=== PATIENT | female | born 1955 | race Caucasian/White ===

== ENCOUNTER 2016-08-14 09:38 | Inpatient (IN) | payer BC, MEDICARE ==
[~2016-08-14] VITALS: Ht 172.7 cm; Wt 70.8 kg
[~2016-08-14 09:38] MED LIST: ACET325T21 PO; ADAL40PE SQ; ASPI81TA50 PO; ATEN50TA PO; ATOR40TA59 PO; BENZ1LOZ48 MM; CALC500T50 PO; DICY10CA53 PO; DIGO250T PO; DILT240C2 PO; DILT300C23 PO; DILT30TA26 PO; DILT360C2 PO; DIPH25CA58 PO; DOCU-27 PO; Erythromycin Base PO; FLUO20TA11 PEG; Fluoxetine Hcl PEG; HYOS0.125 PO; INSU100I13 SQ; INSU100I17 SQ; INSU100V13 SQ; INSU100V31 SQ; INSU100V8 SQ; INSU100V9 SQ; LANS30CA PO; LISI-338 PO; LORA0.5T96 PO; NAPR500T3 PO; ONDA4TAB10 PO; ONDA8TAB15 PO; PANC1CAP PO; PANT40TA3 PO; PROM25AM6 IJ; SOTA160T PO; SOTA80TA48 PO; SUCR1TAB29 PO; TRAM-29 PO; VITMAIN D; ZOLP10TA PO; ZOLP5TAB PO; [UNRECOGNIZED DRUG - CODE] IV; [UNRECOGNIZED DRUG - OTHER]
[2016-08-14] MEDS ORDERED: IV NORMAL SALINE 1000ML BAG 1,000 ML IV SCH (09:44)
[2016-08-14] MEDS ORDERED: 0.9 % SOD CHL for STERILE FIELD 10 ML DISP.SYRIN. ONE (10:01)
[2016-08-14 10:55] LABS: CALCIUM 9.3 mg/dL (8.5-10.1); CREATININE 2.5 mg/dL (0.6-1.0); GFR 19.5; POTASSIUM 4.4 mmol/L (3.5-5.1)
--- NOTE | 2016-08-14 11:01 | RAD ---
Indication nausea and vomiting. Duration of symptoms one week. A single view of the chest was obtained and is compared to a study 08/17/2015. The heart, pulmonary vessels and mediastinum appear unremarkable. There is no focal infiltrate. There has not been a significant change. A left Port-A-Cath and a bipolar cardiac pacing device is noted. IMPRESSION: No acute or focal process. No significant change
[2016-08-14 11:02] LABS: ALBUMIN 3.2 g/dL (3.4-5.0); DIRECT BILIRUBIN 0.2 mg/dL (0.0-0.2); MAGNESIUM 2.3 mg/dL (1.8-2.4); TOTAL BILIRUBIN 0.4 mg/dL (0.2-1.0); TOTAL PROTEIN 6.6 g/dL (6.4-8.2)
[2016-08-14 11:05] LABS: BASO # 0.1 x10^3/uL (0.0-0.2); BASO % 1 % (0-3); EOS % 0 % (0-3); HEMOGLOBIN 10.8 g/dL (12.0-15.5); LYMPH # 1.2 x10^3/uL (1.0-4.8); LYMPH % 9 % (24-48); MEAN CORPUSCULAR HEMOGLOBIN 29 pg (25-35); MEAN CORPUSCULAR HGB CONC 34 g/dL (31-37); MEAN CORPUSCULAR VOLUME 85 fL (79-100); MONO % 8 % (0-9); NEUT % 83 % (31-73); PLATELET COUNT 248 x10^3/uL (140-400); RED BLOOD COUNT 3.75 x10^6/uL (3.50-5.40); WHITE BLOOD COUNT 12.8 x10^3/uL (4.0-11.0)
[2016-08-14 11:11] LABS: CKMB MASS 1.5 ng/mL (0.0-3.6)
[2016-08-14 11:16] LABS: PROTHROMBIN TIME PATIENT 12.4 SEC (11.7-14.0)
[2016-08-14] MEDS ORDERED: HYDROmorphone 2 MG/ML VIAL IV ONE ×2 (11:30→13:45)
[2016-08-14] MEDS ORDERED: FAMOTIDINE 20 MG/2 ML VIAL IVP ONE (11:30)
[2016-08-14] MEDS ORDERED: ONDANSETRON PF 4 MG/2 ML VIAL. IV ONE (11:30)
--- NOTE | 2016-08-14 11:31 | EKG ---
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
[2016-08-14 13:38] LABS: BILIRUBIN,URINE NEGATIVE (NEG); GLUCOSE,URINE 100 mg/dL (NEG); NITRITE,URINE NEGATIVE (NEG); PROTEIN,URINE NEGATIVE (NEG-TRACE); UROBILINOGEN,URINE 0.2 mg/dL (0.2 mg/dL)
[2016-08-14 13:45] LABS: BARBITURATES NEG (NEG); BENZODIAZEPINES NEG (NEG); CANNABINOIDS POS (NEG); COCAINE NEG (NEG); METHADONE NEG (NEG); OPIATES POS (NEG); PHENCYCLIDINE NEG (NEG)
[2016-08-14 13:49] LABS: RBC,URINE OCC /HPF (0-2)
[2016-08-14 13:50] LABS: BACTERIA,URINE FEW /HPF (0-FEW); SQUAMOUS EPITHELIAL CELL,UR MOD /LPF
[2016-08-14] MEDS: ONDANSETRON PF 4 MG/2 ML VIAL. IV PRN ×2 (15:51→23:42)
--- NOTE | 2016-08-14 15:52 | PHYS DOC ---
Past Medical History Past Medical History: A-Fib, Anemia, Arrhythmia, Diabetes-Type I, Heart Disease , Hypertension, MRSA, Pancreatitis Additional Past Medical Histor: Tachy-Jamir Syndrome, Gastroparesis, DDD, Neuropathy, Tremors, Kidney dz Past Surgical History: Cholecystectomy, Hysterectomy, Pacemaker Additional Past Surgical Histo: Thyroidectomy; Peripheral neuropathy Alcohol Use: None Drug Use: None Adult General Chief Complaint Chief Complaint: NAUSEA/VOMITING/DIARRHA HPI HPI Patient is a 61 year old female with a history of A. fib, hypertension, fragile diabetes type 1, gastroparesis, G-tube, pancreatitis, heart disease, who presents today with moderate generalized abdominal pain and nausea vomiting and slight diarrhea that began one week ago. Patient denies any hematemesis or melena. Review of Systems Review of Systems Constitutional: Denies fever or chills [] Eyes: Denies change in visual acuity, redness, or eye pain [] HENT: Denies nasal congestion or sore throat [] Respiratory: Denies cough or shortness of breath [] Cardiovascular: No additional information not addressed in HPI [] GI: Denies abdominal pain, nausea, vomiting, bloody stools or diarrhea [] : Denies dysuria or hematuria [] Musculoskeletal: Denies back pain or joint pain [] Integument: Denies rash or skin lesions [] Neurologic: Denies headache, focal weakness or sensory changes [] Endocrine: Denies polyuria or polydipsia [] Current Medications Current Medications Current Medications Medications (Trade) Dose Ordered Sig/Ramone Start Time Stop Time Status Last Admin Dose Admin Famotidine (Pepcid) 20 mg 1X ONCE 08/14/16 11:30 08/14/16 11:31 DC 08/14/16 11:38 20 MG Hydromorphone HCl (Dilaudid) 2 mg 1X ONCE 08/14/16 13:45 08/14/16 13:46 DC 08/14/16 13:52 2 MG Ondansetron HCl (Zofran) 8 mg 1X ONCE 08/14/16 11:30 08/14/16 11:31 DC 08/14/16 11:36 8 MG Sodium Chloride (NORMAL SALINE FLUSH for STERILE FIELD) 10 ml STK-MED ONCE 08/14/16 10:01 08/14/16 10:02 DC Allergies Allergies Allergies Coded Allergies Type Severity Reaction Last Updated Verified Sulfa (Sulfonamide Antibiotics) Allergy Intermediate Itching 10/29/13 Yes bacitracin Allergy Intermediate Hives 08/31/15 Yes codeine Allergy Intermediate Itching 10/29/13 Yes hydrocodone bitartrate Allergy Intermediate Itching 10/29/13 Yes morphine Allergy Intermediate Itching 10/29/13 Yes neomycin Allergy Intermediate Hives 08/31/15 Yes polymyxin B Allergy Intermediate Hives 08/31/15 Yes phenylephrine Adverse Reaction Intermediate NEOSYNEPHRINE 09/16/15 Yes phenytoin sodium Adverse Reaction Intermediate TREMORS 09/16/15 Yes phenytoin sodium extended Adverse Reaction Intermediate TREMORS 09/16/15 Yes Physical Exam Physical Exam Constitutional: Well developed, well nourished, no acute distress, non-toxic appearance. [] HENT: Normocephalic, atraumatic, bilateral external ears normal, oropharynx moist, no oral exudates, nose normal. [] Eyes: PERRLA, EOMI, conjunctiva normal, no discharge. [] Neck: Normal range of motion, no tenderness, supple, no stridor. [] Cardiovascular:Heart rate regular rhythm, no murmur [] Lungs & Thorax: Bilateral breath sounds clear to auscultation [] Abdomen: Abdomen with the G-tube at school. Bowel sounds normal, soft, diffuse tenderness throughout the abdomen, no masses, no pulsatile masses. [] Skin: Warm, dry, no erythema, no rash. [] Back: No tenderness, no CVA tenderness. [] Extremities: No tenderness, no cyanosis, no clubbing, ROM intact, no edema. [] Neurologic: Alert and oriented X 3, normal motor function, normal sensory function, no focal deficits noted. [] Psychologic: Affect normal, judgement normal, mood normal. [] Current Patient Data Vital Signs Vital Signs Date Time Temp Pulse Resp B/P (MAP) Pulse Ox O2 Delivery O2 Flow Rate FiO2 08/14/16 13:49 81 18 117/81 (93) 99 Room Air 08/14/16 09:51 97.9 97.9 Lab Values Laboratory Tests Test 08/14/16 10:25 08/14/16 13:20 White Blood Count 12.8 x10^3/uL (4.0-11.0) H Red Blood Count 3.75 x10^6/uL (3.50-5.40) Hemoglobin 10.8 g/dL (12.0-15.5) L Hematocrit 32.0 % (36.0-47.0) L Mean Corpuscular Volume 85 fL (79-100) Mean Corpuscular Hemoglobin 29 pg (25-35) Mean Corpuscular Hemoglobin Concent 34 g/dL (31-37) Red Cell Distribution Width 14.0 % (11.5-14.5) Platelet Count 248 x10^3/uL (140-400) Neutrophils (%) (Auto) 83 % (31-73) H Lymphocytes (%) (Auto) 9 % (24-48) L Monocytes (%) (Auto) 8 % (0-9) Eosinophils (%) (Auto) 0 % (0-3) Basophils (%) (Auto) 1 % (0-3) Neutrophils # (Auto) 10.6 x10^3uL (1.8-7.7) H Lymphocytes # (Auto) 1.2 x10^3/uL (1.0-4.8) Monocytes # (Auto) 1.0 x10^3/uL (0.0-1.1) Eosinophils # (Auto) 0.0 x10^3/uL (0.0-0.7) Basophils # (Auto) 0.1 x10^3/uL (0.0-0.2) Prothrombin Time 12.4 SEC (11.7-14.0) Prothrombin Time INR 1.0 (0.8-1.1) Sodium Level 134 mmol/L (136-145) L Potassium Level 4.4 mmol/L (3.5-5.1) Chloride Level 93 mmol/L (98-107) L Carbon Dioxide Level 33 mmol/L (21-32) H Anion Gap 8 (6-14) Blood Urea Nitrogen 59 mg/dL (7-20) H Creatinine 2.5 mg/dL (0.6-1.0) H Estimated GFR (Cockcroft-Gault) 19.5 Glucose Level 274 mg/dL (70-99) H Calcium Level 9.3 mg/dL (8.5-10.1) Magnesium Level 2.3 mg/dL (1.8-2.4) Total Bilirubin 0.4 mg/dL (0.2-1.0) Direct Bilirubin 0.2 mg/dL (0.0-0.2) Aspartate Amino Transferase (AST) 19 U/L (15-37) Alanine Aminotransferase (ALT) 19 U/L (14-59) Alkaline Phosphatase 115 U/L (46-116) Creatine Kinase 109 U/L (26-192) Creatine Kinase MB (Mass) 1.5 ng/mL (0.0-3.6) Creatine Kinase MB Relative Index 1.4 % (0-4) Troponin I Quantitative < 0.017 ng/mL (0.000-0.055) WM-Eon-H-Type Natriuretic Peptide 486 pg/mL (0-124) H Total Protein 6.6 g/dL (6.4-8.2) Albumin 3.2 g/dL (3.4-5.0) L Lipase 62 U/L (73-393) L Urine Collection Type Unknown Urine Color Yellow Urine Clarity Clear Urine pH 5.0 Urine Specific Alpha 1.015 Urine Protein Negative mg/dL (NEG-TRACE) Urine Glucose (UA) 100 mg/dL (NEG) Urine Ketones (Stick) Trace mg/dL (NEG) Urine Blood Negative (NEG) Urine Nitrite Negative (NEG) Urine Bilirubin Negative (NEG) Urine Urobilinogen Dipstick 0.2 mg/dL (0.2 mg/dL) Urine Leukocyte Esterase Moderate (NEG) Urine RBC Occ /HPF (0-2) Urine WBC 5-10 /HPF (0-4) Urine Squamous Epithelial Cells Mod /LPF Urine Bacteria Few /HPF (0-FEW) Urine Hyaline Casts Few /HPF Urine Mucus Slight /LPF Urine Opiates Screen Pos (NEG) Urine Methadone Screen Neg (NEG) Urine Barbiturates Neg (NEG) Urine Phencyclidine Screen Neg (NEG) Urine Amphetamine/Methamphetamine Neg (NEG) Urine Benzodiazepines Screen Neg (NEG) Urine Cocaine Screen Neg (NEG) Urine Cannabinoids Screen Pos (NEG) Urine Ethyl Alcohol Neg (NEG) Laboratory Tests 08/14/16 10:25 Laboratory Tests 08/14/16 10:25 EKG EKG [] Radiology/Procedures Radiology/Procedures [] Course & Med Decision Making Course & Med Decision Making Pertinent Labs and Imaging studies reviewed. (See chart for details) This is a 61 year old female patient with complaints of nausea vomiting and diarrhea for 7 days. Patient has a G-tube. CBC with a WBC of 12.8, CMP with creatinine of 2.5, BUN of 59. Patient was started on IV fluids. She was given nausea medicine as well as pain medicine in the ED. She has continued to complain of abdominal pain as well as intermittent nausea. I spoke with Dr. Jacob who accepted patient for admission. He requested lactic acid which was ordered. Patient was admitted in stable condition. Dragon Disclaimer Dragon Disclaimer This electronic medical record was generated, in whole or in part, using a voice recognition dictation system. Departure Departure Impression: Primary Impression: Nausea and vomiting Disposition: ADMITTED INPATIENT Admitting Physician: Goldie Jacob Condition: STABLE Referrals: BERNARDO JACOB MD (PCP) CRISTINA BARKELY COMPUTER INFORMATION SCIENCE PROFESSOR August 14, 2016 15:51
[2016-08-14] MEDS ORDERED: INSU100I27 SQ ×2 (17:12)
[2016-08-14] MEDS ORDERED: HYDR2TAB13 PO (17:12)
[2016-08-14 17:41] VITALS: BP 117/64
[2016-08-14] MEDS ORDERED: diphenhydrAMINE HCL 25 MG CAPSULE PO PRN (18:45)
[2016-08-14 19:40] VITALS: BP 112/59
[2016-08-14] MEDS: HYDROmorphone 2 MG/ML VIAL IV PRN ×2 (19:44→23:42)
[2016-08-14] MEDS: INSULIN DETEMIR 300 UNITS/3 ML INSULN.PEN. SQ SCH (20:58)
[2016-08-14] MEDS: ZOLPIDEM 5 MG TABLET. PO PRN (21:01)
[2016-08-14] MEDS: LORazepam 0.5 MG TABLET PO PRN (21:01)
[2016-08-14] MEDS: traMADol 50 MG TABLET PO PRN (21:01)
[2016-08-14] MEDS: IV NORMAL SALINE 1000ML BAG 1,000 ML IV SCH (21:02)
[2016-08-14] MEDS: dilTIAZem HCL 30 MG TABLET PO SCH (21:02)
[2016-08-14 23:00] VITALS: BP 87/56
[2016-08-15] VITALS (7 sets, daily range): BP systolic 87–128; BP diastolic 44–56
[2016-08-15] MEDS: LORazepam 0.5 MG TABLET PO PRN ×3 (06:02→19:41)
[2016-08-15 07:03] LABS: BASO # 0.1 x10^3/uL (0.0-0.2); BASO % 1 % (0-3); EOS % 0 % (0-3); HEMATOCRIT 29.8 % (36.0-47.0); HEMOGLOBIN 9.7 g/dL (12.0-15.5); LYMPH % 24 % (24-48); MEAN CORPUSCULAR HEMOGLOBIN 29 pg (25-35); MEAN CORPUSCULAR HGB CONC 33 g/dL (31-37); MEAN CORPUSCULAR VOLUME 88 fL (79-100); MONO % 8 % (0-9); NEUT % 67 % (31-73); PLATELET COUNT 200 x10^3/uL (140-400); RED BLOOD COUNT 3.38 x10^6/uL (3.50-5.40); RED CELL DISTRIBUTION WIDTH 14.8 % (11.5-14.5); WHITE BLOOD COUNT 8.2 x10^3/uL (4.0-11.0)
[2016-08-15 07:39] LABS: ALBUMIN 2.8 g/dL (3.4-5.0); ALBUMIN/GLOBULIN RATIO 0.8 (1.0-1.7); CALCIUM 8.5 mg/dL (8.5-10.1); CREATININE 1.9 mg/dL (0.6-1.0); GFR 26.8; POTASSIUM 3.9 mmol/L (3.5-5.1); TOTAL BILIRUBIN 0.2 mg/dL (0.2-1.0); TOTAL PROTEIN 6.5 g/dL (6.4-8.2)
[2016-08-15] MEDS: IV NORMAL SALINE 1000ML BAG 1,000 ML IV SCH ×2 (08:39→21:40)
[2016-08-15] MEDS: SOTALOL 80 MG TABLET. PO SCH (08:39)
[2016-08-15] MEDS: FLUoxetine HCL 20 MG CAPSULE PO SCH (08:39)
[2016-08-15] MEDS: dilTIAZem HCL 30 MG TABLET PO SCH ×3 (08:39→21:04)
[2016-08-15] MEDS: LANSOPRAZOLE 30 MG TAB.RAP.DR FT SCH (08:39)
[2016-08-15] MEDS: ONDANSETRON PF 4 MG/2 ML VIAL. IV PRN ×2 (08:40→21:13)
[2016-08-15] MEDS: INSULIN DETEMIR 300 UNITS/3 ML INSULN.PEN. SQ SCH ×2 (08:40→21:12)
[2016-08-15] MEDS: HYDROmorphone 2 MG/ML VIAL IV PRN ×3 (08:40→19:41)
[2016-08-15] MEDS ORDERED: PROMETHAZINE IM 25 MG/ML VIAL IM PRN (08:45)
[2016-08-15] MEDS ORDERED: ONDANSETRON ODT 4 MG TAB.RAPDIS. PO PRN (08:45)
--- NOTE | 2016-08-15 08:54 | PDOC ---
Provider Note Provider Note H&P dictated # [id number] BERNARDO JACOB MD Aug 15, 2016 08:54
--- NOTE | 2016-08-15 09:56 | HP ---
ADMIT DATE: 08/14/2016 ADMISSION DIAGNOSES: 1. Cyclical vomiting syndrome with intractable nausea and vomiting. 2. Acute kidney injury. 3. Type 1 diabetes without diabetic ketoacidosis. HISTORY OF PRESENT ILLNESS: This is a 61-year-old white female with severe diabetic gastroparesis who now has a J-tube and relies on tube feedings. She has developed nausea with vomiting over the last several days. She had diarrhea for 3 days also. Her had a gastrointestinal illness a couple of weeks ago and recovered. She also had a similar illness and seemed to have recovered. She had not had any fever or chills. She has not had any other signs of significant infection. She has been gradually getting weaker over the last several days and presented to the Emergency Room yesterday morning. Over a period of 4-6 hours, they tried to hydrate her and get her back to feeling well enough to be released home. We could not manage that and she was admitted overnight for ongoing IV fluids, control of nausea and vomiting and evaluation of her diarrhea, but her diarrhea has now stopped. She has not had any fever overnight. She was hypotensive overnight and responded to fluid bolus. Blood sugars have been controlled. Her creatinine is dropped, but still has her hemoglobin with hydration. PAST MEDICAL HISTORY: Significant for initially type 2 diabetes that is now totally insulin dependent mimics type 1. She has essential tremor. She has a history of a TIA and past seizures. She has peripheral neuropathy related to her diabetes. She has a cardiac pacemaker related to sick sinus syndrome. She has hypertension, GERD, past urinary tract infections, osteoarthritis with degenerative disk disease, scoliosis, carpal tunnel, hypothyroidism, history of MRSA. PAST SURGICAL HISTORY: Include J-tube placement, cholecystectomy, hysterectomy and thyroidectomy. FAMILY HISTORY: Suicide, obesity, diabetes, depression, heart disease. SOCIAL HISTORY: She is , lives with her . She states she had not smoked any marijuana in the last week or so, but it was present on her drug screen. She does not drink. She is not able to work. ALLERGIES: SHE HAS ALLERGIES TO SULFA, BACITRACIN, CODEINE, HYDROCODONE, MORPHINE, NEOMYCIN, PHENYLEPHRINE AND PHENYTOIN. HOME MEDICATIONS: Include digoxin 250 mcg daily, diltiazem 60 mg t.i.d., Benadryl 25 mg q. 6 hours p.r.n., fluoxetine 20 mg daily, hydromorphone 2 mg p.o. q. 4 hours p.r.n. pain, hyoscyamine 0.125 mg 6 times a day, NovoLog 8 units t.i.d. with meals, Levemir 38 units with breakfast, 25 units at bedtime; lansoprazole 30 mg daily, lisinopril 5 mg daily, lorazepam 0.5 mg q. 6 hours p.r.n., Zofran ODT 4 mg one or two q. 6 hours, Phenergan 25 mg IJ p.r.n. q. 6 hours, sotalol 80 mg daily, tramadol 50 mg q. 6 hours p.r.n., Ambien 5 mg at bedtime. REVIEW OF SYSTEMS: CONSTITUTIONAL: No fever or chills. HEENT: No change in vision or hearing. No sinus congestion. No allergic symptoms. Mouth is dry. GASTROINTESTINAL: Positive for nausea, vomiting and now dry heaves. She has had 3 days of diarrhea that seems to have now stopped. No blood or mucus was noted with the diarrhea. GENITOURINARY: No dysuria. MUSCULOSKELETAL: Generalized weakness, but no acute joint pains. NEUROLOGIC: No recent seizures. She has an essential tremor that is prominent. SKIN: No lesions, bleeding or bruising. NUTRITION: She is on tube feeding. She uses a pump at home. PHYSICAL EXAMINATION: VITAL SIGNS: She was hypotensive overnight, normotensive now, afebrile. GENERAL: She currently has dry heaves with an emesis basin in front of her. Mouth is dry. HEART: Regular rate and rhythm. LUNGS: Clear. ABDOMEN: Thin, soft, generalized tenderness, now seems to be muscular. No clubbing, cyanosis or significant edema. SKIN: Turgor is normal. NEUROLOGICAL: She is intact. She is alert and oriented. LABORATORY DATA: Show white count has dropped from 12.8 to 8.2, hemoglobin has dropped from 10.8 to 9.7. Differential is unremarkable. Coags are unremarkable. Chemistries show her creatinine has dropped from 2.5 to 1.9. Her BUN has dropped from 59 to 44. Electrolytes are normal. Blood sugars range from 89 to 180. Lactic acid was 1.1. Liver enzymes are normal. Albumin is low at 2.8 with a normal total protein. Urinalysis is not a clean catch too many squamous epithelial cells to think that she has a UTI. Her tox screen is positive for opiates and cannabinoids. IMAGING STUDIES: Chest x-ray; no acute process. ASSESSMENT: 1. Intractable nausea and vomiting. This may represent cyclical vomiting syndrome related to marijuana use. 2. Type 2, now type 1 diabetes with gastroparesis, requiring J-tube and tube feedings. 3. Acute kidney injury with bump in her creatinine from nausea, vomiting and dehydration. It is improved with hydration. 4. Anemia of chronic disease. 5. Type 1 diabetes with peripheral neuropathy. 6. Chronic moderate protein malnutrition. PLAN: She is admitted. She is being hydrated, nausea attempting to be controlled, but not successful yet. We will try to resume her home meds and tube feedings. W Bettina JACOB MD DR: BRENNAN/coretta JOB#: [id number] / [id number]
[2016-08-15] MEDS: DIGOXIN 250 MCG TABLET. PO SCH (10:11)
[2016-08-15] MEDS: HYOSCYAMINE 0.125 MG TAB.RAPDIS PO SCH ×5 (10:12→22:00)
[2016-08-15] MEDS: HYDROmorphone 2 MG TABLET PO PRN (12:26)
[2016-08-15] MEDS: ONDANSETRON ODT 4 MG TAB.RAPDIS. PO PRN (17:08)
--- NOTE | 2016-08-15 17:08 | RAD ---
Acute abdomen series History: Nausea, vomiting, dizziness. Comparison: 08/17/2015. Findings: Frontal view of the chest. Cardiac silhouette appears within normal limits for size. No pneumoperitoneum or pneumothorax is identified. No acute infiltrate is seen. Left chest port and catheter are unchanged. A dual-lead pacemaker by rest a plate and approach is again seen. Supine and upright views of the abdomen. No dilated loops of bowel are seen. Jejunostomy tube is seen involving left aspect of the abdomen. Cholecystectomy clips are present. Multiple calcifications are seen in the pelvis. Impression: No acute abnormality identified in the chest or abdomen.
[2016-08-15] MEDS ORDERED: INSULIN ASPART 300 UNITS/3 ML INSULN.PEN SQ ONE (18:00)
[2016-08-15] MEDS: ZOLPIDEM 5 MG TABLET. PO PRN (21:04)
[2016-08-15] MEDS: traMADol 50 MG TABLET PO PRN (21:04)
[2016-08-16] MEDS: HYDROmorphone 2 MG/ML VIAL IV PRN ×4 (00:27→23:35)
[2016-08-16] MEDS: LORazepam 0.5 MG TABLET PO PRN (06:01)
[2016-08-16] MEDS: HYOSCYAMINE 0.125 MG TAB.RAPDIS PO SCH ×6 (06:01→21:06)
[2016-08-16] MEDS: HYDROmorphone 2 MG TABLET PO PRN (06:01)
[2016-08-16] MEDS: ONDANSETRON PF 4 MG/2 ML VIAL. IV PRN ×3 (06:01→21:06)
[2016-08-16 06:42] LABS: BASO % 1 % (0-3); EOS % 0 % (0-3); HEMOGLOBIN 9.9 g/dL (12.0-15.5); LYMPH # 1.7 x10^3/uL (1.0-4.8); LYMPH % 18 % (24-48); MEAN CORPUSCULAR HEMOGLOBIN 29 pg (25-35); MEAN CORPUSCULAR HGB CONC 33 g/dL (31-37); MEAN CORPUSCULAR VOLUME 88 fL (79-100); MONO % 8 % (0-9); NEUT % 74 % (31-73); PLATELET COUNT 218 x10^3/uL (140-400); RED BLOOD COUNT 3.41 x10^6/uL (3.50-5.40); RED CELL DISTRIBUTION WIDTH 14.4 % (11.5-14.5); WHITE BLOOD COUNT 9.1 x10^3/uL (4.0-11.0)
[2016-08-16 07:35] VITALS: BP 107/49
[2016-08-16] MEDS: LANSOPRAZOLE 30 MG TAB.RAP.DR FT SCH (08:47)
[2016-08-16] MEDS: DIGOXIN 250 MCG TABLET. PO SCH (08:50)
[2016-08-16] MEDS: dilTIAZem HCL 30 MG TABLET PO SCH ×3 (08:51→19:41)
[2016-08-16] MEDS: FLUoxetine HCL 20 MG CAPSULE PO SCH (08:51)
[2016-08-16] MEDS: SOTALOL 80 MG TABLET. PO SCH (08:52)
[2016-08-16] MEDS: INSULIN DETEMIR 300 UNITS/3 ML INSULN.PEN. SQ SCH ×2 (09:15→21:13)
[2016-08-16 10:59] VITALS: BP 128/58
--- NOTE | 2016-08-16 12:40 | PDOC ---
PROGRESS NOTES Subjective Subjective Her nausea persists and not yet eating but her vomiting has stopped. She requests changes in her pain and anxiety meds to better reflect what she does at home. Tolerating tube feeds. Sugar elevated this am Objective Objective Vital Signs Date Time Temp Pulse Resp B/P (MAP) Pulse Ox O2 Delivery O2 Flow Rate FiO2 08/16/16 10:59 98.4 70 18 128/58 (81) 97 Room Air 98.4 Intake and Output 08/16/16 07:00 Intake Total 790 ml Output Total 600 ml Balance 190 ml Intake Oral 100 ml Tube Feeding 690 ml Output Urine Total 600 ml Gastric Drainage Total 0 ml # Voids 7 Physical Exam Abdomen: Soft Heart: Regular rate Extremities: No clubbing, No cyanosis, No edema General: Alert, Oriented X3, Cooperative HEENT: Atraumatic Lungs: Clear to auscultation MUSCULOSKELETAL: No joint tenderness Neck: Supple Neuro: Normal speech Psych/Mental Status: Mental status NL Skin: No breakdown Assessment Assessment Assessment (1) Intractable Nausea and vomiting - improved (2) chronic gastroparesis for diabetes - on tube feeds (3) 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 Labs Laboratory Tests Test 08/14/16 13:20 08/14/16 17:13 08/14/16 19:45 08/14/16 20:54 Urine Collection Type Unknown Urine Color Yellow Urine Clarity Clear Urine pH 5.0 Urine Specific Longs 1.015 Urine Protein Negative mg/dL (NEG-TRACE) Urine Glucose (UA) 100 mg/dL (NEG) Urine Ketones (Stick) Trace mg/dL (NEG) Urine Blood Negative (NEG) Urine Nitrite Negative (NEG) Urine Bilirubin Negative (NEG) Urine Urobilinogen Dipstick 0.2 mg/dL (0.2 mg/dL) Urine Leukocyte Esterase Moderate (NEG) Urine RBC Occ /HPF (0-2) Urine WBC 5-10 /HPF (0-4) Urine Squamous Epithelial Cells Mod /LPF Urine Bacteria Few /HPF (0-FEW) Urine Hyaline Casts Few /HPF Urine Mucus Slight /LPF Urine Opiates Screen Pos (NEG) Urine Methadone Screen Neg (NEG) Urine Barbiturates Neg (NEG) Urine Phencyclidine Screen Neg (NEG) Urine Amphetamine/Methamphetamine Neg (NEG) Urine Benzodiazepines Screen Neg (NEG) Urine Cocaine Screen Neg (NEG) Urine Cannabinoids Screen Pos (NEG) Urine Ethyl Alcohol Neg (NEG) Glucose (Fingerstick) 211 mg/dL (70-99) 180 mg/dL (70-99) Lactic Acid Level 1.1 mmol/L (0.4-2.0) Test 08/15/16 05:35 08/15/16 06:50 08/15/16 08:04 08/15/16 11:58 Glucose (Fingerstick) 89 mg/dL (70-99) 116 mg/dL (70-99) 198 mg/dL (70-99) White Blood Count 8.2 x10^3/uL (4.0-11.0) Red Blood Count 3.38 x10^6/uL (3.50-5.40) Hemoglobin 9.7 g/dL (12.0-15.5) Hematocrit 29.8 % (36.0-47.0) Mean Corpuscular Volume 88 fL (79-100) Mean Corpuscular Hemoglobin 29 pg (25-35) Mean Corpuscular Hemoglobin Concent 33 g/dL (31-37) Red Cell Distribution Width 14.8 % (11.5-14.5) Platelet Count 200 x10^3/uL (140-400) Neutrophils (%) (Auto) 67 % (31-73) Lymphocytes (%) (Auto) 24 % (24-48) Monocytes (%) (Auto) 8 % (0-9) Eosinophils (%) (Auto) 0 % (0-3) Basophils (%) (Auto) 1 % (0-3) Neutrophils # (Auto) 5.5 x10^3uL (1.8-7.7) Lymphocytes # (Auto) 2.0 x10^3/uL (1.0-4.8) Monocytes # (Auto) 0.7 x10^3/uL (0.0-1.1) Eosinophils # (Auto) 0.0 x10^3/uL (0.0-0.7) Basophils # (Auto) 0.1 x10^3/uL (0.0-0.2) Sodium Level 141 mmol/L (136-145) Potassium Level 3.9 mmol/L (3.5-5.1) Chloride Level 101 mmol/L (98-107) Carbon Dioxide Level 34 mmol/L (21-32) Anion Gap 6 (6-14) Blood Urea Nitrogen 44 mg/dL (7-20) Creatinine 1.9 mg/dL (0.6-1.0) Estimated GFR (Cockcroft-Gault) 26.8 BUN/Creatinine Ratio 23 (6-20) Glucose Level 95 mg/dL (70-99) Calcium Level 8.5 mg/dL (8.5-10.1) Total Bilirubin 0.2 mg/dL (0.2-1.0) Aspartate Amino Transf (AST/SGOT) 19 U/L (15-37) Alanine Aminotransferase (ALT/SGPT) 19 U/L (14-59) Alkaline Phosphatase 105 U/L (46-116) Total Protein 6.5 g/dL (6.4-8.2) Albumin 2.8 g/dL (3.4-5.0) Albumin/Globulin Ratio 0.8 (1.0-1.7) Test 08/15/16 17:18 08/15/16 20:32 08/16/16 06:30 08/16/16 07:37 Glucose (Fingerstick) 322 mg/dL (70-99) 304 mg/dL (70-99) 253 mg/dL (70-99) White Blood Count 9.1 x10^3/uL (4.0-11.0) Red Blood Count 3.41 x10^6/uL (3.50-5.40) Hemoglobin 9.9 g/dL (12.0-15.5) Hematocrit 30.0 % (36.0-47.0) Mean Corpuscular Volume 88 fL (79-100) Mean Corpuscular Hemoglobin 29 pg (25-35) Mean Corpuscular Hemoglobin Concent 33 g/dL (31-37) Red Cell Distribution Width 14.4 % (11.5-14.5) Platelet Count 218 x10^3/uL (140-400) Neutrophils (%) (Auto) 74 % (31-73) Lymphocytes (%) (Auto) 18 % (24-48) Monocytes (%) (Auto) 8 % (0-9) Eosinophils (%) (Auto) 0 % (0-3) Basophils (%) (Auto) 1 % (0-3) Neutrophils # (Auto) 6.7 x10^3uL (1.8-7.7) Lymphocytes # (Auto) 1.7 x10^3/uL (1.0-4.8) Monocytes # (Auto) 0.7 x10^3/uL (0.0-1.1) Eosinophils # (Auto) 0.0 x10^3/uL (0.0-0.7) Basophils # (Auto) 0.0 x10^3/uL (0.0-0.2) Test 08/16/16 11:47 Glucose (Fingerstick) 250 mg/dL (70-99) Laboratory Tests Test 08/15/16 17:18 08/15/16 20:32 08/16/16 06:30 08/16/16 07:37 Glucose (Fingerstick) 322 mg/dL (70-99) 304 mg/dL (70-99) 253 mg/dL (70-99) White Blood Count 9.1 x10^3/uL (4.0-11.0) Red Blood Count 3.41 x10^6/uL (3.50-5.40) Hemoglobin 9.9 g/dL (12.0-15.5) Hematocrit 30.0 % (36.0-47.0) Mean Corpuscular Volume 88 fL (79-100) Mean Corpuscular Hemoglobin 29 pg (25-35) Mean Corpuscular Hemoglobin Concent 33 g/dL (31-37) Red Cell Distribution Width 14.4 % (11.5-14.5) Platelet Count 218 x10^3/uL (140-400) Neutrophils (%) (Auto) 74 % (31-73) Lymphocytes (%) (Auto) 18 % (24-48) Monocytes (%) (Auto) 8 % (0-9) Eosinophils (%) (Auto) 0 % (0-3) Basophils (%) (Auto) 1 % (0-3) Neutrophils # (Auto) 6.7 x10^3uL (1.8-7.7) Lymphocytes # (Auto) 1.7 x10^3/uL (1.0-4.8) Monocytes # (Auto) 0.7 x10^3/uL (0.0-1.1) Eosinophils # (Auto) 0.0 x10^3/uL (0.0-0.7) Basophils # (Auto) 0.0 x10^3/uL (0.0-0.2) Test 08/16/16 11:47 Glucose (Fingerstick) 250 mg/dL (70-99) Medications Current Medications Sodium Chloride 1,000 ml @ 1,000 mls/hr Q1H IV Last administered on 08/14/16 10:49; Start 08/14/16 at 09:44; Stop 08/14/16 at 10:43; Status DC Sodium Chloride (NORMAL SALINE FLUSH for STERILE FIELD) 10 ml STK-MED ONCE .ROUTE ; Start 08/14/16 at 10:01; Stop 08/14/16 at 10:02; Status DC Ondansetron HCl (Zofran) 8 mg 1X ONCE IV Last administered on 08/14/16 11:36 ; Start 08/14/16 at 11:30; Stop 08/14/16 at 11:31; Status DC Famotidine (Pepcid) 20 mg 1X ONCE IVP Last administered on 08/14/16 11:38; Start 08/14/16 at 11:30; Stop 08/14/16 at 11:31; Status DC Hydromorphone HCl (Dilaudid) 1 mg 1X ONCE IV Last administered on 08/14/16 11 :40; Start 08/14/16 at 11:30; Stop 08/14/16 at 11:31; Status DC Hydromorphone HCl (Dilaudid) 2 mg 1X ONCE IV Last administered on 08/14/16 13 :52; Start 08/14/16 at 13:45; Stop 08/14/16 at 13:46; Status DC Ondansetron HCl (Zofran) 4 mg PRN Q8HRS PRN IV NAUSEA/VOMITING Last administered on 08/15/16 08:40; Start 08/14/16 at 15:15; Stop 08/15/16 at 15:14; Status DC Hydromorphone HCl (Dilaudid) 1 mg PRN Q3HRS PRN IV pain Last administered on 10:41; Start 08/14/16 at 15:15 Diltiazem HCl (Cardizem) 60 mg TID PO Last administered on 08/16/16 08:51; Start 08/14/16 at 21:00 Diphenhydramine HCl (Benadryl) 25 mg PRN Q6HRS PRN PO ITCHING; Start 08/14/16 at 18:45 Lorazepam (Ativan) 0.5 mg PRN Q6HRS PRN PO ANXIETY / AGITATION Last administered on 08/16/16 06:01; Start 08/14/16 at 18:45 Sotalol HCl (Betapace) 80 mg DAILY PO Last administered on 08/16/16 08:52; Start 08/15/16 at 09:00 Tramadol HCl (Ultram) 50 mg PRN Q6HRS PRN PO PAIN Last administered on 21:04; Start 08/14/16 at 18:45 Zolpidem Tartrate (Ambien) 5 mg PRN QHS PRN PO INSOMNIA Last administered on 21:04; Start 08/14/16 at 18:45 Fluoxetine HCl (PROzac) 20 mg DAILY PO Last administered on 08/16/16 08:51; Start 08/15/16 at 09:00 Lansoprazole (Prevacid) 30 mg DAILY FT Last administered on 08/16/16 08:47; Start 08/15/16 at 09:00 Ondansetron HCl (Zofran Odt) 8 mg PRN Q6HRS PRN PO NAUSEA/VOMITING Last administered on 08/15/16 17:08; Start 08/14/16 at 19:00 Sodium Chloride 1,000 ml @ 75 mls/hr [id number] IV Last administered on 08/15/16 08:39; Start 08/14/16 at 19:00 Insulin Detemir (Levemir) 15 units BID SQ Last administered on 08/16/16 09:15; Start 08/14/16 at 21:00 Digoxin (Lanoxin) 250 mcg DAILY PO Last administered on 08/16/16 08:50; Start 08/15/16 at 09:00 Hydromorphone HCl (Dilaudid) 2 mg PRN Q4HRS PRN PO SEVERE PAIN Last administered on 08/16/16 06:01; Start 08/15/16 at 08:45 Hyoscyamine (Anaspaz) 0.125 mg 6XDAY PO Last administered on 08/16/16 08:49; Start 08/15/16 at 10:00 Ondansetron HCl (Zofran Odt) 4 mg PRN Q6HRS PRN PO NAUSEA/VOMITING; Start at 08:45 Promethazine HCl (Phenergan Im) 25 mg PRN Q6HRS PRN IM NAUSEA; Start 08/15/16 at 08:45 Ondansetron HCl (Zofran) 4 mg PRN Q6HRS PRN IV NAUSEA/VOMITING Last administered on 08/16/16 06:01; Start 08/15/16 at 08:45 Insulin Aspart (NovoLOG) 5 units 1X ONCE SQ Last administered on 08/15/16 18: 50; Start 08/15/16 at 18:00; Stop 08/15/16 at 18:01; Status DC Active Scripts Active Cardizem Tablet (Diltiazem Hcl) 30 Mg Tablet 60 Mg PO TID Benadryl (Diphenhydramine Hcl) 25 Mg Capsule 25 Mg PO PRN Q6HRS PRN Sotalol (Sotalol Hcl) 80 Mg Tablet 80 Mg PO DAILY Digoxin 250 Mcg Tablet 250 Mcg PO DAILY Ambien (Zolpidem Tartrate) 5 Mg Tablet 5 Mg PO PRN QHS PRN Ultram (Tramadol Hcl) 50 Mg Tablet 50 Mg PO PRN Q6HRS PRN Ativan (Lorazepam) 0.5 Mg Tablet 0.5 Mg PO PRN Q6HRS PRN Zofran Odt (Ondansetron) 4 Mg Tab.rapdis 4 Mg PO PRN Q6HRS PRN Reported Dilaudid (Hydromorphone Hcl) 2 Mg Tablet 2 Mg PO PRN Q4HRS PRN Levemir Flextouch (Insulin Detemir) 100 Unit/1 Ml Insuln.pen 25 Unit SQ QHS Levemir Flextouch (Insulin Detemir) 100 Unit/1 Ml Insuln.pen 38 Unit SQ DAILYWBKFT Phenergan (Promethazine Hcl) 25 Mg/1 Ml Ampul 25 Mg IJ PRN Q6HRS PRN Ondansetron Odt (Ondansetron) 8 Mg Tab.rapdis 8 Mg PO PRN Q6HRS PRN Lansoprazole 30 Mg Capsule.dr 1 Cap PO DAILY Novolog (Insulin Aspart) 100 Unit/1 Ml Vial 8 Unit SQ TIDAC Heparin 500 Unit/5 Ml (100/Ml) (Heparin Sodium,Porcine/Pf) 100 Unit/1 Ml Disp.syrin 500 Unit IV 1X Fluoxetine Hcl 20 Mg Tablet 20 Mg PEG DAILY Hyoscyamine Sulfate 0.125 Mg Tab.rapdis 0.125 Mg PO 6XDAY Lisinopril 5 Mg Tablet 5 Mg PO DAILY Vitals/I & O Vital Sign - Last 24 Hours 08/15/16 08/15/16 08/15/16 08/15/16 14:45 15:41 15:44 19:05 Temp 98.6 98.9 98.6 98.9 Pulse 65 65 66 Resp 16 18 B/P (MAP) 114/51 (72) 114/51 122/52 (75) Pulse Ox 98 98 O2 Delivery Room Air Room Air Room Air 08/15/16 08/15/16 08/15/16 08/15/16 19:41 20:00 20:11 21:04 Pulse 66 B/P (MAP) 122/52 Pulse Ox 98 O2 Delivery Room Air Room Air Room Air 08/15/16 08/15/16 08/15/16 08/16/16 21:04 22:04 23:05 00:27 Temp 98.7 98.7 Pulse 62 Resp 18 B/P (MAP) 128/44 (72) Pulse Ox 98 98 98 98 O2 Delivery Room Air Room Air Room Air Room Air 08/16/16 08/16/16 08/16/16 08/16/16 06:01 07:35 08:00 08:50 Temp 98.3 98.3 Pulse 67 67 Resp 18 B/P (MAP) 107/49 (68) 107/49 Pulse Ox 98 98 O2 Delivery Room Air Room Air Room Air 08/16/16 08/16/16 08/16/16 08/16/16 08:51 08:52 09:30 10:41 Pulse 67 67 B/P (MAP) 107/49 107/49 Pulse Ox 98 98 O2 Delivery Room Air Room Air 08/16/16 10:59 Temp 98.4 98.4 Pulse 70 Resp 18 B/P (MAP) 128/58 (81) Pulse Ox 97 O2 Delivery Room Air Intake and Output 08/15/16 08/15/16 08/16/16 15:00 23:00 07:00 Intake Total 130 ml 200 ml 460 ml Output Total 600 ml 0 ml Balance -470 ml 200 ml 460 ml BERNARDO JACOB MD Aug 16, 2016 12:40
[2016-08-16] MEDS: LORazepam 1 MG TABLET PO SCH ×2 (13:12→19:42)
[2016-08-16] MEDS: fentaNYL PF VIAL 100 MCG/2 ML VIAL IV PRN ×2 (13:27→21:06)
[2016-08-16] MEDS: IV NORMAL SALINE 1000ML BAG 1,000 ML IV SCH ×2 (13:31→23:37)
[2016-08-16] MEDS ORDERED: LORazepam 1 MG TABLET PO PRN (14:00)
[2016-08-16 14:35] VITALS: BP 115/55
[2016-08-16] MEDS: ZOLPIDEM 5 MG TABLET. PO PRN (19:41)
[2016-08-16 19:51] VITALS: BP 125/60
[2016-08-16 23:14] VITALS: BP 128/60
[2016-08-17] MEDS: HYDROmorphone 2 MG/ML VIAL IV PRN ×3 (03:09→16:30)
[2016-08-17] MEDS: ONDANSETRON PF 4 MG/2 ML VIAL. IV PRN ×3 (03:09→16:30)
[2016-08-17 03:19] VITALS: BP 123/58
[2016-08-17 05:41] LABS: CALCIUM 8.1 mg/dL (8.5-10.1); CREATININE 1.2 mg/dL (0.6-1.0); GFR 45.5; POTASSIUM 4.5 mmol/L (3.5-5.1)
[2016-08-17 07:19] VITALS: BP 125/76
[2016-08-17] MEDS: INSULIN DETEMIR 300 UNITS/3 ML INSULN.PEN. SQ SCH (08:16)
[2016-08-17] MEDS: DIGOXIN 250 MCG TABLET. PO SCH (08:17)
[2016-08-17] MEDS: FLUoxetine HCL 20 MG CAPSULE PO SCH (08:17)
[2016-08-17] MEDS: LORazepam 1 MG TABLET PO SCH ×2 (08:18→13:29)
[2016-08-17] MEDS: dilTIAZem HCL 30 MG TABLET PO SCH ×2 (08:18→13:29)
[2016-08-17] MEDS: LANSOPRAZOLE 30 MG TAB.RAP.DR FT SCH (08:18)
[2016-08-17] MEDS: SOTALOL 80 MG TABLET. PO SCH (08:18)
[2016-08-17] MEDS: HYOSCYAMINE 0.125 MG TAB.RAPDIS PO SCH ×5 (08:18→20:07)
[2016-08-17 11:07] VITALS: BP 116/55
[2016-08-17] MEDS: ONDANSETRON ODT 4 MG TAB.RAPDIS. PO PRN (11:10)
[2016-08-17] MEDS: fentaNYL PF VIAL 100 MCG/2 ML VIAL IV PRN (11:10)
--- NOTE | 2016-08-17 11:40 | DISCH ---
DISCHARGE INSTRUCTIONS Condition on Discharge Condition on Discharge: Stable Activity After Discharge Activity Instructions for Disc: Activity as tolerated Diet after Discharge Diet after Discharge: GI Soft Checks after Discharge Checks after discharge: Check blood sugar, ac/hs Contacting the DRVinnie after DC Call your doctor for: If your condition worsens Follow-Up Follow up with: Dr. Jacob within 2 weeks Treatment/Equipment after DC Comment: continue tube feedings at 40 cc/hr BERNARDO JACOB MD Aug 17, 2016 11:40
--- NOTE | 2016-08-17 11:45 | PDOC3 ---
Discharge Summary Visit Information Date of Admission: August 14, 2016 Date of Discharge: Aug 17, 2016 Final Diagnosis (1) Intractable cyclic Nausea and vomiting with Acute Kidney injury Status: Acute Brief Hospital Course Allergies Allergies Coded Allergies Type Severity Reaction Last Updated Verified Sulfa (Sulfonamide Antibiotics) Allergy Intermediate Itching 10/29/13 Yes bacitracin Allergy Intermediate Hives 08/31/15 Yes codeine Allergy Intermediate Itching 10/29/13 Yes hydrocodone bitartrate Allergy Intermediate Itching 10/29/13 Yes morphine Allergy Intermediate Itching 10/29/13 Yes neomycin Allergy Intermediate Hives 08/31/15 Yes polymyxin B Allergy Intermediate Hives 08/31/15 Yes phenylephrine Adverse Reaction Intermediate NEOSYNEPHRINE 09/16/15 Yes phenytoin sodium Adverse Reaction Intermediate TREMORS 09/16/15 Yes phenytoin sodium extended Adverse Reaction Intermediate TREMORS 09/16/15 Yes Vital Signs Vital Signs Date Time Temp Pulse Resp B/P (MAP) Pulse Ox O2 Delivery O2 Flow Rate FiO2 08/17/16 11:07 98.2 66 16 116/55 (75) 96 Room Air 98.2 Lab Results Laboratory Tests Test 08/15/16 11:58 08/15/16 17:18 08/15/16 20:32 08/16/16 06:30 Glucose (Fingerstick) 198 mg/dL (70-99) 322 mg/dL (70-99) 304 mg/dL (70-99) White Blood Count 9.1 x10^3/uL (4.0-11.0) Red Blood Count 3.41 x10^6/uL (3.50-5.40) Hemoglobin 9.9 g/dL (12.0-15.5) Hematocrit 30.0 % (36.0-47.0) Mean Corpuscular Volume 88 fL (79-100) Mean Corpuscular Hemoglobin 29 pg (25-35) Mean Corpuscular Hemoglobin Concent 33 g/dL (31-37) Red Cell Distribution Width 14.4 % (11.5-14.5) Platelet Count 218 x10^3/uL (140-400) Neutrophils (%) (Auto) 74 % (31-73) Lymphocytes (%) (Auto) 18 % (24-48) Monocytes (%) (Auto) 8 % (0-9) Eosinophils (%) (Auto) 0 % (0-3) Basophils (%) (Auto) 1 % (0-3) Neutrophils # (Auto) 6.7 x10^3uL (1.8-7.7) Lymphocytes # (Auto) 1.7 x10^3/uL (1.0-4.8) Monocytes # (Auto) 0.7 x10^3/uL (0.0-1.1) Eosinophils # (Auto) 0.0 x10^3/uL (0.0-0.7) Basophils # (Auto) 0.0 x10^3/uL (0.0-0.2) Test 08/16/16 07:37 08/16/16 11:47 08/16/16 17:08 08/16/16 20:39 Glucose (Fingerstick) 253 mg/dL (70-99) 250 mg/dL (70-99) 185 mg/dL (70-99) 166 mg/dL (70-99) Test 08/17/16 04:45 08/17/16 07:23 08/17/16 11:34 Sodium Level 142 mmol/L (136-145) Potassium Level 4.5 mmol/L (3.5-5.1) Chloride Level 107 mmol/L (98-107) Carbon Dioxide Level 33 mmol/L (21-32) Anion Gap 2 (6-14) Blood Urea Nitrogen 19 mg/dL (7-20) Creatinine 1.2 mg/dL (0.6-1.0) Estimated GFR (Cockcroft-Gault) 45.5 Glucose Level 88 mg/dL (70-99) Calcium Level 8.1 mg/dL (8.5-10.1) Glucose (Fingerstick) 90 mg/dL (70-99) 137 mg/dL (70-99) Laboratory Tests Test 08/16/16 11:47 08/16/16 17:08 08/16/16 20:39 08/17/16 04:45 Glucose (Fingerstick) 250 mg/dL (70-99) 185 mg/dL (70-99) 166 mg/dL (70-99) Sodium Level 142 mmol/L (136-145) Potassium Level 4.5 mmol/L (3.5-5.1) Chloride Level 107 mmol/L (98-107) Carbon Dioxide Level 33 mmol/L (21-32) Anion Gap 2 (6-14) Blood Urea Nitrogen 19 mg/dL (7-20) Creatinine 1.2 mg/dL (0.6-1.0) Estimated GFR (Cockcroft-Gault) 45.5 Glucose Level 88 mg/dL (70-99) Calcium Level 8.1 mg/dL (8.5-10.1) Test 08/17/16 07:23 08/17/16 11:34 Glucose (Fingerstick) 90 mg/dL (70-99) 137 mg/dL (70-99) Brief Hospital Course Ms. Ontiveros is a 61 old who presented with FRIDA from intractable cyclic nausea and vomiting and admitted for nausea and vomiting control and IV hydration and now her renal function is back to baseline and she is tolerating her tube feedings and feeling like she can eat again. Blood sugar is well controlled, no other medical complications Discharge Information Condition at Discharge: Improved, Stable Follow Up: Weeks (within 2 weeks) Disposition/Orders: D/C to Home Scheduled Digoxin (Digoxin), 250 MCG PO DAILY Diltiazem Hcl (Cardizem Tablet), 60 MG PO TID Fluoxetine Hcl (Fluoxetine Hcl), 20 MG PEG DAILY, (Reported) Heparin Sodium,Porcine/Pf (Heparin 500 Unit/5 Ml (100/Ml)), 500 UNIT IV 1X, ( Reported) Hyoscyamine Sulfate (Hyoscyamine Sulfate), 0.125 MG PO 6XDAY, (Reported) Insulin Aspart (Novolog), 8 UNIT SQ TIDAC, (Reported) Insulin Detemir (Levemir Flextouch), 38 UNIT SQ DAILYWBKFT, (Reported) Insulin Detemir (Levemir Flextouch), 25 UNIT SQ QHS, (Reported) Lansoprazole (Lansoprazole), 1 CAP PO DAILY, (Reported) Lisinopril (Lisinopril), 5 MG PO DAILY, (Reported) Sotalol Hcl (Sotalol), 80 MG PO DAILY Scheduled PRN Diphenhydramine Hcl (Benadryl), 25 MG PO PRN Q6HRS PRN for ITCHING Hydromorphone Hcl (Dilaudid), 2 MG PO PRN Q4HRS PRN for SEVERE PAIN, (Reported) Lorazepam (Ativan), 0.5 MG PO PRN Q6HRS PRN for ANXIETY / AGITATION Ondansetron (Zofran Odt), 4 MG PO PRN Q6HRS PRN for NAUSEA/VOMITING Ondansetron (Ondansetron Odt), 8 MG PO PRN Q6HRS PRN for NAUSEA/VOMITING, ( Reported) Promethazine Hcl (Phenergan), 25 MG IJ PRN Q6HRS PRN for NAUSEA, (Reported) Tramadol Hcl (Ultram), 50 MG PO PRN Q6HRS PRN for PAIN Zolpidem Tartrate (Ambien), 5 MG PO PRN QHS PRN for INSOMNIA BERNARDO JACOB MD Aug 17, 2016 11:45
[2016-08-17] MEDS: IV NORMAL SALINE 1000ML BAG 1,000 ML IV SCH (13:30)
[2016-08-17 15:25] VITALS: BP 122/54
[2016-08-17] MEDS ORDERED: HEPARIN PF 500 UNIT/5 ML DISP.SYRIN. IV ONE (16:30)
[2016-08-17] MEDS ORDERED: INSULIN ASPART 300 UNITS/3 ML INSULN.PEN SQ ONE (17:30)
== END 2016-08-17 19:30 | disposition home or self-care (01) | DRG 683 ==
LOC: ER 09:38 → 6 SOUTH 13:50
PROVIDERS: ADMIT Family Medicine; ATTEND Family Medicine
DX: N17.9 Acute kidney failure, unspecified (principal); E44.0 Moderate protein-calorie malnutrition; G43.A0 Cyclical vomiting, in migraine, not intractable; E10.43 Type 1 diabetes mellitus with diabetic autonomic (poly)neuropathy; I10 Essential (primary) hypertension; I48.91 Unspecified atrial fibrillation; D63.8 Anemia in other chronic diseases classified elsewhere; E03.9 Hypothyroidism, unspecified; E86.0 Dehydration; M19.90 Unspecified osteoarthritis, unspecified site; F41.9 Anxiety disorder, unspecified; K31.84 Gastroparesis; K21.9 Gastro-esophageal reflux disease without esophagitis; G47.00 Insomnia, unspecified; M41.9 Scoliosis, unspecified; Z81.8 Family history of other mental and behavioral disorders; K31.89 Other diseases of stomach and duodenum; R11.2 Nausea with vomiting, unspecified; Z83.3 Family history of diabetes mellitus; Z86.14 Personal history of Methicillin resistant Staphylococcus aureus infection; Z86.73 Personal history of transient ischemic attack (TIA), and cerebral infarction without residual deficits; Z87.440 Personal history of urinary (tract) infections; Z90.710 Acquired absence of both cervix and uterus; Z90.49 Acquired absence of other specified parts of digestive tract; Z90.89 Acquired absence of other organs; Z95.0 Presence of cardiac pacemaker; Z88.6 Allergy status to analgesic agent; Z88.1 Allergy status to other antibiotic agents; Z88.5 Allergy status to narcotic agent; Z88.2 Allergy status to sulfonamides; Z88.8 Allergy status to other drugs, medicaments and biological substances; Z82.49 Family history of ischemic heart disease and other diseases of the circulatory system; Z68.23 Body mass index [BMI] 23.0-23.9, adult
CPT/HCPCS: 36415; 71010; 74022; 80048; 80053; 80076; 81001; 82553; 82962; 83605; 83690; 83735; 83880; 84484; 85027; 85610; 87086; 93005; 96361; 96374; 96375; 96376; G0481; J1170; J1815; J2405; J2550; J3010; J7030; Q0162; S0028; 99285-25

== ENCOUNTER 2016-12-21 15:36 | Inpatient (IN) | payer BC, MEDICARE ==
[~2016-12-21] VITALS: Ht 172.7 cm; Wt 71.7 kg
[~2016-12-21 15:36] MED LIST changes: -CALC500T50 PO; +CALC500T54 PO; +DOCU-109 PO; -DOCU-27 PO; +HYDR2TAB31 PO; +HYOS0.1222 PO; -HYOS0.125 PO; +INSU100I27 SQ; -NAPR500T3 PO; +NAPR500T4 PO; -SUCR1TAB29 PO; +SUCR1TAB35 PO; -TRAM-29 PO; +TRAM-48 PO
[2016-12-21] MEDS ORDERED: HYDROmorphone 2 MG/ML VIAL IM ONE (16:30)
--- NOTE | 2016-12-21 16:31 | PHYS DOC ---
Past Medical History Past Medical History: A-Fib, Anemia, Arrhythmia, Diabetes-Type I, Heart Disease , Hypertension, MRSA, Pancreatitis Additional Past Medical Histor: Tachy-Jamir Syndrome, Gastroparesis, DDD, Neuropathy, Tremors, Kidney dz Past Surgical History: Cholecystectomy, Hysterectomy, Pacemaker Additional Past Surgical Histo: Thyroidectomy; Peripheral neuropathy Alcohol Use: None Drug Use: None Adult General Chief Complaint Chief Complaint: GTUBE REPLACEMENT/MALFUNCTION HPI HPI Patient is a 61 year old female who presents with a tube being blocked. She states it happened last night. She has severe gastroparesis and has had the tube for year. She saw her surgeon last week,and he wants to exchange the tube for a new on next week at [facility]. She states she had a placed here though. She states she hasn't had any for meds since last night. She complains of abdominal pain from her gastroparesis. She states she takes 1 mg of Dilaudid every few hours orally. She is unable to take this at this point. She denies any other acute issues. He states they've tried carbonated beverages and that's not helping. Review of Systems Review of Systems Constitutional: Denies fever or chills [] Eyes: Denies change in visual acuity, redness, or eye pain [] HENT: Denies nasal congestion or sore throat [] Respiratory: Denies cough or shortness of breath [] Cardiovascular: No additional information not addressed in HPI [] GI: Denies abdominal pain, nausea, vomiting, bloody stools or diarrhea [] : Denies dysuria or hematuria [] Musculoskeletal: Denies back pain or joint pain [] Integument: Denies rash or skin lesions [] Neurologic: Denies headache, focal weakness or sensory changes [] Endocrine: Denies polyuria or polydipsia [] Current Medications Current Medications Current Medications Medications (Trade) Dose Ordered Sig/Ramone Start Time Stop Time Status Last Admin Dose Admin Hydromorphone HCl (Dilaudid) 1 mg 1X ONCE 12/21/16 16:30 12/21/16 16:34 DC 12/21/16 16:38 1 MG Sodium Chloride 1,000 ml @ 1,000 mls/hr 1X ONCE 12/21/16 18:15 12/21/16 19:14 Allergies Allergies Allergies Coded Allergies Type Severity Reaction Last Updated Verified Sulfa (Sulfonamide Antibiotics) Allergy Intermediate Itching 10/29/13 Yes bacitracin Allergy Intermediate Hives 08/31/15 Yes codeine Allergy Intermediate Itching 10/29/13 Yes hydrocodone bitartrate Allergy Intermediate Itching 10/29/13 Yes morphine Allergy Intermediate Itching 10/29/13 Yes neomycin Allergy Intermediate Hives 08/31/15 Yes polymyxin B Allergy Intermediate Hives 08/31/15 Yes phenylephrine Adverse Reaction Intermediate NEOSYNEPHRINE 09/16/15 Yes phenytoin sodium Adverse Reaction Intermediate TREMORS 09/16/15 Yes phenytoin sodium extended Adverse Reaction Intermediate TREMORS 09/16/15 Yes Physical Exam Physical Exam Constitutional: Well developed, well nourished, no acute distress, non-toxic appearance. [] HENT: Normocephalic, atraumatic, bilateral external ears normal, oropharynx moist, no oral exudates, nose normal. [] Eyes: PERRLA, EOMI, conjunctiva normal, no discharge. [] Neck: Normal range of motion, no tenderness, supple, no stridor. [] Cardiovascular:Heart rate regular rhythm, no murmur [] Lungs & Thorax: Bilateral breath sounds clear to auscultation [] Abdomen: Bowel sounds normal, soft, no tenderness, no masses, no pulsatile masses. J-tube and left upper quadrant, no erythema or tenderness. Skin: Warm, dry, no erythema, no rash. [] Back: No tenderness, no CVA tenderness. [] Extremities: No tenderness, no cyanosis, no clubbing, ROM intact, no edema. [] Neurologic: Alert and oriented X 3, normal motor function, normal sensory function, no focal deficits noted. [] Psychologic: Affect normal, judgement normal, mood normal. [] Current Patient Data Vital Signs Vital Signs Date Time Temp Pulse Resp B/P (MAP) Pulse Ox O2 Delivery O2 Flow Rate FiO2 12/21/16 16:38 21 12/21/16 16:00 98.9 88 97 Room Air 98.9 Lab Values Laboratory Tests Test 12/21/16 19:01 Glucose (Fingerstick) 248 mg/dL (70-99) H EKG EKG [] Radiology/Procedures Radiology/Procedures [] Impressions: J-tube malfunction Course & Med Decision Making Course & Med Decision Making Pertinent Labs and Imaging studies reviewed. (See chart for details) Patient presented with clogged of her J-tube. We attempted to unclog it but we' ve been unsuccessful. Spoke with Dr. Robledo who recommends IR to be consult would and the patient be admitted to have this replaced. Patient's agreeable plan I spoke with Dr. Skelton who will admit the patient for Dr. Blanca. The patient is in stable condition and interim orders have been written, I will place a consult of Dr. Foster with IR. Elizabeth Disclaimer Dragmichael Disclaimer This electronic medical record was generated, in whole or in part, using a voice recognition dictation system. Departure Departure Impression: Primary Impression: Malfunctioning jejunostomy tube Disposition: ADMITTED INPATIENT Admitting Physician: Goldie Blanca Condition: STABLE Referrals: Joan BLANCA MD (PCP) BALJIT JEFFREY MD Dec 21, 2016 16:31
[2016-12-21] MEDS ORDERED: IV NORMAL SALINE 1000ML BAG 1,000 ML IV ONE (18:15)
[2016-12-21 19:30] VITALS: BP 134/79
[2016-12-21] MEDS ORDERED: ONDANSETRON PF 4 MG/2 ML VIAL. IV PRN (19:30)
[2016-12-21] MEDS ORDERED: HYDROmorphone 2 MG/ML VIAL IV ONE (19:30)
[2016-12-21 19:36] LABS: BASO # 0.1 x10^3/uL (0.0-0.2); BASO % 1 % (0-3); EOS % 0 % (0-3); HEMATOCRIT 30.9 % (36.0-47.0); HEMOGLOBIN 10.2 g/dL (12.0-15.5); LYMPH # 1.5 x10^3/uL (1.0-4.8); LYMPH % 16 % (24-48); MEAN CORPUSCULAR HEMOGLOBIN 29 pg (25-35); MEAN CORPUSCULAR HGB CONC 33 g/dL (31-37); MEAN CORPUSCULAR VOLUME 86 fL (79-100); MONO % 6 % (0-9); NEUT % 78 % (31-73); PLATELET COUNT 232 x10^3/uL (140-400); RED BLOOD COUNT 3.57 x10^6/uL (3.50-5.40); RED CELL DISTRIBUTION WIDTH 14.1 % (11.5-14.5); WHITE BLOOD COUNT 9.4 x10^3/uL (4.0-11.0)
[2016-12-21 19:49] LABS: CALCIUM 8.7 mg/dL (8.5-10.1); CREATININE 1.2 mg/dL (0.6-1.0); GFR 45.5; POTASSIUM 4.6 mmol/L (3.5-5.1)
[2016-12-21 19:55] LABS: ALBUMIN 2.8 g/dL (3.4-5.0); ALBUMIN/GLOBULIN RATIO 0.7 (1.0-1.7); TOTAL BILIRUBIN 0.4 mg/dL (0.2-1.0); TOTAL PROTEIN 6.6 g/dL (6.4-8.2)
[2016-12-21] MEDS: HYDROmorphone 2 MG/ML VIAL IV PRN (21:39)
[2016-12-21 22:28] VITALS: BP 116/62
[2016-12-22] MEDS ORDERED: ATOR40TA59 PO (00:06)
[2016-12-22] MEDS ORDERED: LIPA1CAP4 PO (00:06)
[2016-12-22] MEDS ORDERED: PANT40TA5 PO (00:06)
[2016-12-22] MEDS ORDERED: dilaudid PEG (00:06)
[2016-12-22] MEDS: HYDROmorphone 2 MG/ML VIAL IV PRN ×5 (01:52→21:26)
[2016-12-22 02:59] VITALS: BP 129/56
[2016-12-22 05:43] LABS: BASO # 0.1 x10^3/uL (0.0-0.2); BASO % 1 % (0-3); EOS % 0 % (0-3); HEMATOCRIT 27.6 % (36.0-47.0); HEMOGLOBIN 9.2 g/dL (12.0-15.5); LYMPH # 2.1 x10^3/uL (1.0-4.8); LYMPH % 27 % (24-48); MEAN CORPUSCULAR HEMOGLOBIN 29 pg (25-35); MEAN CORPUSCULAR HGB CONC 33 g/dL (31-37); MEAN CORPUSCULAR VOLUME 88 fL (79-100); MONO % 8 % (0-9); NEUT % 65 % (31-73); PLATELET COUNT 199 x10^3/uL (140-400); RED BLOOD COUNT 3.14 x10^6/uL (3.50-5.40); RED CELL DISTRIBUTION WIDTH 14.2 % (11.5-14.5); WHITE BLOOD COUNT 7.9 x10^3/uL (4.0-11.0)
[2016-12-22 06:22] LABS: CALCIUM 8.4 mg/dL (8.5-10.1); CREATININE 1.1 mg/dL (0.6-1.0); GFR 50.3; POTASSIUM 4.8 mmol/L (3.5-5.1)
[2016-12-22 07:00] VITALS: BP 138/68
[2016-12-22] MEDS: ONDANSETRON PF 4 MG/2 ML VIAL. IV PRN ×2 (08:39→16:40)
[2016-12-22] MEDS: AMINO AC 3%/ELECTROLYTE/GLYCER 1,000 ML IV SCH ×2 (10:37→23:33)
[2016-12-22] MEDS ORDERED: INSULIN DETEMIR 300 UNITS/3 ML INSULN.PEN. SQ ONE (10:45)
[2016-12-22] MEDS: ENOXAPARIN 40 MG/0.4 ML SYRINGE. SQ SCH (10:48)
[2016-12-22 11:00] VITALS: BP 139/66
--- NOTE | 2016-12-22 11:02 | HP ---
ADMIT DATE: 12/21/2016 CHIEF COMPLAINT: Abdominal pain. HISTORY OF PRESENT ILLNESS AND HOSPITAL COURSE: This patient is a 61-year-old female with chronic J-tube in place due to significant diabetic gastroparesis and aspiration syndrome. She began having difficulty approximately 2-3 days ago when her J-tube was malfunctioning. She began having increasing abdominal pain. She is n.p.o. and has minimal p.o. intake other than ice chips. J-tube completely malfunctioned and was unable to pass any medication or liquids. Due to severity of symptoms she came to the Emergency Room for evaluation. She was found to have ongoing abdominal discomfort along with J-tube malfunction. She was hyperglycemic and creatinine was slightly elevated, consistent with early prerenal azotemia and possible acute tubular necrosis. She had evidence of ongoing moderate protein malnutrition. Due to severity of symptoms, she was admitted for further evaluation and replacement of J-tube per Interventional Radiology when able. PAST MEDICAL HISTORY: Significant for: 1. Type 2 diabetes, on insulin. 2. Essential tremor. 3. History of transient ischemic attacks and seizures. 4. Peripheral neuropathy. 5. Pacemaker due to sick sinus syndrome. 6. Hypertension. 7. Reflux disease. 8. Recurrent urinary tract infections. 9. Osteoarthritis with degenerative disk disease. 10. Scoliosis. 11. Carpal tunnel syndrome. 12. Hypothyroidism. 13. History of methicillin-resistant Staphylococcus aureus infection. PAST SURGICAL HISTORY: Includes: 1. Surgical J-tube placement. 2. Cholecystectomy. 3. Hysterectomy. 4. Thyroidectomy. FAMILY HISTORY: Significant for suicide, obesity, diabetes, depression and heart disease. SOCIAL HISTORY: The patient is and lives with her . She does not smoke cigarettes, but has smoked marijuana in the past, has not used marijuana for some time. She does not drink. She is on disability. ALLERGIES: SHE EXHIBITS ALLERGIES TO SULFA, BACTRIM, CODEINE, HYDROCODONE, MORPHINE, NEOMYCIN, PHENYLEPHRINE, AND PHENYTOIN. MEDICATIONS: The patient's medications are listed on MAR. REVIEW OF SYSTEMS: As per HPI. She denies any fever, chills, nausea, vomiting, diarrhea. She does have ongoing dry mouth and abdominal discomfort with J-tube malfunction. She has no chest pain, cough, or congestion. PHYSICAL EXAMINATION: GENERAL: This is a thin female who is slightly pale. HEENT: Benign. NECK: Supple. CARDIAC: Regular rate and rhythm. LUNGS: Clear. ABDOMEN: Diffusely tender with positive bowel sounds and no rebound. EXTREMITIES: Showed 2+ pulses without significant edema. NEUROLOGIC: Showed no unilateral findings. ASSESSMENT: 1. Diabetic gastroparesis. 2. Abdominal pain. 3. J-tube malfunction. 4. Acute prerenal azotemia with renal failure due possibly to acute tubular necrosis. 5. Moderate protein malnutrition. 6. Type 2 diabetes. PLAN: To proceed with IV hydration and calorie supplementation with ProcalAmine. Have Interventional Radiology change J-tube and reinstitute home medications when able and discharge to home when stable. MANUEL VÁZQUEZ MD DR: MARCIAL/coretta JOB#: [id number] / [id number]
[2016-12-22] MEDS: INSULIN ASPART 300 UNITS/3 ML INSULN.PEN SQ SCH ×5 (12:17→20:13)
[2016-12-22 15:09] VITALS: BP 128/55
[2016-12-22] MEDS: DEXTROSE 50% 25 GM / 50ML DISP.SYRIN. IV PRN ×5 (17:05→23:37)
[2016-12-22 19:00] VITALS: BP 104/53
[2016-12-22] MEDS ORDERED: INSULIN DETEMIR 300 UNITS/3 ML INSULN.PEN. SQ SCH (21:00)
[2016-12-22] MEDS: ZOLPIDEM 5 MG TABLET. PO PRN (21:26)
[2016-12-22 23:41] VITALS: BP 143/72
[2016-12-23] MEDS: ONDANSETRON PF 4 MG/2 ML VIAL. IV PRN ×4 (00:58→20:07)
[2016-12-23 03:00] VITALS: BP 140/75
[2016-12-23] MEDS: DEXTROSE 50% 25 GM / 50ML DISP.SYRIN. IV PRN (03:03)
[2016-12-23 04:45] LABS: BASO % 1 % (0-3); EOS % 0 % (0-3); HEMATOCRIT 29.6 % (36.0-47.0); HEMOGLOBIN 9.7 g/dL (12.0-15.5); LYMPH # 1.7 x10^3/uL (1.0-4.8); LYMPH % 21 % (24-48); MEAN CORPUSCULAR HEMOGLOBIN 29 pg (25-35); MEAN CORPUSCULAR HGB CONC 33 g/dL (31-37); MEAN CORPUSCULAR VOLUME 88 fL (79-100); MONO % 8 % (0-9); NEUT % 71 % (31-73); PLATELET COUNT 217 x10^3/uL (140-400); RED BLOOD COUNT 3.36 x10^6/uL (3.50-5.40); RED CELL DISTRIBUTION WIDTH 14.2 % (11.5-14.5); WHITE BLOOD COUNT 8.1 x10^3/uL (4.0-11.0)
[2016-12-23] MEDS: HYDROmorphone 2 MG/ML VIAL IV PRN ×4 (05:07→20:08)
[2016-12-23 05:21] LABS: ALBUMIN 2.4 g/dL (3.4-5.0); ALBUMIN/GLOBULIN RATIO 0.7 (1.0-1.7); CALCIUM 8.7 mg/dL (8.5-10.1); GFR 56.2; POTASSIUM 4.5 mmol/L (3.5-5.1); TOTAL BILIRUBIN 0.2 mg/dL (0.2-1.0); TOTAL PROTEIN 5.9 g/dL (6.4-8.2)
[2016-12-23 07:00] VITALS: BP 150/68
[2016-12-23] MEDS ORDERED: INSULIN DETEMIR 300 UNITS/3 ML INSULN.PEN. SQ SCH ×2 (08:00→21:00)
--- NOTE | 2016-12-23 09:07 | PDOC ---
PROGRESS NOTES Subjective Patient feels shaky after being hypoglycemic last evening. Glucose now well controlled. Unable to eat or take PO meds due to gastroparesis and clogged J tube. Refuses NG tube. Scheduled with IR today to have J tube replaced. Tremor more prominent. No chest pains, SOB, bowel or bladder complaints. Objective Afebrile BP: 150/68 General: A&Ox3 Heart: RRR Lungs: Clear BL Abd: soft non tender, J tube site clean and dry Ext: tremor in R hand WBC: 8.1 Hgb: 9.7 K+: 4.5 Creat: 1.0 Vital Signs Vital Signs Date Time Temp Pulse Resp B/P (MAP) Pulse Ox O2 Delivery O2 Flow Rate FiO2 12/23/16 07:53 Room Air 12/23/16 07:00 98.3 65 16 150/68 (95) 99 98.3 12/23/16 05:37 2.0 Assessment and Plan ASSESSMENT: 1. Diabetic gastroparesis with inability to take PO intake. 2. Abdominal pain. 3. J-tube malfunction. 4. Acute prerenal azotemia with renal failure due possibly to acute tubular necrosis. Resolved with IV hydration. 5. Moderate protein malnutrition. 6. Type 1 diabetes. With hypo and hyper glycemia. Start D5 1/2NS. 7. HTN start IV diltiazem until GI access obtained. 8. Essential tremor continue Ativan PRN. PLAN: To proceed with IV hydration and calorie supplementation with ProcalAmine. Have Interventional Radiology change J-tube and reinstitute home medications when able and discharge to home when stable. Problems: Joan JACOB MD Dec 23, 2016 09:07
[2016-12-23] MEDS: ENOXAPARIN 40 MG/0.4 ML SYRINGE. SQ SCH (09:27)
[2016-12-23] MEDS ORDERED: IV DEXTROSE 5 %-0.45 % NACL 1,000 ML IV SCH (09:30)
[2016-12-23] MEDS: dilTIAZem IV PUSH 25 MG/5 ML VIAL IV SCH ×2 (09:36→10:00)
[2016-12-23] MEDS: PANTOPRAZOLE IV PUSH 40 MG VIAL. IVP SCH (09:41)
[2016-12-23] MEDS: AMINO AC 3%/ELECTROLYTE/GLYCER 1,000 ML IV SCH (10:31)
[2016-12-23 10:46] VITALS: BP 125/51
[2016-12-23] MEDS: INSULIN ASPART 300 UNITS/3 ML INSULN.PEN SQ SCH ×2 (12:41→17:38)
[2016-12-23] MEDS ORDERED: DEXTROSE 50% 25 GM / 50ML DISP.SYRIN. IV PRN (12:45)
[2016-12-23] MEDS ORDERED: IOHEXOL 300 MG/ML 50 ML VIAL. ONE (13:21)
[2016-12-23] MEDS ORDERED: fentaNYL PF VIAL 100 MCG/2 ML VIAL ONE (13:31)
[2016-12-23] MEDS ORDERED: LIDOCAINE 1% / SOD BICARB 8.4% 20 ML VIAL. IJ ONE ×2 (14:04→14:15)
[2016-12-23] MEDS ORDERED: CONTRAST GIVEN MC PRN (14:15)
[2016-12-23] MEDS ORDERED: IOHEXOL 300 MG/ML 50 ML VIAL. IART ONE (14:15)
[2016-12-23] MEDS ORDERED: fentaNYL PF VIAL 100 MCG/2 ML VIAL IV ONE (14:15)
[2016-12-23 15:00] VITALS: BP 139/85
--- NOTE | 2016-12-23 15:41 | RAD ---
Fluoroscopically guided replacement of a percutaneous jejunostomy tube 12/23/2016 Indication: Obstructed catheter Discussion: The risks and benefits of the procedure were discussed patient. Informed consent was obtained. Timeout procedure was performed. The abdomen was prepped and draped using sterile barrier technique. Attempts to administer contrast through pre-existing left sided abdominal jejunostomy catheter were ultimately unsuccessful. Using a combination of catheters and wires the obstruction was cleared, a glide advantage wire advanced into the small bowel under fluoroscopic guidance. 1% lidocaine without epinephrine was administered for local anesthesia. The pre-existing catheter was removed over a wire. Over this wire, following balloon dilatation with a 7 mm balloon, an 18 Setswana jejunostomy catheter was advanced to the small bowel. Position was confirmed with administration of contrast. There is retention balloon was inflated. The catheter was flushed. A sterile dressing was applied. No immediate complications were identified. Fluoroscopy time:: 6.0 min Dose area product:: 5 Gycm2 Impression: Successful fluoroscopically guided exchange of a percutaneous jejunostomy tube
[2016-12-23] MEDS ORDERED: ONDANSETRON ODT 4 MG TAB.RAPDIS. PO PRN (17:15)
[2016-12-23] MEDS ORDERED: PROMETHAZINE IM 25 MG/ML VIAL IM PRN (17:15)
[2016-12-23] MEDS: HYOSCYAMINE 0.125 MG TAB.RAPDIS PO SCH ×2 (17:35→21:56)
[2016-12-23 19:20] VITALS: BP 138/55
[2016-12-23] MEDS: ZOLPIDEM 5 MG TABLET. PO PRN (20:06)
[2016-12-23] MEDS: ATORVASTATIN CALCIUM 40 MG TABLET. PO SCH (20:06)
[2016-12-23] MEDS: dilTIAZem HCL 30 MG TABLET PO SCH (20:06)
[2016-12-23 23:25] VITALS: BP 133/61
[2016-12-24] MEDS: HYDROmorphone 2 MG/ML VIAL IV PRN ×6 (00:16→23:25)
[2016-12-24] MEDS: ONDANSETRON PF 4 MG/2 ML VIAL. IV PRN ×3 (03:14→20:29)
[2016-12-24 03:30] VITALS: BP 132/60
[2016-12-24] MEDS: DEXTROSE 50% 25 GM / 50ML DISP.SYRIN. IV PRN ×2 (04:08→10:44)
[2016-12-24] MEDS: HYOSCYAMINE 0.125 MG TAB.RAPDIS PO SCH ×6 (06:57→20:43)
[2016-12-24 07:00] VITALS: BP 124/64
[2016-12-24] MEDS: INSULIN ASPART 300 UNITS/3 ML INSULN.PEN SQ SCH ×3 (07:18→15:44)
[2016-12-24] MEDS ORDERED: PANTOPRAZOLE 40 MG TABLET.DR. PO SCH (07:30)
[2016-12-24] MEDS: FLUoxetine HCL 20 MG CAPSULE PO SCH (08:22)
[2016-12-24] MEDS: DIGOXIN 250 MCG TABLET. PO SCH (08:23)
[2016-12-24] MEDS: LISINOPRIL 5 MG TABLET. PO SCH (08:24)
[2016-12-24] MEDS: SOTALOL 80 MG TABLET. PO SCH (08:24)
[2016-12-24] MEDS: dilTIAZem HCL 30 MG TABLET PO SCH ×3 (08:25→20:29)
[2016-12-24] MEDS: PANTOPRAZOLE IV PUSH 40 MG VIAL. IVP SCH (08:37)
[2016-12-24] MEDS: ENOXAPARIN 40 MG/0.4 ML SYRINGE. SQ SCH (08:38)
[2016-12-24 11:00] VITALS: BP 133/68
[2016-12-24 15:00] VITALS: BP 125/56
--- NOTE | 2016-12-24 17:51 | PDOC ---
PROGRESS NOTES Subjective Still having wild blood sugar swings, hypoglycemic overnight, having nausea but J-tube replaced yesterday without issues and working well Objective General: A&Ox3, she looks better oral: mouth moist Heart: RRR Lungs: Clear BL Abd: soft non tender, J tube site clean and dry Ext: tremor in R hand Skin: good tone and color Vital Signs Vital Signs Date Time Temp Pulse Resp B/P (MAP) Pulse Ox O2 Delivery O2 Flow Rate FiO2 12/24/16 15:00 98.4 59 16 125/56 (79) 95 Room Air 98.4 12/23/16 05:37 2.0 I & O Intake and Output 12/25/16 07:00 Intake Total 120 ml Balance 120 ml Tube Feeding 120 ml Assessment and Plan Problems Medical Problems: (1) Malfunctioning jejunostomy tube Status: Acute Assessment/plan 1. Diabetic gastroparesis with inability to take PO intake. 2. Abdominal pain, chronic and requiring narcotics IV to control. 3. J-tube malfunction, exchanged over wire 12/23. 4. Acute prerenal azotemia with renal failure due possibly to acute tubular necrosis. Resolved with IV hydration. 5. Moderate protein malnutrition. 6. Type 1 1/2 diabetes. With hypo and hyper glycemia. Levemir dose adjusted, goal rate of TF is 40 cc/hr. 7. HTN controlled with po meds 8. Essential tremor, chronic, stable, continue Ativan PRN. Problems: Joan JACOB MD Dec 24, 2016 17:51
[2016-12-24 19:10] VITALS: BP 133/61
[2016-12-24] MEDS: ATORVASTATIN CALCIUM 40 MG TABLET. PO SCH (20:29)
[2016-12-24] MEDS: ZOLPIDEM 5 MG TABLET. PO PRN (20:29)
[2016-12-24] MEDS: INSULIN DETEMIR 300 UNITS/3 ML INSULN.PEN. SQ SCH (20:43)
[2016-12-24 23:15] VITALS: BP 134/66
[2016-12-25 03:15] VITALS: BP 127/54
[2016-12-25] MEDS ORDERED: INSULIN ASPART 300 UNITS/3 ML INSULN.PEN SQ ONE ×2 (03:30→07:30)
[2016-12-25] MEDS: ONDANSETRON PF 4 MG/2 ML VIAL. IV PRN ×4 (03:33→20:23)
[2016-12-25] MEDS: HYDROmorphone 2 MG/ML VIAL IV PRN ×5 (03:34→22:15)
[2016-12-25] MEDS: HYOSCYAMINE 0.125 MG TAB.RAPDIS PO SCH ×7 (05:13→20:34)
[2016-12-25 07:02] VITALS: BP 117/54
[2016-12-25] MEDS: INSULIN ASPART 300 UNITS/3 ML INSULN.PEN SQ SCH ×3 (07:56→18:22)
[2016-12-25] MEDS: PANTOPRAZOLE IV PUSH 40 MG VIAL. IVP SCH (07:56)
[2016-12-25] MEDS: FLUoxetine HCL 20 MG CAPSULE PO SCH (07:58)
[2016-12-25] MEDS: LISINOPRIL 5 MG TABLET. PO SCH (07:58)
[2016-12-25] MEDS: DIGOXIN 250 MCG TABLET. PO SCH (07:59)
[2016-12-25] MEDS: SOTALOL 80 MG TABLET. PO SCH (08:00)
[2016-12-25] MEDS: dilTIAZem HCL 30 MG TABLET PO SCH ×3 (08:02→20:33)
[2016-12-25] MEDS: ENOXAPARIN 40 MG/0.4 ML SYRINGE. SQ SCH (10:56)
[2016-12-25 11:09] VITALS: BP 106/55
[2016-12-25 15:05] VITALS: BP 138/65
--- NOTE | 2016-12-25 17:06 | PDOC ---
PROGRESS NOTES Subjective She is at 50 cc/hr of TF but has been hyperglycemic and now is vomiting after being nauseated most of the afternoon, still needing IV pain meds but she does not associate the medication with nausea Objective Afebrile BP: noted General: vomiting Heart: RRR Lungs: CTAB Abd: soft but currently having active emesis Ext: no edema Vital Signs Vital Signs Date Time Temp Pulse Resp B/P (MAP) Pulse Ox O2 Delivery O2 Flow Rate FiO2 12/25/16 15:05 99.0 69 17 138/65 (89) 93 Room Air 99.0 12/25/16 14:46 2.0 I & O Intake and Output 12/26/16 07:00 Intake Total 120 ml Balance 120 ml Intake Oral 0 ml Tube Feeding 120 ml # Voids 3 Assessment and Plan Problems Medical Problems: (1) Malfunctioning jejunostomy tube Status: Acute Assessment/Plan: 1. Diabetic gastroparesis with emesis, intractable vomiting. 2. Abdominal pain. 3. J-tube malfunction, replaced and functioning well now. 4. Acute prerenal azotemia with renal failure due possibly to acute tubular necrosis. Resolved with IV hydration. 5. Moderate protein malnutrition. 6. Type 1 1/2 diabetes. With hypo and hyper glycemia. Stop D5 7. HTN start IV diltiazem until GI access obtained. 8. Essential tremor continue Ativan PRN. Problems: Joan JACOB MD Dec 25, 2016 17:06
[2016-12-25 19:48] VITALS: BP 137/67
[2016-12-25] MEDS: ATORVASTATIN CALCIUM 40 MG TABLET. PO SCH (20:33)
[2016-12-25] MEDS: ZOLPIDEM 5 MG TABLET. PO PRN (20:37)
[2016-12-25] MEDS: INSULIN DETEMIR 300 UNITS/3 ML INSULN.PEN. SQ SCH (20:42)
[2016-12-25 23:02] VITALS: BP 105/59
[2016-12-26] VITALS (12 sets, daily range): BP systolic 102–138; BP diastolic 41–68
[2016-12-26] MEDS: HYDROmorphone 2 MG/ML VIAL IV PRN ×6 (02:17→23:03)
[2016-12-26] MEDS: ONDANSETRON PF 4 MG/2 ML VIAL. IV PRN ×5 (02:19→23:03)
[2016-12-26 05:51] LABS: BASO % 0 % (0-3); EOS % 0 % (0-3); HEMATOCRIT 31.3 % (36.0-47.0); HEMOGLOBIN 10.1 g/dL (12.0-15.5); LYMPH % 7 % (24-48); MEAN CORPUSCULAR HEMOGLOBIN 29 pg (25-35); MEAN CORPUSCULAR HGB CONC 32 g/dL (31-37); MEAN CORPUSCULAR VOLUME 90 fL (79-100); MONO % 3 % (0-9); NEUT % 89 % (31-73); PLATELET COUNT 199 x10^3/uL (140-400); RED BLOOD COUNT 3.49 x10^6/uL (3.50-5.40); RED CELL DISTRIBUTION WIDTH 14.5 % (11.5-14.5); WHITE BLOOD COUNT 13.2 x10^3/uL (4.0-11.0)
[2016-12-26] MEDS ORDERED: INSULIN ASPART 300 UNITS/3 ML INSULN.PEN SQ STA (07:31)
[2016-12-26 07:39] LABS: PLT ESTIMATE ADEQUATE (ADEQUATE)
[2016-12-26 07:51] LABS: ALBUMIN 2.7 g/dL (3.4-5.0); ALBUMIN/GLOBULIN RATIO 0.7 (1.0-1.7); CALCIUM 8.9 mg/dL (8.5-10.1); CREATININE 1.8 mg/dL (0.6-1.0); GFR 28.5; POTASSIUM 5.3 mmol/L (3.5-5.1); TOTAL BILIRUBIN 0.6 mg/dL (0.2-1.0); TOTAL PROTEIN 6.6 g/dL (6.4-8.2)
[2016-12-26] MEDS: INSULIN ASPART 300 UNITS/3 ML INSULN.PEN SQ SCH ×3 (08:00→16:24)
[2016-12-26] MEDS: PANTOPRAZOLE IV PUSH 40 MG VIAL. IVP SCH (08:01)
[2016-12-26] MEDS: LISINOPRIL 5 MG TABLET. PO SCH (08:02)
[2016-12-26] MEDS: dilTIAZem HCL 30 MG TABLET PO SCH ×3 (08:03→20:37)
[2016-12-26] MEDS: SOTALOL 80 MG TABLET. PO SCH (08:03)
[2016-12-26] MEDS: DIGOXIN 250 MCG TABLET. PO SCH (08:03)
[2016-12-26] MEDS: FLUoxetine HCL 20 MG CAPSULE PO SCH (08:03)
[2016-12-26] MEDS ORDERED: INSULIN REGULAR VIAL 150 UNIT in 0.9 % SODIUM CHLORIDE 150ML 150 ML IV PRN ×2 (08:45→09:15)
[2016-12-26] MEDS ORDERED: INSULIN ASPART 300 UNITS/3 ML INSULN.PEN SQ ONE (09:00)
[2016-12-26] MEDS ORDERED: IV NORMAL SALINE 1000ML BAG 1,000 ML IV ONE ×2 (09:00)
[2016-12-26] MEDS ORDERED: SODIUM BICARBONATE VIAL 50 MEQ in IV 1/2 NORMAL SALINE 1,000 ML IV PRN (09:10)
[2016-12-26] MEDS ORDERED: IV NORMAL SALINE 1000ML BAG 1,000 ML IV SCH (09:10)
[2016-12-26] MEDS ORDERED: IV 1/2 NORMAL SALINE 1,000 ML IV SCH (09:11)
[2016-12-26] MEDS ORDERED: SODIUM PHOSPHATE 20 MMOL in IV DEXTROSE 5% 250 ML IV PRN (09:15)
[2016-12-26] MEDS ORDERED: POTASSIUM CHLORIDE 10MEQ 100 ML IV PRN ×3 (09:15)
[2016-12-26] MEDS ORDERED: SODIUM PHOSPHATE 10 MMOL in IV DEXTROSE 5% 250 ML IV PRN (09:15)
[2016-12-26] MEDS ORDERED: SODIUM PHOSPHATE 40 MMOL in IV NORMAL SALINE 500ML BAG 500 ML IV PRN (09:15)
--- NOTE | 2016-12-26 09:21 | PDOC ---
PROGRESS NOTES Subjective She refused her Levemir last chun and is in DKA this am and transferred to ICU for DKA protocol. She has been nauseated, her TF was at 25 cc/hr overnight though. She is confused now and forgetful about prior events. Discussed with nursing both floor and ICU. Her is now here. Objective Afebrile BP: 107/60 General: groggy Heart: RRR, sinus, rate 60 Lungs: CTA Abd: non distended Ext: clammy WBC: 13. Hgb: 10. K+: 5.3 Creat: 1.8 Vital Signs Vital Signs Date Time Temp Pulse Resp B/P (MAP) Pulse Ox O2 Delivery O2 Flow Rate FiO2 12/26/16 08:03 78 138/67 12/26/16 08:02 23 96 Room Air 2.0 12/26/16 07:18 97.9 97.9 Assessment and Plan Problems Medical Problems: (1) Malfunctioning jejunostomy tube Status: Acute Assessment/Plan: 1. DKA - pt refused her insulin last chun which seems to be the cause but she has a new leukocytosis so will also look for infection 2. Abdominal pain with nausea. 3. J-tube malfunction, replaced and functioning well now. 4. Acute prerenal azotemia with renal failure due possibly to acute tubular necrosis. Resolved with IV hydration but now recurred with DKA. 5. Moderate protein malnutrition. 6. Type 1 1/2 diabetes. With hypo and hyper glycemia. 7. HTN controlled with home meds. 8. Essential tremor continue Ativan PRN. Problems: Joan JACOB MD Dec 26, 2016 09:20
[2016-12-26 09:28] LABS: MAGNESIUM 1.9 mg/dL (1.8-2.4)
[2016-12-26] MEDS: HYOSCYAMINE 0.125 MG TAB.RAPDIS PO SCH ×5 (10:00→22:00)
[2016-12-26] MEDS ORDERED: MAGNESIUM SULFATE 4GM 100 ML IV PRN (10:00)
[2016-12-26 10:09] LABS: HCO3 ABG 15 mmol/L (21-28); PCO2 ABG 33 mmHg (35-46); PH ABG 7.29 (7.35-7.45); PO2 ABG 89 mmHg (65-108); SAT O2 ABG 96 % (92-99)
[2016-12-26 10:13] LABS: FIO2 ABG 21
[2016-12-26] MEDS: ENOXAPARIN 40 MG/0.4 ML SYRINGE. SQ SCH (11:18)
[2016-12-26 13:28] LABS: CALCIUM 8.1 mg/dL (8.5-10.1); CREATININE 1.9 mg/dL (0.6-1.0); GFR 26.8
[2016-12-26] MEDS: IV DEXTROSE 5% - 0.9 % NACL 1,000 ML IV SCH ×3 (14:45→22:45)
--- NOTE | 2016-12-26 15:22 | RAD ---
Indication leukocytosis. Assess for occult pneumonia. A single view of the chest was obtained. Comparison is made to an examination 08/15/2016. The heart size and pulmonary vessels are normal. The lungs are clear of acute infiltrates. Significant pleural fluid is not seen. There is no pneumothorax. There is bipolar cardiac pacing device and a left Port-A-Cath. There is no pleural fluid or pneumothorax. There has not been a significant change in the appearance of the chest compared to the previous exam. IMPRESSION: No acute or focal process. No significant change
[2016-12-26] MEDS: POTASSIUM CHLORIDE 10MEQ 100 ML IV SCH ×2 (15:45→16:43)
[2016-12-26] MEDS: ATORVASTATIN CALCIUM 40 MG TABLET. PO SCH (20:37)
[2016-12-26] MEDS: ZOLPIDEM 5 MG TABLET. PO PRN (20:40)
[2016-12-26] MEDS: INSULIN DETEMIR 300 UNITS/3 ML INSULN.PEN. SQ SCH (20:43)
[2016-12-27] VITALS (16 sets, daily range): BP systolic 111–150; BP diastolic 53–70
[2016-12-27] MEDS: ONDANSETRON PF 4 MG/2 ML VIAL. IV PRN ×4 (02:54→17:00)
[2016-12-27] MEDS: HYDROmorphone 2 MG/ML VIAL IV PRN ×4 (02:55→17:03)
[2016-12-27 06:08] LABS: BASO # 0.1 x10^3/uL (0.0-0.2); BASO % 1 % (0-3); EOS % 0 % (0-3); HEMATOCRIT 28.6 % (36.0-47.0); HEMOGLOBIN 9.5 g/dL (12.0-15.5); LYMPH # 1.8 x10^3/uL (1.0-4.8); LYMPH % 13 % (24-48); MEAN CORPUSCULAR HEMOGLOBIN 29 pg (25-35); MEAN CORPUSCULAR HGB CONC 33 g/dL (31-37); MEAN CORPUSCULAR VOLUME 87 fL (79-100); MONO % 6 % (0-9); NEUT % 81 % (31-73); PLATELET COUNT 201 x10^3/uL (140-400); RED CELL DISTRIBUTION WIDTH 14.6 % (11.5-14.5); WHITE BLOOD COUNT 13.6 x10^3/uL (4.0-11.0)
[2016-12-27 06:34] LABS: ALBUMIN 2.4 g/dL (3.4-5.0); ALBUMIN/GLOBULIN RATIO 0.7 (1.0-1.7); CALCIUM 8.5 mg/dL (8.5-10.1); CREATININE 1.5 mg/dL (0.6-1.0); GFR 35.2; POTASSIUM 4.1 mmol/L (3.5-5.1); TOTAL BILIRUBIN 0.2 mg/dL (0.2-1.0); TOTAL PROTEIN 5.9 g/dL (6.4-8.2)
[2016-12-27] MEDS: HYOSCYAMINE 0.125 MG TAB.RAPDIS PO SCH ×6 (06:41→22:00)
[2016-12-27] MEDS: INSULIN ASPART 300 UNITS/3 ML INSULN.PEN SQ SCH ×3 (07:59→17:33)
--- NOTE | 2016-12-27 09:00 | PDOC ---
ICU PROGRESS NOTES Subjective Vomiting this am with TF rate at 45cc/hr. Mouth feels dry. Abd pain persists, hyoscyamine not helping and refusing, needing IV pain meds but they may be contributing to nausea. No cough or aspiration symptoms, no dysuria, no diarrhea. Sugars now controlled. Objective Objective Sugar 121. Tmax 99.6. Not tolerating current TF rate of 45 despite order of 25 cc/hr Mouth dry, eyes sunken Heart RRR LCTAB ABD non distended, J-tube in place and functioning well without any drainage EXT without edema Skin intact Neuro: right hand tremor continues Vitals Vital Signs Date Time Temp Pulse Resp B/P (MAP) Pulse Ox O2 Delivery O2 Flow Rate FiO2 12/27/16 08:26 20 93 Room Air 12/27/16 06:00 60 127/64 (85) 12/27/16 04:00 99.6 99.6 12/26/16 16:15 2.0 Ventilator Settings O2 Flow Rate: 2.0 Oxygen Delivery Device: Room Air Temperature (97-99 F): Yes SpO2: 93 DVT Prophylaxis DVT Prophylaxis lovenox Stress Ulcer Prophylaxis Stress Ulcer Prophylaxis protonix Imaging Imaging ndication leukocytosis. Assess for occult pneumonia. A single view of the chest was obtained. Comparison is made to an examination 08/15/2016. The heart size and pulmonary vessels are normal. The lungs are clear of acute infiltrates. Significant pleural fluid is not seen. There is no pneumothorax. There is bipolar cardiac pacing device and a left Port-A-Cath. There is no pleural fluid or pneumothorax. There has not been a significant change in the appearance of the chest compared to the previous exam. IMPRESSION: No acute or focal process. No significant change Labs Labs Laboratory Tests Test 12/26/16 10:06 12/26/16 11:14 12/26/16 12:13 12/26/16 13:17 Glucose (Fingerstick) 509 mg/dL (70-99) 416 mg/dL (70-99) 371 mg/dL (70-99) 262 mg/dL (70-99) Test 12/26/16 14:14 12/26/16 15:53 12/26/16 18:30 12/26/16 20:41 Glucose (Fingerstick) 196 mg/dL (70-99) 207 mg/dL (70-99) 187 mg/dL (70-99) 289 mg/dL (70-99) Test 12/27/16 03:01 12/27/16 07:27 Glucose (Fingerstick) 152 mg/dL (70-99) 121 mg/dL (70-99) Medications Medications Current Medications Dextrose/Sodium Chloride 1,000 ml @ 250 mls/hr Q4H IV Last administered on 18:43; Start 12/26/16 at 14:45; Stop 12/26/16 at 23:37; Status DC Insulin Aspart (NovoLOG) 10 units 1X ONCE SQ Last administered on 12/26/16 09:00; Start 12/26/16 at 09:00; Stop 12/26/16 at 09:01; Status DC Insulin Human Regular 150 unit/ Sodium Chloride 151.5 ml @ 0 mls/hr CONT PRN PRN IV PER PROTOCOL; Start 12/26/16 at 09:15; Stop 12/26/16 at 09:23; Status DC Magnesium Sulfate/ Dextrose 100 ml @ 25 mls/hr PRN DAILY PRN IV For Mg level of <1.8; Start 12/26/16 at 10:00 Potassium Chloride 100 ml @ 100 mls/hr PRN Q1HR PRN IV If potassium is 4 to 5 mEq/L; Start 12/26/16 at 09:15; Stop 12/26/16 at 18:57; Status DC Potassium Chloride 100 ml @ 100 mls/hr PRN Q1HR PRN IV If potassium is less than 3 mE; Start 12/26/16 at 09:15; Stop 12/26/16 at 18:57; Status DC Potassium Chloride 100 ml @ 100 mls/hr PRN Q1HR PRN IV Potassium is 3 to 3.9 mEq/L; Start 12/26/16 at 09:15; Stop 12/26/16 at 18:57; Status DC Potassium Chloride 100 ml @ 100 mls/hr Q1HR IV Last administered on 16:43; Start 12/26/16 at 16:00; Stop 12/26/16 at 17:59; Status DC Sodium Bicarbonate 50 meq/Sodium Chloride 1,050 ml @ 500 mls/hr PRN Q2HRS PRN IV Infuse for pH < 6.95; Start 12/26/16 at 09:10; Stop 12/26/16 at 18:57; Status DC Sodium Chloride 1,000 ml @ 250 mls/hr 1X ONCE IV Last administered on 12:49; Start 12/26/16 at 09:00; Stop 12/26/16 at 12:59; Status DC Sodium Chloride 1,000 ml @ 500 mls/hr Q2H IV Last administered on 12/26/16 10:45; Start 12/26/16 at 09:11; Stop 12/26/16 at 11:10; Status DC Sodium Chloride 1,000 ml @ 1,000 mls/hr 1X ONCE IV Last administered on 12/26 09:00; Start 12/26/16 at 09:00; Stop 12/26/16 at 09:59; Status DC Sodium Chloride 1,000 ml @ 1,000 mls/hr Q1H IV Last administered on 09:20; Start 12/26/16 at 09:10; Stop 12/26/16 at 10:09; Status DC Sodium Phosphate 10 mmol/Dextrose 253.3333 ml @ 62.5 mls/hr 1X PRN PRN IV SEE COMMENTS; Start 12/26/16 at 09:15; Stop 12/26/16 at 18:57; Status DC Sodium Phosphate 20 mmol/Dextrose 256.6667 ml @ 62.5 mls/hr 1X PRN PRN IV PHOSPHATE 1 TO 2.7; Start 12/26/16 at 09:15; Stop 12/26/16 at 18:57; Status DC Sodium Phosphate 40 mmol/Sodium Chloride 513.3333 ml @ 83.3 mls/hr 1X PRN PRN IV FOR PO4 LESS THAN 1 MG/DL; Start 12/26/16 at 09:15; Stop 12/26/16 at 18:57 ; Status DC Physical Exam ROS: No Chest Pain, No Increase Cough General: Alert, Oriented X4, Moderate Distress Mental Status: Anxiety Lungs: Clear Abdomen: Soft Extremities: No Edema Skin: Warm, Dry, No Rashes Neuro Exam: Alert, Oriented Impression . 1. DKA - now resolved after transferring to ICU for insulin drip, pt refused her insulin 12/25 chun which seemed to be the cause, but she has leukocytosis but appears to be reactive as no evidence of infection 2. Abdominal pain with nausea, chronic and due to gastroparesis. 3. J-tube malfunction, replaced and functioning well now. 4. Acute prerenal azotemia with renal failure due possibly to acute tubular necrosis. Resolved with IV hydration but recurred with DKA and improving, continue IV fluids. 5. Moderate protein malnutrition - continue TF but not tolerating goal rate. 6. Type 1 1/2 diabetes. With hypo and hyper glycemia. 7. HTN controlled with home meds. 8. Essential tremor continue Ativan PRN. Plan . as above, should be able to transfer back to medical monitored bed Joan JACOB MD Dec 27, 2016 09:00
[2016-12-27] MEDS: PANTOPRAZOLE IV PUSH 40 MG VIAL. IVP SCH (09:36)
[2016-12-27] MEDS: IV DEXTROSE 5 %-0.45 % NACL 1,000 ML IV SCH ×2 (09:37→22:32)
[2016-12-27] MEDS: FLUoxetine HCL 20 MG CAPSULE PO SCH (13:22)
[2016-12-27] MEDS: SOTALOL 80 MG TABLET. PO SCH (13:22)
[2016-12-27] MEDS: LISINOPRIL 5 MG TABLET. PO SCH (13:22)
[2016-12-27] MEDS: DIGOXIN 250 MCG TABLET. PO SCH (13:23)
[2016-12-27] MEDS: dilTIAZem HCL 30 MG TABLET PO SCH ×3 (13:23→20:23)
[2016-12-27] MEDS: ENOXAPARIN 40 MG/0.4 ML SYRINGE. SQ SCH (13:35)
[2016-12-27] MEDS: ATORVASTATIN CALCIUM 40 MG TABLET. PO SCH (20:23)
[2016-12-27] MEDS: ZOLPIDEM 5 MG TABLET. PO PRN (20:23)
[2016-12-27] MEDS: INSULIN DETEMIR 300 UNITS/3 ML INSULN.PEN. SQ SCH (20:34)
[2016-12-28] MEDS: HYDROmorphone 2 MG/ML VIAL IV PRN (02:43)
[2016-12-28] MEDS: ONDANSETRON PF 4 MG/2 ML VIAL. IV PRN ×4 (02:43→17:48)
[2016-12-28 03:18] VITALS: BP 118/42
[2016-12-28 05:32] LABS: BASO # 0.1 x10^3/uL (0.0-0.2); BASO % 1 % (0-3); EOS % 0 % (0-3); HEMATOCRIT 27.7 % (36.0-47.0); HEMOGLOBIN 9.3 g/dL (12.0-15.5); LYMPH # 1.3 x10^3/uL (1.0-4.8); LYMPH % 16 % (24-48); MEAN CORPUSCULAR HEMOGLOBIN 29 pg (25-35); MEAN CORPUSCULAR HGB CONC 33 g/dL (31-37); MEAN CORPUSCULAR VOLUME 88 fL (79-100); MONO % 8 % (0-9); NEUT % 75 % (31-73); PLATELET COUNT 186 x10^3/uL (140-400); RED BLOOD COUNT 3.16 x10^6/uL (3.50-5.40); RED CELL DISTRIBUTION WIDTH 14.3 % (11.5-14.5); WHITE BLOOD COUNT 8.2 x10^3/uL (4.0-11.0)
[2016-12-28 05:52] LABS: CALCIUM 8.2 mg/dL (8.5-10.1); CREATININE 1.2 mg/dL (0.6-1.0); GFR 45.5; POTASSIUM 3.7 mmol/L (3.5-5.1)
[2016-12-28] MEDS: HYOSCYAMINE 0.125 MG TAB.RAPDIS PO SCH ×7 (07:00→21:17)
[2016-12-28 07:41] VITALS: BP 136/59
[2016-12-28] MEDS: INSULIN ASPART 300 UNITS/3 ML INSULN.PEN SQ SCH ×3 (08:00→17:41)
[2016-12-28] MEDS: PANTOPRAZOLE IV PUSH 40 MG VIAL. IVP SCH (08:29)
[2016-12-28] MEDS: LISINOPRIL 5 MG TABLET. PO SCH (08:30)
[2016-12-28] MEDS: DIGOXIN 250 MCG TABLET. PO SCH (08:31)
[2016-12-28] MEDS: SOTALOL 80 MG TABLET. PO SCH (08:31)
[2016-12-28] MEDS: dilTIAZem HCL 30 MG TABLET PO SCH ×3 (08:31→21:17)
[2016-12-28] MEDS: FLUoxetine HCL 20 MG CAPSULE PO SCH (08:32)
[2016-12-28 10:50] VITALS: BP 131/52
[2016-12-28] MEDS: ENOXAPARIN 40 MG/0.4 ML SYRINGE. SQ SCH (11:32)
[2016-12-28] MEDS: IV DEXTROSE 5 %-0.45 % NACL 1,000 ML IV SCH (12:22)
--- NOTE | 2016-12-28 12:30 | PDOC ---
PROGRESS NOTES Subjective Subjective Patient reports she feels a little lightheaded sometimes, otherwise doing OK. Objective Objective Vital Signs Date Time Temp Pulse Resp B/P (MAP) Pulse Ox O2 Delivery O2 Flow Rate FiO2 12/28/16 10:50 99.1 100 18 131/52 (78) 96 Room Air 99.1 12/27/16 17:58 2.0 Physical Exam Abdomen: Normal bowel sounds, Soft, No tenderness, Other (J tube site unremarkable) Heart: Regular rate Extremities: No edema General: Alert, Oriented X3, No acute distress Lungs: Clear to auscultation Assessment Assessment Problems Medical Problems: (1) Malfunctioning jejunostomy tube Status: Acute Plan Plan of Care 1. Gastroparesis - new J tube functioning well and patient tolerating present low rate of TF. Continue present rate, patient can resume her usual regimen of bolus feedings at home. Hope to discharge home soon when patient feels ready. 2. DM1 - much improved, continue present insulins. 3. prerenal azotemia - resolved on lab. Will continue present low rate of IVF as she is not getting any free water via J tube presently. 4. chronic anxiety - stable, advised to resume her usual po Ativan instead of taking IV. 5. HTN - controlled, continue present meds. Comment Review of Relevant I have reviewed the following items derrick (where applicable) has been applied. Labs Laboratory Tests Test 12/26/16 12:30 12/26/16 12:45 12/26/16 13:17 12/26/16 14:14 Sodium Level 139 mmol/L (136-145) Potassium Level 4.0 mmol/L (3.5-5.1) Chloride Level 102 mmol/L (98-107) Carbon Dioxide Level 26 mmol/L (21-32) Anion Gap 11 (6-14) Blood Urea Nitrogen 36 mg/dL (7-20) Creatinine 1.9 mg/dL (0.6-1.0) Estimated GFR (Cockcroft-Gault) 26.8 Glucose Level 309 mg/dL (70-99) Lactic Acid Level 1.8 mmol/L (0.4-2.0) Calcium Level 8.1 mg/dL (8.5-10.1) Magnesium Level 1.7 mg/dL (1.8-2.4) Nasal Screen MRSA (PCR) Negative (Negative) Glucose (Fingerstick) 262 mg/dL (70-99) 196 mg/dL (70-99) Test 12/26/16 15:53 12/26/16 18:30 12/26/16 20:41 12/27/16 03:01 Glucose (Fingerstick) 207 mg/dL (70-99) 187 mg/dL (70-99) 289 mg/dL (70-99) 152 mg/dL (70-99) Test 12/27/16 05:00 12/27/16 07:27 12/27/16 12:07 12/27/16 17:12 White Blood Count 13.6 x10^3/uL (4.0-11.0) Red Blood Count 3.30 x10^6/uL (3.50-5.40) Hemoglobin 9.5 g/dL (12.0-15.5) Hematocrit 28.6 % (36.0-47.0) Mean Corpuscular Volume 87 fL (79-100) Mean Corpuscular Hemoglobin 29 pg (25-35) Mean Corpuscular Hemoglobin Concent 33 g/dL (31-37) Red Cell Distribution Width 14.6 % (11.5-14.5) Platelet Count 201 x10^3/uL (140-400) Neutrophils (%) (Auto) 81 % (31-73) Lymphocytes (%) (Auto) 13 % (24-48) Monocytes (%) (Auto) 6 % (0-9) Eosinophils (%) (Auto) 0 % (0-3) Basophils (%) (Auto) 1 % (0-3) Neutrophils # (Auto) 11.0 x10^3uL (1.8-7.7) Lymphocytes # (Auto) 1.8 x10^3/uL (1.0-4.8) Monocytes # (Auto) 0.8 x10^3/uL (0.0-1.1) Eosinophils # (Auto) 0.0 x10^3/uL (0.0-0.7) Basophils # (Auto) 0.1 x10^3/uL (0.0-0.2) Sodium Level 141 mmol/L (136-145) Potassium Level 4.1 mmol/L (3.5-5.1) Chloride Level 106 mmol/L (98-107) Carbon Dioxide Level 29 mmol/L (21-32) Anion Gap 6 (6-14) Blood Urea Nitrogen 25 mg/dL (7-20) Creatinine 1.5 mg/dL (0.6-1.0) Estimated GFR (Cockcroft-Gault) 35.2 BUN/Creatinine Ratio 17 (6-20) Glucose Level 133 mg/dL (70-99) Calcium Level 8.5 mg/dL (8.5-10.1) Total Bilirubin 0.2 mg/dL (0.2-1.0) Aspartate Amino Transf (AST/SGOT) 14 U/L (15-37) Alanine Aminotransferase (ALT/SGPT) 15 U/L (14-59) Alkaline Phosphatase 101 U/L (46-116) Total Protein 5.9 g/dL (6.4-8.2) Albumin 2.4 g/dL (3.4-5.0) Albumin/Globulin Ratio 0.7 (1.0-1.7) Glucose (Fingerstick) 121 mg/dL (70-99) 189 mg/dL (70-99) 255 mg/dL (70-99) Test 12/27/16 19:47 12/27/16 23:50 12/28/16 02:29 12/28/16 05:20 Glucose (Fingerstick) 169 mg/dL (70-99) 287 mg/dL (70-99) 180 mg/dL (70-99) White Blood Count 8.2 x10^3/uL (4.0-11.0) Red Blood Count 3.16 x10^6/uL (3.50-5.40) Hemoglobin 9.3 g/dL (12.0-15.5) Hematocrit 27.7 % (36.0-47.0) Mean Corpuscular Volume 88 fL (79-100) Mean Corpuscular Hemoglobin 29 pg (25-35) Mean Corpuscular Hemoglobin Concent 33 g/dL (31-37) Red Cell Distribution Width 14.3 % (11.5-14.5) Platelet Count 186 x10^3/uL (140-400) Neutrophils (%) (Auto) 75 % (31-73) Lymphocytes (%) (Auto) 16 % (24-48) Monocytes (%) (Auto) 8 % (0-9) Eosinophils (%) (Auto) 0 % (0-3) Basophils (%) (Auto) 1 % (0-3) Neutrophils # (Auto) 6.2 x10^3uL (1.8-7.7) Lymphocytes # (Auto) 1.3 x10^3/uL (1.0-4.8) Monocytes # (Auto) 0.6 x10^3/uL (0.0-1.1) Eosinophils # (Auto) 0.0 x10^3/uL (0.0-0.7) Basophils # (Auto) 0.1 x10^3/uL (0.0-0.2) Sodium Level 141 mmol/L (136-145) Potassium Level 3.7 mmol/L (3.5-5.1) Chloride Level 107 mmol/L (98-107) Carbon Dioxide Level 28 mmol/L (21-32) Anion Gap 6 (6-14) Blood Urea Nitrogen 17 mg/dL (7-20) Creatinine 1.2 mg/dL (0.6-1.0) Estimated GFR (Cockcroft-Gault) 45.5 Glucose Level 118 mg/dL (70-99) Calcium Level 8.2 mg/dL (8.5-10.1) Test 12/28/16 07:02 12/28/16 08:45 12/28/16 10:12 12/28/16 11:43 Glucose (Fingerstick) 117 mg/dL (70-99) 111 mg/dL (70-99) 123 mg/dL (70-99) 140 mg/dL (70-99) Laboratory Tests Test 12/27/16 17:12 12/27/16 19:47 12/27/16 23:50 12/28/16 02:29 Glucose (Fingerstick) 255 mg/dL (70-99) 169 mg/dL (70-99) 287 mg/dL (70-99) 180 mg/dL (70-99) Test 12/28/16 05:20 12/28/16 07:02 12/28/16 08:45 12/28/16 10:12 White Blood Count 8.2 x10^3/uL (4.0-11.0) Red Blood Count 3.16 x10^6/uL (3.50-5.40) Hemoglobin 9.3 g/dL (12.0-15.5) Hematocrit 27.7 % (36.0-47.0) Mean Corpuscular Volume 88 fL (79-100) Mean Corpuscular Hemoglobin 29 pg (25-35) Mean Corpuscular Hemoglobin Concent 33 g/dL (31-37) Red Cell Distribution Width 14.3 % (11.5-14.5) Platelet Count 186 x10^3/uL (140-400) Neutrophils (%) (Auto) 75 % (31-73) Lymphocytes (%) (Auto) 16 % (24-48) Monocytes (%) (Auto) 8 % (0-9) Eosinophils (%) (Auto) 0 % (0-3) Basophils (%) (Auto) 1 % (0-3) Neutrophils # (Auto) 6.2 x10^3uL (1.8-7.7) Lymphocytes # (Auto) 1.3 x10^3/uL (1.0-4.8) Monocytes # (Auto) 0.6 x10^3/uL (0.0-1.1) Eosinophils # (Auto) 0.0 x10^3/uL (0.0-0.7) Basophils # (Auto) 0.1 x10^3/uL (0.0-0.2) Sodium Level 141 mmol/L (136-145) Potassium Level 3.7 mmol/L (3.5-5.1) Chloride Level 107 mmol/L (98-107) Carbon Dioxide Level 28 mmol/L (21-32) Anion Gap 6 (6-14) Blood Urea Nitrogen 17 mg/dL (7-20) Creatinine 1.2 mg/dL (0.6-1.0) Estimated GFR (Cockcroft-Gault) 45.5 Glucose Level 118 mg/dL (70-99) Calcium Level 8.2 mg/dL (8.5-10.1) Glucose (Fingerstick) 117 mg/dL (70-99) 111 mg/dL (70-99) 123 mg/dL (70-99) Test 12/28/16 11:43 Glucose (Fingerstick) 140 mg/dL (70-99) Medications Current Medications Hydromorphone HCl (Dilaudid) 1 mg 1X ONCE IM Last administered on 12/21/16t 16 :38; Start 12/21/16 at 16:30; Stop 12/21/16 at 16:34; Status DC Sodium Chloride 1,000 ml @ 1,000 mls/hr 1X ONCE IV Last administered on 19:28; Start 12/21/16 at 18:15; Stop 12/21/16 at 19:14; Status DC Ondansetron HCl (Zofran) 4 mg PRN Q8HRS PRN IV NAUSEA/VOMITING Last administered on 12/21/16 19:28; Start 12/21/16 at 19:30; Stop 12/21/16 at 20:36 ; Status DC Lorazepam (Ativan) 1 mg 1X ONCE IV Last administered on 12/21/16 19:27; Start 12/21/16 at 19:30; Stop 12/21/16 at 19:31; Status DC Hydromorphone HCl (Dilaudid) 1 mg 1X ONCE IV Last administered on 12/21/16 19 :27; Start 12/21/16 at 19:30; Stop 12/21/16 at 19:31; Status DC Lorazepam (Ativan) 0.5 mg PRN Q4HRS PRN IV ANXIETY / AGITATION Last administered on 12/28/16 08:45; Start 12/21/16 at 20:30 Hydromorphone HCl (Dilaudid) 2 mg PRN Q4HRS PRN IV PAIN Last administered on 05:07; Start 12/21/16 at 20:30; Stop 12/23/16 at 08:51; Status DC Ondansetron HCl (Zofran) 8 mg PRN Q8HRS PRN IV NAUSEA/VOMITING Last administered on 12/23/16 07:37; Start 12/21/16 at 20:30; Stop 12/23/16 at 08:51 ; Status DC Insulin Aspart (NovoLOG) 8 units TIDAC SQ Last administered on 12/22/16 12:22 ; Start 12/22/16 at 11:30; Stop 12/22/16 at 21:12; Status DC Insulin Detemir (Levemir) 25 units QHS SQ ; Start 12/22/16 at 21:00; Stop at 21:12; Status DC Insulin Detemir (Levemir) 38 units [id number] SQ ; Start 12/23/16 at 08:00; Stop 12/23/16 at 08:00; Status DC Enoxaparin Sodium (Lovenox 40mg Syringe) 40 mg Q24H SQ Last administered on 11:32; Start 12/22/16 at 11:00 Amino Acids/ Glycerin/ Electrolytes 1,000 ml @ 80 mls/hr [id number] IV Last administered on 12/23/16 10:31; Start 12/22/16 at 10:30; Stop 12/23/16 at 17:49 ; Status DC Insulin Aspart (NovoLOG) 0-12 UNITS QIDACHS SQ ; Start 12/22/16 at 11:30; Stop 12/22/16 at 21:12; Status DC Insulin Detemir (Levemir) 38 units 1X ONCE SQ Last administered on 12/22/16 10:51; Start 12/22/16 at 10:45; Stop 12/22/16 at 10:46; Status DC Dextrose (Dextrose 50%-Water Syringe) 25 gm PRN Q15MIN PRN IV LOW BLOOD SUGAR Last administered on 12/24/16 10:44; Start 12/22/16 at 17:00 Zolpidem Tartrate (Ambien) 5 mg PRN QHS PRN PO INSOMNIA Last administered on 20:23; Start 12/22/16 at 21:15 Hydromorphone HCl (Dilaudid) 4 mg PRN Q4HRS PRN IV PAIN Last administered on 02:43; Start 12/23/16 at 09:00 Ondansetron HCl (Zofran) 8 mg PRN Q6HRS PRN IV NAUSEA/VOMITING Last administered on 12/25/16 16:06; Start 12/23/16 at 09:00; Stop 12/25/16 at 16: 59; Status DC Dextrose/Sodium Chloride 1,000 ml @ 75 mls/hr [id number] IV Last administered on 12/23/16 09:53; Start 12/23/16 at 09:30; Stop 12/23/16 at 16:49; Status DC Pantoprazole Sodium (Protonix Vial) 40 mg DAILYAC IVP Last administered on 08:29; Start 12/23/16 at 09:30 Diltiazem HCl (Cardizem) 30 mg Q6HRS IV Last administered on 12/23/16 09:36; Start 12/23/16 at 09:30; Stop 12/23/16 at 17:18; Status DC Insulin Aspart (NovoLOG) 0-9 UNITS TIDWMEALS SQ Last administered on 17:33; Start 12/23/16 at 12:45 Dextrose (Dextrose 50%-Water Syringe) 12.5 gm PRN Q15MIN PRN IV SEE COMMENTS Last administered on 12/24/16 07:11; Start 12/23/16 at 12:45 Iohexol (Omnipaque 300 Mg/ml) 50 ml STK-MED ONCE .ROUTE ; Start 12/23/16 at 13: 21; Stop 12/23/16 at 13:22; Status DC Fentanyl Citrate (Fentanyl 2ml Vial) 100 mcg STK-MED ONCE .ROUTE ; Start at 13:31; Stop 12/23/16 at 13:32; Status DC Lidocaine/Sodium Bicarbonate (Buffered Lidocaine 1%) 20 ml STK-MED ONCE IJ ; Start 12/23/16 at 14:04; Stop 12/23/16 at 14:05; Status DC Heparin Sodium/ Sodium Chloride 1,000 unit 1X ONCE IART ; Start 12/23/16 at 14: 15; Stop 12/23/16 at 14:36; Status DC Lidocaine/Sodium Bicarbonate (Buffered Lidocaine 1%) 20 ml 1X ONCE IJ Last administered on 12/23/16 14:34; Start 12/23/16 at 14:15; Stop 12/23/16 at 14:16 ; Status DC Fentanyl Citrate (Fentanyl 2ml Vial) 100 mcg 1X ONCE IV Last administered on 12/23/16 14:34; Start 12/23/16 at 14:15; Stop 12/23/16 at 14:16; Status DC Iohexol (Omnipaque 300 Mg/ml) 50 ml 1X ONCE IART Last administered on 14:33; Start 12/23/16 at 14:15; Stop 12/23/16 at 14:16; Status DC Info (Do NOT chart on this entry -- for MONITORING) 1 each PRN DAILY PRN MC SEE COMMENTS; Start 12/23/16 at 14:15; Stop 12/25/16 at 14:14; Status DC Atorvastatin Calcium (Lipitor) 40 mg QHS PO Last administered on 12/27/16 20: 23; Start 12/23/16 at 21:00 Digoxin (Lanoxin) 250 mcg DAILY PO Last administered on 12/28/16 08:31; Start 12/24/16 at 09:00 Diltiazem HCl (Cardizem) 60 mg TID PO Last administered on 12/28/16 08:31; Start 12/23/16 at 21:00 Diphenhydramine HCl (Benadryl) 25 mg PRN Q6HRS PRN PO ITCHING; Start 12/23/16 at 17:15 Hyoscyamine (Anaspaz) 0.125 mg 6XDAY PO Last administered on 12/26/16 12:49; Start 12/23/16 at 19:00 Lisinopril (Prinivil) 5 mg DAILY PO Last administered on 12/28/16 08:30; Start 12/24/16 at 09:00 Lorazepam (Ativan) 0.5 mg PRN Q6HRS PRN PO ANXIETY / AGITATION; Start 12/23/16 at 17:15 Ondansetron HCl (Zofran Odt) 4 mg PRN Q6HRS PRN PO NAUSEA/VOMITING; Start 12/23 at 17:15 Pantoprazole Sodium (Protonix) 40 mg DAILYAC PO ; Start 12/24/16 at 07:30; Status UNV Promethazine HCl (Phenergan Im) 25 mg PRN Q6HRS PRN IM NAUSEA; Start 12/23/16 at 17:15 Sotalol HCl (Betapace) 80 mg DAILY PO Last administered on 12/28/16 08:31; Start 12/24/16 at 09:00 Fluoxetine HCl (PROzac) 20 mg DAILY PO Last administered on 12/28/16 08:32; Start 12/24/16 at 09:00 Insulin Detemir (Levemir) 25 units QHS SQ Last administered on 12/23/16 20:15 ; Start 12/23/16 at 21:00; Stop 12/24/16 at 09:05; Status DC Insulin Detemir (Levemir) 15 units QHS SQ Last administered on 12/27/16 20:34 ; Start 12/24/16 at 21:00 Insulin Aspart (NovoLOG) 5 units 1X ONCE SQ Last administered on 12/25/16 03 :43; Start 12/25/16 at 03:30; Stop 12/25/16 at 03:59; Status DC Insulin Aspart (NovoLOG) 10 units 1X ONCE SQ Last administered on 12/25/16 08:08; Start 12/25/16 at 07:30; Stop 12/25/16 at 07:31; Status DC Ondansetron HCl (Zofran) 8 mg PRN Q4HRS PRN IV NAUSEA/VOMITING Last administered on 12/28/16 12:23; Start 12/25/16 at 17:00 Insulin Aspart (NovoLOG) 10 units 1X STAT SQ Last administered on 12/26/16 08:12; Start 12/26/16 at 07:31; Stop 12/26/16 at 07:32; Status DC Sodium Chloride 1,000 ml @ 1,000 mls/hr 1X ONCE IV Last administered on 12/26 09:00; Start 12/26/16 at 09:00; Stop 12/26/16 at 09:59; Status DC Sodium Chloride 1,000 ml @ 250 mls/hr 1X ONCE IV Last administered on 12:49; Start 12/26/16 at 09:00; Stop 12/26/16 at 12:59; Status DC Insulin Aspart (NovoLOG) 10 units 1X ONCE SQ Last administered on 12/26/16 09:00; Start 12/26/16 at 09:00; Stop 12/26/16 at 09:01; Status DC Insulin Human Regular 150 unit/ Sodium Chloride 151.5 ml @ 0 mls/hr CONT PRN IV SEE I/O RECORD Last administered on 12/26/16 09:33; Start 12/26/16 at 08: 45; Stop 12/26/16 at 18:57; Status DC Sodium Chloride 1,000 ml @ 1,000 mls/hr Q1H IV Last administered on 09:20; Start 12/26/16 at 09:10; Stop 12/26/16 at 10:09; Status DC Sodium Chloride 1,000 ml @ 500 mls/hr Q2H IV Last administered on 12/26/16t 10:45; Start 12/26/16 at 09:11; Stop 12/26/16 at 11:10; Status DC Insulin Human Regular 150 unit/ Sodium Chloride 151.5 ml @ 0 mls/hr CONT PRN PRN IV PER PROTOCOL; Start 12/26/16 at 09:15; Stop 12/26/16 at 09:23; Status DC Potassium Chloride 100 ml @ 100 mls/hr PRN Q1HR PRN IV If potassium is 4 to 5 mEq/L; Start 12/26/16 at 09:15; Stop 12/26/16 at 18:57; Status DC Potassium Chloride 100 ml @ 100 mls/hr PRN Q1HR PRN IV Potassium is 3 to 3.9 mEq/L; Start 12/26/16 at 09:15; Stop 12/26/16 at 18:57; Status DC Potassium Chloride 100 ml @ 100 mls/hr PRN Q1HR PRN IV If potassium is less than 3 mE; Start 12/26/16 at 09:15; Stop 12/26/16 at 18:57; Status DC Magnesium Sulfate/ Dextrose 100 ml @ 25 mls/hr PRN DAILY PRN IV For Mg level of <1.8; Start 12/26/16 at 10:00 Sodium Bicarbonate 50 meq/Sodium Chloride 1,050 ml @ 500 mls/hr PRN Q2HRS PRN IV Infuse for pH < 6.95; Start 12/26/16 at 09:10; Stop 12/26/16 at 18:57; Status DC Sodium Phosphate 40 mmol/Sodium Chloride 513.3333 ml @ 83.3 mls/hr 1X PRN PRN IV FOR PO4 LESS THAN 1 MG/DL; Start 12/26/16 at 09:15; Stop 12/26/16 at 18:57 ; Status DC Sodium Phosphate 20 mmol/Dextrose 256.6667 ml @ 62.5 mls/hr 1X PRN PRN IV PHOSPHATE 1 TO 2.7; Start 12/26/16 at 09:15; Stop 12/26/16 at 18:57; Status DC Sodium Phosphate 10 mmol/Dextrose 253.3333 ml @ 62.5 mls/hr 1X PRN PRN IV SEE COMMENTS; Start 12/26/16 at 09:15; Stop 12/26/16 at 18:57; Status DC Dextrose/Sodium Chloride 1,000 ml @ 250 mls/hr Q4H IV Last administered on 18:43; Start 12/26/16 at 14:45; Stop 12/26/16 at 23:37; Status DC Potassium Chloride 100 ml @ 100 mls/hr Q1HR IV Last administered on 16:43; Start 12/26/16 at 16:00; Stop 12/26/16 at 17:59; Status DC Dextrose/Sodium Chloride 1,000 ml @ 75 mls/hr [id number] IV Last administered on 12/28/16 12:22; Start 12/27/16 at 08:45 Active Scripts Active Cardizem Tablet (Diltiazem Hcl) 30 Mg Tablet 60 Mg PO TID Benadryl (Diphenhydramine Hcl) 25 Mg Capsule 25 Mg PO PRN Q6HRS PRN Sotalol (Sotalol Hcl) 80 Mg Tablet 80 Mg PO DAILY Digoxin 250 Mcg Tablet 250 Mcg PO DAILY Ambien (Zolpidem Tartrate) 5 Mg Tablet 5 Mg PO PRN QHS PRN Ultram (Tramadol Hcl) 50 Mg Tablet 50 Mg PO PRN Q6HRS PRN Ativan (Lorazepam) 0.5 Mg Tablet 0.5 Mg PO PRN Q6HRS PRN Zofran Odt (Ondansetron) 4 Mg Tab.rapdis 4 Mg PO PRN Q6HRS PRN Reported Atorvastatin Calcium 40 Mg Tablet 40 Mg PO DAILY Pantoprazole Sodium 40 Mg Tablet. 40 Mg PO DAILY Matilde Baron 12,000 Units Capsule (Lipase/Protease/Amylase) 1 Each Capsule.dr 1 Each PO TID [dilaudid] 1 Ml PEG PRN Q2HR PRN Levemir Flextouch (Insulin Detemir) 100 Unit/1 Ml Insuln.pen 25 Unit SQ QHS Levemir Flextouch (Insulin Detemir) 100 Unit/1 Ml Insuln.pen 38 Unit SQ [id number] Phenergan (Promethazine Hcl) 25 Mg/1 Ml Ampul 25 Mg IJ PRN Q6HRS PRN Ondansetron Odt (Ondansetron) 8 Mg Tab.rapdis 8 Mg PO PRN Q6HRS PRN Lansoprazole 30 Mg Capsule.dr 1 Cap PO DAILY Novolog (Insulin Aspart) 100 Unit/1 Ml Vial 8 Unit SQ TIDAC Heparin 500 Unit/5 Ml (100/Ml) (Heparin Sodium,Porcine/Pf) 100 Unit/1 Ml Disp.syrin 500 Unit IV 1X Fluoxetine Hcl 20 Mg Tablet 20 Mg PEG DAILY Hyoscyamine Sulfate 0.125 Mg Tab.rapdis 0.125 Mg PO 6XDAY Lisinopril 5 Mg Tablet 5 Mg PO DAILY Vitals/I & O Vital Sign - Last 24 Hours 12/27/16 12/27/16 12/27/16 12/27/16 13:00 13:06 13:22 13:22 Pulse 64 103 103 Resp 21 B/P (MAP) 141/67 (91) 148/70 148/70 Pulse Ox 98 93 O2 Delivery Room Air Room Air 12/27/16 12/27/16 12/27/16 12/27/16 13:23 13:23 13:40 14:00 Pulse 103 103 103 Resp 20 B/P (MAP) 148/70 148/70 148/70 12/27/16 12/27/16 12/27/16 12/27/16 15:00 17:03 17:58 19:36 Temp 99.0 99.0 Pulse 64 71 Resp 21 18 B/P (MAP) 141/67 (91) 130/57 (81) Pulse Ox 98 93 93 96 O2 Delivery Room Air Room Air Room Air Room Air O2 Flow Rate 2.0 2.0 12/27/16 12/27/16 12/27/16 12/28/16 19:41 20:23 23:55 03:18 Temp 98.6 98.8 98.6 98.8 Pulse 71 82 65 Resp 16 18 B/P (MAP) 130/57 128/57 (80) 118/42 (67) Pulse Ox 97 95 O2 Delivery Room Air Room Air Room Air 12/28/16 12/28/16 12/28/16 12/28/16 07:41 08:30 08:31 08:31 Temp 98.8 98.8 Pulse 102 102 102 102 Resp 18 B/P (MAP) 136/59 (84) 136/59 136/59 136/59 Pulse Ox 96 O2 Delivery Room Air 12/28/16 12/28/16 08:31 10:50 Temp 99.1 99.1 Pulse 102 100 Resp 18 B/P (MAP) 136/59 131/52 (78) Pulse Ox 96 O2 Delivery Room Air CHRISTINA BARRIGA MD Dec 28, 2016 12:30
[2016-12-28 15:01] VITALS: BP 126/56
[2016-12-28] MEDS: IV 1/2 NORMAL SALINE 1,000 ML IV SCH (17:37)
[2016-12-28] MEDS: LORazepam 0.5 MG TABLET PO PRN (17:48)
[2016-12-28] MEDS: diphenhydrAMINE HCL 25 MG CAPSULE PO PRN ×2 (19:31→21:32)
[2016-12-28 19:53] VITALS: BP 150/69
[2016-12-28] MEDS: ATORVASTATIN CALCIUM 40 MG TABLET. PO SCH (21:17)
[2016-12-28] MEDS: INSULIN DETEMIR 300 UNITS/3 ML INSULN.PEN. SQ SCH (21:29)
[2016-12-28 23:15] VITALS: BP 114/52
[2016-12-28] MEDS ORDERED: INSULIN ASPART 300 UNITS/3 ML INSULN.PEN SQ ONE (23:45)
[2016-12-29] MEDS: ONDANSETRON PF 4 MG/2 ML VIAL. IV PRN ×2 (02:36→09:38)
[2016-12-29] MEDS: LORazepam 0.5 MG TABLET PO PRN ×2 (02:40→09:38)
[2016-12-29] MEDS: HYOSCYAMINE 0.125 MG TAB.RAPDIS PO SCH ×3 (07:00→13:00)
[2016-12-29 07:14] VITALS: BP 134/73
[2016-12-29] MEDS: PANTOPRAZOLE IV PUSH 40 MG VIAL. IVP SCH (07:39)
[2016-12-29] MEDS: IV 1/2 NORMAL SALINE 1,000 ML IV SCH (07:40)
[2016-12-29] MEDS: INSULIN ASPART 300 UNITS/3 ML INSULN.PEN SQ SCH ×2 (07:41→11:42)
[2016-12-29] MEDS: LISINOPRIL 5 MG TABLET. PO SCH (09:30)
[2016-12-29] MEDS: FLUoxetine HCL 20 MG CAPSULE PO SCH (09:30)
[2016-12-29] MEDS: DIGOXIN 250 MCG TABLET. PO SCH (09:31)
[2016-12-29] MEDS: dilTIAZem HCL 30 MG TABLET PO SCH ×2 (09:31→13:37)
[2016-12-29] MEDS: SOTALOL 80 MG TABLET. PO SCH (09:32)
[2016-12-29] MEDS: ENOXAPARIN 40 MG/0.4 ML SYRINGE. SQ SCH (10:51)
[2016-12-29 11:31] VITALS: BP 125/57
--- NOTE | 2016-12-29 12:33 | PDOC ---
PROGRESS NOTES Subjective Subjective Patient state she feels ready to go home today, denies pain or other concerns. Objective Objective Vital Signs Date Time Temp Pulse Resp B/P (MAP) Pulse Ox O2 Delivery O2 Flow Rate FiO2 12/29/16 11:31 98.6 70 16 125/57 (79) 98 Room Air 98.6 12/27/16 17:58 2.0 Intake and Output 12/30/16 07:00 Intake Total 0 ml Output Total 0 ml Balance 0 ml Tube Feeding 0 ml Gastric Drainage Total 0 ml Physical Exam Abdomen: Normal bowel sounds, Soft, No tenderness Heart: Regular rate Extremities: No edema General: Alert, Oriented X3, No acute distress Lungs: Clear to auscultation Assessment Assessment Problems Medical Problems: (1) Malfunctioning jejunostomy tube Status: Acute Plan Plan of Care 1. Gastroparesis - new J-tube functioning well, home today, continue tube feedings as tolerated. 2. DM1 - labile but fairly well controlled overall, home on her usual insulins. 3. HTN - controlled, continue home meds. 4. chronic anxiety - stable, continue home meds. Comment Review of Relevant I have reviewed the following items derrick (where applicable) has been applied. Labs Laboratory Tests Test 12/27/16 17:12 12/27/16 19:47 12/27/16 23:50 12/28/16 02:29 Glucose (Fingerstick) 255 mg/dL (70-99) 169 mg/dL (70-99) 287 mg/dL (70-99) 180 mg/dL (70-99) Test 12/28/16 05:20 12/28/16 07:02 12/28/16 08:45 12/28/16 10:12 White Blood Count 8.2 x10^3/uL (4.0-11.0) Red Blood Count 3.16 x10^6/uL (3.50-5.40) Hemoglobin 9.3 g/dL (12.0-15.5) Hematocrit 27.7 % (36.0-47.0) Mean Corpuscular Volume 88 fL (79-100) Mean Corpuscular Hemoglobin 29 pg (25-35) Mean Corpuscular Hemoglobin Concent 33 g/dL (31-37) Red Cell Distribution Width 14.3 % (11.5-14.5) Platelet Count 186 x10^3/uL (140-400) Neutrophils (%) (Auto) 75 % (31-73) Lymphocytes (%) (Auto) 16 % (24-48) Monocytes (%) (Auto) 8 % (0-9) Eosinophils (%) (Auto) 0 % (0-3) Basophils (%) (Auto) 1 % (0-3) Neutrophils # (Auto) 6.2 x10^3uL (1.8-7.7) Lymphocytes # (Auto) 1.3 x10^3/uL (1.0-4.8) Monocytes # (Auto) 0.6 x10^3/uL (0.0-1.1) Eosinophils # (Auto) 0.0 x10^3/uL (0.0-0.7) Basophils # (Auto) 0.1 x10^3/uL (0.0-0.2) Sodium Level 141 mmol/L (136-145) Potassium Level 3.7 mmol/L (3.5-5.1) Chloride Level 107 mmol/L (98-107) Carbon Dioxide Level 28 mmol/L (21-32) Anion Gap 6 (6-14) Blood Urea Nitrogen 17 mg/dL (7-20) Creatinine 1.2 mg/dL (0.6-1.0) Estimated GFR (Cockcroft-Gault) 45.5 Glucose Level 118 mg/dL (70-99) Calcium Level 8.2 mg/dL (8.5-10.1) Glucose (Fingerstick) 117 mg/dL (70-99) 111 mg/dL (70-99) 123 mg/dL (70-99) Test 12/28/16 11:43 12/28/16 16:44 12/28/16 20:37 12/28/16 23:02 Glucose (Fingerstick) 140 mg/dL (70-99) 306 mg/dL (70-99) 323 mg/dL (70-99) 430 mg/dL (70-99) Test 12/29/16 02:25 12/29/16 05:00 12/29/16 05:47 12/29/16 07:41 Glucose (Fingerstick) 166 mg/dL (70-99) 100 mg/dL (70-99) 109 mg/dL (70-99) 73 mg/dL (70-99) Test 12/29/16 09:05 12/29/16 11:42 Glucose (Fingerstick) 70 mg/dL (70-99) 101 mg/dL (70-99) Laboratory Tests Test 12/28/16 16:44 12/28/16 20:37 12/28/16 23:02 12/29/16 02:25 Glucose (Fingerstick) 306 mg/dL (70-99) 323 mg/dL (70-99) 430 mg/dL (70-99) 166 mg/dL (70-99) Test 12/29/16 05:00 12/29/16 05:47 12/29/16 07:41 12/29/16 09:05 Glucose (Fingerstick) 100 mg/dL (70-99) 109 mg/dL (70-99) 73 mg/dL (70-99) 70 mg/dL (70-99) Test 12/29/16 11:42 Glucose (Fingerstick) 101 mg/dL (70-99) Medications Current Medications Hydromorphone HCl (Dilaudid) 1 mg 1X ONCE IM Last administered on 12/21/16 16 :38; Start 12/21/16 at 16:30; Stop 12/21/16 at 16:34; Status DC Sodium Chloride 1,000 ml @ 1,000 mls/hr 1X ONCE IV Last administered on 19:28; Start 12/21/16 at 18:15; Stop 12/21/16 at 19:14; Status DC Ondansetron HCl (Zofran) 4 mg PRN Q8HRS PRN IV NAUSEA/VOMITING Last administered on 12/21/16 19:28; Start 12/21/16 at 19:30; Stop 12/21/16 at 20:36 ; Status DC Lorazepam (Ativan) 1 mg 1X ONCE IV Last administered on 12/21/16 19:27; Start 12/21/16 at 19:30; Stop 12/21/16 at 19:31; Status DC Hydromorphone HCl (Dilaudid) 1 mg 1X ONCE IV Last administered on 12/21/16 19 :27; Start 12/21/16 at 19:30; Stop 12/21/16 at 19:31; Status DC Lorazepam (Ativan) 0.5 mg PRN Q4HRS PRN IV ANXIETY / AGITATION Last administered on 12/28/16 08:45; Start 12/21/16 at 20:30; Stop 12/28/16 at 12: 26; Status DC Hydromorphone HCl (Dilaudid) 2 mg PRN Q4HRS PRN IV PAIN Last administered on 05:07; Start 12/21/16 at 20:30; Stop 12/23/16 at 08:51; Status DC Ondansetron HCl (Zofran) 8 mg PRN Q8HRS PRN IV NAUSEA/VOMITING Last administered on 12/23/16 07:37; Start 12/21/16 at 20:30; Stop 12/23/16 at 08:51 ; Status DC Insulin Aspart (NovoLOG) 8 units TIDAC SQ Last administered on 12/22/16 12:22 ; Start 12/22/16 at 11:30; Stop 12/22/16 at 21:12; Status DC Insulin Detemir (Levemir) 25 units QHS SQ ; Start 12/22/16 at 21:00; Stop at 21:12; Status DC Insulin Detemir (Levemir) 38 units [id number] SQ ; Start 12/23/16 at 08:00; Stop 12/23/16 at 08:00; Status DC Enoxaparin Sodium (Lovenox 40mg Syringe) 40 mg Q24H SQ Last administered on 10:51; Start 12/22/16 at 11:00 Amino Acids/ Glycerin/ Electrolytes 1,000 ml @ 80 mls/hr [id number] IV Last administered on 12/23/16 10:31; Start 12/22/16 at 10:30; Stop 12/23/16 at 17:49 ; Status DC Insulin Aspart (NovoLOG) 0-12 UNITS QIDACHS SQ ; Start 12/22/16 at 11:30; Stop 12/22/16 at 21:12; Status DC Insulin Detemir (Levemir) 38 units 1X ONCE SQ Last administered on 12/22/16 10:51; Start 12/22/16 at 10:45; Stop 12/22/16 at 10:46; Status DC Dextrose (Dextrose 50%-Water Syringe) 25 gm PRN Q15MIN PRN IV LOW BLOOD SUGAR Last administered on 12/24/16 10:44; Start 12/22/16 at 17:00 Zolpidem Tartrate (Ambien) 5 mg PRN QHS PRN PO INSOMNIA Last administered on 20:23; Start 12/22/16 at 21:15 Hydromorphone HCl (Dilaudid) 4 mg PRN Q4HRS PRN IV PAIN Last administered on 02:43; Start 12/23/16 at 09:00 Ondansetron HCl (Zofran) 8 mg PRN Q6HRS PRN IV NAUSEA/VOMITING Last administered on 12/25/16 16:06; Start 12/23/16 at 09:00; Stop 12/25/16 at 16: 59; Status DC Dextrose/Sodium Chloride 1,000 ml @ 75 mls/hr [id number] IV Last administered on 12/23/16 09:53; Start 12/23/16 at 09:30; Stop 12/23/16 at 16:49; Status DC Pantoprazole Sodium (Protonix Vial) 40 mg DAILYAC IVP Last administered on 07:39; Start 12/23/16 at 09:30 Diltiazem HCl (Cardizem) 30 mg Q6HRS IV Last administered on 12/23/16 09:36; Start 12/23/16 at 09:30; Stop 12/23/16 at 17:18; Status DC Insulin Aspart (NovoLOG) 0-9 UNITS TIDWMEALS SQ Last administered on 17:41; Start 12/23/16 at 12:45 Dextrose (Dextrose 50%-Water Syringe) 12.5 gm PRN Q15MIN PRN IV SEE COMMENTS Last administered on 12/24/16 07:11; Start 12/23/16 at 12:45 Iohexol (Omnipaque 300 Mg/ml) 50 ml STK-MED ONCE .ROUTE ; Start 12/23/16 at 13: 21; Stop 12/23/16 at 13:22; Status DC Fentanyl Citrate (Fentanyl 2ml Vial) 100 mcg STK-MED ONCE .ROUTE ; Start at 13:31; Stop 12/23/16 at 13:32; Status DC Lidocaine/Sodium Bicarbonate (Buffered Lidocaine 1%) 20 ml STK-MED ONCE IJ ; Start 12/23/16 at 14:04; Stop 12/23/16 at 14:05; Status DC Heparin Sodium/ Sodium Chloride 1,000 unit 1X ONCE IART ; Start 12/23/16 at 14: 15; Stop 12/23/16 at 14:36; Status DC Lidocaine/Sodium Bicarbonate (Buffered Lidocaine 1%) 20 ml 1X ONCE IJ Last administered on 12/23/16 14:34; Start 12/23/16 at 14:15; Stop 12/23/16 at 14:16 ; Status DC Fentanyl Citrate (Fentanyl 2ml Vial) 100 mcg 1X ONCE IV Last administered on 12/23/16 14:34; Start 12/23/16 at 14:15; Stop 12/23/16 at 14:16; Status DC Iohexol (Omnipaque 300 Mg/ml) 50 ml 1X ONCE IART Last administered on 14:33; Start 12/23/16 at 14:15; Stop 12/23/16 at 14:16; Status DC Info (Do NOT chart on this entry -- for MONITORING) 1 each PRN DAILY PRN MC SEE COMMENTS; Start 12/23/16 at 14:15; Stop 12/25/16 at 14:14; Status DC Atorvastatin Calcium (Lipitor) 40 mg QHS PO Last administered on 12/28/16 21: 17; Start 12/23/16 at 21:00 Digoxin (Lanoxin) 250 mcg DAILY PO Last administered on 12/29/16 09:31; Start 12/24/16 at 09:00 Diltiazem HCl (Cardizem) 60 mg TID PO Last administered on 12/29/16 09:31; Start 12/23/16 at 21:00 Diphenhydramine HCl (Benadryl) 25 mg PRN Q6HRS PRN PO ITCHING Last administered on 12/28/16 21:32; Start 12/23/16 at 17:15 Hyoscyamine (Anaspaz) 0.125 mg 6XDAY PO Last administered on 12/28/16 21:17; Start 12/23/16 at 19:00 Lisinopril (Prinivil) 5 mg DAILY PO Last administered on 12/29/16 09:30; Start 12/24/16 at 09:00 Lorazepam (Ativan) 0.5 mg PRN Q6HRS PRN PO ANXIETY / AGITATION Last administered on 12/29/16 09:38; Start 12/23/16 at 17:15 Ondansetron HCl (Zofran Odt) 4 mg PRN Q6HRS PRN PO NAUSEA/VOMITING; Start 12/23 at 17:15 Pantoprazole Sodium (Protonix) 40 mg DAILYAC PO ; Start 12/24/16 at 07:30; Status UNV Promethazine HCl (Phenergan Im) 25 mg PRN Q6HRS PRN IM NAUSEA; Start 12/23/16 at 17:15 Sotalol HCl (Betapace) 80 mg DAILY PO Last administered on 12/29/16 09:32; Start 12/24/16 at 09:00 Fluoxetine HCl (PROzac) 20 mg DAILY PO Last administered on 12/29/16 09:30; Start 12/24/16 at 09:00 Insulin Detemir (Levemir) 25 units QHS SQ Last administered on 12/23/16 20:15 ; Start 12/23/16 at 21:00; Stop 12/24/16 at 09:05; Status DC Insulin Detemir (Levemir) 15 units QHS SQ Last administered on 12/28/16 21:29 ; Start 12/24/16 at 21:00 Insulin Aspart (NovoLOG) 5 units 1X ONCE SQ Last administered on 12/25/16 03 :43; Start 12/25/16 at 03:30; Stop 12/25/16 at 03:59; Status DC Insulin Aspart (NovoLOG) 10 units 1X ONCE SQ Last administered on 12/25/16 08:08; Start 12/25/16 at 07:30; Stop 12/25/16 at 07:31; Status DC Ondansetron HCl (Zofran) 8 mg PRN Q4HRS PRN IV NAUSEA/VOMITING Last administered on 12/29/16 09:38; Start 12/25/16 at 17:00 Insulin Aspart (NovoLOG) 10 units 1X STAT SQ Last administered on 12/26/16 08:12; Start 12/26/16 at 07:31; Stop 12/26/16 at 07:32; Status DC Sodium Chloride 1,000 ml @ 1,000 mls/hr 1X ONCE IV Last administered on 12/26 09:00; Start 12/26/16 at 09:00; Stop 12/26/16 at 09:59; Status DC Sodium Chloride 1,000 ml @ 250 mls/hr 1X ONCE IV Last administered on 12:49; Start 12/26/16 at 09:00; Stop 12/26/16 at 12:59; Status DC Insulin Aspart (NovoLOG) 10 units 1X ONCE SQ Last administered on 12/26/16 09:00; Start 12/26/16 at 09:00; Stop 12/26/16 at 09:01; Status DC Insulin Human Regular 150 unit/ Sodium Chloride 151.5 ml @ 0 mls/hr CONT PRN IV SEE I/O RECORD Last administered on 12/26/16 09:33; Start 12/26/16 at 08: 45; Stop 12/26/16 at 18:57; Status DC Sodium Chloride 1,000 ml @ 1,000 mls/hr Q1H IV Last administered on 09:20; Start 12/26/16 at 09:10; Stop 12/26/16 at 10:09; Status DC Sodium Chloride 1,000 ml @ 500 mls/hr Q2H IV Last administered on 12/26/16 10:45; Start 12/26/16 at 09:11; Stop 12/26/16 at 11:10; Status DC Insulin Human Regular 150 unit/ Sodium Chloride 151.5 ml @ 0 mls/hr CONT PRN PRN IV PER PROTOCOL; Start 12/26/16 at 09:15; Stop 12/26/16 at 09:23; Status DC Potassium Chloride 100 ml @ 100 mls/hr PRN Q1HR PRN IV If potassium is 4 to 5 mEq/L; Start 12/26/16 at 09:15; Stop 12/26/16 at 18:57; Status DC Potassium Chloride 100 ml @ 100 mls/hr PRN Q1HR PRN IV Potassium is 3 to 3.9 mEq/L; Start 12/26/16 at 09:15; Stop 12/26/16 at 18:57; Status DC Potassium Chloride 100 ml @ 100 mls/hr PRN Q1HR PRN IV If potassium is less than 3 mE; Start 12/26/16 at 09:15; Stop 12/26/16 at 18:57; Status DC Magnesium Sulfate/ Dextrose 100 ml @ 25 mls/hr PRN DAILY PRN IV For Mg level of <1.8; Start 12/26/16 at 10:00 Sodium Bicarbonate 50 meq/Sodium Chloride 1,050 ml @ 500 mls/hr PRN Q2HRS PRN IV Infuse for pH < 6.95; Start 12/26/16 at 09:10; Stop 12/26/16 at 18:57; Status DC Sodium Phosphate 40 mmol/Sodium Chloride 513.3333 ml @ 83.3 mls/hr 1X PRN PRN IV FOR PO4 LESS THAN 1 MG/DL; Start 12/26/16 at 09:15; Stop 12/26/16 at 18:57 ; Status DC Sodium Phosphate 20 mmol/Dextrose 256.6667 ml @ 62.5 mls/hr 1X PRN PRN IV PHOSPHATE 1 TO 2.7; Start 12/26/16 at 09:15; Stop 12/26/16 at 18:57; Status DC Sodium Phosphate 10 mmol/Dextrose 253.3333 ml @ 62.5 mls/hr 1X PRN PRN IV SEE COMMENTS; Start 12/26/16 at 09:15; Stop 12/26/16 at 18:57; Status DC Dextrose/Sodium Chloride 1,000 ml @ 250 mls/hr Q4H IV Last administered on 18:43; Start 12/26/16 at 14:45; Stop 12/26/16 at 23:37; Status DC Potassium Chloride 100 ml @ 100 mls/hr Q1HR IV Last administered on 16:43; Start 12/26/16 at 16:00; Stop 12/26/16 at 17:59; Status DC Dextrose/Sodium Chloride 1,000 ml @ 75 mls/hr [id number] IV Last administered on 12/28/16 12:22; Start 12/27/16 at 08:45; Stop 12/28/16 at 17:34; Status DC Sodium Chloride 1,000 ml @ 75 mls/hr [id number] IV Last administered on 07:40; Start 12/28/16 at 17:45 Insulin Aspart (NovoLOG) 10 units 1X ONCE SQ Last administered on 12/28/16 23:38; Start 12/28/16 at 23:45; Stop 12/28/16 at 23:46; Status DC Active Scripts Active Cardizem Tablet (Diltiazem Hcl) 30 Mg Tablet 60 Mg PO TID Benadryl (Diphenhydramine Hcl) 25 Mg Capsule 25 Mg PO PRN Q6HRS PRN Sotalol (Sotalol Hcl) 80 Mg Tablet 80 Mg PO DAILY Digoxin 250 Mcg Tablet 250 Mcg PO DAILY Ambien (Zolpidem Tartrate) 5 Mg Tablet 5 Mg PO PRN QHS PRN Ultram (Tramadol Hcl) 50 Mg Tablet 50 Mg PO PRN Q6HRS PRN Ativan (Lorazepam) 0.5 Mg Tablet 0.5 Mg PO PRN Q6HRS PRN Zofran Odt (Ondansetron) 4 Mg Tab.rapdis 4 Mg PO PRN Q6HRS PRN Reported Atorvastatin Calcium 40 Mg Tablet 40 Mg PO DAILY Pantoprazole Sodium 40 Mg Tablet.dr 40 Mg PO DAILY Creon 12,000 Units Capsule (Lipase/Protease/Amylase) 1 Each Capsule.dr 1 Each PO TID [dilaudid] 1 Ml PEG PRN Q2HR PRN Levemir Flextouch (Insulin Detemir) 100 Unit/1 Ml Insuln.pen 25 Unit SQ QHS Levemir Flextouch (Insulin Detemir) 100 Unit/1 Ml Insuln.pen 38 Unit SQ DAILYWBKFT Phenergan (Promethazine Hcl) 25 Mg/1 Ml Ampul 25 Mg IJ PRN Q6HRS PRN Ondansetron Odt (Ondansetron) 8 Mg Tab.rapdis 8 Mg PO PRN Q6HRS PRN Lansoprazole 30 Mg Capsule. 1 Cap PO DAILY Novolog (Insulin Aspart) 100 Unit/1 Ml Vial 8 Unit SQ TIDAC Heparin 500 Unit/5 Ml (100/Ml) (Heparin Sodium,Porcine/Pf) 100 Unit/1 Ml Disp.syrin 500 Unit IV 1X Fluoxetine Hcl 20 Mg Tablet 20 Mg PEG DAILY Hyoscyamine Sulfate 0.125 Mg Tab.rapdis 0.125 Mg PO 6XDAY Lisinopril 5 Mg Tablet 5 Mg PO DAILY Vitals/I & O Vital Sign - Last 24 Hours 12/28/16 12/28/16 12/28/16 12/28/16 14:04 15:01 19:53 20:00 Temp 99.5 99.3 99.5 99.3 Pulse 100 100 98 Resp 18 16 B/P (MAP) 131/52 126/56 (79) 150/69 (96) Pulse Ox 97 99 O2 Delivery Room Air Room Air Room Air 12/28/16 12/28/16 12/29/16 12/29/16 21:17 23:15 07:14 07:40 Temp 98.1 97.6 98.1 97.6 Pulse 98 73 78 Resp 16 16 B/P (MAP) 150/69 114/52 (72) 134/73 (93) Pulse Ox 98 98 O2 Delivery Room Air Room Air Room Air 12/29/16 12/29/16 12/29/16 12/29/16 09:30 09:31 09:31 09:32 Pulse 78 78 78 78 B/P (MAP) 134/73 134/73 134/73 134/73 12/29/16 11:31 Temp 98.6 98.6 Pulse 70 Resp 16 B/P (MAP) 125/57 (79) Pulse Ox 98 O2 Delivery Room Air Intake and Output 12/29/16 12/29/16 12/30/16 15:00 23:00 07:00 Intake Total 0 ml Output Total 0 ml Balance 0 ml CHRISTINA BARRIGA MD Dec 29, 2016 12:33
[2016-12-29] MEDS ORDERED: HEPARIN PF 500 UNIT/5 ML DISP.SYRIN. IV ONE (13:00)
--- NOTE | 2016-12-29 13:35 | DS ---
DATE OF DISCHARGE: 12/29/2016 CHIEF COMPLAINT: Abdominal pain. HISTORY OF PRESENT ILLNESS: The patient is a 61-year-old female with a chronic J-tube due to diabetic gastroparesis. She began having difficulty several days prior to this admission when her feeding tube began malfunctioning. She was having increasing pain and was unable to take her usual tube feedings or medications via her tube. She came to the Emergency Room and was admitted for J-tube replacement and treatment of hyperglycemia and prerenal azotemia. HOSPITAL COURSE: The patient had replacement of her jejunostomy tube by Interventional Radiology on 12/23/2016. The tube has continued to function well since then and the patient's abdominal pain has slowly improved. The patient is a very brittle diabetic and chronically has fluctuating blood sugars. After several days in the hospital, she had a significant elevation in her blood sugars and was felt to be having diabetic ketoacidosis. She was transferred to the ICU and was treated with an insulin drip and increased fluids. She improved promptly with this and her blood sugars are now fairly well controlled with her usual insulins. She is tolerating a low continuous rate of tube feedings. 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 Her prerenal azotemia resolved with fluid replacement. Her chronic medical problems including hypertension and anxiety were controlled with her usual medications. The patient states that she feels better now and is ready to return home today. FINAL DIAGNOSES: 1. Malfunctioning jejunostomy tube. 2. Gastroparesis due to diabetes mellitus type 1. 3. Hypertension. 4. Chronic anxiety. DISCHARGE MEDICATIONS: Atorvastatin 40 mg daily, digoxin 250 mcg daily, Cardizem CD 60 mg t.i.d., Benadryl p.r.n., fluoxetine 20 mg daily, hyoscyamine 0.125 mg as directed, NovoLog insulin 8 units t.i.d. a.c., Levemir insulin 36 units in the a.m. and 25 units at bedtime, lansoprazole 30 mg daily, Creon capsules as directed, lisinopril 5 mg daily, lorazepam 0.5 mg q. 6 hours p.r.n. anxiety, Zofran 4 and 8 mg tablets p.r.n., Phenergan p.r.n., sotalol 80 mg daily, tramadol 50 mg q. 6 hours p.r.n., Ambien 5 mg at bedtime. The patient also has Dilaudid suspension to be used via her tube feeding as needed for her chronic pain. FOLLOWUP: Followup is with Dr. Blanca as needed. The patient reports she has already had her flu shot this fall. CHRISTINA BARRIGA MD DR: DIO/coretta JOB#: [id number] / [id number] LUIS
[2016-12-29 13:37] VITALS: BP 125/57
== END 2016-12-29 13:45 | disposition home or self-care (01) | DRG 393 ==
LOC: ER 15:36 → 6 SOUTH 19:00 → OBSVTOIN 12-22 10:17 → 1 WEST ICU 12-26 09:28 → 6 SOUTH 12-27 15:22
PROVIDERS: ADMIT Family Medicine; ATTEND Family Medicine
PROC: 0D2DXUZ Change Feeding Device in Lower Intestinal Tract, External Approach (ICD-10-PCS; principal; 2016-12-23)
DX: K94.13 Enterostomy malfunction (principal); N17.0 Acute kidney failure with tubular necrosis; E10.10 Type 1 diabetes mellitus with ketoacidosis without coma; E44.0 Moderate protein-calorie malnutrition; K31.84 Gastroparesis; E10.43 Type 1 diabetes mellitus with diabetic autonomic (poly)neuropathy; M41.9 Scoliosis, unspecified; G56.00 Carpal tunnel syndrome, unspecified upper limb; M19.90 Unspecified osteoarthritis, unspecified site; D72.829 Elevated white blood cell count, unspecified; E03.9 Hypothyroidism, unspecified; F41.9 Anxiety disorder, unspecified; G25.0 Essential tremor; G89.29 Other chronic pain; I11.9 Hypertensive heart disease without heart failure; E10.65 Type 1 diabetes mellitus with hyperglycemia; K21.9 Gastro-esophageal reflux disease without esophagitis; Z68.24 Body mass index [BMI] 24.0-24.9, adult; Z86.14 Personal history of Methicillin resistant Staphylococcus aureus infection; Z86.73 Personal history of transient ischemic attack (TIA), and cerebral infarction without residual deficits; Z87.440 Personal history of urinary (tract) infections; Z83.3 Family history of diabetes mellitus; Z90.49 Acquired absence of other specified parts of digestive tract; Z90.710 Acquired absence of both cervix and uterus; Z88.1 Allergy status to other antibiotic agents; Z88.2 Allergy status to sulfonamides; Z88.8 Allergy status to other drugs, medicaments and biological substances; Z81.8 Family history of other mental and behavioral disorders
CPT/HCPCS: 36415; 36600; 49451; 71010; 80048; 80053; 82150; 82805; 82962; 83605; 83690; 83735; 84100; 84681; 85007; 85025; 87086; 87641; 96372; 96374; 96375; C1713; C1758; C1769; C9113; G0378; G0379; J1170; J1650; J1815; J2060; J2405; J3010; J3480; J3490; J7030; J7042; Q0162; Q0163; Q9967; 99285-25

== ENCOUNTER 2017-04-23 21:20 | Inpatient (IN) | payer BC, MEDICARE ==
[2017-04-23] MEDS ORDERED: 0.9 % SOD CHL for STERILE FIELD 10 ML DISP.SYRIN. (22:02)
[2017-04-23] MEDS ORDERED: fentaNYL PF VIAL 100 MCG/2 ML VIAL IV (23:00)
[2017-04-23] MEDS: PROMETHAZINE 12.5 MG in IV DEXTROSE 5% 50 ML IV (23:08)
[2017-04-23] MEDS: fentaNYL PF VIAL 100 MCG/2 ML VIAL IV ×2 (23:09→23:48)
[2017-04-23] MEDS: IV NORMAL SALINE 1000ML BAG 1,000 ML IV (23:09)
[2017-04-23 23:11] LABS: ADD MAN DIFF? NO
[2017-04-23 23:16] LABS: BASO % 0 % (0-3); EOS % 0 % (0-3); HEMATOCRIT 23.9 % (36.0-47.0); HEMOGLOBIN 7.8 g/dL (12.0-15.5); LYMPH # 1.3 x10^3/uL (1.0-4.8); LYMPH % 18 % (24-48); MEAN CORPUSCULAR HEMOGLOBIN 29 pg (25-35); MEAN CORPUSCULAR HGB CONC 33 g/dL (31-37); MEAN CORPUSCULAR VOLUME 89 fL (79-100); MONO # 0.6 x10^3/uL (0.0-1.1); MONO % 8 % (0-9); NEUT # 5.4 x10^3uL (1.8-7.7); NEUT % 74 % (31-73); PLATELET COUNT 107 x10^3/uL (140-400); RED BLOOD COUNT 2.67 x10^6/uL (3.50-5.40); RED CELL DISTRIBUTION WIDTH 13.9 % (11.5-14.5); WHITE BLOOD COUNT 7.4 x10^3/uL (4.0-11.0)
[2017-04-23 23:24] LABS: ANION GAP 15 (6-14); BLOOD UREA NITROGEN 39 mg/dL (7-20); BUN/CREATININE RATIO 21 (6-20); CALCIUM 9.8 mg/dL (8.5-10.1); CARBON DIOXIDE 28 mmol/L (21-32); CHLORIDE 92 mmol/L (98-107); CREATININE 1.9 mg/dL (0.6-1.0); GFR 26.7; GLUCOSE 205 mg/dL (70-99); SODIUM 135 mmol/L (136-145)
[2017-04-23 23:30] LABS: ALBUMIN 3.5 g/dL (3.4-5.0); ALBUMIN/GLOBULIN RATIO 0.9 (1.0-1.7); ALK PHOS 114 U/L (46-116); ALT (SGPT) 19 U/L (14-59); AST (SGOT) 15 U/L (15-37); LIPASE 36 U/L (73-393); TOTAL BILIRUBIN 0.4 mg/dL (0.2-1.0); TOTAL PROTEIN 7.4 g/dL (6.4-8.2)
[2017-04-24] MEDS ORDERED: fentaNYL PF VIAL 100 MCG/2 ML VIAL IV
[2017-04-24] MEDS: IV NORMAL SALINE 1000ML BAG 1,000 ML IV ×3 (01:01→22:21)
[2017-04-24] MEDS: PROMETHAZINE 12.5 MG in IV DEXTROSE 5% 50 ML IV (01:01)
[2017-04-24 01:35] LABS: POC GLUCOSE 432 mg/dL (70-99)
[2017-04-24 03:27] LABS: POC GLUCOSE 524 mg/dL (70-99)
[2017-04-24] MEDS: HYDROmorphone 2 MG/ML VIAL IV ×6 (04:04→23:59)
[2017-04-24] MEDS: LORazepam 0.5 MG TABLET PO ×3 (04:05→22:21)
[2017-04-24] MEDS: INSULIN DETEMIR 300 UNITS/3 ML INSULN.PEN. SQ ×5 (04:10→22:29)
[2017-04-24] MEDS: INSULIN ASPART 300 UNITS/3 ML INSULN.PEN SQ ×5 (04:10→16:30)
[2017-04-24] MEDS ORDERED: HYDROMORPHONE HCL IJ (06:00)
[2017-04-24 08:16] LABS: GLUCOSE 738 mg/dL (70-99)
[2017-04-24] MEDS: ONDANSETRON PF 4 MG/2 ML VIAL. IV ×3 (09:10→22:21)
[2017-04-24 10:45] LABS: POC GLUCOSE 563 mg/dL (70-99)
[2017-04-24 11:27] LABS: POC GLUCOSE 506 mg/dL (70-99)
[2017-04-24 11:31] LABS: GLUCOSE 576 mg/dL (70-99)
[2017-04-24] MEDS: LIPASE/PROTEAS/AMYLAS 10/34/55 CAPSULE.DR. PO ×2 (12:37→16:21)
[2017-04-24] MEDS: LISINOPRIL 5 MG TABLET. PO (12:39)
[2017-04-24] MEDS: dilTIAZem HCL 30 MG TABLET PO ×2 (12:44→22:22)
[2017-04-24] MEDS: PANTOPRAZOLE 40 MG TABLET.DR. PO (13:04)
[2017-04-24] MEDS: DIGOXIN 250 MCG TABLET. PO ×2 (13:04→22:22)
[2017-04-24] MEDS: traMADol 50 MG TABLET PO ×2 (13:05→20:49)
[2017-04-24 14:10] LABS: POC GLUCOSE 249 mg/dL (70-99)
[2017-04-24 16:14] LABS: POC GLUCOSE 144 mg/dL (70-99)
[2017-04-24] MEDS: PROMETHAZINE 12.5 MG in IV NORMAL SALINE 50ML 50 ML IV ×2 (17:36→23:46)
[2017-04-24] MEDS: ATORVASTATIN CALCIUM 40 MG TABLET. PO (20:48)
[2017-04-24] MEDS: ENOXAPARIN 40 MG/0.4 ML SYRINGE. SQ (20:49)
[2017-04-24] MEDS: DEXTROSE 50% 25 GM / 50ML DISP.SYRIN. IV (21:37)
[2017-04-24 21:56] LABS: POC GLUCOSE 32 mg/dL (70-99)
[2017-04-24 21:59] LABS: POC GLUCOSE 162 mg/dL (70-99)
[2017-04-25 00:46] LABS: POC GLUCOSE 31 mg/dL (70-99)
[2017-04-25] MEDS: DEXTROSE 50% 25 GM / 50ML DISP.SYRIN. IV ×3 (00:51→07:23)
[2017-04-25 01:18] LABS: POC GLUCOSE 127 mg/dL (70-99)
[2017-04-25 01:56] LABS: POC GLUCOSE 90 mg/dL (70-99)
[2017-04-25 02:26] LABS: POC GLUCOSE 71 mg/dL (70-99)
[2017-04-25 02:39] LABS: POC GLUCOSE 68 mg/dL (70-99)
[2017-04-25] MEDS: LORazepam 0.5 MG TABLET PO ×3 (05:19→17:34)
[2017-04-25] MEDS: ONDANSETRON PF 4 MG/2 ML VIAL. IV ×3 (05:20→19:43)
[2017-04-25] MEDS: dilTIAZem HCL 30 MG TABLET PO ×3 (05:20→21:28)
[2017-04-25] MEDS: HYDROmorphone 2 MG/ML VIAL IV ×4 (05:21→19:43)
[2017-04-25 06:05] LABS: POC GLUCOSE 93 mg/dL (70-99)
[2017-04-25 07:14] LABS: POC GLUCOSE 53 mg/dL (70-99)
[2017-04-25] MEDS: INSULIN ASPART 300 UNITS/3 ML INSULN.PEN SQ ×3 (07:30→17:45)
[2017-04-25 07:36] LABS: ADD MAN DIFF? NO
[2017-04-25] MEDS: INSULIN DETEMIR 300 UNITS/3 ML INSULN.PEN. SQ ×2 (08:00→21:40)
[2017-04-25 08:26] LABS: BASO % 1 % (0-3); EOS % 0 % (0-3); HEMATOCRIT 29.5 % (36.0-47.0); HEMOGLOBIN 9.8 g/dL (12.0-15.5); LYMPH # 2.2 x10^3/uL (1.0-4.8); LYMPH % 23 % (24-48); MEAN CORPUSCULAR HEMOGLOBIN 30 pg (25-35); MEAN CORPUSCULAR HGB CONC 33 g/dL (31-37); MEAN CORPUSCULAR VOLUME 88 fL (79-100); MONO # 0.7 x10^3/uL (0.0-1.1); MONO % 8 % (0-9); NEUT # 6.9 x10^3uL (1.8-7.7); NEUT % 69 % (31-73); PLATELET COUNT 148 x10^3/uL (140-400); RED BLOOD COUNT 3.34 x10^6/uL (3.50-5.40); RED CELL DISTRIBUTION WIDTH 13.8 % (11.5-14.5); WHITE BLOOD COUNT 9.9 x10^3/uL (4.0-11.0)
[2017-04-25] MEDS: DIGOXIN 250 MCG TABLET. PO ×2 (10:12→21:27)
[2017-04-25] MEDS: SOTALOL 80 MG TABLET. PO (10:13)
[2017-04-25] MEDS: PANTOPRAZOLE 40 MG TABLET.DR. PO (10:13)
[2017-04-25] MEDS: FLUoxetine HCL 20 MG CAPSULE PO (10:14)
[2017-04-25] MEDS: traMADol 50 MG TABLET PO ×3 (10:14→21:28)
[2017-04-25] MEDS: IV NORMAL SALINE 1000ML BAG 1,000 ML IV ×2 (10:15→18:00)
[2017-04-25] MEDS: LIPASE/PROTEAS/AMYLAS 10/34/55 CAPSULE.DR. PO ×3 (10:15→17:34)
[2017-04-25] MEDS: LISINOPRIL 5 MG TABLET. PO (10:15)
[2017-04-25 11:16] LABS: POC GLUCOSE 179 mg/dL (70-99)
[2017-04-25 13:32] LABS: ALBUMIN 2.5 g/dL (3.4-5.0); ALBUMIN/GLOBULIN RATIO 0.8 (1.0-1.7); ALK PHOS 84 U/L (46-116); ANION GAP 7 (6-14); AST (SGOT) 16 U/L (15-37); BLOOD UREA NITROGEN 34 mg/dL (7-20); BUN/CREATININE RATIO 20 (6-20); CARBON DIOXIDE 29 mmol/L (21-32); CHLORIDE 100 mmol/L (98-107); CREATININE 1.7 mg/dL (0.6-1.0); GFR 30.4; GLUCOSE 262 mg/dL (70-99); POTASSIUM 4.3 mmol/L (3.5-5.1); SODIUM 136 mmol/L (136-145); TOTAL BILIRUBIN 0.2 mg/dL (0.2-1.0); TOTAL PROTEIN 5.6 g/dL (6.4-8.2)
[2017-04-25 13:42] LABS: ALT (SGPT) 17 U/L (14-59)
[2017-04-25] MEDS: PROMETHAZINE IM 25 MG/ML VIAL IM (15:32)
[2017-04-25 15:50] LABS: POC GLUCOSE 136 mg/dL (70-99)
[2017-04-25 17:28] LABS: POC GLUCOSE 264 mg/dL (70-99)
[2017-04-25] MEDS: diphenhydrAMINE HCL 25 MG CAPSULE PO (17:34)
[2017-04-25 20:55] LABS: POC GLUCOSE 158 mg/dL (70-99)
[2017-04-25] MEDS: ATORVASTATIN CALCIUM 40 MG TABLET. PO (21:27)
[2017-04-25] MEDS: ENOXAPARIN 40 MG/0.4 ML SYRINGE. SQ (21:27)
[2017-04-25] MEDS: ZOLPIDEM 5 MG TABLET. PO (21:29)
[2017-04-25] MEDS: PROMETHAZINE 12.5 MG in IV NORMAL SALINE 50ML 50 ML IV (21:29)
[2017-04-25 22:26] LABS: POC GLUCOSE 298 mg/dL (70-99)
[2017-04-26] MEDS: HYDROmorphone 2 MG/ML VIAL IV ×7 (03:14→21:37)
[2017-04-26] MEDS: ONDANSETRON PF 4 MG/2 ML VIAL. IV ×3 (03:15→21:36)
[2017-04-26] MEDS: IV NORMAL SALINE 1000ML BAG 1,000 ML IV (03:15)
[2017-04-26 04:09] LABS: POC GLUCOSE 73 mg/dL (70-99)
[2017-04-26 05:43] LABS: POC GLUCOSE 32 mg/dL (70-99)
[2017-04-26] MEDS: DEXTROSE 50% 25 GM / 50ML DISP.SYRIN. IV ×4 (05:46→13:52)
[2017-04-26] MEDS: dilTIAZem HCL 30 MG TABLET PO ×3 (05:50→21:33)
[2017-04-26 06:04] LABS: ADD MAN DIFF? NO
[2017-04-26 06:07] LABS: POC GLUCOSE 167 mg/dL (70-99)
[2017-04-26 06:30] LABS: ANION GAP 6 (6-14); BASO # 0.1 x10^3/uL (0.0-0.2); BASO % 1 % (0-3); BLOOD UREA NITROGEN 26 mg/dL (7-20); CALCIUM 8.6 mg/dL (8.5-10.1); CARBON DIOXIDE 30 mmol/L (21-32); CHLORIDE 103 mmol/L (98-107); CREATININE 1.4 mg/dL (0.6-1.0); EOS % 0 % (0-3); GLUCOSE 59 mg/dL (70-99); HEMATOCRIT 29.2 % (36.0-47.0); LYMPH # 1.7 x10^3/uL (1.0-4.8); LYMPH % 23 % (24-48); MEAN CORPUSCULAR HEMOGLOBIN 30 pg (25-35); MEAN CORPUSCULAR HGB CONC 34 g/dL (31-37); MEAN CORPUSCULAR VOLUME 89 fL (79-100); MONO # 0.5 x10^3/uL (0.0-1.1); MONO % 7 % (0-9); NEUT % 69 % (31-73); PLATELET COUNT 201 x10^3/uL (140-400); POTASSIUM 3.9 mmol/L (3.5-5.1); RED BLOOD COUNT 3.28 x10^6/uL (3.50-5.40); RED CELL DISTRIBUTION WIDTH 14.3 % (11.5-14.5); SODIUM 139 mmol/L (136-145); WHITE BLOOD COUNT 7.2 x10^3/uL (4.0-11.0)
[2017-04-26] MEDS: INSULIN ASPART 300 UNITS/3 ML INSULN.PEN SQ ×3 (07:30→16:30)
[2017-04-26 07:46] LABS: POC GLUCOSE 72 mg/dL (70-99)
[2017-04-26] MEDS: INSULIN DETEMIR 300 UNITS/3 ML INSULN.PEN. SQ ×2 (08:00→22:03)
[2017-04-26 08:29] LABS: POC GLUCOSE 62 mg/dL (70-99)
[2017-04-26] MEDS: LIPASE/PROTEAS/AMYLAS 10/34/55 CAPSULE.DR. PO ×3 (08:37→17:28)
[2017-04-26] MEDS: FLUoxetine HCL 20 MG CAPSULE PO (08:37)
[2017-04-26] MEDS: LORazepam 0.5 MG TABLET PO ×2 (08:37→17:35)
[2017-04-26] MEDS: traMADol 50 MG TABLET PO ×3 (08:37→21:35)
[2017-04-26] MEDS: SOTALOL 80 MG TABLET. PO (08:38)
[2017-04-26] MEDS: LISINOPRIL 5 MG TABLET. PO (08:39)
[2017-04-26] MEDS: PANTOPRAZOLE 40 MG TABLET.DR. PO (08:40)
[2017-04-26] MEDS: DIGOXIN 250 MCG TABLET. PO ×2 (08:56→21:34)
[2017-04-26 09:04] LABS: POC GLUCOSE 105 mg/dL (70-99)
[2017-04-26 11:15] LABS: POC GLUCOSE 53 mg/dL (70-99)
[2017-04-26 11:26] LABS: POC GLUCOSE 105 mg/dL (70-99)
[2017-04-26 13:48] LABS: POC GLUCOSE 53 mg/dL (70-99)
[2017-04-26 14:27] LABS: POC GLUCOSE 105 mg/dL (70-99)
[2017-04-26] MEDS: IV DEXTROSE 5 %-0.45 % NACL 1,000 ML IV (16:05)
[2017-04-26] MEDS: PROMETHAZINE 12.5 MG in IV NORMAL SALINE 50ML 50 ML IV (16:05)
[2017-04-26 17:42] LABS: POC GLUCOSE 83 mg/dL (70-99)
[2017-04-26 17:42] LABS: POC GLUCOSE 90 mg/dL (70-99)
[2017-04-26 20:03] LABS: POC GLUCOSE 118 mg/dL (70-99)
[2017-04-26] MEDS: ZOLPIDEM 5 MG TABLET. PO (21:33)
[2017-04-26] MEDS: ATORVASTATIN CALCIUM 40 MG TABLET. PO (21:35)
[2017-04-26] MEDS: ENOXAPARIN 40 MG/0.4 ML SYRINGE. SQ (21:37)
[2017-04-27] MEDS: LORazepam 0.5 MG TABLET PO ×4 (02:40→21:19)
[2017-04-27] MEDS: HYDROmorphone 2 MG/ML VIAL IV ×6 (02:41→21:19)
[2017-04-27] MEDS: PROMETHAZINE 12.5 MG in IV NORMAL SALINE 50ML 50 ML IV (03:31)
[2017-04-27 05:31] LABS: POC GLUCOSE 194 mg/dL (70-99)
[2017-04-27] MEDS: dilTIAZem HCL 30 MG TABLET PO ×3 (05:32→21:08)
[2017-04-27] MEDS: ONDANSETRON PF 4 MG/2 ML VIAL. IV ×3 (05:46→21:18)
[2017-04-27] MEDS: PANTOPRAZOLE 40 MG TABLET.DR. PO (08:31)
[2017-04-27] MEDS: FLUoxetine HCL 20 MG CAPSULE PO (08:31)
[2017-04-27] MEDS: traMADol 50 MG TABLET PO ×3 (08:32→21:09)
[2017-04-27] MEDS: LIPASE/PROTEAS/AMYLAS 10/34/55 CAPSULE.DR. PO ×3 (08:33→17:00)
[2017-04-27] MEDS: LISINOPRIL 5 MG TABLET. PO (08:33)
[2017-04-27] MEDS: DIGOXIN 250 MCG TABLET. PO ×2 (08:34→21:08)
[2017-04-27] MEDS: SOTALOL 80 MG TABLET. PO (08:35)
[2017-04-27] MEDS: INSULIN DETEMIR 300 UNITS/3 ML INSULN.PEN. SQ ×2 (09:00→21:14)
[2017-04-27] MEDS: INSULIN ASPART 300 UNITS/3 ML INSULN.PEN SQ ×3 (09:01→16:30)
[2017-04-27 11:41] LABS: POC GLUCOSE 115 mg/dL (70-99)
[2017-04-27 11:45] LABS: POC GLUCOSE 194 mg/dL (70-99)
[2017-04-27] MEDS: IV DEXTROSE 5 %-0.45 % NACL 1,000 ML IV (11:55)
[2017-04-27 17:32] LABS: POC GLUCOSE 103 mg/dL (70-99)
[2017-04-27 21:03] LABS: POC GLUCOSE 210 mg/dL (70-99)
[2017-04-27] MEDS: ENOXAPARIN 40 MG/0.4 ML SYRINGE. SQ (21:07)
[2017-04-27] MEDS: ATORVASTATIN CALCIUM 40 MG TABLET. PO (21:07)
[2017-04-27] MEDS: ZOLPIDEM 5 MG TABLET. PO (21:19)
[2017-04-28] MEDS: HYDROmorphone 2 MG/ML VIAL IV ×7 (00:52→22:41)
[2017-04-28 01:07] LABS: POC GLUCOSE 123 mg/dL (70-99)
[2017-04-28] MEDS: ONDANSETRON PF 4 MG/2 ML VIAL. IV ×3 (03:30→16:04)
[2017-04-28] MEDS: LORazepam 0.5 MG TABLET PO ×3 (03:38→22:40)
[2017-04-28] MEDS: dilTIAZem HCL 30 MG TABLET PO ×3 (06:12→22:24)
[2017-04-28] MEDS: INSULIN ASPART 300 UNITS/3 ML INSULN.PEN SQ ×5 (07:30→17:47)
[2017-04-28] MEDS: INSULIN DETEMIR 300 UNITS/3 ML INSULN.PEN. SQ ×2 (08:00→21:06)
[2017-04-28] MEDS: LIPASE/PROTEAS/AMYLAS 10/34/55 CAPSULE.DR. PO ×3 (08:00→16:06)
[2017-04-28] MEDS: DEXTROSE 50% 25 GM / 50ML DISP.SYRIN. IV (08:18)
[2017-04-28] MEDS: PANTOPRAZOLE 40 MG TABLET.DR. PO (10:47)
[2017-04-28] MEDS: SOTALOL 80 MG TABLET. PO (10:47)
[2017-04-28] MEDS: LISINOPRIL 5 MG TABLET. PO (10:47)
[2017-04-28] MEDS: traMADol 50 MG TABLET PO ×3 (10:48→20:56)
[2017-04-28] MEDS: FLUoxetine HCL 20 MG CAPSULE PO (10:49)
[2017-04-28] MEDS: DIGOXIN 250 MCG TABLET. PO ×2 (10:49→20:57)
[2017-04-28 11:49] LABS: POC GLUCOSE 171 mg/dL (70-99)
[2017-04-28 11:49] LABS: POC GLUCOSE 111 mg/dL (70-99)
[2017-04-28 11:49] LABS: POC GLUCOSE 162 mg/dL (70-99)
[2017-04-28 11:49] LABS: POC GLUCOSE 57 mg/dL (70-99)
[2017-04-28 16:51] LABS: POC GLUCOSE 457 mg/dL (70-99)
[2017-04-28] MEDS ORDERED: DEXTROSE 50% 25 GM / 50ML DISP.SYRIN. IV (17:00)
[2017-04-28] MEDS: IV DEXTROSE 5 %-0.45 % NACL 1,000 ML IV (17:33)
[2017-04-28] MEDS: PROMETHAZINE 12.5 MG in IV NORMAL SALINE 50ML 50 ML IV (19:25)
[2017-04-28 20:45] LABS: POC GLUCOSE 461 mg/dL (70-99)
[2017-04-28] MEDS: ATORVASTATIN CALCIUM 40 MG TABLET. PO (20:56)
[2017-04-28] MEDS: ZOLPIDEM 5 MG TABLET. PO (20:56)
[2017-04-28] MEDS: ENOXAPARIN 40 MG/0.4 ML SYRINGE. SQ (21:00)
[2017-04-29] MEDS: ONDANSETRON PF 4 MG/2 ML VIAL. IV ×3 (01:01→14:22)
[2017-04-29] MEDS: HYDROmorphone 2 MG/ML VIAL IV ×8 (01:02→21:58)
[2017-04-29] MEDS: DEXTROSE 50% 25 GM / 50ML DISP.SYRIN. IV ×2 (05:15→08:11)
[2017-04-29 05:16] LABS: POC GLUCOSE 29 mg/dL (70-99)
[2017-04-29] MEDS: dilTIAZem HCL 30 MG TABLET PO ×3 (05:26→21:57)
[2017-04-29 05:39] LABS: POC GLUCOSE 129 mg/dL (70-99)
[2017-04-29] MEDS: PROMETHAZINE 12.5 MG in IV NORMAL SALINE 50ML 50 ML IV ×3 (05:41→18:56)
[2017-04-29 07:08] LABS: POC GLUCOSE 80 mg/dL (70-99)
[2017-04-29] MEDS: INSULIN ASPART 300 UNITS/3 ML INSULN.PEN SQ ×6 (07:30→17:30)
[2017-04-29 07:59] LABS: POC GLUCOSE 40 mg/dL (70-99)
[2017-04-29] MEDS: INSULIN DETEMIR 300 UNITS/3 ML INSULN.PEN. SQ ×2 (08:00→21:04)
[2017-04-29] MEDS: LISINOPRIL 5 MG TABLET. PO (08:19)
[2017-04-29] MEDS: FLUoxetine HCL 20 MG CAPSULE PO (08:19)
[2017-04-29] MEDS: PANTOPRAZOLE 40 MG TABLET.DR. PO (08:19)
[2017-04-29] MEDS: SOTALOL 80 MG TABLET. PO (08:19)
[2017-04-29] MEDS: LIPASE/PROTEAS/AMYLAS 10/34/55 CAPSULE.DR. PO ×3 (08:20→17:18)
[2017-04-29] MEDS: traMADol 50 MG TABLET PO ×3 (08:20→20:52)
[2017-04-29] MEDS: DIGOXIN 250 MCG TABLET. PO ×2 (08:20→20:52)
[2017-04-29 08:47] LABS: POC GLUCOSE 133 mg/dL (70-99)
[2017-04-29] MEDS: LORazepam 0.5 MG TABLET PO ×2 (10:19→17:18)
[2017-04-29] MEDS: IV DEXTROSE 5 %-0.45 % NACL 1,000 ML IV (10:19)
[2017-04-29 11:28] LABS: POC GLUCOSE 105 mg/dL (70-99)
[2017-04-29 16:37] LABS: POC GLUCOSE 273 mg/dL (70-99)
[2017-04-29] MEDS: ZOLPIDEM 5 MG TABLET. PO (20:52)
[2017-04-29] MEDS: ATORVASTATIN CALCIUM 40 MG TABLET. PO (20:52)
[2017-04-29] MEDS: ENOXAPARIN 40 MG/0.4 ML SYRINGE. SQ (20:53)
[2017-04-29 21:03] LABS: POC GLUCOSE 246 mg/dL (70-99)
[2017-04-30] MEDS: ONDANSETRON PF 4 MG/2 ML VIAL. IV ×4 (00:03→19:39)
[2017-04-30] MEDS: LORazepam 0.5 MG TABLET PO ×5 (00:04→23:29)
[2017-04-30] MEDS: HYDROmorphone 2 MG/ML VIAL IV ×11 (00:04→23:29)
[2017-04-30] MEDS: DEXTROSE 50% 25 GM / 50ML DISP.SYRIN. IV ×2 (05:18→08:53)
[2017-04-30 05:22] LABS: POC GLUCOSE 35 mg/dL (70-99)
[2017-04-30] MEDS: dilTIAZem HCL 30 MG TABLET PO ×3 (05:26→20:39)
[2017-04-30 05:46] LABS: POC GLUCOSE 120 mg/dL (70-99)
[2017-04-30 07:02] LABS: POC GLUCOSE 80 mg/dL (70-99)
[2017-04-30] MEDS: INSULIN ASPART 300 UNITS/3 ML INSULN.PEN SQ ×6 (07:30→23:30)
[2017-04-30] MEDS: INSULIN DETEMIR 300 UNITS/3 ML INSULN.PEN. SQ (08:00)
[2017-04-30] MEDS: LIPASE/PROTEAS/AMYLAS 10/34/55 CAPSULE.DR. PO ×3 (08:00→17:30)
[2017-04-30 08:45] LABS: POC GLUCOSE 50 mg/dL (70-99)
[2017-04-30] MEDS: PANTOPRAZOLE 40 MG TABLET.DR. PO (08:58)
[2017-04-30] MEDS: SOTALOL 80 MG TABLET. PO (08:59)
[2017-04-30] MEDS: DIGOXIN 250 MCG TABLET. PO ×2 (08:59→20:38)
[2017-04-30] MEDS: LISINOPRIL 5 MG TABLET. PO (08:59)
[2017-04-30] MEDS: traMADol 50 MG TABLET PO ×3 (09:00→20:38)
[2017-04-30] MEDS: FLUoxetine HCL 20 MG CAPSULE PO (09:04)
[2017-04-30 09:32] LABS: POC GLUCOSE 101 mg/dL (70-99)
[2017-04-30] MEDS: PROMETHAZINE 12.5 MG in IV NORMAL SALINE 50ML 50 ML IV ×2 (09:50→14:54)
[2017-04-30] MEDS: IV DEXTROSE 5 %-0.45 % NACL 1,000 ML IV ×2 (11:02→23:28)
[2017-04-30 11:24] LABS: POC GLUCOSE 87 mg/dL (70-99)
[2017-04-30 19:36] LABS: POC GLUCOSE 190 mg/dL (70-99)
[2017-04-30] MEDS: ZOLPIDEM 5 MG TABLET. PO (20:38)
[2017-04-30] MEDS: ATORVASTATIN CALCIUM 40 MG TABLET. PO (20:38)
[2017-04-30] MEDS: ENOXAPARIN 40 MG/0.4 ML SYRINGE. SQ (20:39)
[2017-04-30 21:55] LABS: BILIRUBIN,URINE NEGATIVE (NEG); CLARITY,URINE CLEAR; COLOR,URINE YELLOW; GLUCOSE,URINE 500 mg/dL (NEG); NITRITE,URINE NEGATIVE (NEG); PH,URINE 7.5; PROTEIN,URINE NEGATIVE (NEG-TRACE); UROBILINOGEN,URINE 0.2 mg/dL (0.2 mg/dL)
[2017-04-30 22:29] LABS: BACTERIA,URINE 0 /HPF (0-FEW); RBC,URINE 0 /HPF (0-2); SQUAMOUS EPITHELIAL CELL,UR MOD /LPF
[2017-04-30 23:09] LABS: POC GLUCOSE 388 mg/dL (70-99)
[2017-05-01] MEDS: ONDANSETRON PF 4 MG/2 ML VIAL. IV ×3 (03:07→17:21)
[2017-05-01] MEDS: HYDROmorphone 2 MG/ML VIAL IV ×8 (03:08→22:32)
[2017-05-01 06:01] LABS: ADD MAN DIFF? NO
[2017-05-01 06:06] LABS: BASO # 0.1 x10^3/uL (0.0-0.2); BASO % 1 % (0-3); EOS % 0 % (0-3); HEMATOCRIT 27.3 % (36.0-47.0); HEMOGLOBIN 9.3 g/dL (12.0-15.5); LYMPH # 1.3 x10^3/uL (1.0-4.8); LYMPH % 22 % (24-48); MEAN CORPUSCULAR HEMOGLOBIN 30 pg (25-35); MEAN CORPUSCULAR HGB CONC 34 g/dL (31-37); MEAN CORPUSCULAR VOLUME 89 fL (79-100); MONO # 0.6 x10^3/uL (0.0-1.1); MONO % 11 % (0-9); NEUT # 3.9 x10^3uL (1.8-7.7); NEUT % 67 % (31-73); PLATELET COUNT 142 x10^3/uL (140-400); RED BLOOD COUNT 3.07 x10^6/uL (3.50-5.40); RED CELL DISTRIBUTION WIDTH 14.3 % (11.5-14.5); WHITE BLOOD COUNT 5.9 x10^3/uL (4.0-11.0)
[2017-05-01] MEDS: dilTIAZem HCL 30 MG TABLET PO ×3 (06:26→22:03)
[2017-05-01 06:34] LABS: ANION GAP 2 (6-14); BLOOD UREA NITROGEN 19 mg/dL (7-20); CALCIUM 8.3 mg/dL (8.5-10.1); CARBON DIOXIDE 34 mmol/L (21-32); CHLORIDE 97 mmol/L (98-107); CREATININE 1.1 mg/dL (0.6-1.0); GFR 50.2; POTASSIUM 5.3 mmol/L (3.5-5.1); SODIUM 133 mmol/L (136-145)
[2017-05-01 06:39] LABS: GLUCOSE 530 mg/dL (70-99)
[2017-05-01 06:39] LABS: POC GLUCOSE 518 mg/dL (70-99)
[2017-05-01] MEDS: INSULIN ASPART 300 UNITS/3 ML INSULN.PEN SQ ×4 (06:57→17:00)
[2017-05-01] MEDS ORDERED: INSULIN ASPART 300 UNITS/3 ML INSULN.PEN SQ (06:57)
[2017-05-01] MEDS: INSULIN DETEMIR 300 UNITS/3 ML INSULN.PEN. SQ ×2 (07:04→08:41)
[2017-05-01 07:23] LABS: POC GLUCOSE 481 mg/dL (70-99)
[2017-05-01] MEDS: SOTALOL 80 MG TABLET. PO (08:32)
[2017-05-01] MEDS: traMADol 50 MG TABLET PO ×3 (08:32→20:26)
[2017-05-01] MEDS: PANTOPRAZOLE 40 MG TABLET.DR. PO (08:33)
[2017-05-01] MEDS: DIGOXIN 250 MCG TABLET. PO ×2 (08:35→20:27)
[2017-05-01] MEDS: LIPASE/PROTEAS/AMYLAS 10/34/55 CAPSULE.DR. PO ×3 (08:35→17:21)
[2017-05-01] MEDS: FLUoxetine HCL 20 MG CAPSULE PO (08:36)
[2017-05-01] MEDS: LISINOPRIL 5 MG TABLET. PO (08:36)
[2017-05-01] MEDS: LORazepam 0.5 MG TABLET PO ×3 (08:45→22:02)
[2017-05-01 08:55] LABS: POC GLUCOSE 306 mg/dL (70-99)
[2017-05-01 11:05] LABS: POC GLUCOSE 130 mg/dL (70-99)
[2017-05-01] MEDS: PROMETHAZINE 12.5 MG in IV NORMAL SALINE 50ML 50 ML IV ×3 (12:09→22:30)
[2017-05-01 12:15] LABS: POC GLUCOSE 113 mg/dL (70-99)
[2017-05-01 16:12] LABS: POC GLUCOSE 89 mg/dL (70-99)
[2017-05-01 17:39] LABS: POC GLUCOSE 77 mg/dL (70-99)
[2017-05-01 19:51] LABS: POC GLUCOSE 82 mg/dL (70-99)
[2017-05-01] MEDS: ZOLPIDEM 5 MG TABLET. PO (20:25)
[2017-05-01] MEDS: ATORVASTATIN CALCIUM 40 MG TABLET. PO (20:26)
[2017-05-01] MEDS: ENOXAPARIN 40 MG/0.4 ML SYRINGE. SQ (20:29)
[2017-05-01 22:20] LABS: POC GLUCOSE 129 mg/dL (70-99)
[2017-05-01] MEDS: IV DEXTROSE 5 %-0.45 % NACL 1,000 ML IV (22:30)
[2017-05-02] MEDS: HYDROmorphone 2 MG/ML VIAL IV ×10 (00:39→23:54)
[2017-05-02] MEDS: ONDANSETRON PF 4 MG/2 ML VIAL. IV ×3 (02:57→17:54)
[2017-05-02] MEDS: LORazepam 0.5 MG TABLET PO ×3 (06:14→20:40)
[2017-05-02] MEDS: dilTIAZem HCL 30 MG TABLET PO ×3 (06:15→21:46)
[2017-05-02] MEDS: traMADol 50 MG TABLET PO ×3 (08:08→20:39)
[2017-05-02] MEDS: FLUoxetine HCL 20 MG CAPSULE PO (08:08)
[2017-05-02] MEDS: PANTOPRAZOLE 40 MG TABLET.DR. PO (08:08)
[2017-05-02] MEDS: LIPASE/PROTEAS/AMYLAS 10/34/55 CAPSULE.DR. PO ×3 (08:08→17:08)
[2017-05-02] MEDS: DIGOXIN 250 MCG TABLET. PO ×2 (08:16→20:40)
[2017-05-02] MEDS: SOTALOL 80 MG TABLET. PO (08:17)
[2017-05-02] MEDS: LISINOPRIL 5 MG TABLET. PO (08:18)
[2017-05-02] MEDS: PROMETHAZINE 12.5 MG in IV NORMAL SALINE 50ML 50 ML IV ×3 (08:20→21:45)
[2017-05-02 08:22] LABS: POC GLUCOSE 539 mg/dL (70-99)
[2017-05-02] MEDS: INSULIN ASPART 300 UNITS/3 ML INSULN.PEN SQ ×3 (08:39→17:00)
[2017-05-02] MEDS: INSULIN DETEMIR 300 UNITS/3 ML INSULN.PEN. SQ ×2 (08:40→13:02)
[2017-05-02 11:42] LABS: POC GLUCOSE 401 mg/dL (70-99)
[2017-05-02 14:53] LABS: POC GLUCOSE 182 mg/dL (70-99)
[2017-05-02 16:44] LABS: POC GLUCOSE 138 mg/dL (70-99)
[2017-05-02] MEDS: IV DEXTROSE 5 %-0.45 % NACL 1,000 ML IV (17:54)
[2017-05-02 20:24] LABS: POC GLUCOSE 123 mg/dL (70-99)
[2017-05-02] MEDS: ZOLPIDEM 5 MG TABLET. PO (20:38)
[2017-05-02] MEDS: ENOXAPARIN 40 MG/0.4 ML SYRINGE. SQ (20:38)
[2017-05-02] MEDS: ATORVASTATIN CALCIUM 40 MG TABLET. PO (20:39)
[2017-05-03] MEDS: HYDROmorphone 2 MG/ML VIAL IV ×8 (03:01→23:01)
[2017-05-03] MEDS: LORazepam 0.5 MG TABLET PO ×4 (04:08→23:01)
[2017-05-03] MEDS: ONDANSETRON PF 4 MG/2 ML VIAL. IV ×3 (04:08→20:39)
[2017-05-03] MEDS: dilTIAZem HCL 30 MG TABLET PO ×3 (06:30→20:48)
[2017-05-03 07:42] LABS: POC GLUCOSE 299 mg/dL (70-99)
[2017-05-03] MEDS: LISINOPRIL 5 MG TABLET. PO (08:50)
[2017-05-03] MEDS: DIGOXIN 250 MCG TABLET. PO ×2 (08:51→20:45)
[2017-05-03] MEDS: FLUoxetine HCL 20 MG CAPSULE PO (08:51)
[2017-05-03] MEDS: LIPASE/PROTEAS/AMYLAS 10/34/55 CAPSULE.DR. PO ×3 (08:51→17:13)
[2017-05-03] MEDS: SOTALOL 80 MG TABLET. PO (08:51)
[2017-05-03] MEDS: traMADol 50 MG TABLET PO ×3 (08:55→20:46)
[2017-05-03] MEDS: PANTOPRAZOLE 40 MG TABLET.DR. PO (10:22)
[2017-05-03] MEDS: PROMETHAZINE 12.5 MG in IV NORMAL SALINE 50ML 50 ML IV ×3 (10:25→23:01)
[2017-05-03] MEDS: INSULIN ASPART 300 UNITS/3 ML INSULN.PEN SQ ×3 (10:37→17:42)
[2017-05-03] MEDS: INSULIN DETEMIR 300 UNITS/3 ML INSULN.PEN. SQ ×2 (10:38→20:51)
[2017-05-03 11:45] LABS: POC GLUCOSE 463 mg/dL (70-99)
[2017-05-03] MEDS: IV DEXTROSE 5 %-0.45 % NACL 1,000 ML IV (14:42)
[2017-05-03 14:55] LABS: POC GLUCOSE 201 mg/dL (70-99)
[2017-05-03 16:39] LABS: POC GLUCOSE 194 mg/dL (70-99)
[2017-05-03] MEDS: LANSOPRAZOLE 30 MG TAB.RAP.DR FT (17:13)
[2017-05-03 20:20] LABS: POC GLUCOSE 148 mg/dL (70-99)
[2017-05-03] MEDS: ATORVASTATIN CALCIUM 40 MG TABLET. PO (20:45)
[2017-05-03] MEDS: ZOLPIDEM 5 MG TABLET. PO (20:46)
[2017-05-03] MEDS: ENOXAPARIN 40 MG/0.4 ML SYRINGE. SQ (20:48)
[2017-05-04] MEDS: HYDROmorphone 2 MG/ML VIAL IV ×9 (01:44→23:14)
[2017-05-04] MEDS: LORazepam 0.5 MG TABLET PO ×4 (06:15→21:06)
[2017-05-04] MEDS: ONDANSETRON PF 4 MG/2 ML VIAL. IV ×3 (06:15→21:07)
[2017-05-04] MEDS: dilTIAZem HCL 30 MG TABLET PO ×3 (06:16→23:23)
[2017-05-04 08:08] LABS: POC GLUCOSE 111 mg/dL (70-99)
[2017-05-04] MEDS: LIPASE/PROTEAS/AMYLAS 10/34/55 CAPSULE.DR. PO ×3 (09:02→17:28)
[2017-05-04] MEDS: FLUoxetine HCL 20 MG CAPSULE PO (09:04)
[2017-05-04] MEDS: LISINOPRIL 5 MG TABLET. PO (09:04)
[2017-05-04] MEDS: traMADol 50 MG TABLET PO ×3 (09:04→21:07)
[2017-05-04] MEDS: SOTALOL 80 MG TABLET. PO (09:05)
[2017-05-04] MEDS: LANSOPRAZOLE 30 MG TAB.RAP.DR FT ×2 (09:05→17:28)
[2017-05-04] MEDS: DIGOXIN 250 MCG TABLET. PO ×2 (09:06→21:06)
[2017-05-04] MEDS: INSULIN ASPART 300 UNITS/3 ML INSULN.PEN SQ ×3 (09:20→17:00)
[2017-05-04] MEDS: INSULIN DETEMIR 300 UNITS/3 ML INSULN.PEN. SQ ×2 (09:27→23:23)
[2017-05-04] MEDS: PROMETHAZINE 12.5 MG in IV NORMAL SALINE 50ML 50 ML IV ×2 (10:15→17:27)
[2017-05-04 11:44] LABS: POC GLUCOSE 255 mg/dL (70-99)
[2017-05-04] MEDS: IV DEXTROSE 5 %-0.45 % NACL 1,000 ML IV (13:50)
[2017-05-04 15:27] LABS: POC GLUCOSE 91 mg/dL (70-99)
[2017-05-04 16:22] LABS: POC GLUCOSE 76 mg/dL (70-99)
[2017-05-04 16:47] LABS: POC GLUCOSE 72 mg/dL (70-99)
[2017-05-04 18:02] LABS: POC GLUCOSE 66 mg/dL (70-99)
[2017-05-04] MEDS: ATORVASTATIN CALCIUM 40 MG TABLET. PO (21:06)
[2017-05-04] MEDS: ENOXAPARIN 40 MG/0.4 ML SYRINGE. SQ (21:08)
[2017-05-04] MEDS: ZOLPIDEM 5 MG TABLET. PO (21:12)
[2017-05-04 21:27] LABS: POC GLUCOSE 72 mg/dL (70-99)
[2017-05-04 23:08] LABS: POC GLUCOSE 102 mg/dL (70-99)
[2017-05-05] MEDS: PROMETHAZINE 12.5 MG in IV NORMAL SALINE 50ML 50 ML IV ×3 (01:03→20:28)
[2017-05-05] MEDS: HYDROmorphone 2 MG/ML VIAL IV ×9 (01:03→22:23)
[2017-05-05 01:12] LABS: POC GLUCOSE 171 mg/dL (70-99)
[2017-05-05] MEDS: IV DEXTROSE 5 %-0.45 % NACL 1,000 ML IV ×2 (02:45→10:13)
[2017-05-05] MEDS: LORazepam 0.5 MG TABLET PO ×3 (03:06→20:28)
[2017-05-05] MEDS: ONDANSETRON PF 4 MG/2 ML VIAL. IV ×3 (04:13→17:09)
[2017-05-05 06:14] LABS: POC GLUCOSE 492 mg/dL (70-99)
[2017-05-05] MEDS: dilTIAZem HCL 30 MG TABLET PO ×3 (07:20→22:22)
[2017-05-05 07:21] LABS: POC GLUCOSE 529 mg/dL (70-99)
[2017-05-05] MEDS: FLUoxetine HCL 20 MG CAPSULE PO (08:15)
[2017-05-05] MEDS: traMADol 50 MG TABLET PO ×3 (08:15→20:18)
[2017-05-05] MEDS: LIPASE/PROTEAS/AMYLAS 10/34/55 CAPSULE.DR. PO ×3 (08:15→17:08)
[2017-05-05] MEDS: LANSOPRAZOLE 30 MG TAB.RAP.DR FT ×2 (08:15→17:08)
[2017-05-05] MEDS: SOTALOL 80 MG TABLET. PO (08:16)
[2017-05-05] MEDS: LISINOPRIL 5 MG TABLET. PO (08:16)
[2017-05-05] MEDS: DIGOXIN 250 MCG TABLET. PO ×2 (08:17→20:19)
[2017-05-05] MEDS: INSULIN DETEMIR 300 UNITS/3 ML INSULN.PEN. SQ ×2 (08:27→22:24)
[2017-05-05 12:05] LABS: POC GLUCOSE 480 mg/dL (70-99)
[2017-05-05] MEDS: INSULIN ASPART 300 UNITS/3 ML INSULN.PEN SQ (13:34)
[2017-05-05 16:21] LABS: POC GLUCOSE 250 mg/dL (70-99)
[2017-05-05] MEDS: ATORVASTATIN CALCIUM 40 MG TABLET. PO (20:18)
[2017-05-05] MEDS: ENOXAPARIN 40 MG/0.4 ML SYRINGE. SQ (20:20)
[2017-05-05] MEDS: ZOLPIDEM 5 MG TABLET. PO (20:38)
[2017-05-05 21:22] LABS: POC GLUCOSE 196 mg/dL (70-99)
[2017-05-06] MEDS: ONDANSETRON PF 4 MG/2 ML VIAL. IV ×3 (01:03→15:50)
[2017-05-06] MEDS: HYDROmorphone 2 MG/ML VIAL IV ×6 (01:03→15:51)
[2017-05-06] MEDS: LORazepam 0.5 MG TABLET PO ×3 (03:14→15:49)
[2017-05-06] MEDS: PROMETHAZINE 12.5 MG in IV NORMAL SALINE 50ML 50 ML IV ×2 (03:16→12:58)
[2017-05-06] MEDS: dilTIAZem HCL 30 MG TABLET PO ×2 (06:39→14:46)
[2017-05-06 09:24] LABS: POC GLUCOSE 226 mg/dL (70-99)
[2017-05-06] MEDS: SOTALOL 80 MG TABLET. PO (09:45)
[2017-05-06] MEDS: LANSOPRAZOLE 30 MG TAB.RAP.DR FT (09:45)
[2017-05-06] MEDS: traMADol 50 MG TABLET PO ×2 (09:45→14:45)
[2017-05-06] MEDS: LIPASE/PROTEAS/AMYLAS 10/34/55 CAPSULE.DR. PO ×2 (09:46→12:00)
[2017-05-06] MEDS: DIGOXIN 250 MCG TABLET. PO (09:46)
[2017-05-06] MEDS: FLUoxetine HCL 20 MG CAPSULE PO (09:46)
[2017-05-06] MEDS: LISINOPRIL 5 MG TABLET. PO (09:46)
[2017-05-06] MEDS: INSULIN DETEMIR 300 UNITS/3 ML INSULN.PEN. SQ (09:57)
[2017-05-06 11:25] LABS: POC GLUCOSE 335 mg/dL (70-99)
[2017-05-06 16:51] LABS: POC GLUCOSE 149 mg/dL (70-99)
[2017-05-06] MEDS: HEPARIN PF 500 UNIT/5 ML DISP.SYRIN. IV (17:37)
[2017-05-06] MEDS ORDERED: INSULIN DETEMIR 300 UNITS/3 ML INSULN.PEN. SQ (21:00)
== END 2017-05-06 19:37 | disposition home or self-care (01) | DRG 74 ==
LOC: 5 SOUTH 23:46 → ER 21:20
PROC: 0DHA7UZ Insertion of Feeding Device into Jejunum, Via Natural or Artificial Opening (ICD-10-PCS; principal; 2017-04-23)
PROC: 3E0H76Z Introduction of Nutritional Substance into Lower GI, Via Natural or Artificial Opening (ICD-10-PCS; 2017-04-23)
DX: E10.42 Type 1 diabetes mellitus with diabetic polyneuropathy (principal); N17.9 Acute kidney failure, unspecified; E10.649 Type 1 diabetes mellitus with hypoglycemia without coma; E10.22 Type 1 diabetes mellitus with diabetic chronic kidney disease; E10.65 Type 1 diabetes mellitus with hyperglycemia; I48.91 Unspecified atrial fibrillation; G25.0 Essential tremor; K31.84 Gastroparesis; M41.9 Scoliosis, unspecified; E10.43 Type 1 diabetes mellitus with diabetic autonomic (poly)neuropathy; D63.8 Anemia in other chronic diseases classified elsewhere; E03.9 Hypothyroidism, unspecified; G40.909 Epilepsy, unspecified, not intractable, without status epilepticus; G43.A1 Cyclical vomiting, in migraine, intractable; I12.9 Hypertensive chronic kidney disease with stage 1 through stage 4 chronic kidney disease, or unspecified chronic kidney disease; F12.90 Cannabis use, unspecified, uncomplicated; K21.9 Gastro-esophageal reflux disease without esophagitis; G56.00 Carpal tunnel syndrome, unspecified upper limb; N18.9 Chronic kidney disease, unspecified; Z79.4 Long term (current) use of insulin; Z81.8 Family history of other mental and behavioral disorders; Z82.0 Family history of epilepsy and other diseases of the nervous system; Z82.49 Family history of ischemic heart disease and other diseases of the circulatory system; Z82.5 Family history of asthma and other chronic lower respiratory diseases; Z83.3 Family history of diabetes mellitus; Z86.14 Personal history of Methicillin resistant Staphylococcus aureus infection; Z86.73 Personal history of transient ischemic attack (TIA), and cerebral infarction without residual deficits; Z87.440 Personal history of urinary (tract) infections; Z90.710 Acquired absence of both cervix and uterus; Z95.0 Presence of cardiac pacemaker; Z90.49 Acquired absence of other specified parts of digestive tract; Z88.6 Allergy status to analgesic agent; Z88.1 Allergy status to other antibiotic agents; Z88.2 Allergy status to sulfonamides; Z88.8 Allergy status to other drugs, medicaments and biological substances
CPT/HCPCS: 36415; 76770; 80048; 80053; 81001; 82947; 82962; 83690; 85025; 87086; 96365; 96375; 96376; 99285; 99285-25; J1170; J1650; J1815; J2405; J2550; J3010; J7030; J7042; Q0163

== ENCOUNTER 2017-09-04 13:51 | Emergency (ER) | payer BC, MEDICARE | END 2017-09-04 14:35 | disposition home or self-care (01) | LOC: ER 13:51 | DX: K94.13 Enterostomy malfunction (principal); I11.9 Hypertensive heart disease without heart failure; E10.9 Type 1 diabetes mellitus without complications; I48.91 Unspecified atrial fibrillation; Z90.49 Acquired absence of other specified parts of digestive tract; Z90.710 Acquired absence of both cervix and uterus; Z88.1 Allergy status to other antibiotic agents; Z88.2 Allergy status to sulfonamides; Z88.5 Allergy status to narcotic agent; Z88.8 Allergy status to other drugs, medicaments and biological substances | CPT/HCPCS: 49451; 99281; 99284 ==

== ENCOUNTER 2017-11-04 16:59 | Inpatient (IN) | payer BC, MEDICARE ==
[~2017-11-04] VITALS: Ht 172.7 cm; Wt 60.9 kg
[~2017-11-04 16:59] MED LIST changes: +DILT90TA PO; +HYDR1SYR3 IJ; +INSU100I30 SQ; +LIPA1CAP4 PO; +NAPR-514 PO; -NAPR500T4 PO; +PANT40TA5 PO; +TRAM50TA PO; +ZOLP10TA4 PO; +dilaudid PEG
--- NOTE | 2017-11-04 17:16 | PHYS DOC ---
Past Medical History Past Medical History: A-Fib, Anemia, Arrhythmia, Diabetes-Type I, Heart Disease , Hypertension, MRSA, Pancreatitis Additional Past Medical Histor: Tachy-Jamir Syndrome, Gastroparesis, DDD, Neuropathy, Tremors, Kidney dz Past Surgical History: Cholecystectomy, Hysterectomy, Pacemaker Additional Past Surgical Histo: Thyroidectomy; Peripheral neuropathy,J-TUBE PLACED Alcohol Use: None Drug Use: None Adult General Chief Complaint Chief Complaint: ABDOMINAL PAIN HPI HPI Patient is a 62 year old female with a history of gastroparesis with a J-tube, hypertension, diabetes, arrhythmias, pacemaker, who presents today complaining of nausea and vomiting since yesterday from her gastroparesis. She states she ran out of her promethazine. Patient is also complaining of moderate generalized abdominal pain. Denies any fever. Denies any hematemesis. Denies any melena. PCP Dr. Jacob Review of Systems Review of Systems Constitutional: Denies fever or chills [] Eyes: Denies change in visual acuity, redness, or eye pain [] HENT: Denies nasal congestion or sore throat [] Respiratory: Denies cough or shortness of breath [] Cardiovascular: No additional information not addressed in HPI [] GI: Reports generalized abdominal pain, nausea and vomiting, denies bloody stools or diarrhea [] : Denies dysuria or hematuria [] Musculoskeletal: Denies back pain or joint pain [] Integument: Denies rash or skin lesions [] Neurologic: Denies headache, focal weakness or sensory changes [] All other systems were reviewed and found to be within normal limits, except as documented in this note. Current Medications Current Medications Current Medications Medications (Trade) Dose Ordered Sig/Ramone Start Time Stop Time Status Last Admin Dose Admin Fentanyl Citrate (Fentanyl 2ml Vial) 50 mcg 1X ONCE 11/04/17 18:00 11/04/17 18:01 DC 11/04/17 17:58 50 MCG Lorazepam (Ativan) 1 mg 1X ONCE 11/04/17 17:45 11/04/17 17:46 DC 11/04/17 17:48 1 MG Multi-Ingredient Mouthwash/Gargle (Gi Cocktail) 20 ml 1X ONCE 11/04/17 17:45 11/04/17 17:46 DC 11/04/17 17:54 20 ML Ondansetron HCl (Zofran) 4 mg 1X ONCE 11/04/17 17:45 11/04/17 17:46 DC 11/04/17 17:47 4 MG Pantoprazole Sodium (PROTONIX VIAL for IV PUSH) 40 mg 1X ONCE 11/04/17 17:45 11/04/17 17:46 DC 11/04/17 17:49 40 MG Promethazine HCl (Phenergan Im) 25 mg 1X ONCE 11/04/17 17:45 11/04/17 17:46 DC 11/04/17 17:58 25 MG Allergies Allergies Allergies Coded Allergies Type Severity Reaction Last Updated Verified Sulfa (Sulfonamide Antibiotics) Allergy Intermediate Itching 10/29/13 Yes bacitracin Allergy Intermediate Hives 08/31/15 Yes codeine Allergy Intermediate Itching 10/29/13 Yes hydrocodone bitartrate Allergy Intermediate Itching 10/29/13 Yes morphine Allergy Intermediate Itching 10/29/13 Yes neomycin Allergy Intermediate Hives 08/31/15 Yes polymyxin B Allergy Intermediate Hives 08/31/15 Yes phenylephrine Adverse Reaction Intermediate NEOSYNEPHRINE 09/16/15 Yes phenytoin sodium Adverse Reaction Intermediate TREMORS 09/16/15 Yes phenytoin sodium extended Adverse Reaction Intermediate TREMORS 09/16/15 Yes Physical Exam Physical Exam Constitutional: Well developed, well nourished, no acute distress, non-toxic appearance. [] HENT: Normocephalic, atraumatic, bilateral external ears normal, oropharynx moist, no oral exudates, nose normal. [] Eyes: PERRLA, EOMI, conjunctiva normal, no discharge. [] Neck: Normal range of motion, no tenderness, supple, no stridor. [] Cardiovascular: Paced rhythm, right upper chest pacemaker Lungs & Thorax: Bilateral breath sounds clear to auscultation [] Abdomen: J-tube noted on the left abdomen. Bowel sounds normal, soft, diffuse tenderness throughout the abdomen, no masses, no pulsatile masses. Port Cath left upper chest Skin: Warm, dry, no erythema, no rash. [] Back: No tenderness, no CVA tenderness. [] Extremities: No tenderness, no cyanosis, no clubbing, ROM intact, no edema. [] Neurologic: Alert and oriented X 3, normal motor function, normal sensory function, no focal deficits noted. [] Psychologic: Appears restless. Current Patient Data Vital Signs Vital Signs Date Time Temp Pulse Resp B/P (MAP) Pulse Ox O2 Delivery O2 Flow Rate FiO2 11/04/17 17:09 98.4 87 22 120/73 (89) 99 Room Air 98.4 Lab Values Laboratory Tests Test 11/04/17 17:50 White Blood Count 12.7 x10^3/uL (4.0-11.0) H Red Blood Count 4.22 x10^6/uL (3.50-5.40) Hemoglobin 13.0 g/dL (12.0-15.5) Hematocrit 37.1 % (36.0-47.0) Mean Corpuscular Volume 88 fL (79-100) Mean Corpuscular Hemoglobin 31 pg (25-35) Mean Corpuscular Hemoglobin Concent 35 g/dL (31-37) Red Cell Distribution Width 13.5 % (11.5-14.5) Platelet Count 271 x10^3/uL (140-400) Neutrophils (%) (Auto) 87 % (31-73) H Lymphocytes (%) (Auto) 9 % (24-48) L Monocytes (%) (Auto) 4 % (0-9) Eosinophils (%) (Auto) 0 % (0-3) Basophils (%) (Auto) 0 % (0-3) Neutrophils # (Auto) 11.0 x10^3uL (1.8-7.7) H Lymphocytes # (Auto) 1.1 x10^3/uL (1.0-4.8) Monocytes # (Auto) 0.5 x10^3/uL (0.0-1.1) Eosinophils # (Auto) 0.0 x10^3/uL (0.0-0.7) Basophils # (Auto) 0.0 x10^3/uL (0.0-0.2) Platelet Estimate Pending Sodium Level 135 mmol/L (136-145) L Potassium Level 4.2 mmol/L (3.5-5.1) Chloride Level 95 mmol/L (98-107) L Carbon Dioxide Level 28 mmol/L (21-32) Anion Gap 12 (6-14) Blood Urea Nitrogen 21 mg/dL (7-20) H Creatinine 1.3 mg/dL (0.6-1.0) H Estimated GFR (Cockcroft-Gault) 41.4 BUN/Creatinine Ratio 16 (6-20) Glucose Level 282 mg/dL (70-99) H Calcium Level 10.7 mg/dL (8.5-10.1) H Total Bilirubin 0.8 mg/dL (0.2-1.0) Aspartate Amino Transferase (AST) 38 U/L (15-37) H Alanine Aminotransferase (ALT) 62 U/L (14-59) H Alkaline Phosphatase 135 U/L (46-116) H Total Protein 9.1 g/dL (6.4-8.2) H Albumin 4.4 g/dL (3.4-5.0) Albumin/Globulin Ratio 0.9 (1.0-1.7) L Lipase 61 U/L (73-393) L Ethyl Alcohol Level < 10 mg/dL (0-10) Laboratory Tests 11/04/17 17:50 Laboratory Tests 11/04/17 17:50 EKG EKG [] Radiology/Procedures Radiology/Procedures [] Course & Med Decision Making Course & Med Decision Making Pertinent Labs and Imaging studies reviewed. (See chart for details) This is a 62-year-old female patient with history of gastroparesis presenting today complaining of nausea and vomiting since yesterday as well as generalized abdominal pain. She also has a J-tube. She states she ran out of her promethazine. Labs are notable the ED CBC with a WBC of 12.7, CMP with creatinine of 1.3, BUN 21, glucose 282, anion gap 12, calcium 10.7 AST 38, ALT 62, ALK 135. Patient has been given nausea medicine and IV fluids. She states she is feeling slightly better but has no access to her nausea medicine at home hence would prefer to stay in the hospital because the delivery date is not any time soon. 19:[address] Jacob who accepted patient for admission. Dragon Disclaimer Dragon Disclaimer This electronic medical record was generated, in whole or in part, using a voice recognition dictation system. Departure Departure Impression: Primary Impression: Nausea and vomiting Additional Impressions: Gastroparesis Abdominal pain Disposition: ADMITTED INPATIENT Condition: STABLE Referrals: Joan JACOB MD (PCP) Problem Qualifiers Primary Impression: Nausea and vomiting Vomiting type: unspecified Vomiting Intractability: intractable Qualified Codes: R11.2 - Nausea with vomiting, unspecified Additional Impressions: Abdominal pain Abdominal location: unspecified location Qualified Codes: R10.9 - Unspecified abdominal pain CRISTINA BARKLEY APRN Nov 04, 2017 17:16
[2017-11-04] MEDS ORDERED: PANTOPRAZOLE IV PUSH 40 MG VIAL. IVP ONE (17:45)
[2017-11-04] MEDS ORDERED: PROMETHAZINE IM 25 MG/ML VIAL IM ONE (17:45)
[2017-11-04] MEDS ORDERED: ONDANSETRON PF 4 MG/2 ML VIAL. IV ONE (17:45)
[2017-11-04] MEDS ORDERED: LIDO:MAALOX 1:1 20 ML SINGLE DOSE. SWSW ONE (17:45)
[2017-11-04] MEDS ORDERED: fentaNYL PF VIAL 100 MCG/2 ML VIAL IV ONE (18:00)
[2017-11-04 18:14] LABS: BASO % 0 % (0-3); EOS % 0 % (0-3); HEMATOCRIT 37.1 % (36.0-47.0); LYMPH # 1.1 x10^3/uL (1.0-4.8); LYMPH % 9 % (24-48); MEAN CORPUSCULAR HEMOGLOBIN 31 pg (25-35); MEAN CORPUSCULAR HGB CONC 35 g/dL (31-37); MEAN CORPUSCULAR VOLUME 88 fL (79-100); MONO # 0.5 x10^3/uL (0.0-1.1); MONO % 4 % (0-9); NEUT % 87 % (31-73); PLATELET COUNT 271 x10^3/uL (140-400); RED BLOOD COUNT 4.22 x10^6/uL (3.50-5.40); RED CELL DISTRIBUTION WIDTH 13.5 % (11.5-14.5); WHITE BLOOD COUNT 12.7 x10^3/uL (4.0-11.0)
[2017-11-04 18:27] LABS: CALCIUM 10.7 mg/dL (8.5-10.1); CREATININE 1.3 mg/dL (0.6-1.0); GFR 41.4; POTASSIUM 4.2 mmol/L (3.5-5.1)
[2017-11-04 18:32] LABS: ALBUMIN 4.4 g/dL (3.4-5.0); ALBUMIN/GLOBULIN RATIO 0.9 (1.0-1.7); TOTAL BILIRUBIN 0.8 mg/dL (0.2-1.0); TOTAL PROTEIN 9.1 g/dL (6.4-8.2)
[2017-11-04] MEDS ORDERED: IV NORMAL SALINE 1000ML BAG 1,000 ML IV ONE (19:15)
[2017-11-04 19:51] LABS: % BANDS 1 % (0-9); % BASOS 1 % (0-3); % LYMPHS 12 % (24-48); % MONOS 4 % (0-10); % SEGS 82 % (35-66)
[2017-11-04 19:52] LABS: PLT ESTIMATE ADEQUATE (ADEQUATE); TOXIC GRANULATION SLIGHT
[2017-11-04 20:00] VITALS: BP 138/69
[2017-11-04] MEDS ORDERED: INSU100I13 SQ ×2 (20:38)
[2017-11-04] MEDS ORDERED: INSU100I17 SQ (20:38)
[2017-11-04] MEDS ORDERED: PROMETHAZINE IM 25 MG/ML VIAL IM PRN (21:45)
[2017-11-04] MEDS: ONDANSETRON PF 4 MG/2 ML VIAL. IV PRN (22:09)
[2017-11-04] MEDS: fentaNYL PF VIAL 100 MCG/2 ML VIAL IV PRN (22:09)
[2017-11-04] MEDS: dilTIAZem HCL 30 MG TABLET PO SCH (22:37)
[2017-11-04] MEDS: ATORVASTATIN CALCIUM 40 MG TABLET. PO SCH (22:37)
[2017-11-04] MEDS: ZOLPIDEM 5 MG TABLET. PO SCH (22:37)
[2017-11-04] MEDS: INSULIN GLARGINE 300 UNITS/3 ML INSULN.PEN. SQ SCH (22:57)
[2017-11-04 23:10] VITALS: BP 145/61
[2017-11-05] MEDS: fentaNYL PF VIAL 100 MCG/2 ML VIAL IV PRN ×7 (00:23→22:47)
[2017-11-05 03:10] VITALS: BP 145/61
[2017-11-05 03:22] LABS: BILIRUBIN,URINE SMALL (NEG); CLARITY,URINE CLEAR; COLOR,URINE YELLOW; NITRITE,URINE NEGATIVE (NEG); PH,URINE 5.5; PROTEIN,URINE 30 mg/dL (NEG-TRACE); UROBILINOGEN,URINE 0.2 mg/dL (0.2 mg/dL)
[2017-11-05 03:26] LABS: BACTERIA,URINE FEW /HPF (0-FEW); RBC,URINE OCC /HPF (0-2)
[2017-11-05 03:27] LABS: HYALINE CASTS, URINE MODERATE /HPF; SQUAMOUS EPITHELIAL CELL,UR MOD /LPF
[2017-11-05 03:30] LABS: BARBITURATES NEG (NEG); BENZODIAZEPINES NEG (NEG); CANNABINOIDS POS (NEG); COCAINE NEG (NEG); METHADONE NEG (NEG); OPIATES POS (NEG); PHENCYCLIDINE NEG (NEG)
[2017-11-05 03:31] LABS: AMPHETAMINE/METHAMPHETAMINE NEG (NEG)
[2017-11-05] MEDS: LORazepam 0.5 MG TABLET PO PRN ×4 (03:54→22:46)
[2017-11-05] MEDS: dilTIAZem HCL 30 MG TABLET PO SCH ×3 (06:22→21:19)
[2017-11-05] MEDS: PANTOPRAZOLE 40 MG TABLET.DR. PO SCH (07:30)
[2017-11-05 07:59] VITALS: BP 124/67
[2017-11-05] MEDS: INSULIN LISPRO 300 UNITS/3 ML INSULN.PEN. SQ SCH ×3 (08:00→17:00)
[2017-11-05] MEDS: LISINOPRIL 5 MG TABLET. PO SCH (08:19)
[2017-11-05] MEDS: SOTALOL 80 MG TABLET. PO SCH (08:20)
[2017-11-05] MEDS: DIGOXIN 125 MCG TABLET. PO SCH ×3 (08:21→21:19)
--- NOTE | 2017-11-05 09:06 | PDOC2 ---
GI CONSULT Reason For Consult: Gastroparesis HPI: HPI: 62 y/o female who we have seen in the past. Brittle diabetic w/ gastroparesis s /p G tube, J tube, and pyloroplasty in 2016. Has since had removal of G tube and J tube replacement (last in 09/2017). Intolerant to Reglan and erythromycin. Takes Phenergan QID, scheduled Dilaudid, and uses marijuana twice monthly to help nausea and abd pain. Cannot afford J tube feeds - says supposed to use 3-4 cans but only uses 1 each night. Takes some liquids by mouth. Has lost 50 pounds in the past few months. Flare began yesterday w/o precipitating events - abd pain and then vomiting followed. J tube functioning normally. She was out of promethazine so came to the ER and was admitted. Denies reflux, dysphagia, bleeding, and diarrhea. Puts water in J tube to help w/ constipation but typically passes "golf ball" type stools, last yesterday. S /p cholecystectomy. Blood sugars "all over the place." PMH: PMH: per HPI plu HTN, anxiety w/ tremor, chronic pain, CKD, cholecystectomy, DDD, neuropathy, hysterectomy, thyroidectomy, pacemaker FH: Family History: No pertinent hx Social History: Smoke: No ALCOHOL: none Drugs: Marijuana ROS: GEN: Denies fevers, chills, sweats HEENT: Denies blurred vision, sore throat CV: Denies chest pain RESP: Denies shortness of air, cough GI: Per HPI : Denies hematuria, dysuria ENDO: +weight loss NEURO: Denies confusion, dizziness MSK: Denies weakness, joint pain/swelling SKIN: Denies jaundice, pruritus Vitals: Vitals: Vital Signs Date Time Temp Pulse Resp B/P (MAP) Pulse Ox O2 Delivery O2 Flow Rate FiO2 11/05/17 08:21 83 124/67 11/05/17 08:19 18 Room Air 11/05/17 07:59 98.5 93 98.5 Labs: Labs: Laboratory Tests Test 11/04/17 17:50 11/04/17 20:38 11/04/17 22:39 11/05/17 02:00 White Blood Count 12.7 x10^3/uL (4.0-11.0) Red Blood Count 4.22 x10^6/uL (3.50-5.40) Hemoglobin 13.0 g/dL (12.0-15.5) Hematocrit 37.1 % (36.0-47.0) Mean Corpuscular Volume 88 fL (79-100) Mean Corpuscular Hemoglobin 31 pg (25-35) Mean Corpuscular Hemoglobin Concent 35 g/dL (31-37) Red Cell Distribution Width 13.5 % (11.5-14.5) Platelet Count 271 x10^3/uL (140-400) Neutrophils (%) (Auto) 87 % (31-73) Lymphocytes (%) (Auto) 9 % (24-48) Monocytes (%) (Auto) 4 % (0-9) Eosinophils (%) (Auto) 0 % (0-3) Basophils (%) (Auto) 0 % (0-3) Neutrophils # (Auto) 11.0 x10^3uL (1.8-7.7) Lymphocytes # (Auto) 1.1 x10^3/uL (1.0-4.8) Monocytes # (Auto) 0.5 x10^3/uL (0.0-1.1) Eosinophils # (Auto) 0.0 x10^3/uL (0.0-0.7) Basophils # (Auto) 0.0 x10^3/uL (0.0-0.2) Segmented Neutrophils % 82 % (35-66) Band Neutrophils % 1 % (0-9) Lymphocytes % 12 % (24-48) Monocytes % 4 % (0-10) Basophils % 1 % (0-3) Toxic Granulation Slight Platelet Estimate Adequate (ADEQUATE) Sodium Level 135 mmol/L (136-145) Potassium Level 4.2 mmol/L (3.5-5.1) Chloride Level 95 mmol/L (98-107) Carbon Dioxide Level 28 mmol/L (21-32) Anion Gap 12 (6-14) Blood Urea Nitrogen 21 mg/dL (7-20) Creatinine 1.3 mg/dL (0.6-1.0) Estimated GFR (Cockcroft-Gault) 41.4 BUN/Creatinine Ratio 16 (6-20) Glucose Level 282 mg/dL (70-99) Calcium Level 10.7 mg/dL (8.5-10.1) Total Bilirubin 0.8 mg/dL (0.2-1.0) Aspartate Amino Transf (AST/SGOT) 38 U/L (15-37) Alanine Aminotransferase (ALT/SGPT) 62 U/L (14-59) Alkaline Phosphatase 135 U/L (46-116) Total Protein 9.1 g/dL (6.4-8.2) Albumin 4.4 g/dL (3.4-5.0) Albumin/Globulin Ratio 0.9 (1.0-1.7) Lipase 61 U/L (73-393) Ethyl Alcohol Level < 10 mg/dL (0-10) Glucose (Fingerstick) 299 mg/dL (70-99) 320 mg/dL (70-99) Urine Collection Type Unknown Urine Color Yellow Urine Clarity Clear Urine pH 5.5 Urine Specific [place] 1.025 Urine Protein 30 mg/dL (NEG-TRACE) Urine Glucose (UA) >=1000 mg/dL (NEG) Urine Ketones (Stick) Trace mg/dL (NEG) Urine Blood Negative (NEG) Urine Nitrite Negative (NEG) Urine Bilirubin Small (NEG) Urine Urobilinogen Dipstick 0.2 mg/dL (0.2 mg/dL) Urine Leukocyte Esterase Trace (NEG) Urine RBC Occ /HPF (0-2) Urine WBC 1-4 /HPF (0-4) Urine Squamous Epithelial Cells Mod /LPF Urine Bacteria Few /HPF (0-FEW) Urine Hyaline Casts Moderate /HPF Urine Mucus Mod /LPF Urine Opiates Screen Pos (NEG) Urine Methadone Screen Neg (NEG) Urine Barbiturates Neg (NEG) Urine Phencyclidine Screen Neg (NEG) Urine Amphetamine/Methamphetamine Neg (NEG) Urine Benzodiazepines Screen Neg (NEG) Urine Cocaine Screen Neg (NEG) Urine Cannabinoids Screen Pos (NEG) Urine Ethyl Alcohol Neg (NEG) Test 11/05/17 07:42 Glucose (Fingerstick) 75 mg/dL (70-99) Allergies: Coded Allergies: Sulfa (Sulfonamide Antibiotics) (Verified Allergy, Intermediate, Itching, 10/29/13) bacitracin (Verified Allergy, Intermediate, Hives, 08/31/15) codeine (Verified Allergy, Intermediate, Itching, 10/29/13) hydrocodone bitartrate (Verified Allergy, Intermediate, Itching, 10/29/13) morphine (Verified Allergy, Intermediate, Itching, 10/29/13) neomycin (Verified Allergy, Intermediate, Hives, 08/31/15) polymyxin B (Verified Allergy, Intermediate, Hives, 08/31/15) phenylephrine (Verified Adverse Reaction, Intermediate, NEOSYNEPHRINE, 09/15) phenytoin sodium (Verified Adverse Reaction, Intermediate, TREMORS, 09/16/15 ) phenytoin sodium extended (Verified Adverse Reaction, Intermediate, TREMORS, 09/16/15) Medications: Current Medications Medications (Trade) Dose Ordered Sig/Ramone Route PRN Reason Start Time Stop Time Status Last Admin Dose Admin Promethazine HCl (Phenergan Im) 25 mg 1X ONCE IM 11/04/17 17:45 11/04/17 17:46 DC 11/04/17 17:58 Lorazepam (Ativan) 1 mg 1X ONCE IV 11/04/17 17:45 11/04/17 17:46 DC 11/04/17 17:48 Ondansetron HCl (Zofran) 4 mg 1X ONCE IV 11/04/17 17:45 11/04/17 17:46 DC 11/04/17 17:47 Pantoprazole Sodium (PROTONIX VIAL for IV PUSH) 40 mg 1X ONCE IVP 11/04/17 17:45 11/04/17 17:46 DC 11/04/17 17:49 Multi-Ingredient Mouthwash/Gargle (Gi Cocktail) 20 ml 1X ONCE SWSW 11/04/17 17:45 11/04/17 17:46 DC 11/04/17 17:54 Fentanyl Citrate (Fentanyl 2ml Vial) 50 mcg 1X ONCE IV 11/04/17 18:00 11/04/17 18:01 DC 11/04/17 17:58 Ondansetron HCl (Zofran) 4 mg PRN Q8HRS PRN IV NAUSEA/VOMITING 11/04/17 19:15 11/05/17 19:14 11/04/17 22:09 Fentanyl Citrate (Fentanyl 2ml Vial) 50 mcg PRN Q2HR PRN IV PAIN 11/04/17 19:15 11/05/17 19:14 11/05/17 08:19 Sodium Chloride 1,000 ml @ 125 mls/hr 1X ONCE IV 11/04/17 19:15 11/05/17 03:15 DC 11/04/17 22:08 Atorvastatin Calcium (Lipitor) 40 mg QHS PO 11/04/17 22:00 11/04/17 22:37 Digoxin (Lanoxin) 125 mcg BID PO 11/05/17 09:00 11/05/17 08:21 Insulin Glargine (Lantus) 10 units QHS SQ 11/04/17 22:00 11/04/17 22:57 Lorazepam (Ativan) 0.5 mg PRN Q6HRS PRN PO ANXIETY / AGITATION 11/04/17 21:30 11/05/17 03:54 Diltiazem HCl (Cardizem) 90 mg Q8HRS PO 11/04/17 22:00 11/05/17 06:22 Lisinopril (Prinivil) 5 mg DAILY PO 11/05/17 09:00 11/05/17 08:19 Sotalol HCl (Betapace) 80 mg DAILY PO 11/05/17 09:00 11/05/17 08:20 Zolpidem Tartrate (Ambien) 5 mg QHS PO 11/04/17 22:00 11/04/17 22:37 Imaging: Imaging: - PE: GEN: NAD HEENT: Atraumatic, PERRL LUNGS: CTAB HEART: RRR ABD: NABS, soft, J tube in place, tender mostly to left, also some muscular tenderness upper EXTREMITY: No edema SKIN: No rashes, no jaundice NEURO/PSYCH: A & O 3 A/P: A/P: Gastroparesis w/ J tube - n/v, abd pain, weight loss DM, chronic pain Constipation S/p cholecystectomy +marijuana -- Supportive care - J tube feeds, agree w/ PPI, PO as able. ?social work re: financial issues and J tube feeds When taking PO, add Miralax or similar for constipation, will also review colonoscopy status. No abd imaging this admission, consider KUB. ZAIRE MARTIN Nov 05, 2017 09:06
[2017-11-05] MEDS: ONDANSETRON PF 4 MG/2 ML VIAL. IV PRN ×2 (10:38→21:20)
[2017-11-05 11:46] VITALS: BP 126/65
[2017-11-05] MEDS: INSULIN GLARGINE 300 UNITS/3 ML INSULN.PEN. SQ SCH ×2 (12:38→21:36)
[2017-11-05] MEDS ORDERED: MAGNESIUM HYDROXIDE 2,400 MG/30 ML ORAL.SUSP. PO PRN (13:45)
--- NOTE | 2017-11-05 14:09 | PDOC1 ---
History and Physical Date of Admission Date of Admission 11/04/17 Identification/Chief Complaint Chief Complaint nausea, vomiting, abdominal pain Problems: (1) Nausea and vomiting (2) Abdominal pain (3) Diabetes mellitus type 2 with complications, uncontrolled (4) Diabetic gastroparesis Source Source: Chart review, Patient History of Present Illness History of Present Illness She ran out of Phenergan and lorazepam and apparently Dilaudid too and developed abdominal pain and vomiting and came to ER to be admitted and restarted on meds. She cannot give a clear explanation as to why she ran out but some of her meds come from mail order [facility] and some are quantity restricted which she likely exceeds. She also refuses to pay for her recommended amount of nutritional supplements and has been losing weight with limited calories. Her J-tube has been functioning well. She has daily stools of "golf ball" like firm stool but denies straining and denies any obstructive symptoms. She has insulin dependent diabetes and her sugars are labile but she does have her insulin. She sent messages via the web portal at 3:30 am to the office on the for a refill of Phenergan and Lorazepam and order was faxed to [facility] on the and [facility] states the order was sent this am but it will take 5-7 business days for her to receive it. Her last Dilaudid Rx was picked up from our office on 10/07/17 (30 day supply) so she should still have some if not exceeding prescribed dose and she had Tramadol printed for pick up attendant 10/31/17 but it is still at the frontend engineer of the office waiting to be picked up. Her Hansel called this am with a message about her Phenergan but he was not at the hospital this am when I rounded. She is currently NPO but has no obsturctive findings and her vomiting has stopped and her pain is now better so clear liquids will be started Past Medical History Cardiovascular: AFIB, CAD, Other Pulmonary: No pertinent hx CENTRAL NERVOUS SYSTEM: Carpal Tunnel Syndrome, Periperal neuropathy, TIA GI: Other Heme/Onc: Anemia NOS Hepatobiliary: Cholelithiasis Psych: No pertinent hx, Anxiety, Depression Rheumatologic: Other Infectious disease: No pertinent hx Renal/: No pertinent hx Endocrine: Diabetes Past Surgical History Past Surgical History: Pacemaker, Cholecystectomy, Other Family History Family History: Other Social History Smoke: No ALCOHOL: none Drugs: Marijuana Current Problem List Problem List Problems Medical Problems: (1) Abdominal pain Status: Acute (2) Gastroparesis Status: Acute (3) Nausea and vomiting Status: Acute Current Medications Current Medications Current Medications Medications (Trade) Dose Ordered Sig/Ramone Start Time Stop Time Status Last Admin Dose Admin Atorvastatin Calcium (Lipitor) 40 mg QHS 11/04/17 22:00 11/04/17 22:37 40 MG Dextrose (Dextrose 50%-Water Syringe) 12.5 gm PRN Q15MIN PRN 11/04/17 22:15 Digoxin (Lanoxin) 125 mcg BID 11/05/17 09:00 11/05/17 08:21 125 MCG Diltiazem HCl (Cardizem) 90 mg Q8HRS 11/04/17 22:00 11/05/17 06:22 90 MG Fentanyl Citrate (Fentanyl 2ml Vial) 50 mcg PRN Q2HR PRN 11/04/17 19:15 11/05/17 19:14 11/05/17 10:38 50 MCG Insulin Glargine (Lantus) 14 units [id number] 11/05/17 08:00 11/05/17 12:38 14 UNITS Insulin Human Lispro (HumaLOG) 0-5 UNITS TIDWMEALS 11/05/17 08:00 Lisinopril (Prinivil) 5 mg DAILY 11/05/17 09:00 11/05/17 08:19 5 MG Lorazepam (Ativan) 0.5 mg PRN Q6HRS PRN 11/04/17 21:30 11/05/17 10:38 0.5 MG Magnesium Hydroxide (Milk Of Magnesia) 2,400 mg PRN DAILY PRN 11/05/17 13:45 Multi-Ingredient Mouthwash/Gargle (Gi Cocktail) 20 ml 1X ONCE 11/04/17 17:45 11/04/17 17:46 DC 11/04/17 17:54 20 ML Ondansetron HCl (Zofran) 4 mg PRN Q8HRS PRN 11/04/17 19:15 11/05/17 19:14 11/05/17 10:38 4 MG Pantoprazole Sodium (PROTONIX VIAL for IV PUSH) 40 mg 1X ONCE 11/04/17 17:45 11/04/17 17:46 DC 11/04/17 17:49 40 MG Pantoprazole Sodium (Protonix) 40 mg DAILYAC 11/05/17 07:30 Promethazine HCl (Phenergan Im) 25 mg PRN Q6HRS PRN 11/04/17 21:45 Sodium Chloride 1,000 ml @ 125 mls/hr 1X ONCE 11/04/17 19:15 11/05/17 03:15 DC 11/04/17 22:08 125 MLS/HR Sotalol HCl (Betapace) 80 mg DAILY 11/05/17 09:00 11/05/17 08:20 80 MG Tramadol HCl (Ultram) 50 mg PRN Q3HRS PRN 11/04/17 21:30 Zolpidem Tartrate (Ambien) 5 mg QHS 11/04/17 22:00 11/04/17 22:37 5 MG Allergies Allergies Allergies Coded Allergies Type Severity Reaction Last Updated Verified Sulfa (Sulfonamide Antibiotics) Allergy Intermediate Itching 10/29/13 Yes bacitracin Allergy Intermediate Hives 08/31/15 Yes codeine Allergy Intermediate Itching 10/29/13 Yes hydrocodone bitartrate Allergy Intermediate Itching 10/29/13 Yes morphine Allergy Intermediate Itching 10/29/13 Yes neomycin Allergy Intermediate Hives 08/31/15 Yes polymyxin B Allergy Intermediate Hives 08/31/15 Yes phenylephrine Adverse Reaction Intermediate NEOSYNEPHRINE 09/16/15 Yes phenytoin sodium Adverse Reaction Intermediate TREMORS 09/16/15 Yes phenytoin sodium extended Adverse Reaction Intermediate TREMORS 09/16/15 Yes ROS Review of System CONSTITUTIONAL: No fever or chills EYES: No recent changes SKIN: No rash or itching CARDIOVASCULAR: No chest pain, syncope, palpitations, or edema RESPIRATORY: No SOB or cough GASTROINTESTINAL: see HPI NEUROLOGICAL: No headaches or weakness ENDOCRINE: + cold & heat intolerance GENITOURINARY: No urgency or frequency of urination MUSCULOSKELETAL: No back pain or joint pain LYMPHATICS: No enlarged lymph nodes PSYCHIATRIC: chronic anxiety/depression Physical Exam Physical Exam GEN.: No apparent distress. Alert and oriented. HEENT: Head is normocephalic, atraumatic NECK: Supple. LUNGS: Clear to auscultation. HEART: RRR, S1, S2 present. Peripheral pulses intact ABDOMEN: Soft, nontender. Positive bowel sounds. EXTREMITIES: Without any cyanosis. NEUROLOGIC: Normal speech, normal tone PSYCHIATRIC: Normal affect, normal mood. SKIN: No ulcerations Vitals Vitals Vital Signs Date Time Temp Pulse Resp B/P (MAP) Pulse Ox O2 Delivery O2 Flow Rate FiO2 11/05/17 12:20 16 Room Air 11/05/17 11:46 99.7 71 126/65 (85) 96 99.7 Labs Labs Laboratory Tests Test 11/04/17 17:50 11/04/17 20:38 11/04/17 22:39 11/05/17 02:00 White Blood Count 12.7 x10^3/uL (4.0-11.0) Red Blood Count 4.22 x10^6/uL (3.50-5.40) Hemoglobin 13.0 g/dL (12.0-15.5) Hematocrit 37.1 % (36.0-47.0) Mean Corpuscular Volume 88 fL (79-100) Mean Corpuscular Hemoglobin 31 pg (25-35) Mean Corpuscular Hemoglobin Concent 35 g/dL (31-37) Red Cell Distribution Width 13.5 % (11.5-14.5) Platelet Count 271 x10^3/uL (140-400) Neutrophils (%) (Auto) 87 % (31-73) Lymphocytes (%) (Auto) 9 % (24-48) Monocytes (%) (Auto) 4 % (0-9) Eosinophils (%) (Auto) 0 % (0-3) Basophils (%) (Auto) 0 % (0-3) Neutrophils # (Auto) 11.0 x10^3uL (1.8-7.7) Lymphocytes # (Auto) 1.1 x10^3/uL (1.0-4.8) Monocytes # (Auto) 0.5 x10^3/uL (0.0-1.1) Eosinophils # (Auto) 0.0 x10^3/uL (0.0-0.7) Basophils # (Auto) 0.0 x10^3/uL (0.0-0.2) Segmented Neutrophils % 82 % (35-66) Band Neutrophils % 1 % (0-9) Lymphocytes % 12 % (24-48) Monocytes % 4 % (0-10) Basophils % 1 % (0-3) Toxic Granulation Slight Platelet Estimate Adequate (ADEQUATE) Sodium Level 135 mmol/L (136-145) Potassium Level 4.2 mmol/L (3.5-5.1) Chloride Level 95 mmol/L (98-107) Carbon Dioxide Level 28 mmol/L (21-32) Anion Gap 12 (6-14) Blood Urea Nitrogen 21 mg/dL (7-20) Creatinine 1.3 mg/dL (0.6-1.0) Estimated GFR (Cockcroft-Gault) 41.4 BUN/Creatinine Ratio 16 (6-20) Glucose Level 282 mg/dL (70-99) Calcium Level 10.7 mg/dL (8.5-10.1) Total Bilirubin 0.8 mg/dL (0.2-1.0) Aspartate Amino Transf (AST/SGOT) 38 U/L (15-37) Alanine Aminotransferase (ALT/SGPT) 62 U/L (14-59) Alkaline Phosphatase 135 U/L (46-116) Total Protein 9.1 g/dL (6.4-8.2) Albumin 4.4 g/dL (3.4-5.0) Albumin/Globulin Ratio 0.9 (1.0-1.7) Lipase 61 U/L (73-393) Ethyl Alcohol Level < 10 mg/dL (0-10) Glucose (Fingerstick) 299 mg/dL (70-99) 320 mg/dL (70-99) Urine Collection Type Unknown Urine Color Yellow Urine Clarity Clear Urine pH 5.5 Urine Specific Hulbert 1.025 Urine Protein 30 mg/dL (NEG-TRACE) Urine Glucose (UA) >=1000 mg/dL (NEG) Urine Ketones (Stick) Trace mg/dL (NEG) Urine Blood Negative (NEG) Urine Nitrite Negative (NEG) Urine Bilirubin Small (NEG) Urine Urobilinogen Dipstick 0.2 mg/dL (0.2 mg/dL) Urine Leukocyte Esterase Trace (NEG) Urine RBC Occ /HPF (0-2) Urine WBC 1-4 /HPF (0-4) Urine Squamous Epithelial Cells Mod /LPF Urine Bacteria Few /HPF (0-FEW) Urine Hyaline Casts Moderate /HPF Urine Mucus Mod /LPF Urine Opiates Screen Pos (NEG) Urine Methadone Screen Neg (NEG) Urine Barbiturates Neg (NEG) Urine Phencyclidine Screen Neg (NEG) Urine Amphetamine/Methamphetamine Neg (NEG) Urine Benzodiazepines Screen Neg (NEG) Urine Cocaine Screen Neg (NEG) Urine Cannabinoids Screen Pos (NEG) Urine Ethyl Alcohol Neg (NEG) Test 11/05/17 07:42 11/05/17 11:22 Glucose (Fingerstick) 75 mg/dL (70-99) 101 mg/dL (70-99) Laboratory Tests Test 11/04/17 17:50 11/04/17 20:38 11/04/17 22:39 11/05/17 02:00 White Blood Count 12.7 x10^3/uL (4.0-11.0) Red Blood Count 4.22 x10^6/uL (3.50-5.40) Hemoglobin 13.0 g/dL (12.0-15.5) Hematocrit 37.1 % (36.0-47.0) Mean Corpuscular Volume 88 fL (79-100) Mean Corpuscular Hemoglobin 31 pg (25-35) Mean Corpuscular Hemoglobin Concent 35 g/dL (31-37) Red Cell Distribution Width 13.5 % (11.5-14.5) Platelet Count 271 x10^3/uL (140-400) Neutrophils (%) (Auto) 87 % (31-73) Lymphocytes (%) (Auto) 9 % (24-48) Monocytes (%) (Auto) 4 % (0-9) Eosinophils (%) (Auto) 0 % (0-3) Basophils (%) (Auto) 0 % (0-3) Neutrophils # (Auto) 11.0 x10^3uL (1.8-7.7) Lymphocytes # (Auto) 1.1 x10^3/uL (1.0-4.8) Monocytes # (Auto) 0.5 x10^3/uL (0.0-1.1) Eosinophils # (Auto) 0.0 x10^3/uL (0.0-0.7) Basophils # (Auto) 0.0 x10^3/uL (0.0-0.2) Segmented Neutrophils % 82 % (35-66) Band Neutrophils % 1 % (0-9) Lymphocytes % 12 % (24-48) Monocytes % 4 % (0-10) Basophils % 1 % (0-3) Toxic Granulation Slight Platelet Estimate Adequate (ADEQUATE) Sodium Level 135 mmol/L (136-145) Potassium Level 4.2 mmol/L (3.5-5.1) Chloride Level 95 mmol/L (98-107) Carbon Dioxide Level 28 mmol/L (21-32) Anion Gap 12 (6-14) Blood Urea Nitrogen 21 mg/dL (7-20) Creatinine 1.3 mg/dL (0.6-1.0) Estimated GFR (Cockcroft-Gault) 41.4 BUN/Creatinine Ratio 16 (6-20) Glucose Level 282 mg/dL (70-99) Calcium Level 10.7 mg/dL (8.5-10.1) Total Bilirubin 0.8 mg/dL (0.2-1.0) Aspartate Amino Transf (AST/SGOT) 38 U/L (15-37) Alanine Aminotransferase (ALT/SGPT) 62 U/L (14-59) Alkaline Phosphatase 135 U/L (46-116) Total Protein 9.1 g/dL (6.4-8.2) Albumin 4.4 g/dL (3.4-5.0) Albumin/Globulin Ratio 0.9 (1.0-1.7) Lipase 61 U/L (73-393) Ethyl Alcohol Level < 10 mg/dL (0-10) Glucose (Fingerstick) 299 mg/dL (70-99) 320 mg/dL (70-99) Urine Collection Type Unknown Urine Color Yellow Urine Clarity Clear Urine pH 5.5 Urine Specific Hulbert 1.025 Urine Protein 30 mg/dL (NEG-TRACE) Urine Glucose (UA) >=1000 mg/dL (NEG) Urine Ketones (Stick) Trace mg/dL (NEG) Urine Blood Negative (NEG) Urine Nitrite Negative (NEG) Urine Bilirubin Small (NEG) Urine Urobilinogen Dipstick 0.2 mg/dL (0.2 mg/dL) Urine Leukocyte Esterase Trace (NEG) Urine RBC Occ /HPF (0-2) Urine WBC 1-4 /HPF (0-4) Urine Squamous Epithelial Cells Mod /LPF Urine Bacteria Few /HPF (0-FEW) Urine Hyaline Casts Moderate /HPF Urine Mucus Mod /LPF Urine Opiates Screen Pos (NEG) Urine Methadone Screen Neg (NEG) Urine Barbiturates Neg (NEG) Urine Phencyclidine Screen Neg (NEG) Urine Amphetamine/Methamphetamine Neg (NEG) Urine Benzodiazepines Screen Neg (NEG) Urine Cocaine Screen Neg (NEG) Urine Cannabinoids Screen Pos (NEG) Urine Ethyl Alcohol Neg (NEG) Test 11/05/17 07:42 11/05/17 11:22 Glucose (Fingerstick) 75 mg/dL (70-99) 101 mg/dL (70-99) VTE Prophylaxis Ordered VTE Prophylaxis Devices: No VTE Pharmacological Prophylaxi: Yes Assessment/Plan Assessment/Plan Intractable nausea and vomiting from abdominal pain - better with meds, IV hydration, GI has seen in consult. Medication withdrawal likely contributory diabetic gastroparesis - better with meds chronic anxiety - resume meds insulin dependent diabetes with complications including gastroparesis and neuropathy - She decides her insulin doses stage 3 CKD - stable marijuana use - she claims its intermittent Problem Qualifiers (1) Nausea and vomiting: Vomiting type: cyclical vomiting Vomiting Intractability: intractable Qualified Codes: G43.A1 - Cyclical vomiting, intractable (2) Abdominal pain: Abdominal location: generalized Qualified Codes: R10.84 - Generalized abdominal pain Joan JACOB MD Nov 05, 2017 14:09
[2017-11-05 15:24] VITALS: BP 136/70
[2017-11-05] MEDS: ENOXAPARIN 40 MG/0.4 ML SYRINGE. SQ SCH (15:43)
--- NOTE | 2017-11-05 16:34 | RAD ---
EXAM: Abdomen sonogram. HISTORY: Elevated liver function laboratory values. TECHNIQUE: Sonographic imaging of the abdomen was performed. COMPARISON: None. FINDINGS: The liver is normal in size. No focal hepatic lesion is seen. The gallbladder is surgically absent. The common bile duct is normal in caliber. The kidneys are normal in size. There is no hydronephrosis. The left kidney is not well seen due to bowel gas and body habitus. The inferior vena cava is patent. The aorta is normal in caliber. The spleen is normal in size. The pancreas is partially obscured due to bowel gas. IMPRESSION: 1. Cholecystectomy. 2. Suboptimal evaluation of the pancreas and left kidney due to bowel gas and body habitus. 3. Surgically absent gallbladder. Electronically signed by: June Nelson MD (11/05/2017 4:31 PM) [facility]
[2017-11-05] MEDS: DEXTROSE 50% 25 GM / 50ML DISP.SYRIN. IV PRN (17:16)
[2017-11-05] MEDS: PROMETHAZINE 12.5 MG TABLET. JT PRN ×2 (17:21→22:46)
[2017-11-05] MEDS: traMADol 50 MG TABLET PO PRN (17:27)
[2017-11-05 19:51] VITALS: BP 130/66
[2017-11-05] MEDS: ZOLPIDEM 5 MG TABLET. PO SCH (21:17)
[2017-11-05] MEDS: ATORVASTATIN CALCIUM 40 MG TABLET. PO SCH (21:19)
[2017-11-05 23:17] VITALS: BP 116/64
[2017-11-06] MEDS: DEXTROSE 50% 25 GM / 50ML DISP.SYRIN. IV PRN ×2 (02:29→14:51)
[2017-11-06 03:15] VITALS: BP 119/64
[2017-11-06 04:29] LABS: BASO % 1 % (0-3); EOS % 0 % (0-3); HEMATOCRIT 32.4 % (36.0-47.0); HEMOGLOBIN 11.2 g/dL (12.0-15.5); LYMPH % 32 % (24-48); MEAN CORPUSCULAR HEMOGLOBIN 31 pg (25-35); MEAN CORPUSCULAR HGB CONC 35 g/dL (31-37); MEAN CORPUSCULAR VOLUME 89 fL (79-100); MONO # 0.6 x10^3/uL (0.0-1.1); MONO % 9 % (0-9); NEUT # 3.5 x10^3uL (1.8-7.7); NEUT % 58 % (31-73); PLATELET COUNT 196 x10^3/uL (140-400); RED BLOOD COUNT 3.65 x10^6/uL (3.50-5.40); RED CELL DISTRIBUTION WIDTH 13.5 % (11.5-14.5); WHITE BLOOD COUNT 6.1 x10^3/uL (4.0-11.0)
[2017-11-06 04:57] LABS: ALBUMIN/GLOBULIN RATIO 0.9 (1.0-1.7); CALCIUM 8.6 mg/dL (8.5-10.1); CREATININE 1.2 mg/dL (0.6-1.0); GFR 45.4; POTASSIUM 3.5 mmol/L (3.5-5.1); TOTAL BILIRUBIN 0.3 mg/dL (0.2-1.0); TOTAL PROTEIN 6.4 g/dL (6.4-8.2)
[2017-11-06] MEDS: fentaNYL PF VIAL 100 MCG/2 ML VIAL IV PRN ×6 (05:34→23:59)
[2017-11-06] MEDS: dilTIAZem HCL 30 MG TABLET PO SCH ×3 (05:35→20:56)
[2017-11-06] MEDS: PROMETHAZINE 12.5 MG TABLET. JT PRN ×2 (06:39→14:09)
[2017-11-06] MEDS: traMADol 50 MG TABLET PO PRN (06:40)
[2017-11-06] MEDS: PANTOPRAZOLE 40 MG TABLET.DR. PO SCH (07:30)
[2017-11-06 07:59] VITALS: BP 116/63
[2017-11-06] MEDS: LISINOPRIL 5 MG TABLET. PO SCH (08:36)
[2017-11-06] MEDS: DIGOXIN 125 MCG TABLET. PO SCH ×2 (08:36→20:43)
[2017-11-06] MEDS: LORazepam 0.5 MG TABLET PO PRN ×3 (08:36→20:45)
[2017-11-06] MEDS: SOTALOL 80 MG TABLET. PO SCH (08:36)
[2017-11-06] MEDS: ONDANSETRON PF 4 MG/2 ML VIAL. IV PRN ×2 (08:37→20:42)
[2017-11-06] MEDS: INSULIN LISPRO 300 UNITS/3 ML INSULN.PEN. SQ SCH ×3 (08:41→17:00)
[2017-11-06] MEDS: INSULIN GLARGINE 300 UNITS/3 ML INSULN.PEN. SQ SCH ×2 (08:43→20:44)
--- NOTE | 2017-11-06 09:28 | PDOC ---
Subjective: Subjective: Hypoglycemia overnight, "passed out," doesn't remember lab draw. Took clears yesterday, vomited this morning, abd pain ongoing. J tube functioning - doing bolus feeds but wants to hold for now. Objective: Objective: RN requests IV PPI. Vital Signs: Vital Signs Date Time Temp Pulse Resp B/P (MAP) Pulse Ox O2 Delivery O2 Flow Rate FiO2 11/06/17 08:37 16 Room Air 11/06/17 08:36 80 116/63 11/06/17 07:59 97.9 100 97.9 Labs: Laboratory Tests Test 11/05/17 11:22 11/05/17 17:11 11/05/17 17:32 11/05/17 20:52 Glucose (Fingerstick) 101 mg/dL (70-99) 59 mg/dL (70-99) 129 mg/dL (70-99) 180 mg/dL (70-99) Test 11/06/17 02:19 11/06/17 02:31 11/06/17 07:33 Glucose (Fingerstick) 37 mg/dL (70-99) 261 mg/dL (70-99) 255 mg/dL (70-99) Imaging: Abd US IMPRESSION: 1. Cholecystectomy. 2. Suboptimal evaluation of the pancreas and left kidney due to bowel gas and body habitus. 3. Surgically absent gallbladder. PE: GEN: NAD LUNGS: CTAB HEART: RRR ABD: quiet, tender (stable), J tube in place NEURO/PSYCH: A & O 3 A/P: Gastroparesis w/ J tube Chronic pain Elevated LFTs - resolved, normal liver on US, s/p asuncion Hypoglycemia, DM - per primary -- Pain, n/v continue - check KUB, consider SBS. ZAIRE MARTIN Nov 06, 2017 09:28
--- NOTE | 2017-11-06 09:52 | RAD ---
ESSENCE, 11/06/2017: HISTORY: Abdominal pain, vomiting, constipation A tube projected over the upper abdomen reportedly represents a jejunostomy tube. Its tip projected is projected over the left upper quadrant. Gas is present in large and small bowel in a nonspecific pattern. There is a moderate amount stool in the rectosigmoid and left colon. There is no evidence organomegaly. Surgical clips are present in the right upper quadrant. IMPRESSION: Increased stool in the rectosigmoid and left colon. Electronically signed by: Phil Partida MD (11/06/2017 9:49 AM) [facility]
[2017-11-06] MEDS ORDERED: BISACODYL 10 MG SUPP.RECT. PR ONE (11:00)
[2017-11-06 11:50] VITALS: BP 118/57
[2017-11-06] MEDS: PANTOPRAZOLE IV PUSH 40 MG VIAL. IVP SCH (14:07)
[2017-11-06] MEDS: ENOXAPARIN 40 MG/0.4 ML SYRINGE. SQ SCH (14:10)
[2017-11-06 15:16] VITALS: BP 131/67
[2017-11-06] MEDS ORDERED: POLYETHYLENE GLYCOL 3350 17 GM PACKET. PO PRN (15:30)
[2017-11-06] MEDS ORDERED: LIDO:MAALOX 1:1 20 ML SINGLE DOSE. PO PRN (18:30)
[2017-11-06] MEDS ORDERED: ALTEPLASE 2 MG VIAL INT CAT ONE (18:30)
--- NOTE | 2017-11-06 18:34 | PDOC ---
PROGRESS NOTES Subjective Hypoglycemic overnight, nausea continues, now on TF at 20 cc/hr but insulin on hold as has had additional episodes of hypoglycemia, she did not tolerate diet, she is constipated per imaging, liver enzymes have normalized, abd sono was normal. She is requesting Cathflo for port which is not currently accessible, she is requesting GI cocktail prn for nausea Objective Afebrile General: A&O Heart: RRR Lungs: CTA Abd: soft, thin, BS present Ext: no edema or cyanosis Vital Signs Vital Signs Date Time Temp Pulse Resp B/P (MAP) Pulse Ox O2 Delivery O2 Flow Rate FiO2 11/06/17 15:16 99.2 74 22 131/67 (88) 98 Room Air 99.2 I & O Intake and Output 11/06/17 07:00 Intake Total 690 ml Output Total 2000 ml Balance -1310 ml Intake Oral 690 ml Output Urine Total 2000 ml Assessment and Plan Problems Medical Problems: (1) Abdominal pain - continue pain meds, treat constipation Status: Acute (2) Gastroparesis - continue meds and TF per J-tube at 20 cc/hr with eventual goal of 40 cc/hr Status: Acute (3) Nausea and vomiting - continue meds, add prn GI cocktail (4) labile insulin dependent diabetes, hold lantus for now due to hypoglycemia, continue SSI Status: Acute Nutrition Consultation Dietary Evaluation: Recommendations by RD: Protein supplementation Comments: REC Glucerna 1.2@goal rate 40 ml/hr w/50 ml water flushes q4 hrs or flushes per MD Advance diet per pt tolerance/MD to goal diet gi soft/ADA Expected Outcomes/Goals: Combined PO intake and TF infusion to provide > 75% est needs Malnutrition Findings: Food and Nutrition Intake (Mod: <75% est energy req 7days Weight Status: Appropriate Joan JACOB MD Nov 06, 2017 18:34
[2017-11-06 19:30] VITALS: BP 132/70
[2017-11-06] MEDS: ATORVASTATIN CALCIUM 40 MG TABLET. PO SCH (20:43)
[2017-11-06] MEDS: ZOLPIDEM 5 MG TABLET. PO SCH (20:44)
[2017-11-06 23:24] VITALS: BP 116/64
[2017-11-07] MEDS: traMADol 50 MG TABLET PO PRN ×3 (00:09→22:50)
[2017-11-07 03:02] VITALS: BP 127/79
[2017-11-07] MEDS: fentaNYL PF VIAL 100 MCG/2 ML VIAL IV PRN ×7 (04:42→22:50)
[2017-11-07] MEDS: ONDANSETRON PF 4 MG/2 ML VIAL. IV PRN ×3 (04:42→22:50)
[2017-11-07] MEDS: LORazepam 0.5 MG TABLET PO PRN ×3 (05:20→17:56)
[2017-11-07] MEDS: dilTIAZem HCL 30 MG TABLET PO SCH ×3 (05:21→21:00)
[2017-11-07 07:43] VITALS: BP 124/67
[2017-11-07] MEDS: SOTALOL 80 MG TABLET. PO SCH (08:49)
[2017-11-07] MEDS: PROMETHAZINE 12.5 MG TABLET. JT PRN ×2 (08:49→17:11)
[2017-11-07] MEDS: LISINOPRIL 5 MG TABLET. PO SCH (08:49)
[2017-11-07] MEDS: DIGOXIN 125 MCG TABLET. PO SCH ×2 (08:50→20:41)
[2017-11-07] MEDS: PANTOPRAZOLE IV PUSH 40 MG VIAL. IVP SCH (08:50)
[2017-11-07] MEDS: INSULIN LISPRO 300 UNITS/3 ML INSULN.PEN. SQ SCH ×3 (09:16→16:56)
[2017-11-07] MEDS: INSULIN GLARGINE 300 UNITS/3 ML INSULN.PEN. SQ SCH ×2 (09:17→20:50)
[2017-11-07 11:43] VITALS: BP 129/67
--- NOTE | 2017-11-07 12:42 | PDOC ---
Subjective: Subjective: Passed some hard balls of stool. Doesn't want suppository but will take Miralax. Has had retching, not interested in clears currently. J tube functioning. Left eye painful and sensitive to light, wants eye drops. Objective: Objective: Reviewed SW notes re: financial assistance w/ feeds. Vital Signs: Vital Signs Date Time Temp Pulse Resp B/P (MAP) Pulse Ox O2 Delivery O2 Flow Rate FiO2 11/07/17 11:43 99.0 68 18 129/67 (87) 98 Room Air 99.0 Labs: Laboratory Tests Test 11/06/17 14:44 11/06/17 15:06 11/06/17 16:02 11/06/17 16:11 Glucose (Fingerstick) 45 mg/dL (70-99) 120 mg/dL (70-99) 60 mg/dL (70-99) 166 mg/dL (70-99) Test 11/06/17 16:57 11/06/17 20:30 11/07/17 07:22 11/07/17 11:24 Glucose (Fingerstick) 104 mg/dL (70-99) 124 mg/dL (70-99) 361 mg/dL (70-99) 373 mg/dL (70-99) PE: GEN: NAD - spilled ice water on bed, with wrapped in blanket awaiting nursing LUNGS: CTAB HEART: RRR NEURO/PSYCH: A & O 3 Dr. Blanca present. A/P: Gastroparesis w/ J tube Constipation DM, chronic pain Left eye pain -- Encouraged suppository, Miralax, etc. - may help with abd pain. Diet as able, continue J tube feeds. ZAIRE MARTIN Nov 07, 2017 12:42
[2017-11-07] MEDS ORDERED: BISACODYL 10 MG SUPP.RECT. PR ONE (12:45)
--- NOTE | 2017-11-07 13:14 | PDOC ---
PROGRESS NOTES Subjective Nausea better, now hyperglycemic and having pain and photophobia of left eye, TF up to 40 cc/hr but currently disconnected as she spilled a cup of ice water in her bed and she is waiting to get sheets and gown replaced. She did have 2 small BMs yesterday but had quite a bit of sigmoid stool on imaging but she declined suppository, she did take Miralax Objective Afebrile BP: [] General: left eye red Heart: RRR Lungs: CTA Abd: mild tenderness, J-tube site normal Ext: no edema Vital Signs Vital Signs Date Time Temp Pulse Resp B/P (MAP) Pulse Ox O2 Delivery O2 Flow Rate FiO2 11/07/17 11:43 99.0 68 18 129/67 (87) 98 Room Air 99.0 I & O Intake and Output 11/07/17 07:00 Intake Total 1180 ml Output Total 1902 ml Balance -722 ml Intake Oral 1080 ml Tube Feeding 100 ml Output Urine Total 1900 ml Stool Total 2 ml Gastric Drainage Total 0 ml # Voids 4 Assessment and Plan (1) Abdominal pain - continue pain meds, treat constipation Status: Acute (2) Gastroparesis - continue meds and TF per J-tube at 40 cc/hr Status: Acute (3) Nausea and vomiting - continue meds, add prn GI cocktail (4) labile insulin dependent diabetes - hyperglycemic today - resume insulin (5) iritis vs conjunctivitis - no antiviral eye drops on formulary per pharmacy , I have spoken with staff at Dr. Yuan office who say oral antivirals should be ok substitute Nutrition Consultation Dietary Evaluation: Recommendations by RD: Protein supplementation Comments: REC Glucerna 1.2@goal rate 40 ml/hr w/50 ml water flushes q4 hrs or flushes per MD Advance diet per pt tolerance/MD to goal diet gi soft/ADA Expected Outcomes/Goals: Combined PO intake and TF infusion to provide > 75% est needs Malnutrition Findings: Food and Nutrition Intake (Mod: <75% est energy req 7days Weight Status: Appropriate Jona JACOB MD Nov 07, 2017 13:14
[2017-11-07] MEDS: POLYETHYLENE GLYCOL 3350 17 GM PACKET. PO SCH ×2 (14:03→20:45)
[2017-11-07] MEDS: ENOXAPARIN 40 MG/0.4 ML SYRINGE. SQ SCH (14:04)
[2017-11-07] MEDS: valACYclovir 500 MG TABLET. PO SCH ×2 (14:05→20:40)
[2017-11-07 15:30] VITALS: BP 118/64
[2017-11-07 19:00] VITALS: BP 121/61
[2017-11-07] MEDS: ATORVASTATIN CALCIUM 40 MG TABLET. PO SCH (20:41)
[2017-11-07] MEDS: ZOLPIDEM 5 MG TABLET. PO SCH (20:41)
[2017-11-07 23:00] VITALS: BP 122/68
[2017-11-08] MEDS: fentaNYL PF VIAL 100 MCG/2 ML VIAL IV PRN ×2 (02:45→08:17)
[2017-11-08 03:03] VITALS: BP 133/67
[2017-11-08] MEDS: LORazepam 0.5 MG TABLET PO PRN (04:49)
[2017-11-08] MEDS: PROMETHAZINE 12.5 MG TABLET. JT PRN (04:49)
[2017-11-08] MEDS: traMADol 50 MG TABLET PO PRN (04:52)
[2017-11-08 05:11] LABS: BASO # 0.1 x10^3/uL (0.0-0.2); BASO % 1 % (0-3); EOS % 0 % (0-3); HEMATOCRIT 29.3 % (36.0-47.0); LYMPH % 34 % (24-48); MEAN CORPUSCULAR HEMOGLOBIN 30 pg (25-35); MEAN CORPUSCULAR HGB CONC 34 g/dL (31-37); MEAN CORPUSCULAR VOLUME 88 fL (79-100); MONO # 0.5 x10^3/uL (0.0-1.1); MONO % 8 % (0-9); NEUT # 3.3 x10^3uL (1.8-7.7); NEUT % 57 % (31-73); PLATELET COUNT 189 x10^3/uL (140-400); RED BLOOD COUNT 3.33 x10^6/uL (3.50-5.40); RED CELL DISTRIBUTION WIDTH 13.2 % (11.5-14.5); WHITE BLOOD COUNT 5.9 x10^3/uL (4.0-11.0)
[2017-11-08] MEDS: dilTIAZem HCL 30 MG TABLET PO SCH (05:13)
[2017-11-08 05:53] LABS: ALBUMIN 3.1 g/dL (3.4-5.0); ALBUMIN/GLOBULIN RATIO 0.9 (1.0-1.7); CALCIUM 8.7 mg/dL (8.5-10.1); CREATININE 1.3 mg/dL (0.6-1.0); GFR 41.4; TOTAL BILIRUBIN 0.2 mg/dL (0.2-1.0); TOTAL PROTEIN 6.4 g/dL (6.4-8.2)
[2017-11-08 07:00] VITALS: BP 110/59
[2017-11-08] MEDS: INSULIN LISPRO 300 UNITS/3 ML INSULN.PEN. SQ SCH (07:33)
[2017-11-08] MEDS: INSULIN GLARGINE 300 UNITS/3 ML INSULN.PEN. SQ SCH (08:00)
[2017-11-08] MEDS: valACYclovir 500 MG TABLET. PO SCH (08:13)
[2017-11-08] MEDS: POLYETHYLENE GLYCOL 3350 17 GM PACKET. PO SCH (08:13)
[2017-11-08] MEDS: LISINOPRIL 5 MG TABLET. PO SCH (08:13)
[2017-11-08 08:14] VITALS: BP 110/59
[2017-11-08] MEDS: ONDANSETRON PF 4 MG/2 ML VIAL. IV PRN (08:14)
[2017-11-08] MEDS: SOTALOL 80 MG TABLET. PO SCH (08:14)
[2017-11-08] MEDS: DIGOXIN 125 MCG TABLET. PO SCH (08:14)
[2017-11-08] MEDS: PANTOPRAZOLE IV PUSH 40 MG VIAL. IVP SCH (08:15)
[2017-11-08] MEDS ORDERED: HEPARIN PF 500 UNIT/5 ML DISP.SYRIN. IV ONE (09:30)
--- NOTE | 2017-11-08 12:50 | DS ---
DATE OF DISCHARGE: 11/08/2017 ADMITTING DIAGNOSIS: Gastroparesis. DISMISSAL DIAGNOSES: 1. Gastroparesis. 2. Abdominal pain. 3. Nausea and vomiting. HISTORY OF PRESENT ILLNESS AND HOSPITAL COURSE: This patient is a 62-year-old female who has multiple admissions for significant gastroparesis. She is tube fed. She came in with intractable nausea, vomiting, abdominal pain. She was treated with IV fluids and n.p.o. status and diabetes was managed. The patient also had some constipation. This was treated with cathartics. She improved. Throughout her hospital stay, she developed some inflammation in her eye, was considered possible viral in nature, was given valacyclovir. Symptoms did improve and the patient declined further treatment with valacyclovir at this time. The patient was tolerating diet and tube feed, refilled chronic pain medication and anxiety medication as medications were written by Dr. Blanca and the patient was discharged to home to continue her chronic plan of care. DISCHARGE DIAGNOSES: 1. Diabetic gastroparesis. 2. Intractable nausea and vomiting. 3. Abdominal pain. 4. Mild protein malnutrition. 5. Type 2 diabetes. 6. Chronic kidney disease stage 3, stable. 7. Coronary artery disease. 8. Atrial fibrillation. 9. Peripheral neuropathy. 10. Cholelithiasis. 11. Generalized anxiety disorder. 12. Anemia of chronic disease. 13. History of transient ischemic attacks. DISCHARGE INSTRUCTIONS: The patient will follow up with Dr. Blanca in 1 week for continued care. DISCHARGE MEDICATIONS: Discharged on the following medications: Atorvastatin 40 mg daily, Lanoxin 50 mcg b.i.d., diltiazem 90 mg t.i.d., Benadryl 25 mg q.6h. p.r.n., Prozac 20 mg p.o. q. day, Dilaudid 1 mg/mL 2 mg q.2h. p.r.n., insulin 1 unit t.i.d. with supplemental units per home sliding scale, Tresiba 10 units at bedtime and 12 units in a.m., Creon 1 capsule t.i.d., lisinopril 5 mg daily, lorazepam 0.5 q.6h. p.r.n., Protonix 40 mg daily, Phenergan 25 mg per mL 1 mL per J-tube q.6h. p.r.n., sotalol 80 mg daily, tramadol 50 mg p.o. q.3h., Ambien 10 mg at bedtime. MANUEL VÁZQUEZ MD DR: MARCIAL/coretta JOB#: [id number] / [id number]
== END 2017-11-08 10:10 | disposition home or self-care (01) | DRG 74 ==
LOC: ER 16:59 → 6 SOUTH 19:00 → ER 19:54
PROVIDERS: ADMIT Family Medicine; ATTEND Family Medicine
DX: E10.43 Type 1 diabetes mellitus with diabetic autonomic (poly)neuropathy (principal); E44.1 Mild protein-calorie malnutrition; I48.91 Unspecified atrial fibrillation; G43.A1 Cyclical vomiting, in migraine, intractable; N18.3 Chronic kidney disease, stage 3 (moderate); E10.649 Type 1 diabetes mellitus with hypoglycemia without coma; E10.22 Type 1 diabetes mellitus with diabetic chronic kidney disease; E10.65 Type 1 diabetes mellitus with hyperglycemia; D64.9 Anemia, unspecified; K31.84 Gastroparesis; E89.0 Postprocedural hypothyroidism; F12.90 Cannabis use, unspecified, uncomplicated; I12.9 Hypertensive chronic kidney disease with stage 1 through stage 4 chronic kidney disease, or unspecified chronic kidney disease; G56.00 Carpal tunnel syndrome, unspecified upper limb; H53.142 Visual discomfort, left eye; H57.12 Ocular pain, left eye; G89.29 Other chronic pain; G62.9 Polyneuropathy, unspecified; F41.1 Generalized anxiety disorder; R25.1 Tremor, unspecified; Z90.710 Acquired absence of both cervix and uterus; K59.00 Constipation, unspecified; I25.10 Atherosclerotic heart disease of native coronary artery without angina pectoris; K80.20 Calculus of gallbladder without cholecystitis without obstruction; D63.8 Anemia in other chronic diseases classified elsewhere; Z86.73 Personal history of transient ischemic attack (TIA), and cerebral infarction without residual deficits; Z79.4 Long term (current) use of insulin; Z90.49 Acquired absence of other specified parts of digestive tract; Z88.5 Allergy status to narcotic agent; Z88.6 Allergy status to analgesic agent; Z88.1 Allergy status to other antibiotic agents; Z88.2 Allergy status to sulfonamides; Z68.20 Body mass index [BMI] 20.0-20.9, adult
CPT/HCPCS: 36415; 74018; 76700; 80053; 80307; 81001; 82962; 83690; 85007; 85025; 87086; 96372; 96374; 96375; C9113; G0480; J1650; J1815; J2060; J2405; J2550; J2997; J3010; J7030; J7042; Q0169; 99285-25; G0479

== ENCOUNTER 2018-06-03 10:05 | Inpatient (IN) | payer BC, MEDICARE ==
[~2018-06-03] VITALS: Ht 172.7 cm; Wt 57.6 kg
[~2018-06-03 10:05] MED LIST changes: +DIGO125T PO; +LINZESS145 MCG PO; +LORA-434 PO
[2018-06-03] MEDS ORDERED: IV NORMAL SALINE 1000ML BAG 1,000 ML IV SCH (10:14)
[2018-06-03] MEDS ORDERED: INSULIN,REGULAR 150 UNIT DRIP 150 ML IV ONE (10:30)
[2018-06-03] MEDS ORDERED: ONDANSETRON PF 4 MG/2 ML VIAL. IV ONE (10:30)
[2018-06-03 10:46] LABS: BASO % 0 % (0-3); EOS % 0 % (0-3); HEMATOCRIT 30.1 % (36.0-47.0); HEMOGLOBIN 9.8 g/dL (12.0-15.5); LYMPH # 0.9 x10^3/uL (1.0-4.8); LYMPH % 7 % (24-48); MEAN CORPUSCULAR HEMOGLOBIN 29 pg (25-35); MEAN CORPUSCULAR HGB CONC 33 g/dL (31-37); MEAN CORPUSCULAR VOLUME 88 fL (79-100); MONO # 0.8 x10^3/uL (0.0-1.1); MONO % 7 % (0-9); NEUT # 10.5 x10^3uL (1.8-7.7); NEUT % 86 % (31-73); PLATELET COUNT 233 x10^3/uL (140-400); RED BLOOD COUNT 3.41 x10^6/uL (3.50-5.40); WHITE BLOOD COUNT 12.3 x10^3/uL (4.0-11.0)
[2018-06-03 10:50] LABS: BASE EXCESS ABG 0 mmol/L (-3-3); HCO3 ABG 25 mmol/L (21-28); PCO2 ABG 43 mmHg (35-46); PO2 ABG 82 mmHg (65-108); SAT O2 ABG 95 % (92-99)
[2018-06-03 10:53] LABS: FIO2 ABG 21
[2018-06-03 10:55] LABS: PROTHROMBIN TIME PATIENT 12.9 SEC (11.7-14.0)
[2018-06-03 11:10] LABS: ALBUMIN 3.2 g/dL (3.4-5.0); ALBUMIN/GLOBULIN RATIO 0.9 (1.0-1.7); CALCIUM 8.7 mg/dL (8.5-10.1); CREATININE 2.4 mg/dL (0.6-1.0); GFR 20.3; POTASSIUM 4.3 mmol/L (3.5-5.1); TOTAL BILIRUBIN 0.3 mg/dL (0.2-1.0); TOTAL PROTEIN 6.8 g/dL (6.4-8.2)
--- NOTE | 2018-06-03 11:13 | PHYS DOC ---
Past Medical History Past Medical History: A-Fib, Anemia, Arrhythmia, Diabetes-Type I, Heart Disease , Hypertension, MRSA, Pancreatitis Additional Past Medical Histor: Tachy-Jamir Syndrome, Gastroparesis, DDD, Neuropathy, Tremors, Kidney dz Past Surgical History: Cholecystectomy, Hysterectomy, Pacemaker Additional Past Surgical Histo: Thyroidectomy; Peripheral neuropathy,J-TUBE PLACED Alcohol Use: None Drug Use: None Adult General Chief Complaint Chief Complaint: BLOOD SUGAR PROBLEM HPI HPI Patient is a 63 year old female presented ER today for evaluation of nausea, vomiting, abdominal cramping since yesterday. Patient says she has history of insulin-dependent diabetic, she feels like her blood sugar really high. Patient denies any cough, no fever, no chest pain. Patient felt weak and dehydrated. Review of Systems Review of Systems Constitutional: Denies fever or chills. GENERALIZED WEAKNESS. Eyes: Denies change in visual acuity, redness, or eye pain [] HENT: Denies nasal congestion or sore throat [] Respiratory: Denies cough or shortness of breath [] Cardiovascular: No additional information not addressed in HPI [] GI: Positive for abdominal pain, nausea, vomiting, NO bloody stools or diarrhea [] : Denies dysuria or hematuria [] Musculoskeletal: Denies back pain or joint pain [] Integument: Denies rash or skin lesions [] Neurologic: Denies headache, focal weakness or sensory changes [] Endocrine: Denies polyuria or polydipsia [] All other systems were reviewed and found to be within normal limits, except as documented in this note. Current Medications Current Medications Current Medications Medications (Trade) Dose Ordered Sig/[facility] Start Time Stop Time Status Last Admin Dose Admin Insulin Human Regular 150 ml @ 0 mls/hr 1X ONCE 06/03/18 10:30 06/03/18 10:31 DC 06/03/18 11:05 10.5 MLS/HR Ondansetron HCl (Zofran) 4 mg 1X ONCE 06/03/18 10:30 06/03/18 10:31 DC 06/03/18 10:43 4 MG Sodium Chloride 1,000 ml @ 1,000 mls/hr 1X ONCE 06/03/18 12:15 06/03/18 13:14 DC 06/03/18 12:03 1,000 MLS/HR Allergies Allergies Allergies Coded Allergies Type Severity Reaction Last Updated Verified Sulfa (Sulfonamide Antibiotics) Allergy Intermediate Itching 10/29/13 Yes bacitracin Allergy Intermediate Hives 08/31/15 Yes codeine Allergy Intermediate Itching 10/29/13 Yes hydrocodone bitartrate Allergy Intermediate Itching 10/29/13 Yes morphine Allergy Intermediate Itching 10/29/13 Yes neomycin Allergy Intermediate Hives 08/31/15 Yes polymyxin B Allergy Intermediate Hives 08/31/15 Yes phenylephrine Adverse Reaction Intermediate NEOSYNEPHRINE 09/16/15 Yes phenytoin sodium Adverse Reaction Intermediate TREMORS 09/16/15 Yes phenytoin sodium extended Adverse Reaction Intermediate TREMORS 09/16/15 Yes Physical Exam Physical Exam Constitutional: Well developed, well nourished, MILD acute distress, non-toxic appearance. [] HENT: Normocephalic, atraumatic, bilateral external ears normal, oropharynx moist, no oral exudates, nose normal. [] Eyes: PERRLA, EOMI, conjunctiva normal, no discharge. [] Neck: Normal range of motion, no tenderness, supple, no stridor. [] Cardiovascular:Heart rate regular rhythm, no murmur [] Lungs & Thorax: Bilateral breath sounds clear to auscultation [] Abdomen: Bowel sounds normal, soft, no tenderness, no masses, no pulsatile masses. [] Skin: Warm, dry, no erythema, no rash. [] Back: No tenderness, no CVA tenderness. [] Extremities: No tenderness, no cyanosis, no clubbing, ROM intact, no edema. [] Neurologic: Alert and oriented X 3, normal motor function, normal sensory function, no focal deficits noted. [] Psychologic: Affect normal, judgement normal, mood normal. [] Current Patient Data Vital Signs Vital Signs Date Time Temp Pulse Resp B/P (MAP) Pulse Ox O2 Delivery O2 Flow Rate FiO2 06/03/18 12:43 67 20 111/53 (72) 98 Room Air 06/03/18 10:10 98.8 98.8 Lab Values Laboratory Tests Test 06/03/18 10:12 06/03/18 10:32 06/03/18 10:45 06/03/18 11:59 Glucose (Fingerstick) 587 mg/dL (70-99) *H 459 mg/dL (70-99) H White Blood Count 12.3 x10^3/uL (4.0-11.0) H Red Blood Count 3.41 x10^6/uL (3.50-5.40) L Hemoglobin 9.8 g/dL (12.0-15.5) L Hematocrit 30.1 % (36.0-47.0) L Mean Corpuscular Volume 88 fL (79-100) Mean Corpuscular Hemoglobin 29 pg (25-35) Mean Corpuscular Hemoglobin Concent 33 g/dL (31-37) Red Cell Distribution Width 14.0 % (11.5-14.5) Platelet Count 233 x10^3/uL (140-400) Neutrophils (%) (Auto) 86 % (31-73) H Lymphocytes (%) (Auto) 7 % (24-48) L Monocytes (%) (Auto) 7 % (0-9) Eosinophils (%) (Auto) 0 % (0-3) Basophils (%) (Auto) 0 % (0-3) Neutrophils # (Auto) 10.5 x10^3uL (1.8-7.7) H Lymphocytes # (Auto) 0.9 x10^3/uL (1.0-4.8) L Monocytes # (Auto) 0.8 x10^3/uL (0.0-1.1) Eosinophils # (Auto) 0.0 x10^3/uL (0.0-0.7) Basophils # (Auto) 0.0 x10^3/uL (0.0-0.2) Segmented Neutrophils % 87 % (35-66) H Lymphocytes % 7 % (24-48) L Monocytes % 6 % (0-10) Platelet Estimate Adequate (ADEQUATE) Platelet Clumps, EDTA Present Hypochromasia Slight Prothrombin Time 12.9 SEC (11.7-14.0) Prothrombin Time INR 1.0 (0.8-1.1) PTT 36 SEC (24-38) Sodium Level 130 mmol/L (136-145) L Potassium Level 4.3 mmol/L (3.5-5.1) Chloride Level 89 mmol/L (98-107) L Carbon Dioxide Level 28 mmol/L (21-32) Anion Gap 13 (6-14) Blood Urea Nitrogen 43 mg/dL (7-20) H Creatinine 2.4 mg/dL (0.6-1.0) H Estimated GFR (Cockcroft-Gault) 20.3 BUN/Creatinine Ratio 18 (6-20) Glucose Level 558 mg/dL (70-99) *H Calcium Level 8.7 mg/dL (8.5-10.1) Total Bilirubin 0.3 mg/dL (0.2-1.0) Aspartate Amino Transferase (AST) 15 U/L (15-37) Alanine Aminotransferase (ALT) 28 U/L (14-59) Alkaline Phosphatase 111 U/L (46-116) Total Protein 6.8 g/dL (6.4-8.2) Albumin 3.2 g/dL (3.4-5.0) L Albumin/Globulin Ratio 0.9 (1.0-1.7) L Lipase 43 U/L (73-393) L Acetone Level Neg (NEG) O2 Saturation 95 % (92-99) Arterial Blood pH 7.38 (7.35-7.45) Arterial Blood pCO2 at Patient Temp 43 mmHg (35-46) Arterial Blood pO2 at Patient Temp 82 mmHg (65-108) Arterial Blood HCO3 25 mmol/L (21-28) Arterial Blood Base Excess 0 mmol/L (-3-3) FiO2 21 Laboratory Tests 06/03/18 10:32 Laboratory Tests 06/03/18 10:32 EKG EKG [] Radiology/Procedures Radiology/Procedures [] Course & Med Decision Making Course & Med Decision Making Pertinent Labs and Imaging studies reviewed. (See chart for details) [] Dragon Disclaimer Dragon Disclaimer This electronic medical record was generated, in whole or in part, using a voice recognition dictation system. Departure Departure Impression: Primary Impression: Hyperglycemia Disposition: 09 ADMITTED INPATIENT Admitting Physician: Mana Jacob Condition: STABLE Referrals: Joan JACOB MD (PCP) ADIS FUENTES DO Jun 03, 2018 11:13
--- NOTE | 2018-06-03 11:58 | RAD ---
2 view abdominal series and portable AP upright chest x-ray Clinical indications: Elbow pain and vomiting and nausea. COMPARISON: Chest x-ray dated December 26, 2016. FINDINGS: There is large amount of fecal retention throughout the colon and rectosigmoid region. No obstructive bowel pattern is seen. No free air or air-fluid levels are seen. Cholecystectomy clips are apparent. Feeding tube is present in the left upper quadrant of the abdomen. Chest x-ray demonstrates no acute lung infiltrate or pleural effusion or pulmonary edema or pneumothorax. The heart size and pulmonary vasculature and mediastinum and both jamin are unremarkable. Left subclavian Port-A-Cath and bipolar atrioventricular pacemaker are again evident. IMPRESSION: There is a large amount of fecal retention throughout the colon and rectosigmoid region. Electronically signed by: Deshaun Srinivasan MD (06/03/2018 11:55 AM) [facility]
[2018-06-03 12:01] LABS: % LYMPHS 7 % (24-48); % MONOS 6 % (0-10); % SEGS 87 % (35-66); PLT ESTIMATE ADEQUATE (ADEQUATE)
[2018-06-03 12:02] LABS: HYPOCHROMIA SLIGHT; PLATELET CLUMP PRESENT
[2018-06-03] MEDS ORDERED: IV NORMAL SALINE 1000ML BAG 1,000 ML IV ONE (12:15)
[2018-06-03] MEDS ORDERED: IV DEXTROSE 5 %-0.45 % NACL 1,000 ML IV SCH (14:44)
[2018-06-03] MEDS ORDERED: 0.9 % SODIUM CHLORIDE 10 ML DISP.SYRIN. IV PRN (14:45)
--- NOTE | 2018-06-03 14:45 | NUR ---
Rec'd from ER per cart. Pt A&O. Ins gtt infusing at 5.5units/hr. dr tineo here. Iv patent. Pt staes some sl nausea but improved. Abd pain 07/24 and baseline 07/24. No family here. Pt ambulated to BR w/o diff. Will cont adm process. Bs reported at 244. insulibn gtt off. NS at 75/hr at present.
--- NOTE | 2018-06-03 14:50 | PDOC1 ---
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 She has severe gastroparesis and has a J-tube, her imaging studies show she is constipated. Blood sugar so far has dropped from 587 to 244. Past Medical History Cardiovascular: AFIB, CAD, Other Pulmonary: No pertinent hx CENTRAL NERVOUS SYSTEM: Carpal Tunnel Syndrome, Periperal neuropathy, TIA GI: Other Heme/Onc: Anemia NOS Hepatobiliary: Cholelithiasis Psych: No pertinent hx, Anxiety, Depression Rheumatologic: Other Infectious disease: No pertinent hx Renal/: No pertinent hx Endocrine: Diabetes Past Surgical History Past Surgical History: Pacemaker, Cholecystectomy, Other Family History Family History: Other Social History ALCOHOL: none Drugs: Marijuana Current Problem List Problem List Problems Medical Problems: (1) Hyperglycemia Status: Acute Current Medications Current Medications Current Medications Medications (Trade) Dose Ordered Sig/[facility] Start Time Stop Time Status Last Admin Dose Admin Insulin Human Regular 150 ml @ 0 mls/hr 1X ONCE 06/03/18 10:30 06/03/18 10:31 DC 06/03/18 11:05 10.5 MLS/HR Ondansetron HCl (Zofran) 4 mg PRN Q8HRS PRN 06/03/18 13:00 06/04/18 12:59 Sodium Chloride 1,000 ml @ 1,000 mls/hr 1X ONCE 06/03/18 12:15 06/03/18 13:14 DC 06/03/18 12:03 1,000 MLS/HR Allergies Allergies Allergies Coded Allergies Type Severity Reaction Last Updated Verified Sulfa (Sulfonamide Antibiotics) Allergy Intermediate Itching 10/29/13 Yes bacitracin Allergy Intermediate Hives 08/31/15 Yes codeine Allergy Intermediate Itching 10/29/13 Yes hydrocodone bitartrate Allergy Intermediate Itching 10/29/13 Yes morphine Allergy Intermediate Itching 10/29/13 Yes neomycin Allergy Intermediate Hives 08/31/15 Yes polymyxin B Allergy Intermediate Hives 08/31/15 Yes phenylephrine Adverse Reaction Intermediate NEOSYNEPHRINE 09/16/15 Yes phenytoin sodium Adverse Reaction Intermediate TREMORS 09/16/15 Yes phenytoin sodium extended Adverse Reaction Intermediate TREMORS 09/16/15 Yes ROS Review of System CONSTITUTIONAL: No fever or chills EYES: No recent changes SKIN: No rash or itching CARDIOVASCULAR: No chest pain, syncope, palpitations, or edema RESPIRATORY: No SOB or cough GASTROINTESTINAL: + nausea, vomiting, abdominal pain NEUROLOGICAL: No headaches or weakness ENDOCRINE: jacquelyn;e diabetes GENITOURINARY: No urgency or frequency of urination MUSCULOSKELETAL: No back pain or joint pain LYMPHATICS: No enlarged lymph nodes PSYCHIATRIC: chronic anxiety Physical Exam Physical Exam GEN.: uncomfortable, Alert and oriented. HEENT: Head is normocephalic, atraumatic NECK: Supple. LUNGS: Clear to auscultation. HEART: RRR, S1, S2 present. Peripheral pulses intact ABDOMEN: Soft, thin, tender. Positive bowel sounds. EXTREMITIES: Without any cyanosis. NEUROLOGIC: Normal speech, normal tone PSYCHIATRIC: flat affect, normal mood. SKIN: No ulcerations Vitals Vitals Vital Signs Date Time Temp Pulse Resp B/P (MAP) Pulse Ox O2 Delivery O2 Flow Rate FiO2 06/03/18 13:13 62 22 105/55 (72) 98 Room Air 06/03/18 10:10 98.8 98.8 Labs Labs Laboratory Tests Test 06/03/18 10:12 06/03/18 10:32 06/03/18 10:45 06/03/18 11:59 Glucose (Fingerstick) 587 mg/dL (70-99) 459 mg/dL (70-99) White Blood Count 12.3 x10^3/uL (4.0-11.0) Red Blood Count 3.41 x10^6/uL (3.50-5.40) Hemoglobin 9.8 g/dL (12.0-15.5) Hematocrit 30.1 % (36.0-47.0) Mean Corpuscular Volume 88 fL (79-100) Mean Corpuscular Hemoglobin 29 pg (25-35) Mean Corpuscular Hemoglobin Concent 33 g/dL (31-37) Red Cell Distribution Width 14.0 % (11.5-14.5) Platelet Count 233 x10^3/uL (140-400) Neutrophils (%) (Auto) 86 % (31-73) Lymphocytes (%) (Auto) 7 % (24-48) Monocytes (%) (Auto) 7 % (0-9) Eosinophils (%) (Auto) 0 % (0-3) Basophils (%) (Auto) 0 % (0-3) Neutrophils # (Auto) 10.5 x10^3uL (1.8-7.7) Lymphocytes # (Auto) 0.9 x10^3/uL (1.0-4.8) Monocytes # (Auto) 0.8 x10^3/uL (0.0-1.1) Eosinophils # (Auto) 0.0 x10^3/uL (0.0-0.7) Basophils # (Auto) 0.0 x10^3/uL (0.0-0.2) Segmented Neutrophils % 87 % (35-66) Lymphocytes % 7 % (24-48) Monocytes % 6 % (0-10) Platelet Estimate Adequate (ADEQUATE) Platelet Clumps, EDTA Present Hypochromasia Slight Prothrombin Time 12.9 SEC (11.7-14.0) Prothromb Time International Ratio 1.0 (0.8-1.1) Activated Partial Thromboplast Time 36 SEC (24-38) Sodium Level 130 mmol/L (136-145) Potassium Level 4.3 mmol/L (3.5-5.1) Chloride Level 89 mmol/L (98-107) Carbon Dioxide Level 28 mmol/L (21-32) Anion Gap 13 (6-14) Blood Urea Nitrogen 43 mg/dL (7-20) Creatinine 2.4 mg/dL (0.6-1.0) Estimated GFR (Cockcroft-Gault) 20.3 BUN/Creatinine Ratio 18 (6-20) Glucose Level 558 mg/dL (70-99) Calcium Level 8.7 mg/dL (8.5-10.1) Total Bilirubin 0.3 mg/dL (0.2-1.0) Aspartate Amino Transf (AST/SGOT) 15 U/L (15-37) Alanine Aminotransferase (ALT/SGPT) 28 U/L (14-59) Alkaline Phosphatase 111 U/L (46-116) Total Protein 6.8 g/dL (6.4-8.2) Albumin 3.2 g/dL (3.4-5.0) Albumin/Globulin Ratio 0.9 (1.0-1.7) Lipase 43 U/L (73-393) Acetone Level Neg (NEG) O2 Saturation 95 % (92-99) Arterial Blood pH 7.38 (7.35-7.45) Arterial Blood pCO2 at Patient Temp 43 mmHg (35-46) Arterial Blood pO2 at Patient Temp 82 mmHg (65-108) Arterial Blood HCO3 25 mmol/L (21-28) Arterial Blood Base Excess 0 mmol/L (-3-3) FiO2 21 Test 06/03/18 13:04 06/03/18 14:07 Glucose (Fingerstick) 302 mg/dL (70-99) 244 mg/dL (70-99) Laboratory Tests Test 06/03/18 10:12 06/03/18 10:32 06/03/18 10:45 06/03/18 11:59 Glucose (Fingerstick) 587 mg/dL (70-99) 459 mg/dL (70-99) White Blood Count 12.3 x10^3/uL (4.0-11.0) Red Blood Count 3.41 x10^6/uL (3.50-5.40) Hemoglobin 9.8 g/dL (12.0-15.5) Hematocrit 30.1 % (36.0-47.0) Mean Corpuscular Volume 88 fL (79-100) Mean Corpuscular Hemoglobin 29 pg (25-35) Mean Corpuscular Hemoglobin Concent 33 g/dL (31-37) Red Cell Distribution Width 14.0 % (11.5-14.5) Platelet Count 233 x10^3/uL (140-400) Neutrophils (%) (Auto) 86 % (31-73) Lymphocytes (%) (Auto) 7 % (24-48) Monocytes (%) (Auto) 7 % (0-9) Eosinophils (%) (Auto) 0 % (0-3) Basophils (%) (Auto) 0 % (0-3) Neutrophils # (Auto) 10.5 x10^3uL (1.8-7.7) Lymphocytes # (Auto) 0.9 x10^3/uL (1.0-4.8) Monocytes # (Auto) 0.8 x10^3/uL (0.0-1.1) Eosinophils # (Auto) 0.0 x10^3/uL (0.0-0.7) Basophils # (Auto) 0.0 x10^3/uL (0.0-0.2) Segmented Neutrophils % 87 % (35-66) Lymphocytes % 7 % (24-48) Monocytes % 6 % (0-10) Platelet Estimate Adequate (ADEQUATE) Platelet Clumps, EDTA Present Hypochromasia Slight Prothrombin Time 12.9 SEC (11.7-14.0) Prothromb Time International Ratio 1.0 (0.8-1.1) Activated Partial Thromboplast Time 36 SEC (24-38) Sodium Level 130 mmol/L (136-145) Potassium Level 4.3 mmol/L (3.5-5.1) Chloride Level 89 mmol/L (98-107) Carbon Dioxide Level 28 mmol/L (21-32) Anion Gap 13 (6-14) Blood Urea Nitrogen 43 mg/dL (7-20) Creatinine 2.4 mg/dL (0.6-1.0) Estimated GFR (Cockcroft-Gault) 20.3 BUN/Creatinine Ratio 18 (6-20) Glucose Level 558 mg/dL (70-99) Calcium Level 8.7 mg/dL (8.5-10.1) Total Bilirubin 0.3 mg/dL (0.2-1.0) Aspartate Amino Transf (AST/SGOT) 15 U/L (15-37) Alanine Aminotransferase (ALT/SGPT) 28 U/L (14-59) Alkaline Phosphatase 111 U/L (46-116) Total Protein 6.8 g/dL (6.4-8.2) Albumin 3.2 g/dL (3.4-5.0) Albumin/Globulin Ratio 0.9 (1.0-1.7) Lipase 43 U/L (73-393) Acetone Level Neg (NEG) O2 Saturation 95 % (92-99) Arterial Blood pH 7.38 (7.35-7.45) Arterial Blood pCO2 at Patient Temp 43 mmHg (35-46) Arterial Blood pO2 at Patient Temp 82 mmHg (65-108) Arterial Blood HCO3 25 mmol/L (21-28) Arterial Blood Base Excess 0 mmol/L (-3-3) FiO2 21 Test 06/03/18 13:04 06/03/18 14:07 Glucose (Fingerstick) 302 mg/dL (70-99) 244 mg/dL (70-99) VTE Prophylaxis Ordered VTE Prophylaxis Devices: No VTE Pharmacological Prophylaxi: Yes Assessment/Plan Assessment/Plan nauseavomiting type 1.5 diabetes with hyperglycemia, gastroparesis FRIDA, CKD constipation Joan JACOB MD Jun 03, 2018 14:50
[2018-06-03 15:00] VITALS: BP 112/51
[2018-06-03] MEDS ORDERED: diphenhydrAMINE HCL 25 MG CAPSULE PO PRN (15:00)
[2018-06-03] MEDS ORDERED: traMADol 50 MG TABLET PO PRN (15:00)
[2018-06-03] MEDS ORDERED: ZOLPIDEM 5 MG TABLET. PO PRN (15:15)
[2018-06-03] MEDS: dilTIAZem HCL 30 MG TABLET PO SCH ×2 (15:35→21:25)
[2018-06-03] MEDS: LORazepam 1 MG TABLET PO SCH ×2 (15:35→21:25)
[2018-06-03] MEDS: ONDANSETRON PF 4 MG/2 ML VIAL. IV PRN (15:38)
[2018-06-03] MEDS: LIPASE/PROTEAS/AMYLAS 10/32/42 CAPSULE.DR. PO SCH (15:54)
[2018-06-03 16:05] LABS: BILIRUBIN,URINE NEGATIVE (NEG); CLARITY,URINE CLEAR; COLOR,URINE YELLOW; NITRITE,URINE NEGATIVE (NEG); PROTEIN,URINE NEGATIVE (NEG-TRACE); UROBILINOGEN,URINE 0.2 mg/dL (0.2 mg/dL)
[2018-06-03 16:12] LABS: SQUAMOUS EPITHELIAL CELL,UR MANY /LPF
[2018-06-03 16:14] LABS: BACTERIA,URINE MANY /HPF (0-FEW); WBC,URINE >40 /HPF (0-4)
[2018-06-03] MEDS ORDERED: INSULIN LISPRO 300 UNITS/3 ML INSULN.PEN. SQ SCH (17:00)
[2018-06-03] MEDS: HYDROmorphone 2 MG TABLET PO PRN ×2 (18:18→20:13)
[2018-06-03 19:00] VITALS: BP 112/42
[2018-06-03] MEDS: ZOLPIDEM 5 MG TABLET. PO SCH (20:13)
[2018-06-03] MEDS: PROMETHAZINE 6.25 MG/5 ML SYRUP. PEG PRN (20:13)
[2018-06-03] MEDS: ATORVASTATIN CALCIUM 40 MG TABLET. PO SCH (20:13)
[2018-06-03] MEDS: DIGOXIN 125 MCG TABLET. PO SCH (20:14)
[2018-06-03] MEDS ORDERED: INSULIN GLARGINE 300 UNITS/3 ML INSULN.PEN. SQ SCH (21:00)
[2018-06-03] MEDS: fentaNYL PF VIAL 100 MCG/2 ML VIAL IV PRN (21:24)
[2018-06-03] MEDS: INSULIN LISPRO 300 UNITS/3 ML INSULN.PEN. SQ SCH (21:33)
[2018-06-03 23:00] VITALS: BP 100/44
[2018-06-04] VITALS (7 sets, daily range): BP systolic 102–131; BP diastolic 40–64
[2018-06-04] MEDS: ONDANSETRON PF 4 MG/2 ML VIAL. IV PRN ×3 (00:35→18:27)
[2018-06-04] MEDS: fentaNYL PF VIAL 100 MCG/2 ML VIAL IV PRN ×7 (00:35→23:28)
[2018-06-04] MEDS: dilTIAZem HCL 30 MG TABLET PO SCH ×3 (04:45→22:39)
[2018-06-04] MEDS: LORazepam 1 MG TABLET PO SCH ×3 (04:48→22:37)
[2018-06-04 05:40] LABS: BASO # 0.1 x10^3/uL (0.0-0.2); BASO % 1 % (0-3); EOS % 0 % (0-3); HEMATOCRIT 26.1 % (36.0-47.0); HEMOGLOBIN 8.7 g/dL (12.0-15.5); LYMPH # 1.6 x10^3/uL (1.0-4.8); LYMPH % 18 % (24-48); MEAN CORPUSCULAR HEMOGLOBIN 30 pg (25-35); MEAN CORPUSCULAR HGB CONC 33 g/dL (31-37); MEAN CORPUSCULAR VOLUME 89 fL (79-100); MONO # 1.1 x10^3/uL (0.0-1.1); MONO % 12 % (0-9); NEUT # 6.1 x10^3uL (1.8-7.7); NEUT % 70 % (31-73); PLATELET COUNT 187 x10^3/uL (140-400); RED BLOOD COUNT 2.94 x10^6/uL (3.50-5.40); RED CELL DISTRIBUTION WIDTH 14.1 % (11.5-14.5); WHITE BLOOD COUNT 8.8 x10^3/uL (4.0-11.0)
[2018-06-04 06:09] LABS: ALBUMIN 2.8 g/dL (3.4-5.0); ALBUMIN/GLOBULIN RATIO 0.9 (1.0-1.7); CALCIUM 8.3 mg/dL (8.5-10.1); CREATININE 1.7 mg/dL (0.6-1.0); GFR 30.3; POTASSIUM 4.8 mmol/L (3.5-5.1); TOTAL BILIRUBIN 0.2 mg/dL (0.2-1.0); TOTAL PROTEIN 5.9 g/dL (6.4-8.2)
[2018-06-04] MEDS ORDERED: NON FORMULARY ITEM (Linaclotide (Linzess) 145 MCG) PO SCH (07:00)
[2018-06-04] MEDS ORDERED: INSULIN LISPRO 300 UNITS/3 ML INSULN.PEN. SQ SCH (07:30)
[2018-06-04] MEDS: LIPASE/PROTEAS/AMYLAS 10/32/42 CAPSULE.DR. PO SCH ×3 (08:43→17:15)
[2018-06-04] MEDS: PANTOPRAZOLE 40 MG TABLET.DR. PO SCH (08:44)
[2018-06-04] MEDS: SOTALOL 80 MG TABLET. PO SCH (08:44)
[2018-06-04] MEDS: LISINOPRIL 5 MG TABLET. PO SCH (08:45)
[2018-06-04] MEDS: DIGOXIN 125 MCG TABLET. PO SCH ×2 (08:45→20:21)
[2018-06-04] MEDS: INSULIN LISPRO 300 UNITS/3 ML INSULN.PEN. SQ SCH ×4 (08:50→20:21)
[2018-06-04] MEDS: INSULIN GLARGINE 300 UNITS/3 ML INSULN.PEN. SQ SCH (08:51)
--- NOTE | 2018-06-04 13:46 | NUR ---
SW following for discharge planning. Chart reviewed. Pt is from home with . No SW needs noted at this time. Will continue to follow.
--- NOTE | 2018-06-04 18:17 | PDOC ---
PROGRESS NOTES Subjective Sugars have normalized but still having abd pain, cramps, Tube feeding at 40 cc/ hr Objective Afebrile General: A&O Heart: RRR Lungs: CTA Abd: soft, thin, tender, BS present Ext: no C/C/E Vital Signs Vital Signs Date Time Temp Pulse Resp B/P (MAP) Pulse Ox O2 Delivery O2 Flow Rate FiO2 06/04/18 17:15 98 Room Air 06/04/18 15:20 75 128/64 (85) 06/04/18 15:02 98.8 20 98.8 I & O Intake and Output 06/04/18 07:00 Intake Total 3184 ml Output Total 1650 ml Balance 1534 ml IV Total 3184 ml Output Urine Total 1650 ml # Voids 1 Assessment and Plan nausea/vomiting - vomiting resolvd, nausea better abdominal pain - not controlled - increase fentanyl type 1.5 diabetes with resolved hyperglycemia, gastroparesis - continue insulin , tube feeding FRIDA, CKD - improved with IV hydration constipation - linzess not effective, try relistor Nutrition Consultation Dietary Evaluation: Comments: Recommend continue current TF order Expected Outcomes/Goals: TF tolerance P.O. + TF intake to meet >75% estimated energy needs Interpretation of weight loss: >7.5% in 3 months Malnutrition Findings: Food and Nutrition Intake (Mod: <75% est energy req 7days Body Fat Depletion (Non Severe: Mild Depletion Weight Status: Appropriate Joan JACOB MD Jun 04, 2018 18:17
[2018-06-04] MEDS ORDERED: METHYLNALTREXONE 12 MG/0.6 ML VIAL. SQ ONE (18:30)
[2018-06-04] MEDS: ATORVASTATIN CALCIUM 40 MG TABLET. PO SCH (20:21)
[2018-06-04] MEDS: ZOLPIDEM 5 MG TABLET. PO SCH (20:21)
[2018-06-04] MEDS ORDERED: INSULIN GLARGINE 300 UNITS/3 ML INSULN.PEN. SQ SCH (21:00)
[2018-06-05 03:00] VITALS: BP 103/53
[2018-06-05] MEDS: ONDANSETRON PF 4 MG/2 ML VIAL. IV PRN (03:31)
[2018-06-05] MEDS: fentaNYL PF VIAL 100 MCG/2 ML VIAL IV PRN ×2 (03:32→08:46)
[2018-06-05 04:22] LABS: BASO % 1 % (0-3); EOS % 0 % (0-3); HEMATOCRIT 26.6 % (36.0-47.0); HEMOGLOBIN 8.8 g/dL (12.0-15.5); LYMPH # 2.1 x10^3/uL (1.0-4.8); LYMPH % 29 % (24-48); MEAN CORPUSCULAR HEMOGLOBIN 29 pg (25-35); MEAN CORPUSCULAR HGB CONC 33 g/dL (31-37); MEAN CORPUSCULAR VOLUME 88 fL (79-100); MONO # 0.9 x10^3/uL (0.0-1.1); MONO % 13 % (0-9); NEUT # 4.1 x10^3uL (1.8-7.7); NEUT % 58 % (31-73); PLATELET COUNT 177 x10^3/uL (140-400); RED BLOOD COUNT 3.02 x10^6/uL (3.50-5.40); WHITE BLOOD COUNT 7.2 x10^3/uL (4.0-11.0)
[2018-06-05 05:19] LABS: CALCIUM 8.2 mg/dL (8.5-10.1); CREATININE 1.1 mg/dL (0.6-1.0); POTASSIUM 4.4 mmol/L (3.5-5.1)
[2018-06-05] MEDS: dilTIAZem HCL 30 MG TABLET PO SCH ×2 (05:37→13:28)
[2018-06-05] MEDS: LORazepam 1 MG TABLET PO SCH ×2 (05:37→13:28)
[2018-06-05 07:10] VITALS: BP 113/57
[2018-06-05] MEDS: LIPASE/PROTEAS/AMYLAS 10/32/42 CAPSULE.DR. PO SCH ×3 (08:42→16:08)
[2018-06-05] MEDS: DIGOXIN 125 MCG TABLET. PO SCH (08:42)
[2018-06-05] MEDS: PANTOPRAZOLE 40 MG TABLET.DR. PO SCH (08:48)
[2018-06-05] MEDS: SOTALOL 80 MG TABLET. PO SCH (08:50)
[2018-06-05] MEDS: LISINOPRIL 5 MG TABLET. PO SCH (08:50)
[2018-06-05] MEDS: INSULIN LISPRO 300 UNITS/3 ML INSULN.PEN. SQ SCH ×2 (09:11→13:59)
[2018-06-05] MEDS: INSULIN GLARGINE 300 UNITS/3 ML INSULN.PEN. SQ SCH (09:11)
[2018-06-05 11:01] VITALS: BP 115/56
[2018-06-05] MEDS: HYDROmorphone 2 MG TABLET PO PRN ×2 (13:29→16:09)
[2018-06-05] MEDS ORDERED: LUBI24CA7 PO ×2 (14:58→17:03)
[2018-06-05 15:30] VITALS: BP 107/53
--- NOTE | 2018-06-05 16:17 | PDOC3 ---
Discharge Summary [facility] Date of Admission: Jun 03, 2018 Discharge Date: Jun 05, 2018 Admitting Diagnosis nausea, vomiting, abdominal pain, hyperglycemia Final Diagnosis Hyperglycemia, nausea, vomiting, abdominal pain CONSULTS none Procedures none Brief Hospital Course Ms. Ontiveros is a 63 old who presented with nausea, vomiting and hyperglycemia and causing abdominal pain. She was admitted and needed IV fluids, insulin drip and IV antiemetics and IV pain meds for symptom control but she was stabilized and is now feeling well enough to continue managing symptoms at home. Her pain is controlled as are her other symptoms Patient History: Cancer confirmed (situation) Family history: Allergy Family history: Angina (situation) Family history: Breast disease (situation) Family history: Cardiovascular disease (situation) Family history: Depression (situation) Family history: Diabetes mellitus (situation) Family history: Gallbladder disease (situation) Family history: Obesity (situation) Family history: Suicide (situation) Family history: neoplasm of skin (situation) No Family History of: Family history: Alzheimer's disease (situation) Family history: Asthma Family history: Autoimmune disease (situation) Family history: Blood disorder (situation) Family history: Cardiomyopathy (situation) Family history: Crohn's disease (situation) Family history: Epilepsy (situation) Family history: Gastrointestinal disease (situation) Family history: Hemophilia (situation) Family history: Hypertension (situation) Family history: Schizophrenia (situation) Family history: Sickle cell trait (situation) Family history: neoplasm - trachea/bronchus/lung (situation) Family history: neoplasm - urinary organ (situation) Malignant hyperthermia Sleep apnea Disposition home CONDITION AT DISCHARGE: Improved, Stable Scheduled Atorvastatin Calcium (Atorvastatin Calcium), 40 MG PO DAILY, (Reported) Digoxin (Digoxin), 125 MCG PO BID, (Reported) Diltiazem Hcl (Diltiazem Hcl Tablet), 90 MG PO TID, (Reported) Fluoxetine Hcl (Fluoxetine Hcl), 20 MG PEG DAILY, (Reported) Hydromorphone HCl/Pf (Dilaudid 1 mg/ml Syringe), 2 MG IJ Q2HR W/A, (Reported) Insulin Aspart (Novolog Flexpen), 1 UNIT SQ TIDAC Insulin Degludec (Tresiba Flextouch U-100), 8 UNITS SQ HS Insulin Degludec (Tresiba Flextouch U-100), 14 UNIT SQ DAILY Linaclotide (Linzess), 145 MCG PO DAILY07 Lipase/Protease/Amylase (Creon Dr 12,000 Units Capsule), 1 EACH PO TID, ( Reported) Lisinopril (Lisinopril), 5 MG PO DAILY, (Reported) Lorazepam (Ativan), 1 MG PO Q8HRS Pantoprazole Sodium (Pantoprazole Sodium), 40 MG PO DAILY, (Reported) Sotalol Hcl (Sotalol), 80 MG PO DAILY Zolpidem Tartrate (Zolpidem Tartrate), 1 TAB PO QHS, (Reported) Scheduled PRN Diphenhydramine Hcl (Benadryl), 25 MG PO PRN Q6HRS PRN for ITCHING Promethazine Hcl (Phenergan), 25 MG IJ PRN Q6HRS PRN for NAUSEA, (Reported) Tramadol Hcl (Tramadol Hcl), 50 MG PO PRN Q3HRS PRN for PAIN, (Reported) Patient Instructions linzess stopped, amitiza 24 mcg bid started Joan JACOB MD Jun 05, 2018 16:17
[2018-06-05] MEDS: PROMETHAZINE 6.25 MG/5 ML SYRUP. PEG PRN (16:25)
[2018-06-05] MEDS ORDERED: HEPARIN PF 500 UNIT/5 ML DISP.SYRIN. IV ONE (16:30)
[2018-06-05] MEDS ORDERED: LUBIPROSTONE 8 MCG CAPSULE PO SCH (18:00)
[2018-06-06] MEDS ORDERED: LANSOPRAZOLE 30 MG TAB.RAP.DR FT SCH (07:30)
== END 2018-06-05 17:22 | disposition home or self-care (01) | DRG 637 ==
LOC: ER 10:05 → 5 NORTH 12:57 → OBSVTOIN 22:10
PROVIDERS: ADMIT Family Medicine; ATTEND Family Medicine
DX: E11.00 Type 2 diabetes mellitus with hyperosmolarity without nonketotic hyperglycemic-hyperosmolar coma (NKHHC) (principal); N17.0 Acute kidney failure with tubular necrosis; E46 Unspecified protein-calorie malnutrition; Z68.1 Body mass index [BMI] 19.9 or less, adult; E11.43 Type 2 diabetes mellitus with diabetic autonomic (poly)neuropathy; K31.84 Gastroparesis; K59.00 Constipation, unspecified; E86.0 Dehydration; E89.0 Postprocedural hypothyroidism; N18.9 Chronic kidney disease, unspecified; I25.10 Atherosclerotic heart disease of native coronary artery without angina pectoris; I48.91 Unspecified atrial fibrillation; I12.9 Hypertensive chronic kidney disease with stage 1 through stage 4 chronic kidney disease, or unspecified chronic kidney disease; Z79.4 Long term (current) use of insulin; Z81.8 Family history of other mental and behavioral disorders; Z82.0 Family history of epilepsy and other diseases of the nervous system; Z82.49 Family history of ischemic heart disease and other diseases of the circulatory system; Z83.2 Family history of diseases of the blood and blood-forming organs and certain disorders involving the immune mechanism; Z86.73 Personal history of transient ischemic attack (TIA), and cerebral infarction without residual deficits; Z90.710 Acquired absence of both cervix and uterus; Z83.3 Family history of diabetes mellitus; Z82.5 Family history of asthma and other chronic lower respiratory diseases; Z88.6 Allergy status to analgesic agent; Z88.1 Allergy status to other antibiotic agents; Z88.2 Allergy status to sulfonamides; Z88.8 Allergy status to other drugs, medicaments and biological substances
CPT/HCPCS: 36415; 36600; 74022; 80048; 80053; 81001; 82010; 82805; 82962; 83690; 85007; 85025; 85610; 85730; 87086; 96361; 96365; 96366; 96375; G0378; G0379; J1815; J2212; J2405; J3010; J7030; 99285-25

== ENCOUNTER 2018-08-22 19:53 | Emergency (ER) | payer BC, MEDICARE ==
[~2018-08-22] VITALS: Ht 167.6 cm; Wt 56.8 kg
[~2018-08-22 19:53] MED LIST changes: +LUBI24CA7 PO
[2018-08-22] MEDS ORDERED: IV NORMAL SALINE 1000ML BAG 1,000 ML IV ONE (20:30)
[2018-08-22 20:38] LABS: BASO % 1 % (0-3); EOS % 0 % (0-3); HEMATOCRIT 29.6 % (36.0-47.0); HEMOGLOBIN 9.9 g/dL (12.0-15.5); LYMPH # 0.9 x10^3/uL (1.0-4.8); LYMPH % 22 % (24-48); MEAN CORPUSCULAR HEMOGLOBIN 30 pg (25-35); MEAN CORPUSCULAR HGB CONC 34 g/dL (31-37); MEAN CORPUSCULAR VOLUME 90 fL (79-100); MONO # 0.3 x10^3/uL (0.0-1.1); MONO % 8 % (0-9); NEUT # 2.7 x10^3uL (1.8-7.7); NEUT % 69 % (31-73); PLATELET COUNT 137 x10^3/uL (140-400); RED CELL DISTRIBUTION WIDTH 14.4 % (11.5-14.5); WHITE BLOOD COUNT 3.9 x10^3/uL (4.0-11.0)
[2018-08-22 20:47] LABS: CALCIUM 8.5 mg/dL (8.5-10.1); CREATININE 1.4 mg/dL (0.6-1.0); GFR 37.9; POTASSIUM 4.3 mmol/L (3.5-5.1)
[2018-08-22 20:53] LABS: ALBUMIN 2.7 g/dL (3.4-5.0); ALBUMIN/GLOBULIN RATIO 0.8 (1.0-1.7); TOTAL BILIRUBIN 0.3 mg/dL (0.2-1.0); TOTAL PROTEIN 5.9 g/dL (6.4-8.2)
[2018-08-22 21:27] LABS: BILIRUBIN,URINE NEGATIVE (NEG); CLARITY,URINE CLEAR; COLOR,URINE YELLOW; NITRITE,URINE NEGATIVE (NEG); PROTEIN,URINE NEGATIVE (NEG-TRACE); UROBILINOGEN,URINE 0.2 mg/dL (0.2 mg/dL)
[2018-08-22 21:32] LABS: BACTERIA,URINE 0 /HPF (0-FEW); RBC,URINE 0 /HPF (0-2); SQUAMOUS EPITHELIAL CELL,UR FEW /LPF
--- NOTE | 2018-08-22 22:24 | PHYS DOC ---
Past Medical History Past Medical History: A-Fib, Anemia, Arrhythmia, Diabetes-Type I, Heart Disease, Hypertension, MRSA, Pancreatitis Additional Past Medical Histor: Tachy-Jamir Syndrome, Gastroparesis, DDD, Neuropathy, Tremors, Kidney dz Past Surgical History: Cholecystectomy, Hysterectomy, Pacemaker Additional Past Surgical Histo: Thyroidectomy; Peripheral neuropathy,J-TUBE PLACED Alcohol Use: None Drug Use: None Adult General Chief Complaint Chief Complaint: NEURO SYMPTOMS/DEFICITS HPI HPI 63-year-old female with multiple medical problems well known to our department presents secondary to generalized weakness today. She states she felt like her blood sugar was going low. states that he gave her some apple juice and a glucose shot which did seem to help some. She denies any fever chills or sweats. She states she does have some abdominal discomfort secondary to her gastroparesis but this is chronic. She has not had any nausea or vomiting.[] Review of Systems Review of Systems Constitutional: Denies fever or chills, generalized weakness [] Eyes: Denies change in visual acuity, redness, or eye pain [] HENT: Denies nasal congestion or sore throat [] Respiratory: Denies cough or shortness of breath [] Cardiovascular: No additional information not addressed in HPI [] GI: Per history of present illness[] : Denies dysuria or hematuria [] Musculoskeletal: Denies back pain or joint pain [] Integument: Denies rash or skin lesions [] Neurologic: Denies headache, focal weakness or sensory changes [] Endocrine: Denies polyuria or polydipsia [] All other systems were reviewed and found to be within normal limits, except as documented in this note. Current Medications Current Medications Current Medications Medications (Trade) Dose Ordered Sig/Ramone Start Time Stop Time Status Last Admin Dose Admin Sodium Chloride 1,000 ml @ 1,000 mls/hr 1X ONCE 08/22/18 20:30 08/22/18 21:29 DC 08/22/18 21:03 1,000 MLS/HR Allergies Allergies Allergies Coded Allergies Type Severity Reaction Last Updated Verified Sulfa (Sulfonamide Antibiotics) Allergy Intermediate Itching 10/29/13 Yes bacitracin Allergy Intermediate Hives 08/31/15 Yes codeine Allergy Intermediate Itching 10/29/13 Yes hydrocodone bitartrate Allergy Intermediate Itching 10/29/13 Yes morphine Allergy Intermediate Itching 10/29/13 Yes neomycin Allergy Intermediate Hives 08/31/15 Yes polymyxin B Allergy Intermediate Hives 08/31/15 Yes phenylephrine Adverse Reaction Intermediate NEOSYNEPHRINE 09/16/15 Yes phenytoin sodium Adverse Reaction Intermediate TREMORS 09/16/15 Yes phenytoin sodium extended Adverse Reaction Intermediate TREMORS 09/16/15 Yes Physical Exam Physical Exam Constitutional: Frail, elderly female in no distress she does not appear toxic. [] HENT: Normocephalic, atraumatic, bilateral external ears normal, oropharynx moist, no oral exudates, nose normal. [] Eyes: PERRLA, EOMI, conjunctiva normal, no discharge. [] Neck: Normal range of motion, no tenderness, supple, no stridor. [] Cardiovascular:Heart rate regular rhythm, no murmur [] Lungs & Thorax: Bilateral breath sounds clear to auscultation [] Abdomen: Bowel sounds normal, soft, no tenderness, no masses, no pulsatile masses. [] Skin: Warm, dry, no erythema, no rash. [] Back: No tenderness, no CVA tenderness. [] Extremities: No tenderness, no cyanosis, no clubbing, ROM intact, no edema. [] Neurologic: Alert and oriented X 3, normal motor function, normal sensory function, no focal deficits noted. [] Psychologic: Depressed affect[] Current Patient Data Vital Signs Vital Signs Date Time Temp Pulse Resp B/P (MAP) Pulse Ox O2 Delivery O2 Flow Rate FiO2 08/22/18 21:47 60 12 99 08/22/18 19:58 98.0 102/57 (72) Room Air 98.0 Lab Values Laboratory Tests Test 08/22/18 20:00 08/22/18 20:20 08/22/18 21:18 Glucose (Fingerstick) 146 mg/dL (70-99) H White Blood Count 3.9 x10^3/uL (4.0-11.0) L Red Blood Count 3.30 x10^6/uL (3.50-5.40) L Hemoglobin 9.9 g/dL (12.0-15.5) L Hematocrit 29.6 % (36.0-47.0) L Mean Corpuscular Volume 90 fL (79-100) Mean Corpuscular Hemoglobin 30 pg (25-35) Mean Corpuscular Hemoglobin Concent 34 g/dL (31-37) Red Cell Distribution Width 14.4 % (11.5-14.5) Platelet Count 137 x10^3/uL (140-400) L Neutrophils (%) (Auto) 69 % (31-73) Lymphocytes (%) (Auto) 22 % (24-48) L Monocytes (%) (Auto) 8 % (0-9) Eosinophils (%) (Auto) 0 % (0-3) Basophils (%) (Auto) 1 % (0-3) Neutrophils # (Auto) 2.7 x10^3uL (1.8-7.7) Lymphocytes # (Auto) 0.9 x10^3/uL (1.0-4.8) L Monocytes # (Auto) 0.3 x10^3/uL (0.0-1.1) Eosinophils # (Auto) 0.0 x10^3/uL (0.0-0.7) Basophils # (Auto) 0.0 x10^3/uL (0.0-0.2) Sodium Level 134 mmol/L (136-145) L Potassium Level 4.3 mmol/L (3.5-5.1) Chloride Level 98 mmol/L (98-107) Carbon Dioxide Level 32 mmol/L (21-32) Anion Gap 4 (6-14) L Blood Urea Nitrogen 35 mg/dL (7-20) H Creatinine 1.4 mg/dL (0.6-1.0) H Estimated GFR (Cockcroft-Gault) 37.9 BUN/Creatinine Ratio 25 (6-20) H Glucose Level 142 mg/dL (70-99) H Calcium Level 8.5 mg/dL (8.5-10.1) Total Bilirubin 0.3 mg/dL (0.2-1.0) Aspartate Amino Transferase (AST) 28 U/L (15-37) Alanine Aminotransferase (ALT) 27 U/L (14-59) Alkaline Phosphatase 123 U/L (46-116) H Total Protein 5.9 g/dL (6.4-8.2) L Albumin 2.7 g/dL (3.4-5.0) L Albumin/Globulin Ratio 0.8 (1.0-1.7) L Lipase 42 U/L (73-393) L Urine Collection Type U cath Urine Color Yellow Urine Clarity Clear Urine pH 7.0 Urine Specific [place] 1.010 Urine Protein Negative mg/dL (NEG-TRACE) Urine Glucose (UA) Negative mg/dL (NEG) Urine Ketones (Stick) Negative mg/dL (NEG) Urine Blood Negative (NEG) Urine Nitrite Negative (NEG) Urine Bilirubin Negative (NEG) Urine Urobilinogen Dipstick 0.2 mg/dL (0.2 mg/dL) Urine Leukocyte Esterase Trace (NEG) Urine RBC 0 /HPF (0-2) Urine WBC 1-4 /HPF (0-4) Urine Squamous Epithelial Cells Few /LPF Urine Bacteria 0 /HPF (0-FEW) Urine Mucus Slight /LPF Laboratory Tests 08/22/18 20:20 Laboratory Tests 08/22/18 20:20 EKG EKG [] Radiology/Procedures Radiology/Procedures [] Course & Med Decision Making Course & Med Decision Making Pertinent Labs and Imaging studies reviewed. (See chart for details) [ED course: Evaluation is a chronically ill 63-year-old female who does not appe ar to be any significant distress at this time. Her laboratory studies were really unrevealing other than her chronic anemia. We have monitored her neurologically over the course of the stay in the department and she's remained intact. She did ask for pain medicine despite the fact that her pulse was in the 60s and she appeared comfortable if not drowsy. I informed her that we would not be providing her with any opioids pain medicine.] Dragon Disclaimer Dragon Disclaimer This electronic medical record was generated, in whole or in part, using a voice recognition dictation system. Departure Departure Impression: Primary Impression: Generalized weakness Disposition: 01 HOME, SELF-CARE Condition: STABLE Referrals: Joan JACOB MD (PCP) Patient Instructions: Weakness Additional Instructions: Return to the emergency department with any new or concerning symptoms CARLOS FLORES DO Aug 22, 2018 22:24
[2018-08-22 22:32] VITALS: BP 111/62
[2018-08-22] MEDS ORDERED: HEPARIN PF 500 UNIT/5 ML DISP.SYRIN. IV ONE (23:15)
--- NOTE | 2018-08-24 08:37 | EKG ---
[facility] [address] [place] [address] Test Date: 2018-08-22 Test Time: 20:04:43 Pat Name: SHELL MAGAÑA Department: Room: Gender: F Thai Masseur: : 1955 Requested By: CARLOS FLORES Order Number: [id number] Reading MD: Measurements Intervals [place] Rate: 68 P: -36 VT: 204 QRS: -68 QRSD: 204 T: 89 QT: 460 QTc: 495 Interpretive Statements SINUS RHYTHM ABNORMAL LEFT AXIS DEVIATION NON SPECIFIC INTRAVENTRICULAR BLOCK QRS(T) CONTOUR ABNORMALITY CONSIDER ANTEROSEPTAL MYOCARDIAL DAMAGE ABNORMAL ECG RI6.01 Unconfirmed report No previous ECG available for comparison
== END 2018-08-22 22:55 | disposition home or self-care (01) ==
LOC: ER 19:53
DX: R53.1 Weakness (principal); E10.43 Type 1 diabetes mellitus with diabetic autonomic (poly)neuropathy; K31.84 Gastroparesis; I48.91 Unspecified atrial fibrillation; I11.9 Hypertensive heart disease without heart failure; Z90.49 Acquired absence of other specified parts of digestive tract; Z90.710 Acquired absence of both cervix and uterus; Z95.0 Presence of cardiac pacemaker; Z88.1 Allergy status to other antibiotic agents; Z88.2 Allergy status to sulfonamides; Z88.5 Allergy status to narcotic agent; Z88.8 Allergy status to other drugs, medicaments and biological substances
CPT/HCPCS: 36415; 80053; 81001; 82962; 83690; 85025; 87086; 93005; 96374; 99285; J7030

== ENCOUNTER 2018-12-10 11:25 | Emergency (ER) | payer BC, MEDICARE ==
[~2018-12-10] VITALS: Ht 172.7 cm; Wt 56.7 kg
[~2018-12-10 11:25] MED LIST changes: -PANT40TA3 PO; -PANT40TA5 PO; +PANT40TA77 PO
--- NOTE | 2018-12-10 13:41 | PHYS DOC ---
Past Medical History Past Medical History: A-Fib, Anemia, Arrhythmia, Diabetes-Type I, Heart D isease, Hypertension, MRSA, Pancreatitis Additional Past Medical Histor: Tachy-Jamir Syndrome, Gastroparesis, DDD, Neuropathy, Tremors, Kidney dz Past Surgical History: Cholecystectomy, Hysterectomy, Pacemaker Additional Past Surgical Histo: Thyroidectomy; Peripheral neuropathy,J-TUBE PLACED Alcohol Use: None Drug Use: None Adult General Chief Complaint Chief Complaint: OTHER COMPLAINTS HPI HPI Patient is a 63-year-old female, with a history of gastroparesis, who is primarily fed via jejunostomy tube, who presents to the emergency department for evaluation. The patient states that she noticed that there was a crack in her J- tube this morning, near the syringe port. The tube has been leaking, and she has not been able to take her tube feeds, although she does eat a small amount of food by mouth. She also has not been able to take her pain medication, she takes Dilaudid every 2 hours for pain according to her . She has not had any vomiting. She reports some generalized abdominal pain. She is a diabetic, and states her last blood sugar check this morning was in the 300s. She did get insulin by her afterwards. She has no other complaints at this time. Review of Systems Review of Systems Constitutional: Denies fever or chills [] Eyes: Denies change in visual acuity, redness, or eye pain [] HENT: Denies nasal congestion or sore throat [] Respiratory: Denies cough or shortness of breath [] Cardiovascular: The patient denies any shortness of breath, chest pain, palpitations, or orthopnea[] GI: Denies nausea, vomiting, bloody stools or diarrhea. Reports generalized abdominal pain, which is chronic [] : Denies dysuria or hematuria [] Musculoskeletal: Denies back pain or joint pain [] Integument: Denies rash or skin lesions [] Neurologic: Denies headache, focal weakness or sensory changes [] Endocrine: Denies polyuria or polydipsia [] All other systems were reviewed and found to be within normal limits, except as documented in this note. Current Medications Current Medications Current Medications Medications (Trade) Dose Ordered Sig/Ramone Start Time Stop Time Status Last Admin Dose Admin Hydromorphone HCl (Dilaudid) 1 mg 1X ONCE 12/10/18 13:45 12/10/18 13:46 DC 12/10/18 13:48 1 MG Info (CONTRAST GIVEN -- Rx MONITORING) 1 each PRN DAILY PRN 12/10/18 15:45 12/12/18 15:44 Iohexol (Omnipaque 240 Mg/ml) 15 ml 1X ONCE 12/10/18 15:30 12/10/18 15:35 DC 12/10/18 15:31 15 ML Allergies Allergies Allergies Coded Allergies Type Severity Reaction Last Updated Verified Sulfa (Sulfonamide Antibiotics) Allergy Intermediate Itching 11/27/18 Yes bacitracin Allergy Intermediate Hives 11/27/18 Yes codeine Allergy Intermediate Itching 11/27/18 Yes hydrocodone bitartrate Allergy Intermediate Itching 11/27/18 Yes morphine Allergy Intermediate Itching 11/27/18 Yes neomycin Allergy Intermediate Hives 11/27/18 Yes polymyxin B Allergy Intermediate Hives 11/27/18 Yes phenylephrine Adverse Reaction Intermediate NEOSYNEPHRINE 11/27/18 Yes phenytoin sodium Adverse Reaction Intermediate TREMORS 11/27/18 Yes phenytoin sodium extended Adverse Reaction Intermediate TREMORS 11/27/18 Yes Physical Exam Physical Exam PHYSICAL EXAM: CONSTITUTIONAL: Well developed, well nourished HEAD: normocephalic, atraumatic EENT: PERRL, EOMI. Conjunctivae normal color, sclerae non-icteric; moist mucous membranes. NECK: Supple, non-tender; no meningismus. LUNGS: Lungs CTA, breathing even and unlabored. Normal air movement. HEART: Regular rate and rhythm, no murmur CHEST: No deformity; non-tender ABDOMEN: The abdomen is soft, and non-tender, no masses or bruits. There is a jejunostomy tube present in the epigastric area, with a crack in the shaft of the tubing. EXTREM: Normal ROM; no deformity, no calf tenderness. Normal pulses palpable in all extremities. There is no pedal edema. SKIN: No rash; no diaphoresis NEURO: Alert; normal speech and cognition; CN's grossly intact; strength grossly intact without focal deficit. BACK: No CVA TTP. Current Patient Data Vital Signs Vital Signs Date Time Temp Pulse Resp B/P (MAP) Pulse Ox O2 Delivery O2 Flow Rate FiO2 12/10/18 13:48 18 20 Room Air 12/10/18 13:20 98.1 76 123/81 (95) 98.1 Lab Values Laboratory Tests Test 12/10/18 13:39 Glucose (Fingerstick) 254 mg/dL (70-99) H EKG EKG [] Radiology/Procedures Radiology/Procedures [] Course & Med Decision Making Course & Med Decision Making Patient condition remain stable, interventional radiology has placed a jejunostomy tube. the patient has no other complaints. Dragon Disclaimer Dragon Disclaimer This electronic medical record was generated, in whole or in part, using a voice recognition dictation system. Departure Departure Impression: Primary Impression: Gastroparesis Additional Impression: Malfunctioning jejunostomy tube Disposition: HOME, SELF-CARE Condition: STABLE Referrals: Joan JACOB MD (PCP) Patient Instructions: Care of a Feeding Tube Site Problem Qualifiers KARI FAN MD Dec 10, 2018 13:41
[2018-12-10] MEDS ORDERED: HYDROmorphone 2 MG/ML VIAL IM ONE (13:45)
[2018-12-10 14:30] VITALS: BP_SYST 93
[2018-12-10] MEDS ORDERED: IOHEXOL 240 MG/ML 50ML VIAL. ONE (14:56)
[2018-12-10 15:00] VITALS: BP_DIAS 105
[2018-12-10] MEDS ORDERED: IOHEXOL 240 MG/ML 50ML VIAL. IJ ONE (15:30)
[2018-12-10] MEDS ORDERED: CONTRAST GIVEN. MC PRN (15:45)
--- NOTE | 2018-12-11 12:49 | RAD ---
Fluoroscopically guided replacement of the left sided jejunostomy tube. 12/10/2018 INDICATION: Catheter no longer functional. Discussion: The risks and benefits of the procedure were discussed the patient. Informed consent was obtained. A timeout procedure was performed. Fluoroscopic evaluation demonstrates the pre-existing catheter to be in expected position. Contrast was administered through the catheter confirming placement in small bowel. The wire was advanced to the catheter into the small bowel. The pre-existing catheter was removed and replaced with a new 18 [place] jejunostomy tube. The catheter was trimmed to length demonstrates the pre-existing catheter performing placed. The retention balloon was inflated. The catheter was secured in place. Sterile dressings were applied. Total fluoroscopy time: 1 min Dose area product: 1 Gycm2 IMPRESSION: Replacement of a pre-existing jejunostomy tube under fluoroscopy.
== END 2018-12-10 15:50 | disposition home or self-care (01) ==
LOC: ER 11:25
DX: K94.13 Enterostomy malfunction (principal); E10.43 Type 1 diabetes mellitus with diabetic autonomic (poly)neuropathy; K31.84 Gastroparesis; I48.91 Unspecified atrial fibrillation; I11.9 Hypertensive heart disease without heart failure; I49.5 Sick sinus syndrome; Z79.4 Long term (current) use of insulin; Z90.49 Acquired absence of other specified parts of digestive tract; Z90.710 Acquired absence of both cervix and uterus; Z95.0 Presence of cardiac pacemaker; Z88.1 Allergy status to other antibiotic agents; Z88.2 Allergy status to sulfonamides; Z88.5 Allergy status to narcotic agent; Z88.8 Allergy status to other drugs, medicaments and biological substances; Y83.8 Other surgical procedures as the cause of abnormal reaction of the patient, or of later complication, without mention of misadventure at the time of the procedure
CPT/HCPCS: 49451; 82962; 96372; 99285; C1769; J1170; Q9966

== ENCOUNTER 2019-02-27 12:33 | Emergency (ER) | payer BC, MEDICARE ==
[~2019-02-27] VITALS: Ht 172.7 cm; Wt 59.0 kg
[~2019-02-27 12:33] MED LIST changes: -DIGO125T PO; +DIGO125T3 PO; -DIGO250T PO; +DIGO250T3 PO
[2019-02-27] MEDS ORDERED: ONDANSETRON PF 4 MG/2 ML VIAL. IV ONE (13:30)
[2019-02-27] MEDS ORDERED: fentaNYL PF VIAL 100 MCG/2 ML VIAL IV ONE (13:30)
--- NOTE | 2019-02-27 13:43 | PHYS DOC ---
Past Medical History Past Medical History: A-Fib, Anemia, Arrhythmia, Diabetes-Type I, GERD, High Cholesterol, Heart Disease, Hypertension, MRSA, Pancreatitis Additional Past Medical Histor: Tachy-Jamir Syndrome, Gastroparesis, DDD, Neuropathy, Tremors, Kidney dz Past Surgical History: Cholecystectomy, Hysterectomy, Pacemaker Additional Past Surgical Histo: Thyroidectomy; Peripheral neuropathy,J-TUBE PLACED Alcohol Use: None Drug Use: None Adult General Chief Complaint Chief Complaint: OTHER COMPLAINTS HPI HPI Patient is a 64 year old female who presents with drainage from her J-tube, states her J-tube hurts, and she has erythema around the J-tube. This been ongoing for month. She says she had a J-tube placed due to gastroparesis. She states her pain is now 10 severity and sharp. Review of Systems Review of Systems Constitutional: Denies fever or chills [] Eyes: Denies change in visual acuity, redness, or eye pain [] HENT: Denies nasal congestion or sore throat [] Respiratory: Denies cough or shortness of breath [] Cardiovascular: No additional information not addressed in HPI [] GI: Denies abdominal pain, nausea, vomiting, bloody stools or diarrhea [] : Denies dysuria or hematuria [] Musculoskeletal: Denies back pain or joint pain [] Integument: Reports redness around J-tube. Reports drainage from J-tube site. Neurologic: Denies headache, focal weakness or sensory changes [] Endocrine: Denies polyuria or polydipsia [] Complete systems were reviewed and found to be within normal limits, except as documented in this note. Current Medications Current Medications Current Medications Medications (Trade) Dose Ordered Sig/Ramone Start Time Stop Time Status Last Admin Dose Admin Fentanyl Citrate (Fentanyl 2ml Vial) 75 mcg 1X ONCE 02/27/19 13:30 02/27/19 13:33 DC 02/27/19 14:21 75 MCG Ondansetron HCl (Zofran) 4 mg 1X ONCE 02/27/19 13:30 02/27/19 13:33 DC 02/27/19 14:21 4 MG Allergies Allergies Allergies Coded Allergies Type Severity Reaction Last Updated Verified Sulfa (Sulfonamide Antibiotics) Allergy Intermediate Itching 11/27/18 Yes bacitracin Allergy Intermediate Hives 11/27/18 Yes codeine Allergy Intermediate Itching 11/27/18 Yes hydrocodone bitartrate Allergy Intermediate Itching 11/27/18 Yes morphine Allergy Intermediate Itching 11/27/18 Yes neomycin Allergy Intermediate Hives 11/27/18 Yes polymyxin B Allergy Intermediate Hives 11/27/18 Yes phenylephrine Adverse Reaction Intermediate NEOSYNEPHRINE 11/27/18 Yes phenytoin sodium Adverse Reaction Intermediate TREMORS 11/27/18 Yes phenytoin sodium extended Adverse Reaction Intermediate TREMORS 11/27/18 Yes Physical Exam Physical Exam Constitutional: Well developed, well nourished, no acute distress, non-toxic appearance. [] HENT: Normocephalic, atraumatic, bilateral external ears normal, oropharynx moist, no oral exudates, nose normal. [] Eyes: PERRLA, EOMI, conjunctiva normal, no discharge. [] Neck: Normal range of motion, no tenderness, supple, no stridor. [] Cardiovascular:Heart rate regular rhythm, no murmur [] Lungs & Thorax: Bilateral breath sounds clear to auscultation [] Abdomen: Bowel sounds normal, soft, no tenderness, no masses, no pulsatile masses. [] Skin: Warm, dry, no erythema, no rash. [] Back: No tenderness, no CVA tenderness. [] Extremities: No tenderness, no cyanosis, no clubbing, ROM intact, no edema. [] Neurologic: Alert and oriented X 3, normal motor function, normal sensory function, no focal deficits noted. [] Psychologic: Affect normal, judgement normal, mood normal. [] Current Patient Data Vital Signs Vital Signs Date Time Temp Pulse Resp B/P (MAP) Pulse Ox O2 Delivery O2 Flow Rate FiO2 02/27/19 14:21 20 02/27/19 12:53 98.6 96 175/92 (119) 97 Room Air 98.6 Lab Values Laboratory Tests Test 02/27/19 13:53 White Blood Count 5.8 x10^3/uL (4.0-11.0) Red Blood Count 3.57 x10^6/uL (3.50-5.40) Hemoglobin 10.9 g/dL (12.0-15.5) L Hematocrit 32.5 % (36.0-47.0) L Mean Corpuscular Volume 91 fL (79-100) Mean Corpuscular Hemoglobin 30 pg (25-35) Mean Corpuscular Hemoglobin Concent 33 g/dL (31-37) Red Cell Distribution Width 14.7 % (11.5-14.5) H Platelet Count 189 x10^3/uL (140-400) Neutrophils (%) (Auto) 62 % (31-73) Lymphocytes (%) (Auto) 28 % (24-48) Monocytes (%) (Auto) 9 % (0-9) Eosinophils (%) (Auto) 0 % (0-3) Basophils (%) (Auto) 1 % (0-3) Neutrophils # (Auto) 3.6 x10^3/uL (1.8-7.7) Lymphocytes # (Auto) 1.6 x10^3/uL (1.0-4.8) Monocytes # (Auto) 0.5 x10^3/uL (0.0-1.1) Eosinophils # (Auto) 0.0 x10^3/uL (0.0-0.7) Basophils # (Auto) 0.0 x10^3/uL (0.0-0.2) Sodium Level 135 mmol/L (136-145) L Potassium Level 5.0 mmol/L (3.5-5.1) Chloride Level 99 mmol/L (98-107) Carbon Dioxide Level 28 mmol/L (21-32) Anion Gap 8 (6-14) Blood Urea Nitrogen 39 mg/dL (7-20) H Creatinine 1.4 mg/dL (0.6-1.0) H Estimated GFR (Cockcroft-Gault) 37.7 BUN/Creatinine Ratio 28 (6-20) H Glucose Level 231 mg/dL (70-99) H Calcium Level 9.4 mg/dL (8.5-10.1) Total Bilirubin 0.3 mg/dL (0.2-1.0) Aspartate Amino Transferase (AST) 68 U/L (15-37) H Alanine Aminotransferase (ALT) 99 U/L (14-59) H Alkaline Phosphatase 84 U/L (46-116) Total Protein 7.3 g/dL (6.4-8.2) Albumin 3.9 g/dL (3.4-5.0) Albumin/Globulin Ratio 1.1 (1.0-1.7) Laboratory Tests 02/27/19 13:53 Laboratory Tests 02/27/19 13:53 EKG EKG [] Radiology/Procedures Radiology/Procedures [] Course & Med Decision Making Course & Med Decision Making Pertinent Labs and Imaging studies reviewed. (See chart for details) Will get labs, and culture. Labs are unremarkable will d/c home and put on Augmentin and Flagyl. Will have follow up with Dr. Dang from GI. Patient is able to eat PO and has been eating. The only thing she uses the tube for is liquid medications because she doesn't like the taste. Discussed with patient that she needs to be evaluated on whether she stills needs the tube. She is able to push medication through the tube at this time. Will d/c home. Dragon Disclaimer Dragon Disclaimer This electronic medical record was generated, in whole or in part, using a voice recognition dictation system. Departure Departure Impression: Primary Impression: Jejunostomy tube site pain Disposition: HOME, SELF-CARE Condition: STABLE Referrals: Joan JACOB MD (PCP) NAREN DANG MD Additional Instructions: Thank you for visiting [facility]. We appreciate you trusting us with your care. If any additional problems come up don't hesitate to return to visit us. Please follow up with your primary care provider so they can plan additional care if needed and know about the problem that you had. If symptoms worsen come back to the Emergency Department. Any concerning symptoms that start such as chest pain, shortness of air, weakness or numbness on one side of the body, running high fevers or any other concerning symptoms return to the ER. You have been prescribed an antibiotic today to help fight your infection. Please take all of the antibiotic as directed. If after 48 hours the infection is not improving, please return for more care. If the infection worsens, return to ER for additional care. Please follow up with GI regarding your J-Tube. Scripts Metronidazole (FLAGYL) 500 Mg Tablet 1 TAB PO BID for 7 Days, #14 TAB Prov: MANUEL HERNANDEZ APRN 02/27/19 Amoxicillin/Potassium Clav (AMOX TR-K CLV 500-125 MG TAB) 1 Each Tablet 1 TAB PO BID for 10 Days, #20 TAB Prov: MANUEL HERNANDEZ APRN 02/27/19 MANUEL HERNANDEZ APRN Feb 27, 2019 13:43
[2019-02-27 13:59] LABS: BASO % 1 % (0-3); EOS % 0 % (0-3); HEMATOCRIT 32.5 % (36.0-47.0); HEMOGLOBIN 10.9 g/dL (12.0-15.5); LYMPH # 1.6 x10^3/uL (1.0-4.8); LYMPH % 28 % (24-48); MEAN CORPUSCULAR HEMOGLOBIN 30 pg (25-35); MEAN CORPUSCULAR HGB CONC 33 g/dL (31-37); MEAN CORPUSCULAR VOLUME 91 fL (79-100); MONO # 0.5 x10^3/uL (0.0-1.1); MONO % 9 % (0-9); NEUT # 3.6 x10^3/uL (1.8-7.7); NEUT % 62 % (31-73); PLATELET COUNT 189 x10^3/uL (140-400); RED BLOOD COUNT 3.57 x10^6/uL (3.50-5.40); RED CELL DISTRIBUTION WIDTH 14.7 % (11.5-14.5); WHITE BLOOD COUNT 5.8 x10^3/uL (4.0-11.0)
[2019-02-27 14:13] LABS: CALCIUM 9.4 mg/dL (8.5-10.1); CREATININE 1.4 mg/dL (0.6-1.0); GFR 37.7
[2019-02-27 14:19] LABS: ALBUMIN 3.9 g/dL (3.4-5.0); ALBUMIN/GLOBULIN RATIO 1.1 (1.0-1.7); TOTAL BILIRUBIN 0.3 mg/dL (0.2-1.0); TOTAL PROTEIN 7.3 g/dL (6.4-8.2)
[2019-02-27] MEDS ORDERED: METR500T PO (14:57)
[2019-02-27] MEDS ORDERED: AMOX1TAB10 PO (14:57)
[2019-02-27 15:00] VITALS: BP 174/70
== END 2019-02-27 15:14 | disposition home or self-care (01) ==
LOC: ER 12:33
DX: T85.848A Pain due to other internal prosthetic devices, implants and grafts, initial encounter (principal); I48.91 Unspecified atrial fibrillation; E10.9 Type 1 diabetes mellitus without complications; K21.9 Gastro-esophageal reflux disease without esophagitis; E78.00 Pure hypercholesterolemia, unspecified; Z86.14 Personal history of Methicillin resistant Staphylococcus aureus infection; K85.90 Acute pancreatitis without necrosis or infection, unspecified; I11.9 Hypertensive heart disease without heart failure; E10.40 Type 1 diabetes mellitus with diabetic neuropathy, unspecified; K31.89 Other diseases of stomach and duodenum; I49.5 Sick sinus syndrome; Z90.89 Acquired absence of other organs; Z90.49 Acquired absence of other specified parts of digestive tract; Z98.890 Other specified postprocedural states; Z88.1 Allergy status to other antibiotic agents; Z88.5 Allergy status to narcotic agent; Z88.6 Allergy status to analgesic agent; Z88.8 Allergy status to other drugs, medicaments and biological substances; X58.XXXA Exposure to other specified factors, initial encounter; Y93.89 Activity, other specified; Y92.89 Other specified places as the place of occurrence of the external cause; Y99.8 Other external cause status
CPT/HCPCS: 36415; 80053; 85025; 87071; 87075; 96374; 96375; 99284; J2405; J3010

== ENCOUNTER → 2020-01-11 | Outpatient (CLI) | payer BC, MEDICARE ==
[~2020-01-11] MED LIST changes: +AMOX1TAB10 PO; +METR500T PO
--- NOTE | 2020-01-11 17:15 | RAD ---
3 views right wrist HISTORY: Pain status post fall AP lateral oblique views There is some obscuration of bony detail due to overlying brace. The visualized osseous structures appear normal. IMPRESSION: No acute findings. Electronically signed by: Brian Maharaj III, MD (01/11/2020 5:11 PM) [facility]
== END ==
LOC: RAD 16:37
PROVIDERS: ATTEND Family Medicine
DX: M25.531 Pain in right wrist (principal)
CPT/HCPCS: 73110

== ENCOUNTER 2020-04-06 19:27 | Emergency (ER) | payer BC, MEDICARE ==
[~2020-04-06] VITALS: Ht 172.7 cm; Wt 114.0 kg
[~2020-04-06 19:27] MED LIST changes: -LISI-338 PO; +LISI-517 PO
--- NOTE | 2020-04-06 20:16 | RAD ---
CT HEAD AND C-SPINE WO dated 04/06/2020 7:53 PM. Comparison: None. Clinical Indication: Reason: fall, HIT HEAD / Spl. Instructions: / History: HEAD AND NECK PAIN Technical factors: Contiguous 5 mm axial images of the head were obtained from the skullbase to the v ertex. No contrast was administered. In addition, 3 mm axial images of the cervical spine were acquir ed with thin cut coronal and sagittal reconstructions. One or more of the following individualized dose reduction techniques were utilized for this examinat ion: 1. Automated exposure control 2. Adjustment of the mA and/or kV according to patient size 3. Use of iterative reconstruction technique Findings head: Ventricles and sulci are mildly prominent for age. No midline shift or mass effect. Minimal patchy lo w density in the deep/subcortical periventricular white matter, nonspecific. No hemorrhage or extra-a xial collection. Posterior fossa and brainstem unremarkable. Visualized paranasal sinuses and mastoid air cells are clear. No apparent calvarial abnormality. IMPRESSION HEAD: 1. No evidence of acute intracranial hemorrhage or mass. 2. Mild chronic small vessel ischemic changes and atrophy. Findings cervical spine: Images were acquired from the skull base to T3. Slight anterolisthesis of C4 on C5. Sagittal alignmen t is otherwise anatomic. Vertebral body heights are maintained. No prevertebral soft tissue swelling. Posterior elements are intact. No evidence of fracture. Mild to moderate endplate hypertrophic changes throughout. Multilevel uncovertebral spurring and fac et arthropathy. Bony canal is adequate. There is mild bilateral foraminal stenosis at C4-C5. No appar ent focal disc herniation. Visualized soft tissue structures are unremarkable. There is a large heterogeneous nodule of the righ t lobe thyroid gland that measures up to 3 cm in size. There is also a nodule of the left thyroid gla nd that measures up to 1.9 cm. Mild emphysema at the lung apices. IMPRESSION CERVICAL SPINE: 1. No evidence of fracture or malalignment. 2. Mild multilevel spondylosis. 3. Indeterminate nodules at the bilateral thyroid gland. Suggest thyroid ultrasound for better evalua tion. Electronically signed by: Ming Jarvis MD (04/06/2020 8:14 PM) [id number]
[2020-04-06] MEDS ORDERED: IV NORMAL SALINE 1000ML BAG 1,000 ML IV SCH (20:45)
--- NOTE | 2020-04-06 20:58 | RAD ---
Three-view left ankle and three-view left foot dated 04/06/2020. No comparison available. Clinical data indication: Pain. FINDINGS: 3 views left ankle show normal bony alignment. No no displaced fracture. No no acute osseous or artic ular abnormality. There is mild soft tissue swelling. Talar dome is intact. 3 views of the left foot show normal bony alignment. There is a fracture through the fourth metatarsa l neck that is mildly displaced. There is some periosteal thickening suggesting this may be subacute. No additional fractures are seen. Mild soft tissue swelling. Mild degenerative change of the interph alangeal joints throughout. IMPRESSION: 1. Transverse fracture through the fourth metatarsal neck, possibly subacute. 2. No additional fractures are seen. There is diffuse nonspecific soft tissue swelling. Electronically signed by: Ming Jarvis MD (04/06/2020 8:56 PM) [id number]
[2020-04-06] MEDS ORDERED: HYDROmorphone 2 MG/ML VIAL IVP ONE ×2 (21:15→22:30)
--- NOTE | 2020-04-06 21:15 | PHYS DOC ---
Past Medical History Past Medical History: A-Fib, Anemia, Arrhythmia, Diabetes-Type I, GERD, High Cholesterol, Heart Disease, Hypertension, MRSA, Pancreatitis Additional Past Medical Histor: Tachy-Jamir Syndrome, Gastroparesis, DDD, Neuropathy, Tremors, Kidney dz Past Surgical History: Cholecystectomy, Hysterectomy, Pacemaker Additional Past Surgical Histo: Thyroidectomy; Peripheral neuropathy,J-TUBE PLACED Smoking Status: Never Smoker Alcohol Use: None Drug Use: None General Adult EDM: Chief Complaint: MECHANICAL FALL HPI: HPI: 65 yo F pMH with multiple medical comorbidities, presents the ED with complaints of rolling out of bed around 3 AM, now has left foot pain and a headache, has h/o chronic back pain and reports back pain but sxs are not new or worsening pain. Bed is approximately 3 feet above the floor. Patient not in any anticoagulants. Did her head better and did not lose consciousness. Was able to ambulate after the event/bear weight on her left foot. Cannot recall how she may have injured her left foot. Review of Systems: Review of Systems: Constitutional: Denies fever or chills. [] Eyes: Denies change in visual acuity. [] HENT: Denies nasal congestion or sore throat. [] Respiratory: Denies cough or shortness of breath. [] Cardiovascular: Denies chest pain or edema. [] GI: Denies abdominal pain, nausea, vomiting, bloody stools or diarrhea. [] : Denies dysuria or hematuria Musculoskeletal: Denies new midline back pain, saddle anesthesia, urinary or bowel retention or incontinence Integument: Denies rash or diaphoresis Neurologic: Denies neck stiffness, focal weakness or sensory changes. [] Endocrine: Denies polyuria or polydipsia. [] Lymphatic: Denies swollen glands. [] Psychiatric: Denies depression or anxiety. [] Heart Score: Risk Factors: Risk Factors: DM, Current or recent (<one month) smoker, HTN, HLP, family history of CAD, obesity. Risk Scores: Score 0 - 3: 2.5% MACE over next 6 weeks - Discharge Home Score 4 - 6: 20.3% MACE over next 6 weeks - Admit for Clinical Observation Score 7 - 10: 72.7% MACE over next 6 weeks - Early Invasive Strategies Current Medications: Current Medications Medications (Trade) Dose Ordered Sig/Ramone Start Time Stop Time Status Last Admin Dose Admin Sodium Chloride 1,000 ml @ 1,000 mls/hr Q1H 04/06/20 20:45 04/06/20 21:44 Allergies: Allergies: Allergies Coded Allergies Type Severity Reaction Last Updated Verified Sulfa (Sulfonamide Antibiotics) Allergy Intermediate Itching 11/27/18 Yes bacitracin Allergy Intermediate Hives 11/27/18 Yes codeine Allergy Intermediate Itching 11/27/18 Yes hydrocodone bitartrate Allergy Intermediate Itching 11/27/18 Yes morphine Allergy Intermediate Itching 11/27/18 Yes neomycin Allergy Intermediate Hives 11/27/18 Yes polymyxin B Allergy Intermediate Hives 11/27/18 Yes phenylephrine Adverse Reaction Intermediate NEOSYNEPHRINE 11/27/18 Yes phenytoin sodium Adverse Reaction Intermediate TREMORS 11/27/18 Yes phenytoin sodium extended Adverse Reaction Intermediate TREMORS 11/27/18 Yes Iodinated Contrast Media Adverse Reaction Unknown Nausea 04/06/20 Yes Physical Exam: PE: Constitutional: Well developed, well nourished, no acute distress, non-toxic appearance, obese HENT: Normocephalic, atraumatic, Eyes: PERRLA, EOMI, conjunctiva normal, no discharge. Neck: Normal range of motion, supple, Cardiovascular: S1/2 present, regular rhythm Lungs & Thorax: Speaking in full sentences, bilateral equal chest rise, no tachypnea or increased work of breathing Abdomen: soft, no tenderness, Skin: Warm, dry, no erythema, no rash, cap refill < 1 sec Back: mild L5/S1 tenderness, no CVA tenderness. [] Extremities: ttp over dorsal left 3rd/4th metatarsal, no cyanosis, no edema, no plantar ecchymosis Neurologic: Alert and oriented X 3, normal motor function, normal sensory function, no focal deficits noted. [] Psychologic: Affect normal, judgement normal, mood normal. [] EKG: EKG: Sinus rhythm 61 bpm, left axis deviation, normal intervals, partial T wave inversion lead III, no ST elevations or ST depressions Radiology/Procedures: Radiology/Procedures: []IMAGING REPORT Signed PATIENT: SHELL MAGAÑA ACCOUNT: [id number] : 1955 LOCATION: ER AGE: 65 SEX: F EXAM STATUS: REG ER ORD. PHYSICIAN: CARMELA MOTA DO REASON: foto pain, fx? PROCEDURE: FOOT LEFT 3V Three-view left ankle and three-view left foot dated 04/06/2020. No comparison available. Clinical data indication: Pain. FINDINGS: 3 views left ankle show normal bony alignment. No no displaced fracture. No no acute osseous or articular abnormality. There is mild soft tissue swelling. Talar dome is intact. 3 views of the left foot show normal bony alignment. There is a fracture through the fourth metatarsal neck that is mildly displaced. There is some periosteal thickening suggesting this may be subacute. No additional fractures are seen. Mild soft tissue swelling. Mild degenerative change of the interphalangeal joints throughout. IMPRESSION: 1. Transverse fracture through the fourth metatarsal neck, possibly subacute. 2. No additional fractures are seen. There is diffuse nonspecific soft tissue swelling. Electronically signed by: Ming Jarvis MD (04/06/2020 8:56 PM) [id number] DICTATED and SIGNED BY: MING JARVIS MD DATE: 04/06/[id number] 0 IMAGING REPORT Signed PATIENT: SHELL MAGAÑA ACCOUNT: [id number] : 1955 LOCATION: ER AGE: 65 SEX: F EXAM STATUS: REG ER ORD. PHYSICIAN: CARMELA MOTA DO REASON: fall, HIT HEAD PROCEDURE: CT HEAD AND CERVICAL SPINE WO CT HEAD AND C-SPINE WO dated 04/06/2020 7:53 PM. Comparison: None. Clinical Indication: Reason: fall, HIT HEAD / Spl. Instructions: / History: HEAD AND NECK PAIN Technical factors: Contiguous 5 mm axial images of the head were obtained from the skullbase to the vertex. No contrast was administered. In addition, 3 mm axial images of the cervical spine were acquired with thin cut coronal and sagittal reconstructions. One or more of the following individualized dose reduction techniques were utilized for this examination: 1. Automated exposure control 2. Adjustment of the mA and/or kV according to patient size 3. Use of iterative reconstruction technique Findings head: Ventricles and sulci are mildly prominent for age. No midline shift or mass effect. Minimal patchy low density in the deep/subcortical periventricular white matter, nonspecific. No hemorrhage or extra-axial collection. Posterior fossa and brainstem unremarkable. Visualized paranasal sinuses and mastoid air cells are clear. No apparent calvarial abnormality. IMPRESSION HEAD: 1. No evidence of acute intracranial hemorrhage or mass. 2. Mild chronic small vessel ischemic changes and atrophy. Findings cervical spine: Images were acquired from the skull base to T3. Slight anterolisthesis of C4 on C5. Sagittal alignment is otherwise anatomic. Vertebral body heights are maintained. No prevertebral soft tissue swelling. Posterior elements are intact. No evidence of fracture. Mild to moderate endplate hypertrophic changes throughout. Multilevel uncovertebral spurring and facet arthropathy. Bony canal is adequate. There is mild bilateral foraminal stenosis at C4-C5. No apparent focal disc herniation. Visualized soft tissue structures are unremarkable. There is a large heterogeneous nodule of the right lobe thyroid gland that measures up to 3 cm in size. There is also a nodule of the left thyroid gland that measures up to 1.9 cm. Mild emphysema at the lung apices. IMPRESSION CERVICAL SPINE: 1. No evidence of fracture or malalignment. 2. Mild multilevel spondylosis. 3. Indeterminate nodules at the bilateral thyroid gland. Suggest thyroid ultrasound for better evaluation. Electronically signed by: Ming Jarvis MD (04/06/2020 8:14 PM) [id number] DICTATED and SIGNED BY: MING JARVIS MD DATE: 04/06/[id number] 0 IMAGING REPORT Signed PATIENT: SHELL MAGAÑA ACCOUNT: [id number] : 1955 LOCATION: ER AGE: 65 SEX: F EXAM STATUS: REG ER ORD. PHYSICIAN: CARMELA MOTA DO REASON: l5/s1 pain PROCEDURE: LUMBAR SPINE 2-3V Exam: Lumbar spine 2 views. Pelvis one view INDICATION: Pain TECHNIQUE: Frontal and lateral views lumbar spine. Frontal view of the pelvis Comparisons: None FINDINGS: Lumbar spine: Vertebral body heights and alignment are well-maintained. Degenerative disc disease greatest at L5-S1 with mild bilateral facet arthropathy at the same level. Visualized paraspinal soft tissues are unremarkable. Pelvis: Bone mineralization is normal. No acute or healed fractures. Large amount stool noted throughout the colon. Joint spaces are well-maintained. IMPRESSION: 1. Mild degenerative changes lumbar spine as described above. 2. No acute traumatic injury identified in the pelvis. 3. Large amount stool throughout the colon, correlate for constipation. Electronically signed by: Talya Ogden MD (04/06/2020 11:06 PM) [facility] DICTATED and SIGNED BY: TALYA OGDEN MD DATE: 04/06/20 [id number] 0 Pt and at bedside, informed of findings. History of short leg splint applied by RN. The splint is checked by self, with appropriate stabilization of the injury. Distal capillary refill normal and distal neurologic function intact Course & Med Decision Making: Course & Med Decision Making Pertinent Labs and Imaging studies reviewed. (See chart for details) Concern for 4th metatarsal neck fx, unclear mechanism of injury and tolerates LLE weight bearing-xray report says possible subacute fx. patient was provided a splint and offered crutches. Will discharge home with strict ED return precautions were given for neuro deficits, saddle anesthesia, urinary retention/incontinence. Encouraged urgent outpatient follow-up with PMD and ortho prn. Life-threatening processes were considered but are low suspicion at this time, given history, physical exam and ED workup. Pt was educated on all prescription medications and adverse effects. All patient's questions were answered and pt was stable at time of discharge. Life/limb-threatening differential includes but is not limited to, intracranial hemorrhage, diffuse axonal injury, spinal cord syndrome, unstable cervical fracture or SCIWORA, fractures or joint dislocations, neurovascular injuries, organ injury or laceration, pneumothorax, pneumoperitoneum, pericardial tamponade, unstable pelvic fracture, compartment syndrome, fracture, disloca tion, laceration, compartment syndrome, tendon or ligament injury), neurovascular injury or deficit. I spoken with the patient and her caregivers. I explained the patient's condition, diagnoses and treatment plan based on the information available to me at this time. I have answered the patient and her caregiver's questions and addressed any concerns. The patient and her caregivers have a good understanding of patient's diagnosis, condition and treatment plan as can be expected at this point. Vital signs have been stable. Patient's condition is stable and appropriate for discharge from the emergency department. Patient will pursue further outpatient evaluation with primary care physician or other designated or consulting physician as outlined in the discharge instructions. The patient and/or caregivers are agreeable to this plan of care and follow-up instructions have been explained in detail. The patient and/or caregivers have received these instructions in written form and have expressed an understanding of the discharge instructions. The patient and/or caregivers are aware that any significant change of condition or worsening of symptoms should prompt immediate return to this or the closest emergency department or call to 911Vinnie Johnson Disclaimer: Elizabeth Disclaimer: This electronic medical record was generated, in whole or in part, using a voice recognition dictation system. Departure Departure Impression: Primary Impression: Closed fracture of neck of metatarsal bone of right foot Additional Impression: Low back pain Disposition: 01 DC HOME SELF CARE/HOMELESS Condition: STABLE Referrals: Joan JACOB MD (PCP) within 7 days for re-evaluation Patient Instructions: Constipation, Adult, Metatarsal Fracture with Rehab- SportsMed, Splint Care, [id number] Additional Instructions: FOLLOW UP WITH ORTHOPEDICS: Orthopaedic Sports Medicine Orthopaedic Surgery [facility] Address: [address] [place] [id number] EMERGENCY DEPARTMENT GENERAL DISCHARGE INSTRUCTIONS Thank you for coming to [facility] Emergency Department (ED) today and trusting us with you care. We trust that you had a positive experience in our Emergency Department. If you wish to speak to the department management, you may call the Director at [phone]. YOUR FOLLOW UP INSTRUCTIONS ARE FOLLOWS: 1. Do you have a private Doctor? If you do not have a private doctor, please ask for a resource list of physicians or clinics that may be able to assist you with follow up care. 2. The Emergency Physicain has interpreted your x-rays. The X-Ray specialist will also review them. If there is a change in the findings, you will be notified in 48 hours when at all possible. 3. A lab test or culture has been done, your results will be reviewed and you will be notified if you need a change in treatment. ADDITIONAL INSTRUCTIONS AND INFORMATION: 1. Your care today has been supervised by a physician who is specially trained in emergency care. Many problems require more than one evaluation for a complete diagnosis and treatment. We recommend that you schedule your follow up appointment as recomme nded to ensure complete treatment of you illness or injury. If you are unable to obtain follow up care and continue to have a problem, or if your condition worsens, we recommend that you return to the ED. 2. We are not able to safely determine your condition over the phone nor are we able to give sound medical advice over the phone. For these safety reasons, if you call for medical advice we will ask you to come to the ED for further evaluation. 3. If you have any questions regarding these discharge instructions please call the ED at [phone]. SAFETY INFORMATION: In the interest of safety, wellness, and injury prevention; we encourage you to wear your sealbelt, if you smoke; quite smoking, and we encourage family to use a protective helmet for bicycling and other sporting events that present an increased risk for head injury. IF YOUR SYMPTOMS WORSEN OR NEW SYMPTOMS DEVELOP, OR YOU HAVE CONCERNS ABOUT YOUR CONDITION; OR IF YOUR CONDITION WORSENS WHILE YOU ARE WAITING FOR YOUR FOLLOW UP APPOINTMENT; EITHER CONTACT YOUR PRIMARY CARE DOCTOR, THE PHYSICIAN WHOSE NAME AND NUMBER YOU WERE GIVEN, OR RETURN TO THE ED IMMEDIATELY. Scripts Hydrocodone Bit/Acetaminophen (HYDROCODONE-APAP 5-325 ) 1 Tab Tablet 1 TAB PO PRN Q6HRS PRN for PAIN for 3 Days, #12 TAB 0 Refills Prov: CARMELA MOTA DO 04/06/20 Docusate Sodium (COLACE) 100 Mg Capsule 1 CAP PO BID for 7 Days, #14 CAP 0 Refills Prov: CARMELA MOTA DO 04/06/20 CARMELA MOTA DO Apr 06, 2020 21:15
[2020-04-06 21:16] LABS: BASO # 0.1 x10^3/uL (0.0-0.2); BASO % 1 % (0-3); EOS % 0 % (0-3); HEMATOCRIT 31.1 % (36.0-47.0); HEMOGLOBIN 10.5 g/dL (12.0-15.5); LYMPH # 1.4 x10^3/uL (1.0-4.8); LYMPH % 24 % (24-48); MEAN CORPUSCULAR HEMOGLOBIN 31 pg (25-35); MEAN CORPUSCULAR HGB CONC 34 g/dL (31-37); MEAN CORPUSCULAR VOLUME 91 fL (79-100); MONO # 0.7 x10^3/uL (0.0-1.1); MONO % 11 % (0-9); NEUT % 65 % (31-73); PLATELET COUNT 189 x10^3/uL (140-400); RED BLOOD COUNT 3.41 x10^6/uL (3.50-5.40); RED CELL DISTRIBUTION WIDTH 14.9 % (11.5-14.5); WHITE BLOOD COUNT 6.2 x10^3/uL (4.0-11.0)
[2020-04-06 21:27] LABS: CALCIUM 9.4 mg/dL (8.5-10.1); CREATININE 1.7 mg/dL (0.6-1.0); GFR 30.1; POTASSIUM 4.2 mmol/L (3.5-5.1)
[2020-04-06 21:30] LABS: ACETAMIN < 2 mcg/ml (10-30); SALIC < 2.8 mg/dL (2.8-20.0)
[2020-04-06 21:32] LABS: ALBUMIN 3.4 g/dL (3.4-5.0); DIRECT BILIRUBIN 0.1 mg/dL (0.0-0.2); MAGNESIUM 2.2 mg/dL (1.8-2.4); TOTAL BILIRUBIN 0.3 mg/dL (0.2-1.0); TOTAL PROTEIN 6.7 g/dL (6.4-8.2)
--- NOTE | 2020-04-06 21:44 | RAD ---
Single view chest dated 04/06/2020. No comparison available. CLINICAL INDICATION: Back pain. FINDINGS: Single upright portable exam performed. Heart and mediastinal contours within normal limits. There is a dual lead right subclavian pacer in place. Lungs are clear. No consolidation or pleural effusion. No pneumothorax. IMPRESSION: No acute radiographic abnormality. Electronically signed by: Ming Jarvis MD (04/06/2020 9:42 PM) [id number]
[2020-04-06 22:39] VITALS: BP 170/73
--- NOTE | 2020-04-06 23:08 | RAD ---
Exam: Lumbar spine 2 views. Pelvis one view INDICATION: Pain TECHNIQUE: Frontal and lateral views lumbar spine. Frontal view of the pelvis Comparisons: None FINDINGS: Lumbar spine: Vertebral body heights and alignment are well-maintained. Degenerative disc disease greatest at L5-S1 with mild bilateral facet arthropathy at the same level. Visualized paraspinal soft tissues are unremarkable. Pelvis: Bone mineralization is normal. No acute or healed fractures. Large amount stool noted throughout the colon. Joint spaces are well-maintained. IMPRESSION: 1. Mild degenerative changes lumbar spine as described above. 2. No acute traumatic injury identified in the pelvis. 3. Large amount stool throughout the colon, correlate for constipation. Electronically signed by: Talya Babin MD (04/06/2020 11:06 PM) RAMIREZ
[2020-04-06] MEDS ORDERED: HYDROcodone/APAP 5/325MG 1 TAB TABLET PO ONE (23:45)
[2020-04-06] MEDS ORDERED: HYDR-2761 PO ×2 (23:51→23:52)
[2020-04-06] MEDS ORDERED: DOCU-109 PO (23:51)
--- NOTE | 2020-04-10 16:33 | EKG ---
[facility] [address] [place] [address] Test Date: 2020-04-06 Test Time: 21:24:28 Pat Name: SHELL MAGAÑA Department: Room: Gender: F [employer]board Operator: : 1955 Requested By: CARMELA MOTA Order Number: [id number] Reading MD: Measurements Intervals [place] Rate: 61 P: -51 MD: 94 QRS: -20 QRSD: 92 T: 23 QT: 424 QTc: 428 Interpretive Statements SINUS RHYTHM LEFTWARD AXIS NO SPECIFIC ECG ABNORMALITIES RI6.01 No previous ECG available for comparison
== END 2020-04-07 00:12 | disposition home or self-care (01) ==
LOC: ER 19:27
DX: S62.335A Displaced fracture of neck of fourth metacarpal bone, left hand, initial encounter for closed fracture (principal); M54.5 Low back pain; R51.9 Headache, unspecified; M25.572 Pain in left ankle and joints of left foot; I48.20 Chronic atrial fibrillation, unspecified; K21.9 Gastro-esophageal reflux disease without esophagitis; E10.40 Type 1 diabetes mellitus with diabetic neuropathy, unspecified; E78.00 Pure hypercholesterolemia, unspecified; I11.9 Hypertensive heart disease without heart failure; Z86.14 Personal history of Methicillin resistant Staphylococcus aureus infection; Z90.710 Acquired absence of both cervix and uterus; Z90.49 Acquired absence of other specified parts of digestive tract; Z95.0 Presence of cardiac pacemaker; Z90.89 Acquired absence of other organs; Z98.890 Other specified postprocedural states; Z88.2 Allergy status to sulfonamides; Z88.5 Allergy status to narcotic agent; Z88.1 Allergy status to other antibiotic agents; Z88.6 Allergy status to analgesic agent; Z91.040 Latex allergy status; W06.XXXA Fall from bed, initial encounter; Y93.89 Activity, other specified; Y92.89 Other specified places as the place of occurrence of the external cause; Y99.8 Other external cause status
CPT/HCPCS: 29515; 36415; 70450; 71045; 72100; 72125; 72170; 73610; 73630; 80048; 80076; 80329; 82010; 83690; 83735; 83880; 84484; 85025; 96361; 96374; 96376; 99285; J1170; J7030; 93005; G0480

== ENCOUNTER 2020-08-03 07:28 | Emergency (ER) | payer BC, MEDICARE ==
[~2020-08-03] VITALS: Ht 172.7 cm; Wt 81.3 kg
[~2020-08-03 07:28] MED LIST changes: +HYDR-2761 PO
[2020-08-03] MEDS ORDERED: fentaNYL PF VIAL 100 MCG/2 ML VIAL IVP ONE ×2 (07:45→08:30)
[2020-08-03] MEDS ORDERED: ONDANSETRON PF 4 MG/2 ML VIAL. ONE (08:00)
[2020-08-03] MEDS ORDERED: ONDANSETRON PF 4 MG/2 ML VIAL. IVP ONE (08:15)
--- NOTE | 2020-08-03 08:40 | RAD ---
EXAM: Left forearm, 2 views; left wrist, 3 views. HISTORY: Fall. Pain. COMPARISON: None. FINDINGS: 2 views of the left forearm and 3 views of the left wrist are obtained. There is a comminut ed displaced distal radial metaphyseal fracture with surrounding soft tissue swelling. There is also a displaced fracture involving the ulnar styloid. IMPRESSION: 1. Comminuted displaced and angulated intra-articular fracture of the distal radial metaphysis. 2. Displaced fracture of the ulnar styloid. Electronically signed by: June Nelson MD (08/03/2020 8:37 AM) [id number]
--- NOTE | 2020-08-03 09:02 | ED.ADGEN ---
Past Medical History Past Medical History: A-Fib, Anemia, Arrhythmia, Diabetes-Type I, GERD, High Cholesterol, Heart Disease, Hypertension, MRSA, Pancreatitis, Renal Disease Additional Past Medical Histor: Tachy-Jamir Syndrome, Gastroparesis, DDD, Neuropathy, Tremors, CKD Past Surgical History: Cholecystectomy, Hysterectomy, Pacemaker Additional Past Surgical Histo: Thyroidectomy; Peripheral neuropathy Smoking Status: Never Smoker Alcohol Use: None Drug Use: None General Adult EDM: Chief Complaint: UPPER EXTREMITY INJURY HPI: HPI: Patient is a 65-year-old female who presents to the emergency room complaining of severe left arm pain after a fall downstairs. Patient states that the stairs were slick from the rain and she slid. She states her lower back has slowly begun to hurt since she has arrived. She states that the pain in her wrist is sharp and throbbing in nature. She states that the pain medicine she was given does not help. She states the lower back pain is in ache that is slowly gotten worse. She denies any head pain. She is unsure if she lost consciousness or hit her head. She is on Eliquis for "heart issues" and has been taking it as prescribed. She denies any, neck pain. She states that she has been having a problem with her left hand for quite some time where she is unable to open it. She does not know if she has normal sensation in that hand normally. She is unsure if her hand feels any different than it did before the fall. Review of Systems: Review of Systems: Complete ROS is negative unless otherwise documented in HPI Current Medications: Current Medications Medications (Trade) Dose Ordered Sig/[facility] Start Time Stop Time Status Last Admin Dose Admin Fentanyl Citrate (Fentanyl 2ml Vial) 50 mcg 1X ONCE 08/03/20 08:30 08/03/20 08:42 DC 08/03/20 08:48 50 MCG Ondansetron HCl (Zofran) 4 mg 1X ONCE 08/03/20 08:15 08/03/20 08:16 DC 08/03/20 08:10 4 MG Oxycodone/ Acetaminophen (Percocet 5/325) 2 tab 1X ONCE 08/03/20 11:15 08/03/20 11:16 DC 08/03/20 11:40 2 TAB Propofol (Diprivan) 200 mg 1X ONCE 08/03/20 10:45 08/03/20 10:46 DC 08/03/20 10:48 200 MG Allergies: Allergies: Allergies Coded Allergies Type Severity Reaction Last Updated Verified Sulfa (Sulfonamide Antibiotics) Allergy Intermediate Itching 11/27/18 Yes bacitracin Allergy Intermediate Hives 11/27/18 Yes codeine Allergy Intermediate Itching 11/27/18 Yes hydrocodone bitartrate Allergy Intermediate Itching 11/27/18 Yes morphine Allergy Intermediate Itching 11/27/18 Yes neomycin Allergy Intermediate Hives 11/27/18 Yes polymyxin B Allergy Intermediate Hives 11/27/18 Yes phenylephrine Adverse Reaction Intermediate NEOSYNEPHRINE 11/27/18 Yes phenytoin sodium Adverse Reaction Intermediate TREMORS 11/27/18 Yes phenytoin sodium extended Adverse Reaction Intermediate TREMORS 11/27/18 Yes Iodinated Contrast Media Adverse Reaction Unknown Nausea 04/06/20 Yes Physical Exam: PE: General: Awake, alert, NAD. Well Nourished, well hydrated. Cooperative HEENT: Atraumatic, EOMI, PERRL, airway patent, moist oral mucosa Neck: Supple, trachea midline Respiratory: CTA bilaterally, normal effort, no wheezing/crackles CV: RRR, no murmur, cap refill <2 GI: Soft, nondistended, nontender, no masses MSK: Left upper extremity: Tenderness along the proximal forearm, swelling with deformity and tenderness to the left wrist, 2+ radial pulse, patient unable to move her wrist or straighten out hand, decreased sensation in the ulnar distribution Skin: Warm, dry, intact Neuro: A&O x3, speech NL, sensory and motor grossly intact, no focal deficits Psych: Normal affect, normal mood, not suicidal or homicidal Current Patient Data: Vital Signs: Vital Signs Date Time Temp Pulse Resp B/P (MAP) Pulse Ox O2 Delivery O2 Flow Rate FiO2 08/03/20 09:52 61 167/71 (103) 100 Nasal Cannula 2.0 08/03/20 09:41 97.6 18 16 EKG: EKG: [] Heart Score: C/O Chest Pain: N/A Risk Factors: Risk Factors: DM, Current or recent (<one month) smoker, HTN, HLP, family history of CAD, obesity. Risk Scores: Score 0 - 3: 2.5% MACE over next 6 weeks - Discharge Home Score 4 - 6: 20.3% MACE over next 6 weeks - Admit for Clinical Observation Score 7 - 10: 72.7% MACE over next 6 weeks - Early Invasive Strategies Radiology/Procedures: Radiology/Procedures: [] Course & Med Decision Making: Course & Med Decision Making Pertinent Labs and Imaging studies reviewed. (See chart for details) Patient 65-year-old female who presents to the emergency room after falling down stairs. X-rays of the wrist and forearm show a distal radial fracture and proximal ulnar fracture. It is unclear at this time whether patient is neurologically stable from her prior exam as she does have some chronic deficits and is unable to fully tell us whether this is or is not normal for her. Radial pulses are intact. CT of the lumbar spine and head will be ordered due to lower lumbar tenderness and a closed head injury on Eliquis. CT is negative. Patient was moderately sedated for a radial fracture reduction. Realignment is significantly improved though she does still have some angulation. Patient will follow up with orthopedic surgery. I did discuss case with orthopedic surgery while patient was here who recommends that given her history of issues with her hand he recommends she follow-up with a hand specialist. states that she is following with the hand specialist for this problem. They would like to follow-up with Dr. Ricci the orthopedic surgeon. I discussed with them that they should call him today. Patient's test results and vitals while in the ED were fully reviewed and discussed with the patient. Patient is stable and at this time does not need admission to the hospital. We have discussed strict return precautions and the importance of following up with their Primary Care Physician. Patient stated understanding and was given an opportunity to ask any questions. Patient is in agreement with plan. Elizabeth Disclaimer: Elizabeth Disclaimer: This electronic medical record was generated, in whole or in part, using a voice recognition dictation system. PROCEDURE Procedure Fracture Reduction Performed by: Nancy Gray MD Consent: Verbal consent obtained. Risks, benefits, and alternatives were discussed Time out was called immediately prior to start of procedure Sedation: Propofol Sedation time: 10 minutes Patient tolerated sedation without difficulty Pre-procedure: Vascularly intact, chronic neurologic deficits in the left hand Location: Left wrist Technique: Traction Results: Some improvement Complication: None Tolerated procedure well, capillary refill normal, radial pulse 2+ Post procedure: Unchanged Departure Departure Impression: Primary Impression: Fall Additional Impressions: Closed head injury Hx of [facility] use of blood thinners Distal radius fracture, left Fracture of ulnar styloid Lower back pain Disposition: 01 HOME / SELF CARE / HOMELESS Condition: STABLE Referrals: Joan JACOB MD (PCP) Patient Instructions: Radial Fracture, Splint Care, [id number] Additional Instructions: Please call Dr Ricci today for follow up. Scripts Oxycodone/Apap 5-325 (PERCOCET 5-325 MG TABLET ) 1 Each Tablet 1 TAB PO PRN Q6HRS PRN for PAIN, #12 TAB 0 Refills Prov: NANCY GRAY MD 08/03/20 Problem Qualifiers NANCY GRAY MD August 03, 2020 09:02
--- NOTE | 2020-08-03 09:36 | RAD ---
EXAMINATION: CT head and lumbar spine without IV contrast INDICATION: Reason: fall, CHI, low back pain history of blood thinners COMPARISON: None TECHNIQUE: Spiral acquisition of contiguous images from the skull base to the vertex were obtained. C T of the lumbar spine was obtained without IV contrast. Sagittal and coronal 2D reformatted series we re provided by the technologist. Soft tissue and bone window algorithms were reviewed. Exposure: One or more of the following individualized dose reduction techniques were utilized for thi s examination: 1. Automated exposure control 2. Adjustment of the mA and/or kV according to patient size 3. Use of iterative reconstruction technique. FINDINGS: CT HEAD: The ventricles are normal in size. Neither mass, midline shift, intracranial hemorrhage, acute/subacu te ischemic changes, nor extraaxial fluid collections are seen. The brain parenchyma is normal in patricia earance. The paranasal sinuses, mastoid air cells, and middle ears are clear. The orbital contents ap pear within normal limits. CT LUMBAR SPINE: Anatomic alignment of the lumbar spine is maintained. Neither fracture, subluxation, nor traumatic sp ondylolisthesis is seen. The vertebral body heights are preserved. Moderate to severe degenerative ch anges at L5-S1 with disc space and osteophytes. Severe bilateral facet arthropathy at L5-S1. No signi ficant canal stenosis or neuroforaminal narrowing. Diffuse osteopenia. There is no evidence of a larg e intraspinal hematoma. The prevertebral and paravertebral soft tissues are within normal limits. IMPRESSION: CT HEAD: No evidence of acute intracranial abnormality. CT LUMBAR SPINE: 1. No evidence of fracture or traumatic spondylolisthesis. 2. Moderate to severe degenerative changes at L5-S1. Electronically signed by: Dillon Dubois MD (08/03/2020 9:34 AM) [id number]
[2020-08-03 09:41] VITALS: BP 171/73
[2020-08-03] MEDS ORDERED: PROPOFOL 10 MG/ML (20ML) VIAL. IV ONE (10:45)
--- NOTE | 2020-08-03 11:08 | RAD ---
EXAM: Left forearm, 2 views. HISTORY: Closed reduction. COMPARISON: 08/03/2020 FINDINGS: 2 views of the lentiform are obtained. There has been slight decreased angulation of a disp laced comminuted intra-articular distal radial metaphyseal fracture. There is an unchanged displaced ulnar styloid fracture. There is soft tissue swelling. IMPRESSION: 1. Slight improved alignment of a displaced comminuted irregular fracture of the distal radial metaph ysis. 2. Displaced ulnar styloid fracture. Electronically signed by: June Nelson MD (08/03/2020 11:05 AM) [id number]
[2020-08-03] MEDS ORDERED: oxyCODONE/APAP 5/325 1 TAB TABLET PO ONE (11:15)
[2020-08-03] MEDS ORDERED: OXYC1TAB15 PO (11:48)
--- NOTE | 2020-08-03 11:48 | PHYS DOC ---
MODERATE SEDATION ASSESSMENT RISKS/ALTERNATIVES Risks/Alternatives Risks and alternatives of this type of sedation and procedure discussed with: RISK/ALTERNATIVES: Patient H & P ON CHART H & P H & P on chart and reviewed for co-morbid conditions and appropriate labs. H&P ON CHART: Yes STATUS PREG STATUS ASSESSED: Yes MEDS/ALLERGIES REVIEWED Meds/Allergies Reviewed Medications and Allergies including time and route of recently administered narcotics and sedatives. MEDS/ALLERGIES REVIEWED: Yes ASA RATING ASA RATING: II AIRWAY ASSESSMENT Airway Assessment Airway patency, oral function limitations, presence of caps, crowns, dentures, partials, and ability to extend neck assessed. AIRWAY ASSESSMENT: Yes MALLAMPATI SCORE MALLAMPATI SCORE: II PRE-SEDATION ASSESSMENT PRE-SEDATION ASSESSMENT: Yes NANCY BOURNE MD August 03, 2020 11:48
[2020-08-03 11:52] VITALS: BP 152/74
== END 2020-08-03 12:17 | disposition home or self-care (01) ==
LOC: ER 07:28
DX: S52.502A Unspecified fracture of the lower end of left radius, initial encounter for closed fracture (principal); S52.612A Displaced fracture of left ulna styloid process, initial encounter for closed fracture; M54.5 Low back pain; I48.91 Unspecified atrial fibrillation; K21.9 Gastro-esophageal reflux disease without esophagitis; E78.00 Pure hypercholesterolemia, unspecified; I12.9 Hypertensive chronic kidney disease with stage 1 through stage 4 chronic kidney disease, or unspecified chronic kidney disease; E10.22 Type 1 diabetes mellitus with diabetic chronic kidney disease; N18.9 Chronic kidney disease, unspecified; E10.40 Type 1 diabetes mellitus with diabetic neuropathy, unspecified; Z86.2 Personal history of diseases of the blood and blood-forming organs and certain disorders involving the immune mechanism; Z86.14 Personal history of Methicillin resistant Staphylococcus aureus infection; Z95.0 Presence of cardiac pacemaker; Z79.01 Long term (current) use of anticoagulants; Z88.2 Allergy status to sulfonamides; Z88.1 Allergy status to other antibiotic agents; Z88.5 Allergy status to narcotic agent; Z91.041 Radiographic dye allergy status; Z88.8 Allergy status to other drugs, medicaments and biological substances; W10.8XXA Fall (on) (from) other stairs and steps, initial encounter; Y93.89 Activity, other specified; Y92.89 Other specified places as the place of occurrence of the external cause; Y99.8 Other external cause status
CPT/HCPCS: 25605; 70450; 72131; 73090; 73120; 96374; 99152; 99285; J2405; J2704; J3010

== ENCOUNTER 2020-12-27 11:24 | Emergency (ER) | payer BC, MEDICARE ==
[~2020-12-27] VITALS: Ht 172.7 cm; Wt 113.0 kg
[~2020-12-27 11:24] MED LIST changes: +AMIO400T5 PO; +APIX5TAB PO; +CEFA500C PO; +FLUO40CA2 PO; +GABA300C18 PO; +INSU100I32 SQ; +METO-239 PO; +METO5TAB PO; +OXYC1TAB15 PO
[2020-12-27] MEDS ORDERED: DEXTROSE 50% 25 GM / 50ML DISP.SYRIN. IV ONE (11:56)
[2020-12-27 12:03] LABS: BASO % 1 % (0-3); EOS % 0 % (0-3); HEMATOCRIT 34.2 % (36.0-47.0); HEMOGLOBIN 11.4 g/dL (12.0-15.5); LYMPH # 1.9 x10^3/uL (1.0-4.8); LYMPH % 51 % (24-48); MEAN CORPUSCULAR HEMOGLOBIN 30 pg (25-35); MEAN CORPUSCULAR HGB CONC 33 g/dL (31-37); MEAN CORPUSCULAR VOLUME 90 fL (79-100); MONO # 0.4 x10^3/uL (0.0-1.1); MONO % 10 % (0-9); NEUT # 1.4 x10^3/uL (1.8-7.7); NEUT % 38 % (31-73); PLATELET COUNT 195 x10^3/uL (140-400); RED BLOOD COUNT 3.81 x10^6/uL (3.50-5.40); RED CELL DISTRIBUTION WIDTH 14.2 % (11.5-14.5); WHITE BLOOD COUNT 3.8 x10^3/uL (4.0-11.0)
[2020-12-27 12:23] LABS: CALCIUM 9.2 mg/dL (8.5-10.1); CREATININE 1.4 mg/dL (0.6-1.0); GFR 37.6; POTASSIUM 3.4 mmol/L (3.5-5.1)
[2020-12-27 12:30] LABS: ALBUMIN 3.8 g/dL (3.4-5.0); ALBUMIN/GLOBULIN RATIO 1.1 (1.0-1.7); MAGNESIUM 1.9 mg/dL (1.8-2.4); TOTAL BILIRUBIN 0.3 mg/dL (0.2-1.0); TOTAL PROTEIN 7.4 g/dL (6.4-8.2)
[2020-12-27 12:50] VITALS: BP 154/72
--- NOTE | 2020-12-27 13:04 | EKG ---
[facility] [address] [place] [address] Test Date: 2020-12-27 Test Time: 11:44:20 Pat Name: SHELL MAGAÑA Department: Room: Gender: F [employer]: : [id number] Requested By: CRISTINA BARKLEY Order Number: [id number] Reading MD: Talha Isabel Measurements Intervals [place] Rate: 60 P: MT: QRS: -21 QRSD: 96 T: 13 QT: 448 QTc: 448 Interpretive Statements ATRIAL PACED Electronically Signed On 12-28-2020 16:06:26 CDT by Talha Isabel
[2020-12-27] MEDS ORDERED: CLIN75GE4 TP (14:05)
--- NOTE | 2020-12-27 14:09 | PHYS DOC ---
Past Medical History Past Medical History: A-Fib, Anemia, Arrhythmia, Diabetes-Type I, GERD, High Cholesterol, Heart Disease, Hypertension, MRSA, Pancreatitis, Renal Disease Additional Past Medical Histor: Tachy-Jamir Syndrome, Gastroparesis, DDD, Neuropathy, Tremors, CKD Past Surgical History: Other Additional Past Surgical Histo: Thyroidectomy; Peripheral neuropathy Smoking Status: Never Smoker Alcohol Use: None Drug Use: None General Adult EDM: Chief Complaint: HYPOGLYCEMIA HPI: HPI: Patient is a 65 year old female with history of diabetes type 1, hypertension, kidney disease, A. fib, pacemaker, hyperlipidemia, among other illnesses who presents to the ED today from home by EMS, patient states the daughter found her confused at home. EMS was called, blood sugar on the scene was 47, she was given glucagon IM, blood glucose came back to 68. She is more alert and oriented. She states she only had a piece of toast this morning. Denies any other symptoms. Review of Systems: Review of Systems: Constitutional: Denies fever or chills. [] Eyes: Denies change in visual acuity. [] HENT: Denies nasal congestion or sore throat. [] Respiratory: Denies cough or shortness of breath. [] Cardiovascular: Denies chest pain or edema. [] GI: Denies abdominal pain, nausea, vomiting, bloody stools or diarrhea. [] : Denies dysuria. [] Musculoskeletal: Denies back pain or joint pain. [] Integument: Denies rash. [] Neurologic: Reports altered mental status. Denies headache, focal weakness or sensory changes. [] Psychiatric: Denies depression or anxiety. [] Heart Score: C/O Chest Pain: N/A Risk Factors: Risk Factors: DM, Current or recent (<one month) smoker, HTN, HLP, family history of CAD, obesity. Risk Scores: Score 0 - 3: 2.5% MACE over next 6 weeks - Discharge Home Score 4 - 6: 20.3% MACE over next 6 weeks - Admit for Clinical Observation Score 7 - 10: 72.7% MACE over next 6 weeks - Early Invasive Strategies Current Medications: Current Medications Medications (Trade) Dose Ordered Sig/[facility] Start Time Stop Time Status Last Admin Dose Admin Dextrose (Dextrose 50%-Water Syringe) 25 gm STK-MED ONCE 12/27/20 11:56 12/27/20 11:57 DC Allergies: Allergies: Allergies Coded Allergies Type Severity Reaction Last Updated Verified Sulfa (Sulfonamide Antibiotics) Allergy Intermediate Itching 12/27/20 Yes bacitracin Allergy Intermediate Hives 12/27/20 Yes codeine Allergy Intermediate Itching 12/27/20 Yes hydrocodone bitartrate Allergy Intermediate Itching 12/27/20 Yes morphine Allergy Intermediate Itching 12/27/20 Yes neomycin Allergy Intermediate Hives 12/27/20 Yes polymyxin B Allergy Intermediate Hives 11/27/18 Yes phenylephrine Adverse Reaction Intermediate NEOSYNEPHRINE 11/27/18 Yes phenytoin sodium Adverse Reaction Intermediate TREMORS 11/27/18 Yes phenytoin sodium extended Adverse Reaction Intermediate TREMORS 11/27/18 Yes Iodinated Contrast Media Adverse Reaction Mild Nausea 09/05/20 Yes Physical Exam: PE: Constitutional: Well developed, well nourished, no acute distress, non-toxic appearance. [] HENT: Normocephalic, atraumatic, bilateral external ears normal, oropharynx moist, no oral exudates, nose normal. [] Eyes: PERRLA, EOMI, conjunctiva normal, no discharge. [] Neck: Normal range of motion, no tenderness, supple, no stridor. [] Cardiovascular: Left upper chest pacemaker. Paced rhythm. Heart rate regular rhythm, Lungs & Thorax: Bilateral breath sounds clear to auscultation [] Abdomen: Bowel sounds normal, soft, no tenderness, no masses, no pulsatile masses. [] Skin: Umbilicus with redness consistent with cellulitis Back: No tenderness, no CVA tenderness. [] Extremities: No tenderness, no cyanosis, no clubbing, ROM intact, no edema. [] Neurologic: Alert and oriented X 3, normal motor function, normal sensory function, no focal deficits noted. Cranial nerves II through XII intact Psychologic: Affect normal, judgement normal, mood normal. [] Current Patient Data: Labs: Laboratory Tests Test 12/27/20 11:33 12/27/20 11:58 White Blood Count 3.8 x10^3/uL (4.0-11.0) L Red Blood Count 3.81 x10^6/uL (3.50-5.40) Hemoglobin 11.4 g/dL (12.0-15.5) L Hematocrit 34.2 % (36.0-47.0) L Mean Corpuscular Volume 90 fL (79-100) Mean Corpuscular Hemoglobin 30 pg (25-35) Mean Corpuscular Hemoglobin Concent 33 g/dL (31-37) Red Cell Distribution Width 14.2 % (11.5-14.5) Platelet Count 195 x10^3/uL (140-400) Neutrophils (%) (Auto) 38 % (31-73) Lymphocytes (%) (Auto) 51 % (24-48) H Monocytes (%) (Auto) 10 % (0-9) H Eosinophils (%) (Auto) 0 % (0-3) Basophils (%) (Auto) 1 % (0-3) Neutrophils # (Auto) 1.4 x10^3/uL (1.8-7.7) L Lymphocytes # (Auto) 1.9 x10^3/uL (1.0-4.8) Monocytes # (Auto) 0.4 x10^3/uL (0.0-1.1) Eosinophils # (Auto) 0.0 x10^3/uL (0.0-0.7) Basophils # (Auto) 0.0 x10^3/uL (0.0-0.2) Sodium Level 141 mmol/L (136-145) Potassium Level 3.4 mmol/L (3.5-5.1) L Chloride Level 106 mmol/L (98-107) Carbon Dioxide Level 25 mmol/L (21-32) Anion Gap 10 (6-14) Blood Urea Nitrogen 19 mg/dL (7-20) Creatinine 1.4 mg/dL (0.6-1.0) H Estimated GFR (Cockcroft-Gault) 37.6 BUN/Creatinine Ratio 14 (6-20) Glucose Level 70 mg/dL (70-99) Calcium Level 9.2 mg/dL (8.5-10.1) Magnesium Level 1.9 mg/dL (1.8-2.4) Total Bilirubin 0.3 mg/dL (0.2-1.0) Aspartate Amino Transferase (AST) 19 U/L (15-37) Alanine Aminotransferase (ALT) 25 U/L (14-59) Alkaline Phosphatase 88 U/L (46-116) Troponin I Quantitative < 0.017 ng/mL (0.000-0.055) GJ-Neg-W-Type Natriuretic Peptide 201 pg/mL (0-124) H Total Protein 7.4 g/dL (6.4-8.2) Albumin 3.8 g/dL (3.4-5.0) Albumin/Globulin Ratio 1.1 (1.0-1.7) Thyroid Stimulating Hormone (TSH) 2.163 uIU/mL (0.358-3.74) Glucose (Fingerstick) 79 mg/dL (70-99) Laboratory Tests 12/27/20 11:33 Laboratory Tests 12/27/20 11:33 Vital Signs: Vital Signs Date Time Temp Pulse Resp B/P (MAP) Pulse Ox O2 Delivery O2 Flow Rate FiO2 12/27/20 12:50 60 24 154/72 (99) 99 Room Air 12/27/20 11:32 98.2 98.2 EKG: EK interpreted by Dr. Oviedo sinus rhythm heart rate 60 no STEMI [] Radiology/Procedures: Radiology/Procedures: [] Course & Med Decision Making: Course & Med Decision Making Pertinent Labs and Imaging studies reviewed. (See chart for details) This is a 65-year-old female patient with history of diabetes type 1 who presents the ED today to be evaluated for confusion, patient was found by the daughter confused at home, glucose was 47. EMS gave her glucagon, glucose came up to 68. Vitals on arrival to the ED temperature 98.2, heart rate 80, blood pressure 145/88, O2 sats 98% on room air, respirations 16 EKG is negative, troponin is normal, CBC with a WBC of 3.8, patient is unvaccinated against Covid, this is not her baseline, recommended Covid test, states patient does not leave the house and hence can not get covid. Patient initially refusing the test. CMP with glucose of 70, offered patient a meal tray in the ED, she refused to eat stating she is a picky eater, offered her oranges, she refused it stating she does not want to drink orange juices, she requested apple juice which was given to her. She states she is a very picky eater. Encourage her to eat long- term protein when she gets home. She refused to give us urine. Patient also has cellulitis around her umbilicus-she was discharged with cli ndamycin ointment. She is allergic to Bactrim. She was instructed to follow-up with her own PCP in 1 week Elizabeth Disclaimer: Elizabeth Disclaimer: This electronic medical record was generated, in whole or in part, using a voice recognition dictation system. Departure Departure Impression: Primary Impression: Hypoglycemia Additional Impression: Cellulitis of umbilicus Disposition: HOME / SELF CARE / HOMELESS Condition: STABLE (Medicine and she drinks sharp pain in my chest) Referrals: Joan JACOB MD (PCP) follow up next week Patient Instructions: Cellulitis, [id number], Hypoglycemia (Low Blood Sugar) Additional Instructions: You were evaluated in the ED for low blood glucose. Please ensure you are eating a healthy diabetic diet including a long-term protein to maintain your blood sugar levels. You were also have skin infection around the umbilicus. Please use the prescribed ointment as ordered. Please follow-up with your doctor next week, come back to the ED at any point symptoms worsen Scripts Clindamycin Phosphate (Clindamycin Phosphate) 75 Ml Gel.daily 1 KACEY TP TID, #75 ML Prov: CRISTINA BARKLEY APRN 12/27/20 CRISTINA BARKLEY APRN Dec 27, 2020 14:09
== END 2020-12-27 14:35 | disposition home or self-care (01) ==
LOC: ER 11:24
DX: E10.649 Type 1 diabetes mellitus with hypoglycemia without coma (principal); L03.316 Cellulitis of umbilicus; E10.22 Type 1 diabetes mellitus with diabetic chronic kidney disease; I13.10 Hypertensive heart and chronic kidney disease without heart failure, with stage 1 through stage 4 chronic kidney disease, or unspecified chronic kidney disease; N18.9 Chronic kidney disease, unspecified; I48.91 Unspecified atrial fibrillation; K21.9 Gastro-esophageal reflux disease without esophagitis; E78.00 Pure hypercholesterolemia, unspecified; I11.9 Hypertensive heart disease without heart failure; E10.43 Type 1 diabetes mellitus with diabetic autonomic (poly)neuropathy; K31.84 Gastroparesis; Z95.0 Presence of cardiac pacemaker; Z88.1 Allergy status to other antibiotic agents; Z88.2 Allergy status to sulfonamides; Z88.5 Allergy status to narcotic agent; Z91.041 Radiographic dye allergy status; Z88.8 Allergy status to other drugs, medicaments and biological substances
CPT/HCPCS: 36415; 80053; 82962; 83735; 83880; 84443; 84484; 85025; 93005; 99284